=== PATIENT | female | born 2000 | race Caucasian/White ===

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

== ENCOUNTER 2019-02-03 22:42 | Emergency (ER) | payer BC, SELFPAY ==
[2019-02-03 22:42] VITALS: BP 147/94; PULSE 102; RESP 18; TEMP 37.3; O2SAT 98; BMI 36.6
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
[2019-02-03 23:09] LABS: Basophils % 0.5 % (0.1-2.0); Eosinophils # 0.1 K/mm3 (0.0-0.4); Eosinophils % 0.8 % (0.1-12.0); Hemoglobin 14.9 g/dL (12.2-16.2); Lymphocytes # 1.9 K/mm3 (0.7-4.5); Lymphocytes % 22.6 % (10-50); Mean Corpuscular HGB Conc 33.9 g/dL (31.8-35.4); Mean Corpuscular Hemoglobin 28.4 pg (27.0-31.2); Mean Corpuscular Volume 83.8 fl (81-99); Mean Platelet Volume 6.4 fl (7.4-10.4); Monocytes # 0.7 K/mm3 (0.1-1.0); Monocytes % 8.1 % (1.7-9.3); Neutrophils # 5.8 K/mm3 (1.8-7.8); Platelet Count 462 K/mm3 (142-424); Red Blood Count 5.25 M/mm3 (4.20-5.40); Red Cell Distribution Width 12.3 % (11.5-17.5); White Blood Count 8.5 K/mm3 (4.5-13.0)
[2019-02-03 23:21] LABS: Alanine Aminotransferase 46 U/L (12-78); Albumin Level 4.3 gm/dL (3.4-5.0); Albumin/Globulin Ratio 1.1 (1.1-1.8); Alkaline Phosphatase 121 U/L (46-116); Anion Gap 16.5 mEq/L (5-15); Aspartate Amino Transferase 23 U/L (15-37); Bilirubin,Total 0.7 mg/dL (0.2-1.0); Blood Urea Nitrogen 15 mg/dL (7-18); Calcium 9.2 mg/dL (8.5-10.1); Carbon Dioxide 24 mmol/L (21.0-32.0); Chloride 103 mmol/L (98-107); Creatinine Clearance Estimated 153 mL/min (50-200); Creatinine,Serum 0.93 mg/dL (0.55-1.02); Estimated Glomerular Filt Rate 78 ml/min (>60); GFR (African American) 94 ML/MIN (>60); Globulin 3.8 gm/dl (1.3-3.2); Glucose 94 mg/dL (74-106); Potassium 3.5 mmoL/L (3.5-5.1); Sodium 140 mmol/L (136-145); Total Protein,Serum 8.1 gm/dL (6.4-8.2); Troponin I < 0.02 ng/ml (0.00-0.06)
[2019-02-03 23:30] LABS: HCG Qualitative, Serum Negative (Negative)
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
[2019-02-04 01:28] VITALS: BP 118/78; PULSE 79; RESP 16; TEMP 36.7; O2SAT 100
== END 2019-02-04 01:32 | disposition home or self-care (01) ==
PROVIDERS: Emergency Provider Emergency Medicine; PCP Physician Assistant
DX: S00.93XA Contusion of unspecified part of head, initial encounter (principal); S16.1XXA Strain of muscle, fascia and tendon at neck level, initial encounter; S39.012A Strain of muscle, fascia and tendon of lower back, initial encounter; S80.01XA Contusion of right knee, initial encounter; V89.2XXA Person injured in unspecified motor-vehicle accident, traffic, initial encounter
CPT/HCPCS: 70450; 71045; 72125; 72131; 72170; 73562; 80053; 84484; 84703; 85025; 93005; 96365; 99283

== ENCOUNTER → 2019-02-26 15:46 | Outpatient (CLI) | payer BC, SELFPAY | PROVIDERS: Visit Provider Physician Assistant | DX: R10.9 Unspecified abdominal pain (principal) | CPT/HCPCS: 87210 ==

== ENCOUNTER → 2019-02-27 10:22 | Outpatient (CLI) | payer BC, SELFPAY ==
[2019-02-27 13:40] LABS: HCG,Quantitative 0 mIU/mL
== END ==
PROVIDERS: Obstetrics & Gynecology; Visit Provider Physician Assistant
DX: N39.0 Urinary tract infection, site not specified (principal); Z34.90 Encounter for supervision of normal pregnancy, unspecified, unspecified trimester
CPT/HCPCS: 84702; 87086

== ENCOUNTER → 2019-04-18 09:09 | Outpatient (CLI) | payer BC, SELFPAY ==
--- NOTE | 2019-04-18 09:11 | US_ITS ---
US transvaginal HISTORY: Amenorrhea ITS.REASON: US T/V- Irregular periods ORDERING PHYSICIAN: Ashleigh Martinez MD PATIENT AGE: 19 years Comparison: None FINDINGS: UTERUS: The uterus measures 6 x 3 x 5 cm. Combined endometrial thickness is 7 mm. There is a small nabothian cyst at 4 mm. No uterine mass. RIGHT OVARY: 3.6 x 1.9 cm with small follicles. Right ovarian volume is 9 mL LEFT OVARY: 2 cm, unremarkable CUL-DE-SAC FLUID: No cul-de-sac fluid apparent OTHER FINDINGS: There is bilateral brain blood flow IMPRESSION: Multiple small follicles involving the right ovary otherwise negative pelvic ultrasound
== END ==
PROVIDERS: PCP Physician Assistant; Visit Provider Obstetrics & Gynecology
DX: N92.6 Irregular menstruation, unspecified (principal)
CPT/HCPCS: 76830

== ENCOUNTER → 2019-06-04 18:22 | Outpatient (CLI) | payer BC, SELFPAY ==
[2019-06-04 19:40] LABS: Basophils # 0.1 K/mm3 (0-0.2); Basophils % 0.6 % (0.1-2.0); Eosinophils # 0.1 K/mm3 (0.0-0.4); Eosinophils % 1.6 % (0.1-12.0); Hematocrit 45.9 % (37.0-47.0); Hemoglobin 13.9 g/dL (12.2-16.2); Lymphocytes # 2.4 K/mm3 (0.7-4.5); Lymphocytes % 29.9 % (10-50); Mean Corpuscular HGB Conc 30.3 g/dL (31.8-35.4); Mean Corpuscular Hemoglobin 27.3 pg (27.0-31.2); Mean Platelet Volume 7.6 fl (7.4-10.4); Monocytes # 0.7 K/mm3 (0.1-1.0); Monocytes % 9.1 % (1.7-9.3); Neutrophils # 4.7 K/mm3 (1.8-7.8); Neutrophils % 58.8 % (37.0-80.0); Platelet Count 491 K/mm3 (142-424); Red Cell Distribution Width 13.4 % (11.5-17.5); White Blood Count 7.9 K/mm3 (4.5-13.0)
== END ==
PROVIDERS: Visit Provider Physician Assistant
DX: N93.9 Abnormal uterine and vaginal bleeding, unspecified (principal)
CPT/HCPCS: 85025

== ENCOUNTER → 2019-07-29 09:24 | Outpatient (CLI) | payer BC, SELFPAY ==
[2019-07-29 14:38] LABS: Basophils # 0.1 K/mm3 (0-0.2); Basophils % 0.5 % (0.1-2.0); Eosinophils # 0.2 K/mm3 (0.0-0.4); Eosinophils % 1.5 % (0.1-12.0); Hematocrit 45.7 % (37.0-47.0); Lymphocytes # 2.7 K/mm3 (0.7-4.5); Lymphocytes % 24.1 % (10-50); Mean Corpuscular HGB Conc 32.8 g/dL (31.8-35.4); Mean Corpuscular Hemoglobin 29.1 pg (27.0-31.2); Mean Corpuscular Volume 88.7 fl (81-99); Monocytes # 0.9 K/mm3 (0.1-1.0); Neutrophils # 7.3 K/mm3 (1.8-7.8); Neutrophils % 65.9 % (37.0-80.0); Platelet Count 458 K/mm3 (142-424); Red Blood Count 5.15 M/mm3 (4.20-5.40); Red Cell Distribution Width 12.8 % (11.5-17.5); White Blood Count 11.1 K/mm3 (4.5-13.0)
[2019-07-29 15:49] LABS: Alanine Aminotransferase 54 U/L (12-78); Albumin/Globulin Ratio 1.3 (1.1-1.8); Alkaline Phosphatase 120 U/L (46-116); Anion Gap 12.9 mEq/L (5-15); Aspartate Amino Transferase 28 U/L (15-37); Bilirubin,Total 0.3 mg/dL (0.2-1.0); Blood Urea Nitrogen 11 mg/dL (7-18); Calcium 9.3 mg/dL (8.5-10.1); Carbon Dioxide 26 mmol/L (21.0-32.0); Chloride 105 mmol/L (98-107); Cholesterol 174 mg/dL (140-200); Creatinine,Serum 0.81 mg/dL (0.55-1.02); Estimated Glomerular Filt Rate 90 ml/min (>60); GFR (African American) 109 ML/MIN (>60); Globulin 3.2 gm/dl (1.3-3.2); Glucose 80 mg/dL (74-106); HDL Cholesterol 35 mg/dL (29-89); LDL Cholesterol 92 mg/dL (0-130); Potassium 3.9 mmoL/L (3.5-5.1); Sodium 140 mmol/L (136-145); T4 (Thyroxine) 8.5 ug/dl (5.4-10.6); Thyroid Stimulating Hormone 2.91 uIU/ml (0.516-4.13); Total Protein,Serum 7.2 gm/dL (6.4-8.2); Triglycerides 234 mg/dL (30-200); VLDL Cholesterol 47 mg/dL (0-40)
[2019-07-31 11:22] LABS: Vitamin D 25 Hydroxy 12.6 ng/mL (30.0-100.0)
== END ==
PROVIDERS: PCP Physician Assistant; Visit Provider Physician Assistant
DX: I10 Essential (primary) hypertension (principal); R00.2 Palpitations; R55 Syncope and collapse
CPT/HCPCS: 80053; 80061; 82652; 84436; 84443; 85025; 93225; 93226

== ENCOUNTER → 2019-08-12 17:03 | Outpatient (CLI) | payer BC, SELFPAY | PROVIDERS: Visit Provider Physician Assistant | DX: N39.0 Urinary tract infection, site not specified (principal) | CPT/HCPCS: 87086; 87088; 87186 ==

== ENCOUNTER → 2019-08-20 07:49 | Outpatient (CLI) | payer BC, SELFPAY ==
--- NOTE | 2019-08-20 | CA_ITS ---
APPROVED REPORT Exam: Exercise Treadmill Technologist: Jasmina Herbert Ht: 5 ft 5 in Wt: 200 lbs BSA: 1.98 m2 HR: 93 bpm BP: 139/92 mmHg Indications: Syncope Medical History Medications: Lisinopril,,,,, Trazadone,,,,, control,,,,, Vitamin D,,,,, Hydroxyzine,,,,, DePression Medication,,,,, Stress Test Details Test: Steve HR Resting HR: 101 bpm Max Heart Rate (APMHR): 200 bpm Max HR Achieved: 169 bpm Target HR (85% APMHR): 170 bpm % of APMHR: 84 Recovery HR: 120 bpm BP Resting BP: 139/92 mmHg Max BP: 160/75 mmHg Recovery BP: 132.0/83.0 mmHg ECG Clinical Exercise duration: 07:14 min Highest Stage Achieved: Exercise capacity: 10.1 METs Stress ECG Conclusion Resting ECG: Normal sinus rhythm, early repolarization changes. Patient exercised 7:14 on Steve Protocol. Test stopped due to fatigue, shortness of air. Symptoms: No chest pain Arrhythmias/Ectopy: None ST-T Changes: Normal ST response to exercise. Conclusion: Normal GXT. Poor exercise tolerance for age. GXT only (no imaging). Test Summary RECOVERY 04:00 0.0 0.0 114 . 139/ 88 . . REST . . . . . . . Standing REST 22:13 0.0 0.0 101 . 139/ 92 . . Stage 1 01:00 10.0 1.7 122 . . . . Stage 1 02:00 10.0 1.7 136 . . . . Stage 1 03:00 10.0 1.7 136 . 150/ 70 . . Stage 2 01:00 12.0 2.5 149 . . . . Stage 2 02:00 12.0 2.5 150 . . . . Stage 2 03:00 12.0 2.5 157 . 160/ 75 . . Stage 3 01:00 14.0 3.4 168 . . . . Stage 3 01:14 14.0 3.4 169 . . . Stop exercise at 07:14 RECOVERY 01:00 0.0 0.0 154 . 154/ 80 . . RECOVERY 02:00 0.0 0.0 130 . 154/ 80 . . RECOVERY 03:00 0.0 0.0 115 . 139/ 88 . . RECOVERY 04:00 0.0 0.0 114 . 139/ 88 . . RECOVERY 05:00 0.0 0.0 115 . 132/ 83 . . RECOVERY 05:16 0.0 0.0 111 . 132/ 83 . . Electronically signed by : Brandon Casanova, 08/20/2019 12:04:46
--- NOTE | 2019-08-20 07:53 | CA_ITS ---
APPROVED REPORT EXAM: Comprehensive 2D, Doppler, and color-flow Echocardiogram Rubber Goods Inspector Tester: Birdie Mon RT(R) Ht: 5 ft 5 in Wt: 200lbs BSA: 1.98 BP: 128/80 mmHg Indications: CP, Palpitations, syncope, edema, HTN, SOB, LEE, obesity, family history of HD. 2D Dimensions Aortic Root 2.90 cm F: 2.7 - 3.3 Left Atrium 2.70 cm F: 2.7 - 3.8 LVOT 1.97 cm (M/F) 1.5-2.5 M-Mode Dimensions RVDd 2.56 cm (0.9-2.6) LVDd 4.64 cm (3.5-5.7) LVDs 3.46 cm (3.5-5.7) IVSd 0.64 cm (0.6-1.1) PWd 0.74 cm (0.6-1.1) EF (Teich) 50.20% FS 25.40% EDV (Teich) 99.30 mL ESV (Teich) 49.50 mL LV Diastology E/A Ratio 2.21 Mitral Valve MV A Velocity 36.00 (40-130 cm/s) Left Ventricle Left atrium is normal size, the ventricle is normal size, there is no concentric left ventricular hypertrophy, visually estimated ejection fraction 55% with no regional wall motion abnormality, diastolic parameters are within normal range. Right Ventricle Right atrium and right ventricular normal size and contractility. Aortic Valve Aortic valve is grossly normal, there is no aortic stenosis or aortic insufficiency. Mitral Valve Mitral valve is normal, there is no mitral stenosis, there is trace mitral regurgitation. Tricuspid Valve Tricuspid valve is grossly normal, there is trace tricuspid regurgitation. Tricuspid regurgitation jet versus inadequate for calculation of the right ventricular systolic pressure. Pulmonic Valve Pulmonic valve is poorly visualized. Great Vessels Aortic root is normal size. Pericardium No significant pericardial effusion noted. Conclusion 1. Normal left ventricular size, preserved left ventricular systolic function, visually estimated ejection fraction 55% with no regional wall motion abnormality, diastolic parameters are within normal range. 2. Trace mitral and tricuspid regurgitation. 3. No significant pericardial effusion noted. Electronically signed by : Néstor Gomez, 08/21/2019 10:37:43
== END ==
PROVIDERS: PCP Emergency Medicine; Visit Provider Physician Assistant
DX: R55 Syncope and collapse (principal); R00.2 Palpitations; I10 Essential (primary) hypertension
CPT/HCPCS: 93017; 93306

== ENCOUNTER → 2019-09-01 10:48 | Outpatient (CLI) | payer BC, SELFPAY | PROVIDERS: PCP Emergency Medicine; Visit Provider Physician Assistant | DX: R55 Syncope and collapse (principal) | CPT/HCPCS: 93225; 93226 ==

== ENCOUNTER → 2020-03-08 14:11 | Outpatient (CLI) | payer BC, SELFPAY ==
[2020-03-10 13:29] LABS: Covid-19 Nasal PCR Sendout Lex Not Detected
== END ==
PROVIDERS: PCP Physician Assistant; Visit Provider Physician Assistant
DX: Z03.818 Encounter for observation for suspected exposure to other biological agents ruled out (principal)
CPT/HCPCS: U0004

== ENCOUNTER → 2020-07-06 17:09 | Outpatient (CLI) | payer BC, SELFPAY ==
[2020-07-06 18:42] LABS: Basophils # 0.1 K/mm3 (0-0.2); Basophils % 0.6 % (0.1-2.0); Eosinophils # 0.2 K/mm3 (0.0-0.4); Eosinophils % 2.2 % (0.1-12.0); Hematocrit 46.6 % (37.0-47.0); Hemoglobin 15.6 g/dL (12.2-16.2); Lymphocytes # 2.6 K/mm3 (0.7-4.5); Lymphocytes % 30.8 % (10-50); Mean Corpuscular HGB Conc 33.4 g/dL (31.8-35.4); Mean Corpuscular Hemoglobin 28.7 pg (27.0-31.2); Mean Corpuscular Volume 85.9 fl (81-99); Mean Platelet Volume 8.1 fl (7.4-10.4); Monocytes # 0.6 K/mm3 (0.1-1.0); Monocytes % 6.7 % (1.7-9.3); Neutrophils % 59.8 % (37.0-80.0); Platelet Count 463 K/mm3 (142-424); Red Blood Count 5.43 M/mm3 (4.20-5.40); Red Cell Distribution Width 12.9 % (11.5-17.5); White Blood Count 8.4 K/mm3 (4.8-10.8)
[2020-07-06 19:12] LABS: Alanine Aminotransferase 62 U/L (12-78); Albumin Level 4.4 g/dl (3.5-5.0); Albumin/Globulin Ratio 1.5 (1.1-1.8); Alkaline Phosphatase 115 U/L (38-126); Anion Gap 15.6 mEq/L (5-15); Aspartate Amino Transferase 51 U/L (14-36); Bilirubin,Total 0.4 mg/dl (0.2-1.3); Blood Urea Nitrogen 9 mg/dl (7-17); Calcium 9.8 mg/dl (8.4-10.2); Carbon Dioxide 24 mmol/L (22.0-30.0); Chloride 105 mmol/L (98-107); Chol/HDL Ratio 5.3 (1-3.5); Cholesterol 197 mg/dl (140-200); Estimated Glomerular Filt Rate 126 ml/min (>60); GFR (African American) 153 ML/MIN (>60); Glucose 84 mg/dl (74-100); HDL Cholesterol 37 mg/dl (40-60); Potassium 4.6 mmoL/L (3.5-5.1); Sodium 140 mmol/L (136-145); Total Protein,Serum 7.4 g/dl (6.3-8.2); Triglycerides 222 mg/dl (30-150); VLDL Cholesterol 44 mg/dL (0-40)
[2020-07-06 19:28] LABS: Direct LDL Cholesterol 116.02 mg/dL (100-129)
[2020-07-06 19:50] LABS: 25-OH Vitamin D, Total 20.4 ng/mL (30-100)
[2020-07-06 20:04] LABS: Thyroid Stimulating Hormone 1.28 uIU/mL (0.465-4.68)
== END ==
PROVIDERS: Visit Provider Physician Assistant
DX: E16.2 Hypoglycemia, unspecified (principal); E55.9 Vitamin D deficiency, unspecified
CPT/HCPCS: 80053; 80061; 82306; 84443; 85025

== ENCOUNTER → 2020-08-09 10:01 | Outpatient (CLI) | payer BC, SELFPAY ==
[2020-08-10 14:52] LABS: Covid-19 Nasal PCR Sendout Lex Not Detected
== END ==
PROVIDERS: PCP Physician Assistant; Visit Provider Physician Assistant
DX: Z03.818 Encounter for observation for suspected exposure to other biological agents ruled out (principal)
CPT/HCPCS: U0004

== ENCOUNTER → 2020-08-11 13:39 | Outpatient (CLI) | payer BC, SELFPAY ==
[2020-08-13 13:35] LABS: Covid-19 Nasal PCR Sendout Lex NOT DETECTED
== END ==
PROVIDERS: PCP Physician Assistant; Visit Provider Physician Assistant
DX: Z03.818 Encounter for observation for suspected exposure to other biological agents ruled out (principal)
CPT/HCPCS: U0004

== ENCOUNTER 2020-08-11 19:15 | Emergency (ER) | payer BC, SELFPAY ==
[2020-08-11 19:16] VITALS: BP 143/89; RESP 21; TEMP 36.7; O2SAT 98; BMI 36.1
--- NOTE | 2020-08-11 19:43 | XR_ITS ---
PROCEDURE: XR CHEST PORTABLE CLINICAL HISTORY: soa Shortness of air COMPARISON: CR Chest from 02/04/2019 CR XR CHEST 2V from 07/06/2019 CR XR CHEST 2V from 12/15/2019 FINDINGS: The cardiomediastinal silhouette and pulmonary vascularity are within normal limits. The lungs are clear without infiltrates, suspicious nodules, or pleural effusions. No acute bony abnormalities. IMPRESSION: No acute findings. Dictated by: Calixto Keith MD 08/12/2020 05:27 Calixto Keith MD in [place] 08/12/2020 05:27
--- NOTE | 2020-08-11 19:44 | HMH.EDGENADL ---
ED Disposition Condition on Discharge: Good - Critical Care Critical Care Time: No <Lyndon Khalil - Last Filed: 08/11/20 19:59> <Zurdo Miller - Last Filed: 08/11/20 22:23> Clinical Impression: Flu-like symptoms, Bronchitis Disposition: Home, Self-Care Instructions: DI for Acute Bronchitis Additional Instructions: fluids and see pcp for follow up Referrals: Mónica Guzman PA [Primary Care Provider] - Attestation: On 08/11/20, the high probability of a clinically significant, sudden or life threatening deterioration of the following system(s) required my full and direct attention, intervention and personal management. The time I documented below is in addition to time spent performing reported procedures but includes the following listed in this critical care notation. Medical Decision Making - Medical Records Medical records reviewed: Yes: I reviewed the patient's medical records. - Fredy Inquiry Pt receiving controlled substance: No <Lydnon Khalil - Last Filed: 08/11/20 19:59> - Lab Data Lab results reviewed: Yes: I reviewed the patient's lab results. Result diagrams: 08/11/20 19:50 08/11/20 19:50 - Radiology Data #1 Image(s): Chest Image Reviewed: Yes I reviewed the patient's radiology image Preliminary Findings: Normal/NAD - CT Data CT Scan: Chest Time Received: 22:[address] Reviewed: Yes: I have viewed the radiologist's interpretation Preliminary Findings: Normal/NAD <Zurdo Miller - Last Filed: 08/11/20 22:23> Vital Signs: 08/11/20 19:16 08/11/20 20:03 08/11/20 20:30 Temperature 98.0 F Temperature Source Oral Pulse Rate [Left Radial] 108 H 106 H Respiratory Rate 21 20 Blood Pressure [Right Arm] 143/89 H 130/98 H 127/90 Blood Pressure Mean [Right Arm] 107 108 102 Blood Pressure Source [Right Arm] Automatic Cuff Automatic Cuff Automatic Cuff Blood Pressure Position [Right Arm] Sitting Sitting Supine 02 Sat by Pulse Oximetry 98 97 98 Oxygen Delivery Method Room Air Room Air Room Air 08/11/20 21:30 Temperature Temperature Source Pulse Rate [Left Radial] 95 H Respiratory Rate 16 Blood Pressure [Right Arm] 117/85 Blood Pressure Mean [Right Arm] 95 Blood Pressure Source [Right Arm] Automatic Cuff Blood Pressure Position [Right Arm] Supine 02 Sat by Pulse Oximetry 96 Oxygen Delivery Method Room Air - Lab Data Lab Results 08/11/20 19:33: Urine Color Yellow, Urine Appearance Clear, Urine pH 7.5, Ur Specific [employer] 1.020, Urine Protein Negative, Urine Glucose (UA) Negative, Urine Ketones Negative, Urine Blood Negative, Urine Nitrate Negative, Urine Bilirubin Negative, Urine Urobilinogen 0.2, Ur Leukocyte Esterase Negative, Urine RBC None, Urine WBC None, Ur Squamous Epith Cells 20-50, Amorphous Sediment 3+ 08/11/20 19:33: Urine HCG, Qual Negative 08/11/20 19:50: WBC 10.0, RBC 5.47 H, Hgb 15.8, Hct 47.5 H, MCV 86.9, MCH 28.9, MCHC 33.2, RDW 13.0, Plt Count 489 H, MPV 7.2 L, Neut % (Auto) 63.4, Lymph % (Auto) 26.9, [place] % (Auto) 7.3, Eos % (Auto) 1.9, Baso % (Auto) 0.5, Neut # (Auto) 6.4, Lymph # (Auto) 2.7, [place] # (Auto) 0.7, Eos # (Auto) 0.2, Baso # (Auto) 0.1 08/11/20 19:50: Sodium 140, Potassium 4.2, Chloride 106, Carbon Dioxide 25, Anion Gap 13.2, BUN 9, Creatinine 0.80, Estimated Creat Clear 173, Estimated GFR 91, Est GFR ( Amer) 110, Glucose 99, Calcium 9.7, Magnesium 2.2, Total Bilirubin 0.4, AST 54 H, ALT 78, Alkaline Phosphatase 95, Total Protein 7.9, Albumin 4.8, Globulin 3.1, Albumin/Globulin Ratio 1.5, Lipase 84 08/11/20 19:50: Serum HCG, Qual Negative 08/11/20 19:50: Group A Strep Rapid Negative Orders (Tests/Meds): ED MEDICATIONS Generic Name Dose Route Start Last Admin Trade Name Freq PRN Reason Stop Dose Admin Sodium Chloride 1,000 mls @ 999 mls/hr 08/11/20 19:45 08/11/20 19:47 Sod Chlor 0.9% 1000ml Bag IV 08/11/20 20:45 999 mls/hr .[id number] JENNIFER Administration Discontinued Medications Generic Name Dose Route
[2020-08-11 20:02] LABS: Microscopic, Urine URINE MICROSCOPIC (MICROSCOPIC)
[2020-08-11 20:03] VITALS: BP 130/98; PULSE 108; RESP 20; O2SAT 97
[2020-08-11 20:03] LABS: Appearance,Urine CLEAR (Clear); Bilirubin,Urine Negative (Negative); Blood, Urine Negative (Negative); Color,Urine YELLOW (Yellow); Glucose,Urine (UA) Negative (Negative); Ketones,Urine Negative (Negative); Leukocyte Esterase,Urine Negative (Negative); Nitrate,Urine Negative (Negative); PH,Urine 7.5 (5.0-8.5); Protein,Urine Negative (Negative); Urobilinogen,Urine 0.2 EU/dl (0.2)
[2020-08-11 20:04] LABS: Urine Pregnancy, HCG Qual. Negative (Negative)
[2020-08-11 20:10] LABS: Basophils # 0.1 K/mm3 (0-0.2); Basophils % 0.5 % (0.1-2.0); Eosinophils # 0.2 K/mm3 (0.0-0.4); Eosinophils % 1.9 % (0.1-12.0); Hematocrit 47.5 % (37.0-47.0); Hemoglobin 15.8 g/dL (12.2-16.2); Lymphocytes # 2.7 K/mm3 (0.7-4.5); Lymphocytes % 26.9 % (10-50); Mean Corpuscular HGB Conc 33.2 g/dL (31.8-35.4); Mean Corpuscular Hemoglobin 28.9 pg (27.0-31.2); Mean Corpuscular Volume 86.9 fl (81-99); Mean Platelet Volume 7.2 fl (7.4-10.4); Monocytes # 0.7 K/mm3 (0.1-1.0); Monocytes % 7.3 % (1.7-9.3); Neutrophils # 6.4 K/mm3 (1.8-7.8); Neutrophils % 63.4 % (37.0-80.0); Platelet Count 489 K/mm3 (142-424); Red Blood Count 5.47 M/mm3 (4.20-5.40)
[2020-08-11 20:15] LABS: Chloride 106 mmol/L (98-107); Potassium 4.2 mmoL/L (3.5-5.1); Sodium 140 mmol/L (136-145)
[2020-08-11 20:17] LABS: Alanine Aminotransferase 78 U/L (12-78); Alkaline Phosphatase 95 U/L (38-126); Anion Gap 13.2 mEq/L (5-15); Aspartate Amino Transferase 54 U/L (14-36); Bilirubin,Total 0.4 mg/dl (0.2-1.3); Blood Urea Nitrogen 9 mg/dl (7-17); Carbon Dioxide 25 mmol/L (22.0-30.0); Creatinine Clearance Estimated 173 mL/min (50-200); Estimated Glomerular Filt Rate 91 ml/min (>60); GFR (African American) 110 ML/MIN (>60); Lipase 84 U/L (23-300)
[2020-08-11 20:18] LABS: Albumin Level 4.8 g/dl (3.5-5.0); Albumin/Globulin Ratio 1.5 (1.1-1.8); Calcium 9.7 mg/dl (8.4-10.2); Globulin 3.1 g/dL (1.3-3.2); Glucose 99 mg/dl (74-100); Magnesium 2.2 mg/dl (1.6-2.3); Total Protein,Serum 7.9 g/dl (6.3-8.2)
[2020-08-11 20:19] LABS: Strep Scrn Group A (Rapid) Negative (Negative)
[2020-08-11 20:22] LABS: Amorphous Sediment,Urine 3+ /lpf; Squamous Epithelial Cell,Urine 20-50 #/hpf (0-5)
[2020-08-11 20:25] LABS: HCG Qualitative, Serum Negative (Negative)
--- NOTE | 2020-08-11 20:28 | CT_ITS ---
PROCEDURE: CT ANGIO CHEST CLINCIAL INDICATION: PE rule out Cough congestion and fever COMPARISON: No exams were available for comparison TECHNIQUE: IV Contrast: 70ML Isovue 370 Axial images obtained with sagittal and coronal reformats. All CT scans at the facility use one or more dose reduction, viz: automated exposure control, ma/kV adjustment per patient size (including targeted exams where dose is matched to indication, i.e. head), or iterative reconstruction technique. FINDINGS: HEART AND MEDIASTINAL STRUCTURES: No evidence of pulmonary embolus aortic aneurysm or dissection. No mediastinal or hilar mass. LUNGS AND PLEURAL SPACES: A small parenchymal opacity in the middle lobe medially and may be due to small area of atelectasis or fibrotic change. BONY STRUCTURES: No acute bony abnormalities apparent. UPPER ABDOMEN: Fatty liver ADDITIONAL FINDINGS: No other significant abnormalities. IMPRESSION: No acute finding Dictated by: Calixto Keith MD 08/12/2020 12:13 Calixto Keith MD in [place] 08/12/2020 12:13
[2020-08-11 20:30] VITALS: BP 127/90; PULSE 106; O2SAT 98
[2020-08-11 21:30] VITALS: BP 117/85; PULSE 95; RESP 16; O2SAT 96
[2020-08-11 22:30] VITALS: BP 112/74; PULSE 73; RESP 18; TEMP 36.7; O2SAT 98
== END 2020-08-11 22:32 | disposition home or self-care (01) ==
PROVIDERS: Emergency Provider Emergency Medicine; PCP Physician Assistant
DX: J20.9 Acute bronchitis, unspecified (principal); F41.8 Other specified anxiety disorders; E11.9 Type 2 diabetes mellitus without complications; I10 Essential (primary) hypertension; G43.709 Chronic migraine without aura, not intractable, without status migrainosus; Z79.899 Other long term (current) drug therapy
CPT/HCPCS: 71045; 71275; 80053; 81001; 81025; 83690; 83735; 84703; 85025; 87430; 96365; 96375; 99283; J2405; Q9967

== ENCOUNTER 2020-08-12 15:15 | Emergency (ER) | payer BC, SELFPAY ==
[2020-08-12 15:17] VITALS: BP 146/100; PULSE 92; RESP 16; TEMP 36.8; O2SAT 98; BMI 36.1
--- NOTE | 2020-08-12 16:40 | HMH.EDGENADL ---
ED Disposition Clinical Impression: Chest wall pain Upper respiratory infection Qualifiers: URI type: unspecified URI Qualified Code(s): J06.9 - Acute upper respiratory infection, unspecified Disposition: Home, Self-Care Condition on Discharge: Good Additional Instructions: Continue current medications. Use inhaler 2 puffs every 6 hours as needed. You may take Tylenol or ibuprofen for pain. Follow-up with primary care provider, call tomorrow. Return for worsening symptoms. Continue to quarantine until you know your COVID-19 test results. Call your primary care provider tomorrow to obtain results. Referrals: óMnica Guzman PA [Primary Care Provider] - - Critical Care Critical Care Time: No Attestation: On 08/12/20, the high probability of a clinically significant, sudden or life threatening deterioration of the following system(s) required my full and direct attention, intervention and personal management. The time I documented below is in addition to time spent performing reported procedures but includes the following listed in this critical care notation. Medical Decision Making - Medical Records Medical records reviewed: Yes: I reviewed the patient's medical records. MR Comment: Reviewed office visit and ER visit from yesterday. Cardiac work-up has not been performed, so I will proceed with that to complete her work-up. - Fredy Inquiry Pt receiving controlled substance: No Vital Signs: 08/12/20 15:17 08/12/20 17:06 Temperature 98.2 F Temperature Source Oral Pulse Rate [Left Radial] 92 H 92 H Respiratory Rate 16 Blood Pressure [Right Arm] 146/100 H 156/110 H Blood Pressure Mean [Right Arm] 115 125 Blood Pressure Source [Right Arm] Automatic Cuff Automatic Cuff Blood Pressure Position [Right Arm] Sitting Sitting 02 Sat by Pulse Oximetry 98 98 Oxygen Delivery Method Room Air Room Air - Lab Data Lab Results 08/12/20 17:00: Troponin I < 0.01 08/12/20 17:00: WBC 8.9, RBC 5.31, Hgb 15.3, Hct 46.2, MCV 87.1, MCH 28.8, MCHC 33.0, RDW 13.0, Plt Count 472 H, MPV 7.4, Neut % (Auto) 63.3, Lymph % (Auto) 26.7, [place] % (Auto) 6.8, Eos % (Auto) 2.6, Baso % (Auto) 0.7, Neut # (Auto) 5.7, Lymph # (Auto) 2.4, [place] # (Auto) 0.6, Eos # (Auto) 0.2, Baso # (Auto) 0.1 08/12/20 17:00: Sodium 138, Potassium 4.4, Chloride 103, Carbon Dioxide 28, Anion Gap 11.4, BUN 10, Creatinine 0.80, Estimated Creat Clear 173, Estimated GFR 91, Est GFR ( Amer) 110, Glucose 90, Calcium 9.9 Result diagrams: 08/12/20 17:00 08/12/20 17:00 Orders (Tests/Meds): ED MEDICATIONS Generic Name Dose Route Start Last Admin Trade Name Freq PRN Reason Stop Dose Admin Albuterol Sulfate 2 puffs 08/12/20 17:42 Albuterol-Hfa 90mcg/Puff Inhaler 8gm IH 09/11/20 17:41 Q6HP PRN Shortness Of Breath Discontinued Medications Generic Name Dose Route Start Last Admin Trade Name Freq PRN Reason Stop Dose Admin Miscellaneous 1 unit 08/12/20 17:42 Aerochamber/Optihaler MC 08/12/20 17:43 ONCE ONE - Radiology Data #1 Image(s): Chest Image Reviewed: Yes I have reviewed radiologist's interpretation PROCEDURE: XR CHEST 2V CLINICAL HISTORY: cp, soa Chest pain and shortness of breath COMPARISON: No exams were available for comparison FINDINGS: The cardiomediastinal silhouette and pulmonary vascularity are within normal limits. The lungs are clear without infiltrates, suspicious nodules, or pleural effusions. No acute bony abnormalities. IMPRESSION: No acute findings. Dictated by: Calixto Keith MD 08/12/2020 17:21 Calixto Keith MD in [place] 08/12/2020 17:21 - ECG Data Tracing #1 EKG interpreted by Grey Ledbetter MD: Rhythm: sinus Rate: 82 [place]: normal Ectopy: none Conduction: normal ST Segment Changes: none T Wave Changes: none Q Waves: none Poor R wave progression No evidence of acute ischemia or injury Medical Decision Narrative: CT ang
--- NOTE | 2020-08-12 16:50 | XR_ITS ---
PROCEDURE: XR CHEST 2V CLINICAL HISTORY: cp, soa Chest pain and shortness of breath COMPARISON: No exams were available for comparison FINDINGS: The cardiomediastinal silhouette and pulmonary vascularity are within normal limits. The lungs are clear without infiltrates, suspicious nodules, or pleural effusions. No acute bony abnormalities. IMPRESSION: No acute findings. Dictated by: Calixto Keith MD 08/12/2020 17:21 Calixto Keith MD in [place] 08/12/2020 17:21
[2020-08-12 17:06] VITALS: BP 156/110; PULSE 92; O2SAT 98
[2020-08-12 17:14] LABS: Basophils # 0.1 K/mm3 (0-0.2); Basophils % 0.7 % (0.1-2.0); Eosinophils # 0.2 K/mm3 (0.0-0.4); Eosinophils % 2.6 % (0.1-12.0); Hematocrit 46.2 % (37.0-47.0); Hemoglobin 15.3 g/dL (12.2-16.2); Lymphocytes # 2.4 K/mm3 (0.7-4.5); Lymphocytes % 26.7 % (10-50); Mean Corpuscular Hemoglobin 28.8 pg (27.0-31.2); Mean Corpuscular Volume 87.1 fl (81-99); Mean Platelet Volume 7.4 fl (7.4-10.4); Monocytes # 0.6 K/mm3 (0.1-1.0); Monocytes % 6.8 % (1.7-9.3); Neutrophils # 5.7 K/mm3 (1.8-7.8); Neutrophils % 63.3 % (37.0-80.0); Platelet Count 472 K/mm3 (142-424); Red Blood Count 5.31 M/mm3 (4.20-5.40); White Blood Count 8.9 K/mm3 (4.8-10.8)
[2020-08-12 17:16] LABS: Chloride 103 mmol/L (98-107)
[2020-08-12 17:17] LABS: Potassium 4.4 mmoL/L (3.5-5.1); Sodium 138 mmol/L (136-145)
[2020-08-12 17:19] LABS: Blood Urea Nitrogen 10 mg/dl (7-17); Creatinine Clearance Estimated 173 mL/min (50-200); Estimated Glomerular Filt Rate 91 ml/min (>60); GFR (African American) 110 ML/MIN (>60)
[2020-08-12 17:20] LABS: Anion Gap 11.4 mEq/L (5-15); Calcium 9.9 mg/dl (8.4-10.2); Carbon Dioxide 28 mmol/L (22.0-30.0); Glucose 90 mg/dl (74-100)
--- NOTE | 2020-08-12 17:30 | ECG_ITS ---
APPROVED REPORT Exam: Resting ECG HR:82 bpm ECG Measurements Heart Rate 82 AXES MN 130 P 40 QRSd 88 QRS 26 QT 382 T 26 QTc 446 Conclusion Normal sinus rhythm with sinus arrhythmia Left atrial abnormality Poor R wave progression, unchanged from prior Abnormal ECG Electronically signed by : Brandon Casanova, 08/13/2020 10:17:20
[2020-08-12 17:35] LABS: Troponin I < 0.01 ng/ml (0.00-0.034)
[2020-08-12 18:40] VITALS: BP 134/74; PULSE 87; RESP 16; TEMP 36.6; O2SAT 98
== END 2020-08-12 18:41 | disposition home or self-care (01) ==
PROVIDERS: Emergency Provider Emergency Medicine; PCP Physician Assistant
DX: J06.9 Acute upper respiratory infection, unspecified (principal); R07.89 Other chest pain; E11.9 Type 2 diabetes mellitus without complications; F41.8 Other specified anxiety disorders; I10 Essential (primary) hypertension; Z79.899 Other long term (current) drug therapy
CPT/HCPCS: 71046; 80048; 84484; 85025; 93005; 99283

== ENCOUNTER → 2020-10-04 13:37 | Outpatient (CLI) | payer BC, SELFPAY ==
[2020-10-04 15:11] LABS: Basophils % 0.6 % (0.1-2.0); Eosinophils # 0.1 K/mm3 (0.0-0.4); Eosinophils % 1.6 % (0.1-12.0); Hematocrit 45.2 % (37.0-47.0); Lymphocytes % 28.7 % (10-50); Mean Corpuscular HGB Conc 33.3 g/dL (31.8-35.4); Mean Corpuscular Hemoglobin 28.9 pg (27.0-31.2); Mean Platelet Volume 8.3 fl (7.4-10.4); Monocytes # 0.5 K/mm3 (0.1-1.0); Monocytes % 6.8 % (1.7-9.3); Neutrophils # 4.4 K/mm3 (1.8-7.8); Neutrophils % 62.3 % (37.0-80.0); Platelet Count 452 K/mm3 (142-424); White Blood Count 7.1 K/mm3 (4.8-10.8)
[2020-10-04 15:55] LABS: Alanine Aminotransferase 61 U/L (12-78); Albumin Level 4.7 g/dl (3.5-5.0); Albumin/Globulin Ratio 1.6 (1.1-1.8); Alkaline Phosphatase 103 U/L (38-126); Anion Gap 14.7 mEq/L (5-15); Aspartate Amino Transferase 47 U/L (14-36); Bilirubin,Total 0.6 mg/dl (0.2-1.3); Blood Urea Nitrogen 14 mg/dl (7-17); Calcium 9.9 mg/dl (8.4-10.2); Carbon Dioxide 26 mmol/L (22.0-30.0); Chloride 103 mmol/L (98-107); Cholesterol 212 mg/dl (140-200); Estimated Glomerular Filt Rate 106 ml/min (>60); GFR (African American) 128 ML/MIN (>60); Glucose 91 mg/dl (74-100); HDL Cholesterol 42 mg/dl (40-60); Potassium 4.7 mmoL/L (3.5-5.1); Sodium 139 mmol/L (136-145); Total Protein,Serum 7.7 g/dl (6.3-8.2); Triglycerides 235 mg/dl (30-150); VLDL Cholesterol 47 mg/dL (0-40)
[2020-10-04 16:07] LABS: C-Reactive Protein 5.6 mg/L (0-4); Direct LDL Cholesterol 122.34 mg/dL (100-129)
[2020-10-04 16:13] LABS: T4 (Thyroxine) 8.8 ug/dl (5.53-11.0)
[2020-10-04 16:14] LABS: 25-OH Vitamin D, Total < 12.8 ng/mL (30-100)
[2020-10-04 16:27] LABS: Thyroid Stimulating Hormone 1.46 uIU/mL (0.465-4.68)
[2020-10-04 16:30] LABS: Erythrocyte Sedimentation Rate 9 mm/hr (0-20)
[2020-10-04 16:45] LABS: Vitamin B12 330 pg/mL (239-931)
[2020-10-06 14:53] LABS: Anti-Centromere B Antibodies <0.2 AI (0.0-0.9); Anti-Jo-1 <0.2 AI (0.0-0.9); Anti-Smith Antibody <0.2 AI (0.0-0.9); Antichromatin Antibodies <0.2 AI (0.0-0.9); Antiscleroderma-70 Antibodies <0.2 AI (0.0-0.9); RNP Antibodies <0.2 AI (0.0-0.9); Sjogren's Anti-SS-A <0.2 AI (0.0-0.9); Sjogren's Anti-SS-B <0.2 AI (0.0-0.9)
[2020-10-06 15:42] LABS: Anti-DNA (DS) Ab Qn 1 IU/mL (0-9); RA Latex Turbid. <10.0 IU/mL (0.0-13.9)
[2020-10-07 08:48] LABS: Anti-Cyclic Citrullinated Pept 5 units (0-19)
== END ==
PROVIDERS: Visit Provider Physician Assistant
DX: R63.5 Abnormal weight gain (principal); E55.9 Vitamin D deficiency, unspecified; I10 Essential (primary) hypertension; E11.9 Type 2 diabetes mellitus without complications; R79.82 Elevated C-reactive protein (CRP); M79.605 Pain in left leg; M79.604 Pain in right leg
CPT/HCPCS: 80053; 80061; 82306; 82607; 84436; 84443; 85025; 85651; 86140; 86200; 86225; 86235; 86431

== ENCOUNTER → 2020-10-15 09:54 | Outpatient (CLI) | payer BC, SELFPAY | PROVIDERS: PCP Physician Assistant; Visit Provider Physician Assistant | DX: G47.30 Sleep apnea, unspecified (principal); G43.909 Migraine, unspecified, not intractable, without status migrainosus; R53.83 Other fatigue; G47.00 Insomnia, unspecified | CPT/HCPCS: G0399 ==

== ENCOUNTER → 2020-10-18 13:31 | Outpatient (CLI) | payer BC, SELFPAY ==
--- NOTE | 2020-10-18 13:34 | CA_ITS ---
APPROVED REPORT EXAM: Comprehensive 2D, Doppler, and color-flow Echocardiogram Battery Parts Assembler: Birdie Mon RT(R) Ht: 5 ft 5 in Wt: 220lbs BSA: 2.06 BP: 116/70 mmHg Indications: edema, HTN, DM 2D Dimensions LVOT 1.94 cm (M/F) 1.5-2.5 LVEF (Garcia's) 63.30 % F: 54 - 74 LV Volume 70.60 mL F: 46 - 106 LV Volume Index 34.27 mL/m2 F: 29 - 61 LA Volume 20.70 mL LA Volume Index 10.04 mL/m2 (M/F) 16-34 M-Mode Dimensions RVDd 2.22 cm (0.9-2.6) LA Diam 3.26 cm (1.9-4.0) LVDd 4.61 cm (3.5-5.7) Ao Diam 2.15 cm (2.0-3.7) LVDs 3.26 cm (3.5-5.7) IVSd 0.98 cm (0.6-1.1) PWd 0.91 cm (0.6-1.1) EF (Teich) 56.20% FS 29.30% EDV (Teich) 97.80 mL ESV (Teich) 42.80 mL LV Diastology E Decel Time 210.00 (160-240 msec) E/A Ratio 1.2 MED E' 9.50 (< 7 cm/sec) E'/MED E' Ratio 7.49 (>14) LAT E' 12.10 (<10 cm/sec) E/LAT E' Ratio 5.88 (>14) Mitral Valve MV E Max Robert. 71.00 (40-130 cm/s) MV A Velocity 61.00 (40-130 cm/s) E/A Ratio 1.16 MV Decel. Time 210.00 (160-240 ms) MV PHT 62.00 ms Left Ventricle Left atrium is normal size, left ventricle is normal size, there is no concentric left ventricular hypertrophy, visually estimated ejection fraction 55% with no regional wall motion abnormality, diastolic parameters are within normal range. Right Ventricle Right atrium and right ventricle are normal size and contractility. Aortic Valve Aortic valve is grossly normal, there is no aortic stenosis or aortic insufficiency. Mitral Valve Mitral valve is grossly normal, there is trace mitral regurgitation. Tricuspid Valve Tricuspid valve grossly normal, there is trace tricuspid regurgitation, tricuspid regurgitation jet velocity is inadequate for calculation of the right ventricular systolic pressure. Pulmonic Valve Pulmonic valve is poorly visualized. Great Vessels Aortic root is normal size. Pericardium No significant pericardial effusion noted. Conclusion 1. Normal left ventricular size, preserved left ventricular systolic function, visually estimated ejection fraction 55% with no regional wall motion abnormality, diastolic parameters are within normal range. 2. Trace mitral and tricuspid regurgitation. 3. No significant pericardial effusion noted. Electronically signed by : Néstor Gomez, 10/18/2020 20:39:11
--- NOTE | 2020-10-18 13:38 | US_ITS ---
APPROVED REPORT Exam Type: Ankle to Brachial Index Retail Support Specialist: Birdie Mon RT(R) Indications Claudication: Bilaterally Rest Pain: Bilaterally edema, patient stands on concrete for 8+ hours a day. Risk Factors Hypertension Pressures/Indices Right Indices Left Indices Brachial 127.00 mmHg Brachial 124.00 mmHg Low Thigh 136.00 mmHg 1.07 Low Thigh 125.00 mmHg 0.98 Calf 129.00 mmHg 1.02 Calf 133.00 mmHg 1.05 Ankle(PT) 156.00 mmHg 1.23 Ankle(PT) 147.00 mmHg 1.16 Ankle(DP) 139.00 mmHg 1.09 Ankle(DP) 147.00 mmHg 1.16 Digit 97.00 mmHg 0.76 Digit 123.00 mmHg 0.97 Findings RT SAHARA=1.23 LT SAHARA=1.16 RT TBI=0.76 LT TBI=0.97 Normal pulses Normal waveforms Conclusion RT SAHARA=1.23 LT SAHARA=1.16 RT TBI=0.76 LT TBI=0.97 Normal pulses Normal waveforms Normal appearing resting noninvasive lower extremity arterial study. Electronically signed by : Calixto Keith MD 10/18/2020 16:06:37
== END ==
PROVIDERS: PCP Physician Assistant; Visit Provider Physician Assistant
DX: R60.9 Edema, unspecified (principal); R06.02 Shortness of breath; M79.662 Pain in left lower leg
CPT/HCPCS: 93306; 93923

== ENCOUNTER → 2021-01-05 11:46 | Outpatient (CLI) | payer BC, SELFPAY ==
[2021-01-05 12:15] LABS: Basophils % 0.6 % (0.1-2.0); Eosinophils # 0.1 K/mm3 (0.0-0.4); Eosinophils % 1.3 % (0.1-12.0); Hematocrit 42.8 % (37.0-47.0); Hemoglobin 14.3 g/dL (12.2-16.2); Lymphocytes # 2.3 K/mm3 (0.7-4.5); Lymphocytes % 29.9 % (10-50); Mean Corpuscular HGB Conc 33.4 g/dL (31.8-35.4); Mean Corpuscular Hemoglobin 28.7 pg (27.0-31.2); Mean Corpuscular Volume 86.1 fl (81-99); Mean Platelet Volume 7.2 fl (7.4-10.4); Monocytes # 0.4 K/mm3 (0.1-1.0); Monocytes % 4.7 % (1.7-9.3); Neutrophils % 63.6 % (37.0-80.0); Platelet Count 438 K/mm3 (142-424); Red Blood Count 4.97 M/mm3 (4.20-5.40); Red Cell Distribution Width 12.9 % (11.5-17.5); White Blood Count 7.9 K/mm3 (4.8-10.8)
[2021-01-05 13:27] LABS: Alanine Aminotransferase 67 U/L (12-78); Albumin Level 4.6 g/dl (3.5-5.0); Albumin/Globulin Ratio 1.8 (1.1-1.8); Alkaline Phosphatase 91 U/L (38-126); Anion Gap 13.2 mEq/L (5-15); Aspartate Amino Transferase 45 U/L (14-36); Bilirubin,Total 0.5 mg/dl (0.2-1.3); Blood Urea Nitrogen 10 mg/dl (7-17); Calcium 9.7 mg/dl (8.4-10.2); Carbon Dioxide 23 mmol/L (22.0-30.0); Chloride 106 mmol/L (98-107); Estimated Glomerular Filt Rate 106 ml/min (>60); GFR (African American) 128 ML/MIN (>60); Globulin 2.5 g/dL (1.3-3.2); Glucose 100 mg/dl (74-100); Potassium 4.2 mmoL/L (3.5-5.1); Sodium 138 mmol/L (136-145); Total Protein,Serum 7.1 g/dl (6.3-8.2)
[2021-01-05 13:32] LABS: C-Reactive Protein 5.5 mg/L (0-4)
[2021-01-05 13:35] LABS: Erythrocyte Sedimentation Rate 17 mm/hr (0-20)
[2021-01-05 13:43] LABS: Procalcitonin 0.069 ng/mL (0.0-2.0)
[2021-01-05 13:57] LABS: Thyroid Stimulating Hormone 1.12 uIU/mL (0.465-4.68)
[2021-01-05 15:10] LABS: Hemoglobin A1C 5.6 % (4.0-6.0)
[2021-01-06 16:02] LABS: C-Peptide 12.1 ng/mL (1.1-4.4)
== END ==
PROVIDERS: Visit Provider Physician Assistant
DX: E16.2 Hypoglycemia, unspecified (principal); M25.50 Pain in unspecified joint
CPT/HCPCS: 36415; 80053; 82533; 83036; 83525; 84145; 84443; 84681; 85025; 85651; 86140

== ENCOUNTER 2021-01-31 14:30 | Emergency (ER) | payer BC, SELFPAY ==
[2021-01-31 14:58] VITALS: BP 129/82; PULSE 88; RESP 20; TEMP 36.4; O2SAT 97; BMI 40.2
--- NOTE | 2021-01-31 15:02 | HMH.EDUTC ---
[facility] [place] Clinical Impression: Vomiting and diarrhea Otitis media Qualifiers: Otitis media type: unspecified Laterality: left Qualified Code(s): H66.92 - Otitis media, unspecified, left ear Disposition: Home, Self-Care Condition on Discharge: Good Instructions: Middle Ear Infection, Nausea and Vomiting-Adult, Diarrhea Additional Instructions: Take medication as prescribed for ear infection *Monitor Temp, Over the counter Motrin or Tylenol as directed/as needed Tylenol every 4 hours and Motrin every 6 hours (as long as your family doctor has told you that you can take it) for fever or pain. and straight to ER if unable to lower temp less than 101.0 after medication given *Warm salt water gargles may help to soothe the throat *Throat Lozenges *Warm fluids like tea with honey may help to soothe the throat *Sleep elevated *Humidifier/Vaporizer Your throat swab was sent for culture. Those results are typically sent to your primary care. Be sure to follow up in 2-3 days with your family doctor/primary care physician if no improvement so they can review those result and treat if necessary. If you don?t have a primary care doctor, I recommend you get one but in the mean time, you will have to return to a walk in clinic Follow up IMMEDIATELY for new or worsening symptoms or no Noticeable improvement over the next 48-72 hours. 911 for difficulty breathing or swallowing You were tested for today for COVID19 your test result should be back in the next 24-48 hours, you may call to the [facility] to see if your test results are back in the next 48 hours [phone] [facility] hours are 9am-9pm You was given a handout with instructions for Self Quarantine and Self isolation for while you wait on test results and what to do if they are positive If you are positive the Health Dept will be contacting you also Drink extra fluids with and between meals. If you have difficulty drinking, try very small amounts of water or suck on ice chips. ? Avoid fruit juices, as these do not replace minerals and can actually increase diarrhea. ? Children and adults can use sports drinks to replenish electrolytes. Younger children and infants should use products formulated for children, like oral rehydration solutions. ? Eat food in small amounts and let your stomach recover. ? Get lots of rest. You may feel tired or weak. ? No greasy or fried foods for the next 24-48 hours BRAT diet Bananas Rice Apples and Annabella ? Make sure to drink plenty of liquids ? Return if needed ? Straight to ER if any life threatening symptoms ? Zofran as prescribed ? You was given an outpatient order for diarrhea panel, please collect specimen and bring back to outpatient lab then call back to the [facility] or follow up with family doctor for results ? Follow up with family doctor in the next 48-72 hours if no improvement or any worsening of symptoms Prescriptions: Ondansetron [Zofran 4mg ODT] 4 mg PO TIDP PRN #9 tab PRN Reason: Vomiting Transmission Status: Pending to [facility] [id number] [facility] Rx Referrals: Zurdo Miller MD [Primary Care Provider] - As needed Forms: Work/School Release Time of Disposition: 15:15 Medical Decision Making - Fredy Inquiry Pt receiving controlled substance: No Fredy was queried for this patient: No Vital Signs: 01/31/21 14:58 Temperature 97.5 F L Temperature Source Oral Pulse Rate [Right Brachial] 88 Respiratory Rate 20 Blood Pressure [Right Arm] 129/82 Blood Pressure Mean [Right Arm] 97 Blood Pressure Source [Right Arm] Automatic Cuff Blood Pressure Position [Right Arm] Sitting 02 Sat by Pulse Oximetry 97 Oxygen Delivery Method Room Air - Lab Data Lab results reviewed: Yes: I reviewed the patient's lab results. Medical Decision Narrative: Patient denies chance of states that she just got off her period also states that she has taken zofran in the past without complications and reactions [facility] [place] - General Stat
[2021-01-31 15:06] LABS: UTC Strep Screen (Rapid) Negative (Negative)
[2021-01-31 15:08] LABS: UTC Influenza A Antigen Negative (Negative); UTC Influenza B Antigen Negative (Negative)
[2021-01-31 15:18] VITALS: BP 129/82; PULSE 88; RESP 20; TEMP 36.4; O2SAT 97
== END 2021-01-31 15:20 | disposition home or self-care (01) ==
PROVIDERS: Emergency Provider Nurse Practitioner; PCP Emergency Medicine
DX: H66.92 Otitis media, unspecified, left ear (principal); R11.2 Nausea with vomiting, unspecified; Z20.822 Contact with and (suspected) exposure to COVID-19
CPT/HCPCS: 87804; 87880; 99202; G0463; U0003

== ENCOUNTER → 2021-02-08 14:18 | Outpatient (CLI) | payer BC, SELFPAY ==
--- NOTE | 2021-02-08 14:21 | CT_ITS ---
PROCEDURE: CT ABDOMEN WO CON CLINICAL HISTORY: ? insulinoma Abnormal labs R/o tumor lightheaded Unable to control insulin levels COMPARISON: No exams were available for comparison TECHNIQUE: Axial images obtained with sagittal and coronal reformats. All CT scans at the facility use one or more dose reduction, viz: automated exposure control, ma/kV adjustment per patient size (including targeted exams where dose is matched to indication, i.e. head), or iterative reconstruction technique. FINDINGS: The lung bases are clear. There is fatty infiltration of the liver. Has been a prior cholecystectomy. The spleen, adrenal glands, pancreas, and right kidney has an unremarkable appearance. Nonobstructing stone is present in the lower pole of the left kidney at 2 mm. No hydronephrosis or proximal ureteral calculi. The distal ureters are not included on the study. No evidence of appendicitis. There is a tiny umbilical hernia containing fat. No acute bony findings. Scattered small retroperitoneal and peritoneal nodes are present IMPRESSION: No acute finding. There is a nonobstructing 2 mm left renal calculus. No obvious pancreatic mass. 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 CT of the abdomen without and with contrast with pancreatic protocol or MRI of the pancreas without and with contrast may provide further evaluation if clinically warranted. Dictated by: Calixto Keith MD 02/09/2021 18:30 Calixto Keith MD in [place] 02/09/2021 18:30
== END ==
PROVIDERS: PCP Emergency Medicine; Visit Provider Physician Assistant
DX: R94.7 Abnormal results of other endocrine function studies (principal); E16.2 Hypoglycemia, unspecified
CPT/HCPCS: 74150

== ENCOUNTER → 2021-02-24 08:34 | Outpatient (CLI) | payer BC, SELFPAY ==
--- NOTE | 2021-02-24 08:34 | MR_ITS ---
PROCEDURE INFORMATION: Exam: MR Abdomen Without and With Contrast Exam date and time: 02/24/2021 8:34 AM Age: 21 years old Clinical indication: Abdominal pain; Prior surgery; Surgery date: 1-6 months; Additional info: Pancreas protocol. Insulinoma. Abdomen pain and passing out. 20ml prohance given. Lot: [id number] exp: Jun [address] 02-08-21 TECHNIQUE: Imaging protocol: MR of the abdomen without and with intravenous contrast. Contrast material: PROHANCE; Contrast volume: 20 ml; Contrast route: IV; COMPARISON: CT ABDOMEN WO CON 02/08/2021 2:25 PM FINDINGS: Liver: No mass. Hepatic steatosis. Gallbladder and bile ducts: Cholecystectomy. No biliary ductal dilatation or choledocholithiasis Pancreas: No mass. No ductal dilation. Spleen: Unremarkable. No splenomegaly. Adrenal glands: Unremarkable. No mass. Kidneys and ureters: Unremarkable. No solid mass. No hydronephrosis. Stomach and bowel: Visualized stomach and intestines are unremarkable. Intraperitoneal space: No free fluid. Arteries: No abdominal aortic aneurysm. Bones/joints: Unremarkable. Soft tissues: Unremarkable. IMPRESSION: No acute findings.
== END ==
PROVIDERS: PCP Physician Assistant; Visit Provider Physician Assistant
DX: R94.7 Abnormal results of other endocrine function studies (principal); E16.2 Hypoglycemia, unspecified
CPT/HCPCS: 74183; 76376; A9576

== ENCOUNTER 2021-02-27 16:23 | Emergency (ER) | payer BC, SELFPAY ==
[2021-02-27 16:24] VITALS: BP 137/89; PULSE 90; RESP 24; TEMP 36.6; O2SAT 98; BMI 38.9
[2021-02-27 16:30] VITALS: BP 127/92; PULSE 84; RESP 22; O2SAT 97
--- NOTE | 2021-02-27 16:43 | HMH.EDGENADL ---
ED Disposition Clinical Impression: Nausea, Generalized weakness Disposition: Home, Self-Care Condition on Discharge: Good Prescriptions: Ondansetron [Zofran 4mg ODT] 4 mg PO Q6HP PRN #30 tab.rapdis PRN Reason: Nausea Transmission Status: Pending to [facility] [id number] [facility] Rx Referrals: Mónica Guzman PA [Primary Care Provider] - - Critical Care Critical Care Time: No Attestation: On , the high probability of a clinically significant, sudden or life threatening deterioration of the following system(s) required my full and direct attention, intervention and personal management. The time I documented below is in addition to time spent performing reported procedures but includes the following listed in this critical care notation. Medical Decision Making - Medical Records Medical records reviewed: Yes: I reviewed the patient's medical records. - Fredy Inquiry Pt receiving controlled substance: No Vital Signs: 02/27/21 16:24 Temperature 98 F Temperature Source Oral Pulse Rate [Radial] 90 Respiratory Rate 24 Blood Pressure [Right Arm] 137/89 Blood Pressure Mean [Right Arm] 105 Blood Pressure Position [Right Arm] Sitting 02 Sat by Pulse Oximetry 98 Oxygen Delivery Method Room Air - Lab Data Lab results reviewed: Yes: I reviewed the patient's lab results. Lab Results 02/27/21 16:35: WBC 8.8, RBC 5.19, Hgb 15.0, Hct 43.2, MCV 83.3, MCH 28.8, MCHC 34.6, RDW 12.5, Plt Count 433 H, MPV 6.9 L, Neut % (Auto) 61.6, Lymph % (Auto) 28.4, Titus % (Auto) 6.9, Eos % (Auto) 2.3, Baso % (Auto) 0.8, Neut # (Auto) 5.4, Lymph # (Auto) 2.5, Titus # (Auto) 0.6, Eos # (Auto) 0.2, Baso # (Auto) 0.1 02/27/21 16:35: Sodium 139, Potassium 4.0, Chloride 104, Carbon Dioxide 25, Anion Gap 14.0, BUN 11, Creatinine 0.70, Estimated Creat Clear 199, Estimated GFR 105, Est GFR ( Amer) 127, Glucose 116 H, Calcium 9.3, Total Bilirubin 0.4, AST 64 H, ALT 87 H, Alkaline Phosphatase 95, Total Protein 8.0, Albumin 4.8, Globulin 3.2, Albumin/Globulin Ratio 1.5 02/27/21 16:35: Serum HCG, Qual Negative 02/27/21 16:35: Acetone Level None detected Result diagrams: 02/27/21 16:35 02/27/21 16:35 Orders (Tests/Meds): ED MEDICATIONS Generic Name Dose Route Start Last Admin Trade Name Freq PRN Reason Stop Dose Admin Sodium Chloride 1,000 mls @ 999 mls/hr 02/27/21 16:45 02/27/21 16:44 Sod Chlor 0.9% 1000ml Bag IV 02/27/21 17:45 999 mls/hr .Q1H1M JENNIFER Administration Sodium Chloride 10 ml 02/27/21 16:42 Sodium Chloride 0.9% 10ml Vial IV 03/29/21 16:41 NEEDED PRN dilute protonix Discontinued Medications Generic Name Dose Route Start Last Admin Trade Name Freq PRN Reason Stop Dose Admin Dicyclomine HCl 20 mg 02/27/21 16:42 02/27/21 16:49 Dicyclomine 20 Mg/2ml Vial IM 02/27/21 16:43 20 mg ONCE ONE Administration Ondansetron HCl 4 mg 02/27/21 16:41 02/27/21 16:44 Ondansetron 4mg/2ml Vial IV 02/27/21 16:42 4 mg ONCE ONE Administration Pantoprazole Sodium 40 mg 02/27/21 16:42 02/27/21 16:48 Pantoprazole 40mg Vial IV 02/27/21 16:43 40 mg ONCE ONE Administration ORDERS Category Date Time Status Urinalysis and Microscopic Stat Lab 02/27/21 16:37 Ordered VBG [Venous Blood Gas] Stat RT 02/27/21 16:39 Ordered Medical Decision Narrative: Laboratory evaluation unremarkable. Patient's MRI from 3 days ago was reviewed in the work-up of possible insulinoma that was seen on CT abdomen pelvis without contrast. This is reviewed and no acute findings were found on the MRI at that time. Patient will be discharged to follow-up with her PCP for further evaluation as Neurologic evalution as well as routine labwork are unremarkable. Patient was treated with IVFs as well as anti-emetics and dicyclomine. General Adult HPI - General Chief complaint: PAIN Stated complaint: dizzy, confused, headache Time Seen by Provider: 02/27/21 16:40 Mode of Arrival: W
[2021-02-27 16:48] LABS: Basophils # 0.1 K/mm3 (0-0.2); Basophils % 0.8 % (0.1-2.0); Eosinophils # 0.2 K/mm3 (0.0-0.4); Eosinophils % 2.3 % (0.1-12.0); Hematocrit 43.2 % (37.0-47.0); Lymphocytes # 2.5 K/mm3 (0.7-4.5); Lymphocytes % 28.4 % (10-50); Mean Corpuscular HGB Conc 34.6 g/dL (31.8-35.4); Mean Corpuscular Hemoglobin 28.8 pg (27.0-31.2); Mean Corpuscular Volume 83.3 fl (81-99); Mean Platelet Volume 6.9 fl (7.4-10.4); Monocytes # 0.6 K/mm3 (0.1-1.0); Monocytes % 6.9 % (1.7-9.3); Neutrophils # 5.4 K/mm3 (1.8-7.8); Neutrophils % 61.6 % (37.0-80.0); Platelet Count 433 K/mm3 (142-424); Red Blood Count 5.19 M/mm3 (4.20-5.40); Red Cell Distribution Width 12.5 % (11.5-17.5); White Blood Count 8.8 K/mm3 (4.8-10.8)
[2021-02-27 16:54] LABS: Chloride 104 mmol/L (98-107); Sodium 139 mmol/L (136-145)
[2021-02-27 16:56] LABS: Alanine Aminotransferase 87 U/L (12-78); Alkaline Phosphatase 95 U/L (38-126); Aspartate Amino Transferase 64 U/L (14-36); Bilirubin,Total 0.4 mg/dl (0.2-1.3); Blood Urea Nitrogen 11 mg/dl (7-17); Creatinine Clearance Estimated 199 mL/min (50-200); Estimated Glomerular Filt Rate 105 ml/min (>60); GFR (African American) 127 ML/MIN (>60)
[2021-02-27 16:57] LABS: Acetone, Serum (Rapid) None Detected (None Detect); Albumin Level 4.8 g/dl (3.5-5.0); Albumin/Globulin Ratio 1.5 (1.1-1.8); Calcium 9.3 mg/dl (8.4-10.2); Carbon Dioxide 25 mmol/L (22.0-30.0); Globulin 3.2 g/dL (1.3-3.2); Glucose 116 mg/dl (74-100); HCG Qualitative, Serum Negative (Negative)
[2021-02-27 17:01] VITALS: BP 109/65; PULSE 79; RESP 16; O2SAT 97
[2021-02-27 17:30] VITALS: BP 116/71; PULSE 81; RESP 18; O2SAT 97
[2021-02-27 18:16] VITALS: BP 120/73; PULSE 92; RESP 18; TEMP 36.8; O2SAT 98
== END 2021-02-27 18:18 | disposition home or self-care (01) ==
PROVIDERS: Emergency Provider Emergency Medicine; PCP Physician Assistant
DX: R11.0 Nausea (principal); R42 Dizziness and giddiness; F41.8 Other specified anxiety disorders; E11.9 Type 2 diabetes mellitus without complications
CPT/HCPCS: 80053; 82009; 84703; 85025; 96365; 96372; 96375; 99282; J2405

== ENCOUNTER 2021-03-08 16:49 | Emergency (ER) | payer BC, SELFPAY ==
[2021-03-08 16:50] VITALS: BP 155/104; PULSE 93; RESP 18; TEMP 37; O2SAT 98; BMI 40.7
--- NOTE | 2021-03-08 17:59 | HMH.EDUTC ---
[facility] [place] Disposition Clinical Impression: Burn from the sun Disposition: Home, Self-Care Condition on Discharge: Good Instructions: Sunburn, DI for Sunburn Additional Instructions: Apply the topical medication as directed. Don't apply it to your face. It could stain the skin of your face. Follow up with your primary care doctor. Take the ibuprofen as directed. GO TO THE ER FOR ANY WORSENING SYMPTOMS OR CONCERNS Prescriptions: Ibuprofen [Ibuprofen 800mg Tablet] 800 mg PO Q8HP PRN #30 tab PRN Reason: Moderate Pain Transmission Status: [id number] Silver Sulfadiazine [Silvadene Cream 400gm] 1 applicatio TP BIDP PRN #1 container PRN Reason: Moderate Pain Transmission Status: [id number] Referrals: Mónica Guzman PA [Primary Care Provider] - Forms: Work/School Release Time of Disposition: 18:04 Medical Decision Making - Medical Records Medical records reviewed: No: I reviewed the patient's medical records. - Fredy Inquiry Pt receiving controlled substance: No Vital Signs: 03/08/21 16:50 03/08/21 18:08 Temperature 98.6 F 98.6 F Temperature Source Oral Pulse Rate 93 H Pulse Rate [Right Brachial] 93 H Respiratory Rate 18 18 Blood Pressure 155/104 H Blood Pressure [Right Arm] 155/104 H Blood Pressure Mean [Right Arm] 121 Blood Pressure Source [Right Arm] Automatic Cuff Blood Pressure Position [Right Arm] Sitting 02 Sat by Pulse Oximetry 98 Oxygen Delivery Method Room Air [facility] [place] HPI - General Stated complaint: sun burn Time Seen by Provider: 03/08/21 17:59 Mode of Arrival: Ambulatory Source of Information: Patient Limitations: No Limitations Description of Symptoms (Recalled from Triage Doc. by RN): PATIENT SUNBURN WITH BLISTERS SINCE Sunday Symptoms (Recalled from RN notes): No Resp Symptoms (Recalled from RN notes): No Skin Symptoms (Recalled from RN notes): Yes MS Symptoms (Recalled from RN notes): No Functional Status (Recalled from RN notes): WNL - Related Data Home Medications Medication Instructions Recorded Confirmed Empagliflozin [Jardiance] 10 mg PO DAILY 01/31/21 03/02/21 hydrOXYzine pamoate [Vistaril] 25 mg PO TID PRN 01/31/21 03/02/21 Previous Rx's Medication Instructions Recorded Ondansetron [Zofran 4mg ODT] 4 mg PO TIDP PRN #9 tab 01/31/21 fluoxetine 20 mg capsule 20 mg PO DAILY #90 cap 02/01/21 glucagon 1 mg/mL solution for 1 mg SQ Q20M PRN #1 each 02/14/21 injection rimegepant 75 mg disintegrating See Rx Instructions .ROUTE 02/16/21 tablet .COMPLEX #10 tablet Ondansetron [Zofran 4mg ODT] 4 mg PO Q6HP PRN #30 tab.rapdis 02/27/21 meclizine 25 mg tablet 25 mg PO TID PRN #30 tab 03/02/21 Ibuprofen [Ibuprofen 800mg 800 mg PO Q8HP PRN #30 tab 03/08/21 Tablet] Silver Sulfadiazine [Silvadene 1 applicatio TP BIDP PRN #1 03/08/21 Cream 400gm] container Allergies Allergy/AdvReac Type Severity Reaction Status Date / Time No Known Allergies Allergy Verified 03/02/21 11:18 - Worker's Comp Is this a Worker's Comp case?: No [facility] History - Hepatitis A Screen Drug use history?: No High risk sexual behaviors?: No History of sexually transmitted infection?: No Currently employed?: No Childcare worker?: No Do you have indoor plumbing?: Yes Do you have electricity?: Yes Attestation statement:: This patient has been screened for Hepatitis A risk factors. I have reviewed the patient's past medical history: Yes Medical History: Reports:: Anxiety, Asthma, Depression, Diabetes Mellitus Type 2, Hypertension, Migraine Denies:: Cancer, Diabetes Mellitus Type 1, Internal Pacemaker, MRSA Comment: bipolar Laterality Cases: Bilateral: Tonsillectomy Other Surgeries: Yes: Cholecystectomy. No: Pacemaker Amputation: No Fractures: No - Social History Smoking Status: Never smoker Alcohol Intake: never Substance Use Type: denies use Occupational Status: other Housing: ot
[2021-03-08 18:08] VITALS: BP 155/104; PULSE 93; RESP 18; TEMP 37; O2SAT 98
== END 2021-03-08 18:10 | disposition home or self-care (01) ==
LOC: UTC 18:18
PROVIDERS: Emergency Provider Nurse Practitioner Family; PCP Physician Assistant
DX: L55.1 Sunburn of second degree (principal); F41.8 Other specified anxiety disorders; E11.9 Type 2 diabetes mellitus without complications; I10 Essential (primary) hypertension; J45.909 Unspecified asthma, uncomplicated; Z79.899 Other long term (current) drug therapy

== ENCOUNTER → 2021-03-15 10:10 | Day surgery (SDC) | payer BC, SELFPAY ==
[2021-03-15 10:33] VITALS: BMI 38.9
--- NOTE | 2021-03-15 12:27 | HMH.TILT ---
Findings:: PROCEDURE: Upright tilt table test REQUESTING PROVIDER: Mónica Guzman PA-C INDICATION: Prolonged history of dizziness and syncopal episodes BETA BLOCKERS: No PRE-TEST VITAL SIGNS: BP 119/74, HR 77 and sinus rhythm, O2 SATS 97% PROCEDURE SUMMARY: Patient was prepped per protocol, IV started, connected to ski production supervisor, safety strap applied. She was then tilted upright at 80 degrees for a total of 24 minutes. The test was terminated early per patient request, with complaints of severe dizziness, nausea and feet hurting. She was experiencing dizziness prior to the test and approximately 5 minutes after being tilted upright, she complained of being very dizzy . After about 10 minutes upright, she complained of nausea in addition to being very dizzy. Her nausea and dizziness continued for the remainder of the test. She had no syncope and denied ever feeling like she was going to pass out. Her heart rate and blood pressure remained stable during the test. Her HR increased to 89 bpm upon being placed in the upright position which was the lowest HR while upright. Her maximum HR was 101 bpm, occurring approximately 20 minutes after being in the upright position. Her HR dropped to 67 bpm immediately upon being returned to the supine position at test termination, but within a few minutes had risen to 84 bpm. Heart rhythm was sinus throughout and O2 sats stayed in the mid to upper 90s. COMPLICATIONS: None CONCLUSION: Unremarkable Upright Tilt Table Test
== END ==
PROVIDERS: PCP Physician Assistant; Visit Provider Physician Assistant
DX: R42 Dizziness and giddiness (principal)
CPT/HCPCS: 93660

== ENCOUNTER 2021-06-07 14:09 | Emergency (ER) | payer BC, SELFPAY ==
--- NOTE | 2021-06-07 14:13 | XR_ITS ---
PROCEDURE: XR WRIST RT MIN 3V CLINICAL INDICATION: FALL COMPARISON: No exams were available for comparison FINDINGS: No fracture or dislocation. No lytic or blastic change. There is normal mineralization. The joint spaces are well-preserved. No significant degenerative/arthritic changes. No erosive changes evident. Other findings:None. IMPRESSION: No acute findings. Dictated by: Calixto Keith MD 06/07/2021 15:04 Calixto Keith MD in [place] 06/07/2021 15:04
[2021-06-07 14:31] VITALS: BP 146/94; PULSE 119; RESP 18; TEMP 37; O2SAT 98; BMI 40.2
--- NOTE | 2021-06-07 15:00 | HMH.EDUTC ---
[facility] [place] Clinical Impression: Wrist sprain Qualifiers: Encounter type: initial encounter Laterality: right Qualified Code(s): S63.501A - Unspecified sprain of right wrist, initial encounter Disposition: Home, Self-Care Condition on Discharge: Good Instructions: Wrist Sprain, DI for Wrist Sprain, How To Perform RICE (Rest, Ice, Compress, Elevate) Additional Instructions: *RICE, Rest the extremity, Ice 15-20 minutes 3-4 times daily, Compress- wear the devan wrap as discussed as much as possible to help reduce swelling and pain, Elevate the extremity when at rest *Devan wrap is for support and help control swelling, use it except in the shower. Be sure that is not to tight but not to loose either *Elevate when resting *Ibuprofen as prescribed as needed for pain an inflammation. If need something more can take Tylenol in between doses of Ibuprofen to help Immediately follow up with your family doctor for new or worsening of symptoms, or no noticeable improvement over the next 3-5 days Referrals: Mónica Guzman PA [Primary Care Provider] - Time of Disposition: 16:16 Medical Decision Making - Fredy Inquiry Pt receiving controlled substance: No Fredy was queried for this patient: No Vital Signs: 06/07/21 14:31 06/07/21 15:55 Temperature 98.6 F 98.6 F Temperature Source Oral Pulse Rate 119 H Pulse Rate [Left] 119 H Respiratory Rate 18 18 Blood Pressure 146/94 H Blood Pressure [Right Arm] 146/94 H Blood Pressure Mean [Right Arm] 111 02 Sat by Pulse Oximetry 98 Orders (Tests/Meds): ED MEDICATIONS Discontinued Medications Generic Name Dose Route Start Last Admin Trade Name Roxanna PRN Reason Stop Dose Admin Ibuprofen 400 mg 06/07/21 16:05 06/07/21 16:05 Ibuprofen 400 Mg Tablet PO 06/07/21 16:06 400 mg ONCE ONE Administration - Radiology Data #1 Image(s): Wrist Image Reviewed: Yes I have reviewed radiologist's interpretation No acute finding #2 Image(s): Hand Image Reviewed: Yes I have reviewed radiologist's interpretation Old 5th metacarpal fracture otherwise negative Medical Decision Narrative: Patient states that she just got off period yesterday denies [facility] [place] - General Stated complaint: right wrist swelling and pain Time Seen by Provider: 06/07/21 15:00 Mode of Arrival: Ambulatory Source of Information: Patient Limitations: No Limitations Description of Symptoms (Recalled from Triage Doc. by RN): pt fell off [employer] injuring her R wrist. HEENT Symptoms (Recalled from RN notes): No Resp Symptoms (Recalled from RN notes): No Skin Symptoms (Recalled from RN notes): No MS Symptoms (Recalled from RN notes): Yes (R wrist pain) Functional Status (Recalled from RN notes): na - History of Present Illness Provider Complaint: Patient states that she was playing on the [employer] with her child when she fell off and landed on her right wrist and hand States that ever since she has been having pain in her wrist and hand and it started swelling so she came in to get it checked - Related Data Previous Rx's Medication Instructions Recorded triamcinolone acetonide 0.5 % 1 applic TOPICAL TID 7 Days #15 g 05/16/21 topical cream Allergies Allergy/AdvReac Type Severity Reaction Status Date / Time No Known Allergies Allergy Verified 05/16/21 12:11 - Worker's Comp Is this a Worker's Comp case?: No [facility] History - Hepatitis A Screen Drug use history?: No High risk sexual behaviors?: No History of sexually transmitted infection?: No Currently employed?: No Childcare worker?: No Do you have indoor plumbing?: Yes Do you have electricity?: Yes Attestation statement:: This patient has been screened for Hepatitis A risk factors. I have reviewed the patient's past medical history: Yes Medical History: Reports:: Anxiety, Asthma, Depression, Hypertension, Migraine Denies:: Cancer, Diabetes Mellitus Type 1, Diabetes Kirstie
--- NOTE | 2021-06-07 15:03 | XR_ITS ---
PROCEDURE: XR HAND RT MIN 3V CLINICAL INDICATION: FALL Posttraumatic pain COMPARISON: CR HANDR3 HAND-RT 3 VIEWS from 02/23/2013 FINDINGS: There is an old fracture of the 5th metacarpal with minimal radial and anterior angulation of the distal aspect of the 5th metacarpal. The joint spaces are well-preserved. No significant degenerative/arthritic changes. No erosive changes evident. Other findings:None. IMPRESSION: Old 5th metacarpal fracture otherwise negative Dictated by: Calixto Keith MD 06/07/2021 15:26 Calixto Keith MD in [place] 06/07/2021 15:26
[2021-06-07 15:55] VITALS: BP 146/94; PULSE 119; RESP 18; TEMP 37
== END 2021-06-07 16:06 | disposition home or self-care (01) ==
PROVIDERS: Emergency Provider Nurse Practitioner; PCP Physician Assistant
DX: S63.501A Unspecified sprain of right wrist, initial encounter (principal); W09.8XXA Fall on or from other playground equipment, initial encounter; Y92.89 Other specified places as the place of occurrence of the external cause; F41.8 Other specified anxiety disorders; J45.909 Unspecified asthma, uncomplicated
CPT/HCPCS: 29125; 73110; 73130; 99203; G0463

== ENCOUNTER → 2021-09-09 18:19 | Outpatient (CLI) | payer BC, SELFPAY | PROVIDERS: Visit Provider Nurse Practitioner Family | DX: U07.1 COVID-19 (principal) | CPT/HCPCS: C9803; U0003; U0005 ==

== ENCOUNTER 2021-09-12 07:07 | Emergency (ER) | payer BC, SELFPAY ==
[2021-09-12 07:42] VITALS: BP 132/92; PULSE 122; RESP 20; TEMP 37.4; O2SAT 98; BMI 38.9
[2021-09-12 08:00] VITALS: BP 155/114; PULSE 101; RESP 16; O2SAT 98
--- NOTE | 2021-09-12 08:05 | XR_ITS ---
FINAL REPORT CLINICAL HISTORY: dyspnea, pt states covid positive FINDINGS: A single view of the chest was obtained. The heart is normal in size. The mediastinum is unremarkable. The lungs are underinflated. There is mild basilar atelectasis. There is no pleural effusion. There is no pneumothorax. There is no acute osseous abnormality. IMPRESSION: There is mild basilar atelectasis. Reviewed, Interpreted and Dictated by Jeferson Betts MD Transcribed by Gisell Levi Authenticated by Jeferson Betts MD on 09/12/2021 10:05:[address] [facility]
--- NOTE | 2021-09-12 08:08 | HMH.EDGENADL ---
ED Disposition Clinical Impression: COVID-19 Disposition: Home, Self-Care Condition on Discharge: Good Additional Instructions: Your symptoms are consistent with COVID-19 infection. Please continue supportive care at home including Tylenol, ibuprofen and Zofran for nausea and vomiting. Please drink plenty of fluids. If your condition worsens or any other concerns arise, please return to the emergency department. Otherwise, follow-up with your primary care physician in 1 week. Prescriptions: Ondansetron [Zofran 4mg ODT] 4 mg PO TID PRN #12 tab PRN Reason: Nausea Transmission Status: Sent to [facility] Referrals: Mónica Guzman PA [Primary Care Provider] - - Critical Care Critical Care Time: No Attestation: On 09/12/21, the high probability of a clinically significant, sudden or life threatening deterioration of the following system(s) required my full and direct attention, intervention and personal management. The time I documented below is in addition to time spent performing reported procedures but includes the following listed in this critical care notation. Medical Decision Making - Medical Records Medical records reviewed: Yes: I reviewed the patient's medical records. - Fredy Inquiry Pt receiving controlled substance: No Vital Signs: 09/12/21 07:42 09/12/21 08:00 09/12/21 08:30 Temperature 99.3 F Temperature Source Oral Pulse Rate 101 H 105 H Pulse Rate [Radial] 122 H Respiratory Rate 20 16 17 Blood Pressure 155/114 H 102/61 L Blood Pressure [Right Arm] 132/92 H Blood Pressure Mean 127 74 Blood Pressure Mean [Right Arm] 105 Blood Pressure Position [Right Arm] Sitting 02 Sat by Pulse Oximetry 98 98 98 Oxygen Delivery Method Room Air 09/12/21 09:00 09/12/21 09:30 Temperature Temperature Source Pulse Rate 103 H 95 H Pulse Rate [Radial] Respiratory Rate 16 18 Blood Pressure 110/66 107/53 L Blood Pressure [Right Arm] Blood Pressure Mean 77 73 Blood Pressure Mean [Right Arm] Blood Pressure Position [Right Arm] 02 Sat by Pulse Oximetry 96 98 Oxygen Delivery Method - Lab Data Lab results reviewed: Yes: I reviewed the patient's lab results. Lab Results 09/12/21 08:30: WBC 5.6, RBC 5.16, Hgb 15.0, Hct 45.8, MCV 88.7, MCH 29.0, MCHC 32.7, RDW 13.0, Plt Count 379, MPV 7.4, Neut % (Auto) 58.8, Lymph % (Auto) 26.0, [place] % (Auto) 12.1 H, Eos % (Auto) 1.1, Baso % (Auto) 2.0, Neut # (Auto) 3.3, Lymph # (Auto) 1.5, [place] # (Auto) 0.7, Eos # (Auto) 0.1, Baso # (Auto) 0.1 09/12/21 08:30: D-Dimer 0.49 09/12/21 08:30: Sodium 137, Potassium 4.0, Chloride 102, Carbon Dioxide 26, Anion Gap 13.0, BUN 11, Creatinine 0.90, Estimated Creat Clear 154, Estimated GFR 78, Est GFR ( Amer) 95, Glucose 92, Calcium 9.2, Total Bilirubin 0.5, AST 70 H, ALT 78, Alkaline Phosphatase 87, Troponin I < 0.01, Total Protein 7.3, Albumin 4.4, Globulin 2.9, Albumin/Globulin Ratio 1.5 09/12/21 08:30: Serum HCG, Qual Negative Result diagrams: 09/12/21 08:30 09/12/21 08:30 Orders (Tests/Meds): ED MEDICATIONS Discontinued Medications Generic Name Dose Route Start Last Admin Trade Name Freq PRN Reason Stop Dose Admin Acetaminophen 1,000 mg 09/12/21 08:06 09/12/21 08:34 Acetaminophen 500mg Tab PO 09/12/21 08:07 Not Given ONCE ONE Lactated Ringer's 500 mls @ 999 mls/hr 09/12/21 08:15 09/12/21 08:33 Lactated Ringer's 1000 Ml Bag IV 09/12/21 08:45 999 mls/hr .Q31M JENNIFER Administration Ondansetron HCl 4 mg 09/12/21 08:07 09/12/21 08:33 Ondansetron 4mg/2ml Vial IV 09/12/21 08:08 4 mg ONCE ONE Administration ORDERS Category Date Time Status XR chest portable Stat Exams 09/12/21 08:05 Taken Troponin I Q3H Lab 09/12/21 11:15 Ordered Troponin I Q3H Lab 09/12/21 14:15 Ordered Urinalysis and Microscopic Stat Lab 09/12/21 08:06 Ordered EKG Request [ECG Request by /Tawnya] Stat Y 09/12/21 08:05 Ordered - Radiology Shahab
[2021-09-12 08:30] VITALS: BP 102/61; PULSE 105; RESP 17; O2SAT 98
[2021-09-12 08:40] LABS: Basophils # 0.1 K/mm3 (0-0.2); Eosinophils # 0.1 K/mm3 (0.0-0.4); Eosinophils % 1.1 % (0.1-12.0); Hematocrit 45.8 % (37.0-47.0); Lymphocytes # 1.5 K/mm3 (0.7-4.5); Mean Corpuscular HGB Conc 32.7 g/dL (31.8-35.4); Mean Corpuscular Volume 88.7 fl (81-99); Mean Platelet Volume 7.4 fl (7.4-10.4); Monocytes # 0.7 K/mm3 (0.1-1.0); Monocytes % 12.1 % (1.7-9.3); Neutrophils # 3.3 K/mm3 (1.8-7.8); Neutrophils % 58.8 % (37.0-80.0); Platelet Count 379 K/mm3 (142-424); Red Blood Count 5.16 M/mm3 (4.20-5.40); White Blood Count 5.6 K/mm3 (4.8-10.8)
[2021-09-12 08:50] LABS: Alanine Aminotransferase 78 U/L (12-78); Albumin Level 4.4 g/dl (3.5-5.0); Albumin/Globulin Ratio 1.5 (1.1-1.8); Alkaline Phosphatase 87 U/L (38-126); Aspartate Amino Transferase 70 U/L (14-36); Bilirubin,Total 0.5 mg/dl (0.2-1.3); Blood Urea Nitrogen 11 mg/dl (7-17); Calcium 9.2 mg/dl (8.4-10.2); Carbon Dioxide 26 mmol/L (22.0-30.0); Chloride 102 mmol/L (98-107); Creatinine Clearance Estimated 154 mL/min (50-200); Estimated Glomerular Filt Rate 78 ml/min (>60); GFR (African American) 95 ML/MIN (>60); Globulin 2.9 g/dL (1.3-3.2); Glucose 92 mg/dl (74-100); Sodium 137 mmol/L (136-145); Total Protein,Serum 7.3 g/dl (6.3-8.2)
[2021-09-12 09:00] VITALS: BP 110/66; PULSE 103; RESP 16; O2SAT 96
[2021-09-12 09:04] LABS: Troponin I < 0.01 ng/ml (0.00-0.034)
--- NOTE | 2021-09-12 09:08 | ECG_ITS ---
APPROVED REPORT Exam: Resting ECG HR:100 bpm ECG Measurements Heart Rate 100 AXES FL 122 P 45 QRSd 80 QRS 43 QT 356 T 28 QTc 459 Conclusion Normal sinus rhythm Normal ECG Electronically signed by : Brandon Casanova MD 09/12/2021 21:33:58
[2021-09-12 09:11] LABS: HCG Qualitative, Serum Negative (Negative)
[2021-09-12 09:30] VITALS: BP 107/53; PULSE 95; RESP 18; O2SAT 98
[2021-09-12 09:35] LABS: D-Dimer 0.49 ug/mL (0.0-0.5)
[2021-09-12 10:45] VITALS: BP 106/69; PULSE 98; RESP 16; TEMP 37.1; O2SAT 97
== END 2021-09-12 10:46 | disposition home or self-care (01) ==
PROVIDERS: Emergency Medicine; Emergency Provider Student in an Organized Health Care Education/Training Program; PCP Physician Assistant
DX: U07.1 COVID-19 (principal); J45.909 Unspecified asthma, uncomplicated; I10 Essential (primary) hypertension; F41.8 Other specified anxiety disorders
CPT/HCPCS: 71045; 80053; 84484; 84703; 85025; 85378; 93005; 96365; 96375; 99283; J2405

== ENCOUNTER → 2021-09-28 18:19 | Outpatient (CLI) | payer BC, SELFPAY | PROVIDERS: Visit Provider Physician Assistant | DX: N39.0 Urinary tract infection, site not specified (principal) | CPT/HCPCS: 87086 ==

== ENCOUNTER → 2021-11-18 10:30 | Outpatient (CLI) | payer BC, SELFPAY ==
[2021-11-18 11:23] LABS: Basophils # 0.1 K/mm3 (0-0.2); Basophils % 1.2 % (0.1-2.0); Eosinophils # 0.1 K/mm3 (0.0-0.4); Eosinophils % 1.5 % (0.1-12.0); Hemoglobin 15.1 g/dL (12.2-16.2); Lymphocytes # 2.5 K/mm3 (0.7-4.5); Mean Corpuscular Hemoglobin 28.9 pg (27.0-31.2); Mean Corpuscular Volume 90.1 fl (81-99); Mean Platelet Volume 7.4 fl (7.4-10.4); Monocytes # 0.5 K/mm3 (0.1-1.0); Monocytes % 6.1 % (1.7-9.3); Neutrophils # 4.8 K/mm3 (1.8-7.8); Neutrophils % 60.3 % (37.0-80.0); Platelet Count 499 K/mm3 (142-424); Red Blood Count 5.22 M/mm3 (4.20-5.40); Red Cell Distribution Width 13.2 % (11.5-17.5)
[2021-11-18 12:07] LABS: Hemoglobin A1C 5.2 % (4.0-6.0)
[2021-11-18 12:17] LABS: Alanine Aminotransferase 65 U/L (12-78); Albumin Level 4.6 g/dl (3.5-5.0); Albumin/Globulin Ratio 1.7 (1.1-1.8); Alkaline Phosphatase 84 U/L (38-126); Anion Gap 13.5 mEq/L (5-15); Aspartate Amino Transferase 46 U/L (14-36); Bilirubin,Total 0.5 mg/dl (0.2-1.3); Blood Urea Nitrogen 10 mg/dl (7-17); Calcium 9.4 mg/dl (8.4-10.2); Carbon Dioxide 21 mmol/L (22.0-30.0); Chloride 109 mmol/L (98-107); Chol/HDL Ratio 5.6 (1-3.5); Cholesterol 214 mg/dl (140-200); Estimated Glomerular Filt Rate 125 ml/min (>60); GFR (African American) 151 ML/MIN (>60); Globulin 2.7 g/dL (1.3-3.2); Glucose 93 mg/dl (74-100); HDL Cholesterol 38 mg/dl (40-60); Potassium 4.5 mmoL/L (3.5-5.1); Sodium 139 mmol/L (136-145); Total Protein,Serum 7.3 g/dl (6.3-8.2); Triglycerides 208 mg/dl (30-150); VLDL Cholesterol 42 mg/dL (0-40)
[2021-11-18 12:28] LABS: Direct LDL Cholesterol 120.56 mg/dL (100-129)
[2021-11-19 09:14] LABS: Cytomegalovirus (CMV) Ab, IgG <0.60 U/mL (0.00-0.59); Cytomegalovirus (CMV) Ab, IgM <30.0 AU/mL (0.0-29.9); HIV Screen 4th Generation wRfx Non Reactive (Non Reactive); Hepatitis B Surface Antigen Negative (Negative); Hepatitis C Antibody <0.1 s/co ratio (0.0-0.9); Rapid Plasma Reagin Ab Titer Non Reactive (NonRea<1:1); Rubella Antibodies, IgG 3.58 index (Immune >0.99)
[2021-11-19 15:14] LABS: Varicella Zoster IgG 483 index (Immune >165)
[2021-11-20 07:09] LABS: Neisseria gonorrhoeae, NAA Negative (Negative)
[2021-11-20 09:37] LABS: Prolactin 14.4 ng/mL (4.8-23.3)
[2021-11-25 20:09] LABS: Testosterone, Total, LC/MS 52.5 ng/dL (10.0-55.0)
[2021-12-14 21:34] LABS: Anti Mullerian Hormone (AMH) 5.74
== END ==
PROVIDERS: PCP Obstetrics & Gynecology Reproductive Endocrinology
DX: Z31.69 Encounter for other general counseling and advice on procreation (principal); Z11.9 Encounter for screening for infectious and parasitic diseases, unspecified; Z11.3 Encounter for screening for infections with a predominantly sexual mode of transmission; E28.2 Polycystic ovarian syndrome; E66.9 Obesity, unspecified; Z68.41 Body mass index [BMI] 40.0-44.9, adult; Z01.84 Encounter for antibody response examination; Z68.42 Body mass index [BMI] 45.0-49.9, adult
CPT/HCPCS: 36415; 80053; 80061; 82397; 82626; 83036; 83498; 84146; 84403; 84443; 85025; 86592; 86644; 86645; 86703; 86762; 86787; 86850; 86900; 86901; 87340; 87380; 87491; 87591; G0432

== ENCOUNTER 2022-05-07 21:34 | Emergency (ER) | payer BC, SELFPAY ==
--- NOTE | 2022-05-07 21:32 | ECG_ITS ---
APPROVED REPORT Exam: Resting ECG HR:93 bpm ECG Measurements Heart Rate 93 AXES ME 128 P 54 QRSd 88 QRS 62 QT 363 T 48 QTc 414 Conclusion SINUS RHYTHM NORMAL ECG UNCONFIRMED REPORT Electronically signed by : Brandon Casanova MD 05/08/2022 20:10:19
[2022-05-07 21:46] VITALS: BP 134/94; PULSE 97; RESP 16; TEMP 36.9; O2SAT 97; BMI 42.0
[2022-05-07 21:56] LABS: Basophils # 0.1 K/mm3 (0-0.2); Basophils % 1.2 % (0.1-2.0); Eosinophils # 0.2 K/mm3 (0.0-0.4); Eosinophils % 2.1 % (0.1-12.0); Hematocrit 47.2 % (37.0-47.0); Hemoglobin 15.3 g/dL (12.2-16.2); Lymphocytes # 2.9 K/mm3 (0.7-4.5); Lymphocytes % 29.4 % (10-50); Mean Corpuscular HGB Conc 32.4 g/dL (31.8-35.4); Mean Corpuscular Hemoglobin 28.7 pg (27.0-31.2); Mean Corpuscular Volume 88.3 fl (81-99); Mean Platelet Volume 7.8 fl (7.4-10.4); Monocytes # 0.7 K/mm3 (0.1-1.0); Monocytes % 7.4 % (1.7-9.3); Neutrophils # 5.9 K/mm3 (1.8-7.8); Neutrophils % 59.9 % (37.0-80.0); Platelet Count 486 K/mm3 (142-424); Red Blood Count 5.34 M/mm3 (4.20-5.40); Red Cell Distribution Width 13.1 % (11.5-17.5); White Blood Count 9.8 K/mm3 (4.8-10.8)
[2022-05-07 22:12] LABS: Microscopic, Urine URINE MICROSCOPIC (MICROSCOPIC)
[2022-05-07 22:14] LABS: Appearance,Urine CLEAR (Clear); Bilirubin,Urine Negative (Negative); Blood, Urine Negative (Negative); Color,Urine YELLOW (Yellow); Glucose,Urine (UA) Negative (Negative); Ketones,Urine Negative (Negative); Leukocyte Esterase,Urine Negative (Negative); Nitrate,Urine Negative (Negative); Protein,Urine Negative (Negative); Specific Gravity, Urine 1.025 (1.005-1.030); Urobilinogen,Urine 0.2 EU/dl (0.2)
[2022-05-07 22:17] LABS: Urine Pregnancy, HCG Qual. Negative (Negative)
[2022-05-07 22:21] LABS: Alanine Aminotransferase 94 U/L (12-78); Albumin Level 4.5 g/dl (3.5-5.0); Alkaline Phosphatase 109 U/L (38-126); Anion Gap 12.8 mEq/L (5-15); Aspartate Amino Transferase 63 U/L (14-36); Blood Urea Nitrogen 7 mg/dl (7-17); Calcium 9.6 mg/dl (8.4-10.2); Carbon Dioxide 26 mmol/L (22.0-30.0); Chloride 105 mmol/L (98-107); Creatinine Clearance Estimated 99 mL/min (50-200); Estimated Glomerular Filt Rate 104 ml/min (>60); GFR (African American) 125 ML/MIN (>60); Glucose 99 mg/dl (74-100); Potassium 3.8 mmoL/L (3.5-5.1); Sodium 140 mmol/L (136-145); Total Protein,Serum 7.5 g/dl (6.3-8.2)
[2022-05-07 22:23] LABS: Bacteria,Urine 2+ /lpf; RBC,Urine Occasional #/hpf (0-3)
[2022-05-07 22:31] VITALS: BP 95/53; PULSE 78; RESP 19; O2SAT 99
[2022-05-07 22:35] LABS: Bilirubin,Indirect 0.1 mg/dL (0.0-0.9); Bilirubin,Total < 0.1 mg/dl (0.2-1.3); Troponin I < 0.01 ng/ml (0.00-0.034)
--- NOTE | 2022-05-07 22:53 | HMH.EDCP ---
Discharge Plan Disposition Patient Disposition: Home, Self-Care Chief Complaint: Chest Pain Prescriptions Prescriptions: New azithromycin [azithromycin] 250 mg tablet 250 mg PO DIRECTED Qty: 6 0RF Rx Instructions: Take two (2) tablets on day #1, then one (1) tablet day #2 thru #5 prednisone [prednisone] 20 mg tablet 20 mg PO BID Qty: 10 0RF No Action medroxyprogesterone [Provera] 10 mg tablet 10 mg PO DAILY buspirone 5 mg tablet 5 mg PO TID metformin 500 mg tablet 500 mg PO TID Vraylar 1.5 mg capsule 1.5 mg PO DAILY Referrals Follow up/Referrals: Mónica Guzman PA [Primary Care Provider] - See instructions Clinical Impressions Clinical Impression: Atypical chest pain, Pleurisy without effusion Instructions Patient Instructions: DI for Chronic Pain -- Adult, DI for Pleurisy Discharge ED Provider: Zurdo Miller Chest Pain HPI General Chief Complaint: Chest Pain Stated Complaint: CHEST PAIN Time Seen by Provider: 05/07/22 22:53 Mode of Arrival: Ambulatory Source of Information: Patient, Significant Other and Medical Record Limitations: No Limitations Description of Symptoms (Recalled from ER Triage Doc. by RN): PT COMPLAIN OF SHARP CHEST PAIN 6/10- SHARP IN CHARACTER AND WORSE WITH DEEP BREATH History of Present Illness HPI narrative: achey and feels weak over the last 2 days with chest pain sharp and increased with insp - no known diabetes or ht dis and no rash or prod cough complaint: chest pain Onset (ago): day(s) Duration: intermittent Activity at onset: during rest Pain location: left chest Severity: moderate Quality: sharp Context: recent illness Risk Factors for CAD: Family Hx of CAD Treatments prior to or on arrival for Cardiac Chest Pain: none EDUARDA Score for Non-Stemi Age of Patient: <30 years old Heart Rate: 70-89 bpm Systolic Blood Pressure: 120-139 mmhg Serum Creatinine: 0.40-0.79 mg/dl CHF Kill[place] Class: I-No CHF Other Risk Factors: None Non-Stemi Risk Score: 47 Related Data On Oral Contraceptives: No Home Medications Medication Instructions Recorded Confirmed buspirone 5 mg tablet 5 mg PO TID Depression 05/07/22 05/07/22 cariprazine 1.5 mg capsule 1.5 mg PO DAILY PCOS 05/07/22 05/07/22 (Vraylar) medroxyprogesterone 10 mg tablet 10 mg PO DAILY PCOS 05/07/22 05/07/22 (Provera) metformin 500 mg tablet 500 mg PO TID Depression 05/07/22 05/07/22 Previous Rx's Medication Instructions Recorded azithromycin 250 mg tablet 250 mg PO DIRECTED #6 tabs 05/07/22 prednisone 20 mg tablet 20 mg PO BID #10 tabs 05/07/22 Allergies Allergy/AdvReac Type Severity Reaction Status Date / Time No Known Allergies Allergy Verified 11/04/21 14:47 [facility] Medical History (Updated 05/07/22 @ 23:56 by Zurdo Miller MD) Abnormal weight Amenorrhea, secondary Anxiety Back pain BMI 40.0-44.9, adult Breast pain, left Depression Insomnia Intertrigo Lipoma Migraine PCOS (polycystic ovarian syndrome) Rash Right lower quadrant abdominal pain Vitamin D deficiency Social History Smoking Status: Never smoker second hand exposure: No alcohol intake: never counseling provided: provider counseling substance use type: denies use current occupational status: unemployed household members: spouse housing: house number of children: 0 caffeine: Yes ROS Obtained: Yes All systems reviewed & no additional complaints except as documented Physical Exam General General appearance: alert and in no apparent distress Head Head exam: normocephalic Eye Eye exam: Present PERRL and EOMI; Absent scleral icterus ENT ENT exam: Present mucous membranes moist Neck Neck exam: Present full ROM and trachea midline Respiratory Respiratory exam: Present normal lung sounds bilaterally; Absent respiratory distress Cardiovascular Cardiovascular exam: Present regular rate; Absent systolic murmur, rubs or gallop
[2022-05-07 23:00] VITALS: BP 114/77; PULSE 85; RESP 17; O2SAT 97
[2022-05-07 23:02] LABS: Coronavirus 19, PCR Not Detected (NotDetected); Influenza A, PCR Not Detected (NotDetected); Influenza B, PCR Not Detected (NotDetected)
--- NOTE | 2022-05-07 23:03 | XR_ITS ---
PROCEDURE INFORMATION: Exam: XR Chest Exam date and time: 05/07/2022 11:01 PM Age: 22 years old Clinical indication: Sternal or substernal pain; Additional info: Chest pain TECHNIQUE: Imaging protocol: Radiologic exam of the chest. Views: 2 views. COMPARISON: CR XR CHEST PORTABLE 09/12/2021 8:38 AM FINDINGS: Lungs: Unremarkable. No consolidation. Pleural spaces: Unremarkable. No pleural effusion. No pneumothorax. Heart/Mediastinum: Unremarkable. No cardiomegaly. Bones/joints: Unremarkable. IMPRESSION: No acute findings.
[2022-05-07 23:05] VITALS: PULSE 83
[2022-05-08 00:21] VITALS: BP 124/81; PULSE 72; RESP 18; TEMP 36.8; O2SAT 98
== END 2022-05-08 00:22 | disposition home or self-care (01) ==
PROVIDERS: Emergency Provider Emergency Medicine; PCP Physician Assistant
DX: N64.4 Mastodynia (principal); R09.1 Pleurisy; R10.31 Right lower quadrant pain; M54.50 Low back pain, unspecified; Z20.822 Contact with and (suspected) exposure to COVID-19; R21 Rash and other nonspecific skin eruption; L30.4 Erythema intertrigo; E28.2 Polycystic ovarian syndrome; E55.9 Vitamin D deficiency, unspecified; D17.9 Benign lipomatous neoplasm, unspecified; G43.909 Migraine, unspecified, not intractable, without status migrainosus; G47.00 Insomnia, unspecified; F41.9 Anxiety disorder, unspecified; F32.A Depression, unspecified; Z79.51 Long term (current) use of inhaled steroids; Z79.52 Long term (current) use of systemic steroids; Z79.84 Long term (current) use of oral hypoglycemic drugs; Z79.899 Other long term (current) drug therapy; Z68.41 Body mass index [BMI] 40.0-44.9, adult; Z82.49 Family history of ischemic heart disease and other diseases of the circulatory system
CPT/HCPCS: 71046; 80048; 80076; 81001; 81025; 84484; 85025; 87086; 87088; 87186; 93005; 96374; 96375; 99285; C9803; U0003; U0005

== ENCOUNTER → 2022-10-16 12:11 | Outpatient (CLI) | payer BC, SELFPAY ==
[2022-10-16 13:53] LABS: 25-OH Vitamin D, Total 23.7 ng/mL (30-100)
[2022-10-17 11:02] LABS: Estradiol 34.6 pg/mL (.); FSH 3.8 mIU/mL (.); HIV Screen 4th Generation wRfx Non Reactive (Non Reactive); Prolactin 16.2 ng/mL (4.8-23.3)
[2022-10-17 13:43] LABS: Rapid Plasma Reagin Ab Titer Non Reactive (NonRea<1:1)
[2022-10-20 21:26] LABS: Hepatitis B Surface Antigen NEGATIVE; Hepatitis C Antibody <0.1
== END ==
PROVIDERS: PCP Physician Assistant; Visit Provider Obstetrics & Gynecology Reproductive Endocrinology
DX: N93.9 Abnormal uterine and vaginal bleeding, unspecified (principal); E55.9 Vitamin D deficiency, unspecified; Z11.9 Encounter for screening for infectious and parasitic diseases, unspecified; Z11.3 Encounter for screening for infections with a predominantly sexual mode of transmission; Z11.4 Encounter for screening for human immunodeficiency virus [HIV]
CPT/HCPCS: 36415; 82306; 82670; 83001; 84146; 86593; 86703; 87340; 87380; G0432

== ENCOUNTER → 2022-12-12 10:00 | Outpatient (CLI) | payer BC, SELFPAY ==
[2022-12-12 13:10] LABS: Adenovirus,PCR Not Detected (NotDetected); Bordetella Pertussis Not Detected (NotDetected); Chlamydophila Pneumoniae, PCR Not Detected (NotDetected); Coronavirus 19, PCR Not Detected (NotDetected); Coronavirus 229E Not Detected (NotDetected); Coronavirus NL63 Not Detected (NotDetected); Coronavirus OC43 Not Detected (NotDetected); Coronovirus HKU1,PCR Not Detected (NotDetected); Human Metapneumovirus Not Detected (NotDetected); Influenza A, PCR Not Detected (NotDetected); Influenza AH1, 2009 Not Detected (NotDetected); Influenza AH1, PCR Not Detected (NotDetected); Influenza AH3,PCR Not Detected (NotDetected); Influenza B, PCR Not Detected (NotDetected); Mycoplasma Pneumoniae, PCR Not Detected (NotDetected); Parainfluenza 1, PCR Not Detected (NotDetected); Parainfluenza 2, PCR Not Detected (NotDetected); Parainfluenza 3, PCR Not Detected (NotDetected); Parainfluenza 4, PCR Not Detected (NotDetected); Respiratory Syncytial Virus Not Detected (NotDetected); Rhinovirus/Enterovirus Not Detected (NotDetected)
== END ==
PROVIDERS: PCP Nurse Practitioner Family; Visit Provider Nurse Practitioner Family
DX: R06.02 Shortness of breath (principal); R07.89 Other chest pain; R53.83 Other fatigue; R05.9 Cough, unspecified; R19.7 Diarrhea, unspecified
CPT/HCPCS: 87581; 87632; 87798; C9803; U0003; U0005

== ENCOUNTER → 2023-01-10 18:25 | Outpatient (CLI) | payer BC, SELFPAY | PROVIDERS: PCP Nurse Practitioner Family; Visit Provider Nurse Practitioner Family | DX: N39.0 Urinary tract infection, site not specified (principal); B96.29 Other Escherichia coli [E. coli] as the cause of diseases classified elsewhere | CPT/HCPCS: 87086; 87088; 87186 ==

== ENCOUNTER 2023-01-24 16:58 | Emergency (ER) | payer BC, SELFPAY ==
[2023-01-24 17:15] VITALS: BP 138/80; PULSE 94; RESP 18; TEMP 36.7; O2SAT 97; BMI 42.5
[2023-01-24 17:17] LABS: Microscopic, Urine URINE MICROSCOPIC (MICROSCOPIC)
[2023-01-24 17:23] LABS: Urine Pregnancy, HCG Qual. Negative (Negative)
[2023-01-24 17:30] VITALS: BP 123/84; PULSE 89; O2SAT 98
[2023-01-24 17:35] LABS: Appearance,Urine CLOUDY (Clear); Bilirubin,Urine Negative (Negative); Blood, Urine TRACE-I (Negative); Color,Urine YELLOW (Yellow); Glucose,Urine (UA) Negative (Negative); Ketones,Urine Negative (Negative); Leukocyte Esterase,Urine 2+ (Negative); Nitrate,Urine Negative (Negative); PH,Urine 5.5 (5.0-8.5); Protein,Urine Negative (Negative); Specific Gravity, Urine >= 1.030 (1.005-1.030); Urobilinogen,Urine 0.2 EU/dl (0.2)
--- NOTE | 2023-01-24 17:38 | CT_ITS ---
PROCEDURE INFORMATION: Exam: CT Abdomen And Pelvis Without Contrast Exam date and time: 01/24/2023 5:45 PM Age: 22 years old Clinical indication: Abdominal pain; Flank; Upper; Additional info: R/O kidney stone. Pain bilateral back and wrapping around to front. TECHNIQUE: Imaging protocol: Computed tomography of the abdomen and pelvis without contrast. Radiation optimization: All CT scans at this facility use at least one of these dose optimization techniques: automated exposure control; mA and/or kV adjustment per patient size (includes targeted exams where dose is matched to clinical indication); or iterative reconstruction. REPORTING DATA: Count of CT and Cardiac NM exams in prior 12 months: This patient has received 0 known CTs and 0 known cardiac nuclear medicine studies in the 12 months prior to the current study. COMPARISON: MR ABDOMEN WO/W CON 24/02/2021 09:04 FINDINGS: Liver: Hepatic steatosis. Gallbladder and bile ducts: Normal. No calcified stones. No ductal dilation. Pancreas: Normal. No ductal dilation. Spleen: Normal. No splenomegaly. Adrenal glands: Normal. No mass. Kidneys and ureters: Normal. No hydronephrosis. Stomach and bowel: Unremarkable. No obstruction. No mucosal thickening. Appendix: Unremarkable appendix. Intraperitoneal space: Unremarkable. No free air. No significant fluid collection. Vasculature: Unremarkable. No abdominal aortic aneurysm. Lymph nodes: Unremarkable. No enlarged lymph nodes. Urinary bladder: Limited evaluation of the urinary bladder due to low urine volume. Reproductive: Unremarkable as visualized. Bones/joints: Unremarkable. No acute fracture. Soft tissues: Tiny fat containing umbilical hernia. IMPRESSION: 1. Limited evaluation of the urinary bladder due to low urine volume. Please exclude infection clinically. Otherwise, no acute findings. 2. Hepatic steatosis.
[2023-01-24 17:50] LABS: Bacteria,Urine 2+ /lpf; RBC,Urine Occasional #/hpf (0-3); WBC,Urine 20-50 #/hpf (0-3)
--- NOTE | 2023-01-24 17:53 | PC.NURSE ---
Obtained vitals,updated pt on wait time for a room, notified charge nurse 16:20
--- NOTE | 2023-01-24 17:54 | PC.NURSE ---
13:30 collected ua on pt, had pt set back in lobby until room opened up
--- NOTE | 2023-01-24 17:54 | PC.NURSE ---
16:45 updated pt let her no ua was sent to lab to get those test started, had discharges to start coming in so room would be available soon
--- NOTE | 2023-01-24 17:56 | PC.NURSE ---
17:09 pt was brought back to room 8
[2023-01-24 18:00] VITALS: BP 136/71; PULSE 86; O2SAT 98
[2023-01-24 18:05] LABS: Anion Gap 18.9 mEq/L (5-15); Blood Urea Nitrogen 13 mg/dl (7-17); Calcium 9.2 mg/dl (8.4-10.2); Carbon Dioxide 24 mmol/L (22.0-30.0); Chloride 100 mmol/L (98-107); Creatinine Clearance Estimated 103 mL/min (50-200); Estimated Glomerular Filt Rate 104 ml/min (>60); GFR (African American) 125 ML/MIN (>60); Glucose 79 mg/dl (74-100); Lipase 72 U/L (23-300); Potassium 3.9 mmoL/L (3.5-5.1); Sodium 139 mmol/L (136-145)
[2023-01-24 18:09] LABS: Basophils % 0.4 % (0.1-2.0); Eosinophils # 0.1 K/mm3 (0.0-0.4); Hematocrit 45.6 % (37.0-47.0); Hemoglobin 14.7 g/dL (12.2-16.2); Lymphocytes # 2.7 K/mm3 (0.7-4.5); Mean Corpuscular HGB Conc 32.2 g/dL (31.8-35.4); Mean Corpuscular Hemoglobin 27.9 pg (27.0-31.2); Mean Corpuscular Volume 86.5 fl (81-99); Mean Platelet Volume 7.2 fl (7.4-10.4); Monocytes # 0.6 K/mm3 (0.1-1.0); Neutrophils # 6.8 K/mm3 (1.8-7.8); Neutrophils % 66.5 % (37.0-80.0); Platelet Count 436 K/mm3 (142-424); Red Blood Count 5.27 M/mm3 (4.20-5.40); Red Cell Distribution Width 13.1 % (11.5-17.5); White Blood Count 10.2 K/mm3 (4.8-10.8)
--- NOTE | 2023-01-24 18:14 | [facility].EDGENADL ---
Discharge Plan Disposition Patient Disposition: Home, Self-Care Condition: Fair Prescriptions Prescriptions: New cefdinir 300 mg capsule 300 mg PO BID 10 Days Qty: 20 0RF Referrals Follow up/Referrals: Zurdo Miller MD [Primary Care Provider] - See instructions Clinical Impressions Clinical Impression: Cystitis Instructions Patient Instructions: Acute Cystitis Print Language Print Language: Yi Discharge ED Provider: Steve Cates General Adult HPI General Chief complaint: Back Pain/Injury Stated complaint: phys ref/ back and abd apin Time Seen by Provider: 01/24/23 18:25 Mode of Arrival: Ambulatory Source of Information: Patient Limitations: No Limitations Description of Symptoms (Recalled from ER Triage Doc. by RN): pt states she has had back pain that radiates to her abdomen for approximately 1.5 weeks, states she was diagnosed with a uti 2-2.5 weeks ago and just completed her antibiotics that were prescribed to her by pcp, went to see pcp today ryan quezada and they told her to come to the er to full out kidney stone, last period is unknown states she has pcos and it is very common for her to go awhile without one, denies any other symptoms History of Present Illness HPI narrative: Patient presents to the emergency department with dysuria and back pain. The patient was recently diagnosed with urinary tract infection, started on Bactrim and represented to her primary care physician today with worsening pain. The patient was given Toradol and Rocephin and sent to the emergency department for further evaluation and treatment. There was suspected stone causing her pain. The patient denies any fever or chills. Does describe significant pain in her pelvic region and back. Related Data Previous Rx's Medication Instructions Recorded cefdinir 300 mg capsule 300 mg PO BID 10 days #20 caps 01/24/23 Allergies Allergy/AdvReac Type Severity Reaction Status Date / Time No Known Allergies Allergy Verified 01/24/23 15:22 [facility] Disclaimer: The information contained in this section may have been updated after the patient was seen, as this information can be updated by other users. Medical History Abnormal weight Amenorrhea, secondary Anxiety Back pain BMI 40.0-44.9, adult Breast pain, left Depression Elevated liver enzymes H. pylori infection Insomnia Intertrigo Lipoma Migraine PCOS (polycystic ovarian syndrome) Rash Right lower quadrant abdominal pain Vitamin D deficiency Social History Smoking Status: Never smoker second hand exposure: No alcohol intake: never counseling provided: provider counseling substance use type: denies use current occupational status: unemployed Travel in the last 8 weeks: None household members: spouse housing: house number of children: 0 caffeine: Yes ROS Obtained: Yes All systems reviewed & no additional complaints except as documented Gastrointestinal Gastrointestingal: Reports abdominal pain Genitourinary Female Genitourinary: Reports dysuria Physical Exam General General appearance: alert, in no apparent distress and obese Head Head exam: atraumatic and normocephalic Eye Eye exam: Present normal appearance, PERRL and EOMI Respiratory Respiratory exam: Present normal lung sounds bilaterally Cardiovascular Cardiovascular exam: Present regular rate and normal rhythm Abdominal Exam Abdominal exam: Present soft, tenderness and normal bowel sounds Extremities Exam Extremities exam: Present normal inspection and full ROM Back Exam Back exam: Present other (Mildly reproducible bilateral CVA tenderness.) Neurological Exam Neurological exam: Present alert, oriented X3 and CN II-XII intact Psychiatric Psychiatric exam: Present normal affect and normal mood Skin Skin exam: Present warm and dry Medical Decision
--- NOTE | 2023-01-24 18:21 | PC.NURSE ---
rounded on pt no complaints at this time
[2023-01-24 18:45] VITALS: BP 115/80; PULSE 91; O2SAT 97
[2023-01-24 18:49] VITALS: BP 115/80; PULSE 91; RESP 18; TEMP 36.7; O2SAT 97
== END 2023-01-24 18:50 | disposition home or self-care (01) ==
PROVIDERS: Emergency Provider Emergency Medicine; PCP Emergency Medicine
DX: N30.00 Acute cystitis without hematuria (principal); R10.9 Unspecified abdominal pain; M54.9 Dorsalgia, unspecified
CPT/HCPCS: 74176; 80048; 81001; 81025; 83690; 85025; 87086; 87088; 87186; 96374; 99285

== ENCOUNTER → 2023-01-24 23:24 | Outpatient (CLI) | payer BC, SELFPAY | PROVIDERS: PCP Nurse Practitioner Family; Visit Provider Nurse Practitioner Family | DX: M54.50 Low back pain, unspecified (principal) ==

== ENCOUNTER → 2023-01-31 10:45 | Outpatient (CLI) | payer BC, SELFPAY | PROVIDERS: PCP Physician Assistant; Visit Provider Physician Assistant | DX: N30.90 Cystitis, unspecified without hematuria (principal) ==

== ENCOUNTER → 2023-01-31 13:18 | Outpatient (CLI) | payer BC, SELFPAY | PROVIDERS: PCP Physician Assistant; Visit Provider Physician Assistant | DX: N30.90 Cystitis, unspecified without hematuria (principal); R19.7 Diarrhea, unspecified | CPT/HCPCS: 87086 ==

== ENCOUNTER → 2023-03-07 10:09 | Outpatient (CLI) | payer BC, SELFPAY ==
[2023-03-07 11:11] LABS: Basophils % 0.6 % (0.1-2.0); Eosinophils # 0.1 K/mm3 (0.0-0.4); Hematocrit 46.9 % (37.0-47.0); Hemoglobin 15.1 g/dL (12.2-16.2); Lymphocytes # 2.2 K/mm3 (0.7-4.5); Lymphocytes % 30.3 % (10-50); Mean Corpuscular HGB Conc 32.1 g/dL (31.8-35.4); Mean Corpuscular Hemoglobin 27.5 pg (27.0-31.2); Mean Corpuscular Volume 85.6 fl (81-99); Mean Platelet Volume 7.4 fl (7.4-10.4); Monocytes # 0.5 K/mm3 (0.1-1.0); Monocytes % 6.7 % (1.7-9.3); Neutrophils # 4.4 K/mm3 (1.8-7.8); Neutrophils % 60.4 % (37.0-80.0); Platelet Count 426 K/mm3 (142-424); Red Blood Count 5.48 M/mm3 (4.20-5.40); White Blood Count 7.3 K/mm3 (4.8-10.8)
[2023-03-07 11:33] LABS: Alanine Aminotransferase 118 U/L (12-78); Albumin Level 4.5 g/dl (3.5-5.0); Albumin/Globulin Ratio 1.6 (1.1-1.8); Alkaline Phosphatase 90 U/L (38-126); Anion Gap 14.3 mEq/L (5-15); Aspartate Amino Transferase 89 U/L (14-36); Bilirubin,Total 0.6 mg/dl (0.2-1.3); Blood Urea Nitrogen 12 mg/dl (7-17); Calcium 9.2 mg/dl (8.4-10.2); Carbon Dioxide 26 mmol/L (22.0-30.0); Chloride 104 mmol/L (98-107); Estimated Glomerular Filt Rate 103 ml/min (>60); GFR (African American) 124 ML/MIN (>60); Globulin 2.8 g/dL (1.3-3.2); Glucose 85 mg/dl (74-100); Glucose,Fasting 85 mg/dl (74-100); Potassium 4.3 mmoL/L (3.5-5.1); Sodium 140 mmol/L (136-145); Total Protein,Serum 7.3 g/dl (6.3-8.2)
[2023-03-07 11:36] LABS: Hemoglobin A1C 5.5 % (4.0-6.0)
[2023-03-08 11:24] LABS: Insulin Level Total 36.7 uIU/mL (2.6-24.9)
[2023-03-17 02:23] LABS: Testosterone, Total, LC/MS 46 ng/dL (.)
== END ==
PROVIDERS: PCP Physician Assistant; Visit Provider Obstetrics & Gynecology
DX: E28.2 Polycystic ovarian syndrome (principal); R63.5 Abnormal weight gain
CPT/HCPCS: 36415; 80053; 82947; 83036; 83525; 84403; 85025

== ENCOUNTER 2023-06-02 09:01 | Emergency (ER) | payer BC, SELFPAY ==
[2023-06-02 09:10] VITALS: BP 125/79; PULSE 109; RESP 18; TEMP 36.6; O2SAT 98; BMI 42.5
[2023-06-02 09:21] LABS: UTC Strep Screen (Rapid) Negative (Negative)
--- NOTE | 2023-06-02 09:23 | EXP.UTC ---
Discharge Plan Disposition Patient Disposition: Home, Self-Care Condition: Good Prescriptions Prescriptions: New azithromycin [Zithromax] 250 mg tablet 250 mg PO UD DOSE PK Qty: 6 0RF Rx Instructions: Take two (2) tablets today, then one (1) tablet days #2 thru #5 benzonatate [benzonatate] 100 mg capsule 100 mg PO TIDP PRN (Reason: Cough) Qty: 30 0RF methylprednisolone 4 mg Tablets,Dose Pack 4 mg PO DIRECTED Qty: 21 0RF No Action Ubrelvy 100 mg tablet 100 mg PO ONCE PRN (Reason: migraine) Qty: 18 0RF Vraylar 1.5 mg capsule 1.5 mg PO DAILY Wegovy 0.25 mg/0.5 mL pen injector 0.25 mg SQ WEEKLY Rx Instructions: administer weeks 1 through 4 of therapy Referrals Follow up/Referrals: Mónica Guzman PA [Primary Care Provider] - See instructions Activity Restrictions/Add. Instructions Additional Instructions/Restrictions: Drink plenty of fluids. Take tylenol or ibuprofen for pain or fever. Take the medications as directed. Follow up with your regular doctor. GO TO THE ER FOR ANY WORSENING SYMPTOMS Clinical Impressions Clinical Impression: Sinusitis, Acute viral syndrome Stand Alone Forms Stand Alone Forms: Work/School Release Instructions Patient Instructions: DI for Sinusitis, Coronavirus Disease 2019, Preventing the Spread of Coronavirus Discharge Instructions Discharge ED Provider: Chandan Gant [facility] General Stated complaint: h/a, sore throat, body aches Mode of Arrival: Ambulatory Source of Information: Patient Limitations: No Limitations Time Seen by Provider: 06/02/23 09:22 Description of Symptoms (Recalled from Triage Doc. by RN): body aches, sore throat, and fever HEENT Symptoms (Recalled from RN notes): Yes Resp Symptoms (Recalled from RN notes): No Skin Symptoms (Recalled from RN notes): No MS Symptoms (Recalled from RN notes): No Functional Status (Recalled from RN notes): n/a History of Present Illness Provider Complaint: She states that for the past 3 days she has had fever, body aches, chills, and sinus congestion. Related Data Home Medications Medication Instructions Recorded Confirmed cariprazine 1.5 mg capsule 1.5 mg PO DAILY mood 09/23/23 09/23/23 (Vraylar) semaglutide (weight loss) 0.25 0.25 mg SQ WEEKLY weightloss 06/02/23 06/02/23 mg/0.5 mL subcutaneous pen injector (Wegovy) Previous Rx's Medication Instructions Recorded ubrogepant 100 mg tablet (Ubrelvy) 100 mg PO ONCE PRN migraine #18 04/30/23 tabs azithromycin 250 mg tablet 250 mg PO UD DOSE PK #6 tabs 06/02/23 (Zithromax) benzonatate 100 mg capsule 100 mg PO TIDP PRN Cough #30 caps 06/02/23 methylprednisolone 4 mg tablets in 4 mg PO DIRECTED #21 tabs 06/02/23 a dose pack Allergies Allergy/AdvReac Type Severity Reaction Status Date / Time No Known Allergies Allergy Verified 06/02/23 09:15 Worker's Comp Is this a Worker's Comp case?: No [facility] Disclaimer: The information contained in this section may have been updated after the patient was seen, as this information can be updated by other users. Medical History Abnormal weight Amenorrhea, secondary Anxiety Back pain BMI 40.0-44.9, adult Breast pain, left Depression Elevated liver enzymes H. pylori infection Insomnia Intertrigo Lipoma Migraine PCOS (polycystic ovarian syndrome) Rash Right lower quadrant abdominal pain Vitamin D deficiency Surgical History Hx of cholecystectomy Hx of tonsillectomy Family History Mother Heart disease Social History Smoking Status: Never smoker second hand exposure: No alcohol intake: never counseling provided: provider counseling substance use type: denies use current occupational status: unemployed Travel
[2023-06-02 10:11] VITALS: BP 125/79; PULSE 109; RESP 18; TEMP 36.6; O2SAT 98
== END 2023-06-02 10:11 | disposition home or self-care (01) ==
PROVIDERS: Emergency Provider Nurse Practitioner Family; PCP Physician Assistant
DX: J01.90 Acute sinusitis, unspecified (principal); B34.9 Viral infection, unspecified; E55.9 Vitamin D deficiency, unspecified; F41.9 Anxiety disorder, unspecified; F32.A Depression, unspecified; G47.00 Insomnia, unspecified; Z68.41 Body mass index [BMI] 40.0-44.9, adult
CPT/HCPCS: 87635; 87880; 99212; 99214; G0463

== ENCOUNTER → 2023-09-05 23:15 | Outpatient (CLI) | payer BC, SELFPAY ==
[2023-09-05 18:27] LABS: Adenovirus,PCR Not Detected (NotDetected); Coronavirus 19, PCR Not Detected (NotDetected); Coronavirus NL63 Not Detected (NotDetected); Coronavirus OC43 Not Detected (NotDetected); Coronovirus HKU1,PCR Not Detected (NotDetected); Human Metapneumovirus Not Detected (NotDetected); Influenza A, PCR Not Detected (NotDetected); Influenza AH1, 2009 Not Detected (NotDetected); Influenza AH1, PCR Not Detected (NotDetected); Influenza AH3,PCR Not Detected (NotDetected); Influenza B, PCR Not Detected (NotDetected); Parainfluenza 1, PCR Not Detected (NotDetected); Parainfluenza 2, PCR Not Detected (NotDetected); Parainfluenza 3, PCR Not Detected (NotDetected); Parainfluenza 4, PCR Not Detected (NotDetected); Respiratory Syncytial Virus Not Detected (NotDetected); Rhinovirus/Enterovirus Not Detected (NotDetected)
[2023-09-06 08:42] LABS: Coronavirus 229E Detected (NotDetected)
== END ==
LOC: LAB.DROPOF 23:15
PROVIDERS: PCP Physician Assistant; Visit Provider Physician Assistant
DX: R06.02 Shortness of breath (principal); B34.2 Coronavirus infection, unspecified
CPT/HCPCS: 87581; 87632; 87635; 87798

== ENCOUNTER 2023-10-11 22:10 | Outpatient (CLI) | payer BC, SELFPAY ==
[2023-10-11 18:42] LABS: Coronavirus 19, PCR Not Detected (NotDetected); Influenza A, PCR Not Detected (NotDetected); Influenza B, PCR Not Detected (NotDetected)
== END 2023-10-11 23:59 ==
LOC: LAB.DROPOF 22:11
PROVIDERS: PCP Family Medicine; Visit Provider Family Medicine
DX: J32.9 Chronic sinusitis, unspecified (principal)
CPT/HCPCS: 87636

== ENCOUNTER 2023-10-16 19:48 | Emergency (ER) | payer BC, SELFPAY ==
[2023-10-16 19:56] VITALS: BP 134/91; PULSE 97; RESP 17; TEMP 36.8; O2SAT 97; BMI 42.5
[2023-10-16 20:00] VITALS: BP 133/93; PULSE 99; O2SAT 96
--- NOTE | 2023-10-16 20:16 | PC.NURSE ---
Rounded on pt multiple times. Pt has no complaints. Family at bedside. Voices no needs
[2023-10-16 20:30] VITALS: BP 134/90; PULSE 103; O2SAT 97
[2023-10-16] MEDS: DEXAMETHASONE 4MG TABLET 10 MG PO (20:34)
[2023-10-16] MEDS: diphenhydrAMINE 25MG CAPSULE 50 MG PO (20:35)
[2023-10-16 21:00] VITALS: BP 129/94; PULSE 103; O2SAT 96
[2023-10-16 21:26] VITALS: BP 129/94; PULSE 103; RESP 16; TEMP 36.8; O2SAT 97
--- NOTE | 2023-10-16 22:25 | [facility].EDGENADL ---
Discharge Plan Disposition Patient Disposition: Home, Self-Care Condition: Good Prescriptions Prescriptions: New cetirizine [Zyrtec] 10 mg tablet 10 mg PO DAILY Qty: 30 0RF No Action cholecalciferol (vitamin D3) 1,250 mcg (50,000 unit) capsule 1,250 mcg PO WEEKLY WesTab Plus 27 mg iron- 1 mg tablet PO metformin 500 mg tablet extended release 24 hr PO Patient Comments: TAKE ONE TABLET BY MOUTH DAILY FOR 1 WEEK, THEN increase TO 2 tablets BY MOUTH DAILY FOR 1 WEEK, THEN increase TO 3 tabs BY MOUTH DAILY AND continue Wegovy 0.5 mg/0.5 mL pen injector 0.5 mg SQ WEEKLY Qty: 2 0RF Rx Instructions: administer weeks 5 through 8 of therapy albuterol sulfate [Proventil HFA] 90 mcg/actuation HFA aerosol inhaler 2 puff inhalation Q6H PRN (Reason: shortness of breath or wheezing) Qty: 8.5 0RF amoxicillin 500 mg tablet 500 mg PO BID 10 Days Qty: 20 0RF methylprednisolone [Medrol (Allan)] 4 mg tablets,dose pack See Rx Instructions PO PER PKG DIR Qty: 21 0RF Rx Instructions: PO PER PKG DIR Referrals Follow up/Referrals: Mónica Guzman PA [Primary Care Provider] - See instructions Activity Restrictions/Add. Instructions Additional Instructions/Restrictions: You were evaluated in the emergency department today. At this time, it is felt that your symptoms are related to an allergic reaction. Please pharmacy picking technician your prescription for Zyrtec and take daily. You were given a dose of steroids here in the emergency department. Please take Benadryl at home every 8 hours as needed for itching. Follow-up with your primary care provider for reassessment. Return to the emergency department for new or worsening symptoms. Clinical Impressions Clinical Impression: Urticaria, Allergic reaction Instructions Patient Instructions: DI for Hives Discharge ED Provider: Namita Callahan General Adult HPI General Chief complaint: Skin/Abscess/Foreign Body Stated complaint: allergic reaction, rash, burning Time Seen by Provider: 10/16/23 19:59 Mode of Arrival: Ambulatory Source of Information: Patient Limitations: No Limitations Description of Symptoms (Recalled from ER Triage Doc. by RN): Pt ambulatory to ED with C/O rash on chest and upper arms. Pt beleives she is having an allergic reaction. Pt reports NKA. No new foods or medications. Pt states her eyes were swollen earlier today. History of Present Illness HPI narrative: This patient is a 23-year-old female with history of PCOS and infertility presenting to the emergency department for evaluation with concern for a pruritic rash on her chest and upper arms. She also states that at work she had periorbital swelling and facial swelling. She was concerned that she was having allergic reaction. She took Benadryl with improvement, however then the rash started to come back. No history of allergic reactions. No new exposures that she can think of. No difficulty breathing or other concerns. Related Data Home Medications Medication Instructions Recorded Confirmed cholecalciferol (vitamin D3) 1,250 1,250 mcg PO WEEKLY 08/13/23 10/11/23 mcg (50,000 unit) capsule metformin 500 mg tablet,extended mg PO 08/13/23 10/11/23 release 24 hr vitamin with calcium tab PO 08/13/23 10/11/23 no.72-iron 27 mg-folic acid 1 mg tablet (WesTab Plus) Previous Rx's Medication Instructions Recorded semaglutide (weight loss) 0.5 0.5 mg (0.5 mL) SQ WEEKLY #2 mL 08/13/23 mg/0.5 mL subcutaneous pen injector (Wegovy) albuterol sulfate 90 mcg/actuation 2 puff inhalation Q6H PRN 09/05/23 aerosol inhaler (Proventil HFA) shortness of breath or wheezing #8.5 grams amoxicillin 500 mg tablet 500 mg PO BID 10 days #20 tabs 10/11/23 methylprednisolone 4 mg tablets in See Rx Instructions PO PER PKG DIR 10/11/23 a dose pack (Medrol (Allan)) #21 tabs cetirizine 10 mg tablet (Zyrtec) 10 mg PO DAILY #30 tabs 10/16/23 Allergies Allergy/AdvReac Type Severity Reaction Status Date / Time No Known Allergies Allergy Verified 10/11/23 13:12 [facility] Disclaimer: The information contained in this section may have been updated after the patient was seen, as this information can be updated by other users. Medical History Abnormal weight Amenorrhea, secondary Anxiety Back pain BMI 40.0-44.9, adult Breast pain, left Depression Elevated liver enzymes H. pylori infection Insomnia Intertrigo Lipoma Migraine PCOS (polycystic ovarian syndrome) Rash Right lower quadrant abdominal pain Vitamin D deficiency Surgical History Hx of cholecystectomy Hx of tonsillectomy Family History Mother Heart disease Social History Smoking Status: Unknown if ever smoked second hand exposure: No alcohol intake: never counseling provided: provider counseling substance use type: denies use current occupational status: unemployed Travel in the last 8 weeks: None household members: spouse housing: house number of children: 0 caffeine: Yes ROS Obtained: Yes All systems reviewed & no additional complaints except as documented Physical Exam General General appearance: alert and in no apparent distress Head Head exam: atraumatic and normocephalic Eye Eye exam: Present normal appearance, PERRL and EOMI ENT ENT exam: Present normal exam, normal oropharynx, mucous membranes moist and normal external ear exam Neck Neck exam: Present normal inspection, full ROM and trachea midline; Absent tenderness Chest Chest inspection: Present normal inspection and symmetric chest wall rise; Absent tenderness Respiratory Respiratory exam: Present normal lung sounds bilaterally; Absent respiratory distress, wheezes, stridor or accessory muscle use Cardiovascular Cardiovascular exam: Present regular rate and normal rhythm Abdominal Exam Abdominal exam: Present soft; Absent distention, tenderness or guarding Extremities Exam Extremities exam: Present normal inspection, full ROM and normal capillary refill; Absent tenderness or edema Back Exam Back exam: Present normal inspection and full ROM; Absent tenderness Neurological Exam Neurological exam: Present alert, oriented X3, CN II-XII intact and normal gait; Absent motor sensory deficit Psychiatric Psychiatric exam: Present normal affect and normal mood Skin Skin exam: Present warm, dry and rash (urticarial rash to chest and arms) Medical Decision Making Medical Records Medical records reviewed: Yes I reviewed the patient's medical records. Fredy Inquiry Pt receiving controlled substance: No Vital Signs: 10/16/23 19:56 10/16/23 20:00 10/16/23 20:30 Temperature 98.3 F Temperature Source Oral Pulse Rate 99 H 103 H Pulse Rate [Left Radial] 97 H Respiratory Rate 17 Blood Pressure 133/93 H 134/90 Blood Pressure [Right Arm] 134/91 H Blood Pressure Mean 105 113 Blood Pressure Mean [Right Arm] 105 Blood Pressure Source [Right Arm] Automatic Cuff Blood Pressure Position [Right Arm] Sitting 02 Sat by Pulse Oximetry 97 96 97 Oxygen Delivery Method Room Air 10/16/23 21:00 10/16/23 21:26 Temperature 98.3 F Temperature Source Oral Pulse Rate 103 H 103 H Pulse Rate [Left Radial] Respiratory Rate 16 Blood Pressure 129/94 H 129/94 H Blood Pressure [Right Arm] Blood Pressure Mean 106 Blood Pressure Mean [Right Arm] Blood Pressure Source [Right Arm] Blood Pressure Position [Right Arm] 02 Sat by Pulse Oximetry 96 Oxygen Delivery Method Lab Data Lab results reviewed: Yes I reviewed the patient's lab results. Orders (Tests/Meds): ED MEDICATIONS Discontinued Medications Generic Name Dose Route Start Last Admin Trade Name Roberthq PRN Reason Stop Dose Admin Dexamethasone 10 mg 10/16/23 20:24 10/16/23 20:34 Dexamethasone 4mg Tablet PO 10/16/23 20:25 10 mg ONCE ONE Administration Diphenhydramine HCl 50 mg 10/16/23 20:24 10/16/23 20:35 Diphenhydramine 25mg Capsule PO 10/16/23 20:25 50 mg ONCE ONE Administration Medical Decision Narrative: In summary, this patient is a 23-year-old female presenting to the Emergency Department for evaluation of rash. Differential diagnoses considered include but are not limited to urticaria, allergic reaction, anaphylaxis, viral exanthem. Ruling out the most morbid conditions drove assessment. On exam, the patient is well-appearing. She has mild urticarial rash to her chest and arms but no oropharyngeal swelling, wheezing, or other concerns. She did have swelling around her eyes but that improved after Benadryl. At this time, I do not feel the labs or imaging are indicated. Patient was given oral Benadryl and dexamethasone for symptomatic improvement. I counseled her on urticaria and monitoring for triggers. I advised that a lot of times we do not find out the cause, as it can be viral or related to any new exposures. She was given instructions for supportive management, strict return precautions, and she was discharged in stable condition after all questions were answered. Critical Care Critical Care Time Critical Care Time: No
== END 2023-10-16 21:28 | disposition home or self-care (01) ==
PROVIDERS: Emergency Provider Emergency Medicine; PCP Physician Assistant
DX: R22.0 Localized swelling, mass and lump, head (principal); L50.9 Urticaria, unspecified; R21 Rash and other nonspecific skin eruption; E28.2 Polycystic ovarian syndrome; T78.40XA Allergy, unspecified, initial encounter; X58.XXXA Exposure to other specified factors, initial encounter
CPT/HCPCS: 99283

== ENCOUNTER 2023-11-01 11:54 | Emergency (ER) | payer BC, SELFPAY ==
[2023-11-01 11:56] VITALS: BP 143/88; PULSE 95; RESP 18; TEMP 36.8; O2SAT 97; BMI 44.4
[2023-11-01 12:24] LABS: Basophils % 0.4 % (0.1-2.0); Eosinophils # 0.5 K/mm3 (0.0-0.4); Eosinophils % 4.6 % (0.1-12.0); Hematocrit 43.3 % (37.0-47.0); Hemoglobin 14.4 g/dL (12.2-16.2); Lymphocytes % 27.9 % (10-50); Mean Corpuscular HGB Conc 33.4 g/dL (31.8-35.4); Mean Corpuscular Hemoglobin 29.3 pg (27.0-31.2); Mean Corpuscular Volume 87.9 fl (81-99); Mean Platelet Volume 7.9 fl (7.4-10.4); Monocytes # 0.8 K/mm3 (0.1-1.0); Neutrophils # 6.4 K/mm3 (1.8-7.8); Neutrophils % 60.2 % (37.0-80.0); Platelet Count 465 K/mm3 (142-424); Red Blood Count 4.92 M/mm3 (4.20-5.40); Red Cell Distribution Width 13.3 % (11.5-17.5); White Blood Count 10.7 K/mm3 (4.8-10.8)
[2023-11-01 12:25] LABS: Chloride 108 mmol/L (98-107); Sodium 139 mmol/L (136-145)
[2023-11-01 12:28] LABS: Alanine Aminotransferase 169 U/L (12-78); Albumin Level 4.7 g/dl (3.5-5.0); Albumin/Globulin Ratio 1.6 (1.1-1.8); Alkaline Phosphatase 86 U/L (38-126); Aspartate Amino Transferase 91 U/L (14-36); Bilirubin,Total 0.5 mg/dl (0.2-1.3); Blood Urea Nitrogen 11 mg/dl (7-17); Carbon Dioxide 25 mmol/L (22.0-30.0); Creatinine Clearance Estimated 86 mL/min (50-200); Estimated Glomerular Filt Rate 88 ml/min (>60); GFR (African American) 107 ML/MIN (>60); Globulin 2.9 g/dL (1.3-3.2); Total Protein,Serum 7.6 g/dl (6.3-8.2)
[2023-11-01 12:29] LABS: Calcium 9.9 mg/dl (8.4-10.2); Glucose 95 mg/dl (74-100)
--- NOTE | 2023-11-01 12:30 | HMH.EDGENADL ---
Discharge Plan Disposition Patient Disposition: Home, Self-Care Condition: Good Prescriptions Prescriptions: No Action cholecalciferol (vitamin D3) 1,250 mcg (50,000 unit) capsule 1,250 mcg PO WEEKLY WesTab Plus 27 mg iron- 1 mg tablet PO metformin 500 mg tablet extended release 24 hr PO TID Patient Comments: TAKE ONE TABLET BY MOUTH DAILY FOR 1 WEEK, THEN increase TO 2 tablets BY MOUTH DAILY FOR 1 WEEK, THEN increase TO 3 tabs BY MOUTH DAILY AND continue albuterol sulfate [Proventil HFA] 90 mcg/actuation HFA aerosol inhaler 2 puff inhalation Q6H PRN (Reason: shortness of breath or wheezing) Qty: 8.5 0RF ketorolac 10 mg tablet 10 mg PO Q6H 5 Days Qty: 20 0RF Referrals Follow up/Referrals: Salinas Canales MD [Staff Physician] - See instructions Mónica Guzman PA [Primary Care Provider] - See instructions Activity Restrictions/Add. Instructions Additional Instructions/Restrictions: You were evaluated in the emergency department today. Please proceed directly to Dr. Canales's office for evaluation. He was see you at 1:30pm. Return for new or worsening symptoms. Clinical Impressions Clinical Impression: Abnormal vaginal bleeding, Vaginal pain Instructions Patient Instructions: DI for Vaginal Bleeding Discharge ED Provider: Namita Callahan General Adult HPI General Chief complaint: Vaginal Bleeding Stated complaint: loosing blood, passing out Time Seen by Provider: 11/01/23 12:07 Mode of Arrival: Ambulatory Source of Information: Patient Limitations: No Limitations Description of Symptoms (Recalled from ER Triage Doc. by RN): Patient states she was prescribed Provera 14 days ago and has been bleeding for one week states she was seen by OB in [facility] today and the performed a transvaginal US and since having that she has been bleeding a lot, soaking 4 pads in 1 hour and can feel it constantly. Patient reports she passed out when she was on the toilet just prior to coming to ER. History of Present Illness HPI narrative: This patient is a 23-year-old female with history of obesity, PCOS, infertility, and bipolar disorder presenting to the emergency department for evaluation with concern for vaginal bleeding and pain. Patient reports that she was prescribed Provera 14 days ago and had had some bleeding since then. She states that it initially was not that bad, but she went to her OB in [place] today where she had a speculum exam and transvaginal ultrasound. She states that she started bleeding very heavily when she got home. She notes that it was just pouring into the toilet, and she has soaked 4 pads in the last hour. She states that she can feel it pouring out constantly. She notes that she almost passed out prior to coming into the ED. No other concerns noted at this time. Related Data Home Medications Medication Instructions Recorded Confirmed cholecalciferol (vitamin D3) 1,250 1,250 mcg PO WEEKLY 08/13/23 11/01/23 mcg (50,000 unit) capsule vitamin with calcium tab PO 08/13/23 11/01/23 no.72-iron 27 mg-folic acid 1 mg tablet (WesTab Plus) metformin 500 mg tablet,extended mg PO TID 11/01/23 11/01/23 release 24 hr Previous Rx's Medication Instructions Recorded albuterol sulfate 90 mcg/actuation 2 puff inhalation Q6H PRN 09/05/23 aerosol inhaler (Proventil HFA) shortness of breath or wheezing #8.5 grams ketorolac 10 mg tablet 10 mg PO Q6H 5 days #20 tabs 11/01/23 Allergies Allergy/AdvReac Type Severity Reaction Status Date / Time No Known Allergies Allergy Verified 11/01/23 13:36 [facility] Disclaimer: The information contained in this section may have been updated after the patient was seen, as this information can be updated by other users. Medical History Abnormal weight Amenorrhea, secondary Anxiety Back pain BMI 40.0-44.9, adult Breast pain, left Depression Elevated liver enzymes H. pylori infection Insomnia Intertrigo Lipoma Migraine PCOS (polycystic ovarian syndrome) Rash Right lower quadrant abdominal pain Vitamin D deficiency Surgical History Hx of cholecystectomy Hx of tonsillectomy Family History Mother Heart disease Social History Smoking Status: Never smoker second hand exposure: No alcohol intake: never counseling provided: provider counseling substance use type: denies use current occupational status: unemployed Travel in the last 8 weeks: None household members: spouse housing: house number of children: 0 caffeine: Yes ROS Obtained: Yes All systems reviewed & no additional complaints except as documented Physical Exam General General appearance: alert and in no apparent distress Head Head exam: atraumatic and normocephalic Eye Eye exam: Present normal appearance, PERRL and EOMI ENT ENT exam: Present normal exam, normal oropharynx, mucous membranes moist and normal external ear exam Neck Neck exam: Present normal inspection, full ROM and trachea midline; Absent tenderness Chest Chest inspection: Present normal inspection and symmetric chest wall rise; Absent tenderness Respiratory Respiratory exam: Present normal lung sounds bilaterally; Absent respiratory distress, wheezes, stridor or accessory muscle use Cardiovascular Cardiovascular exam: Present regular rate and normal rhythm Abdominal Exam Abdominal exam: Present soft; Absent distention, tenderness or guarding Extremities Exam Extremities exam: Present normal inspection, full ROM and normal capillary refill; Absent tenderness or edema Back Exam Back exam: Present normal inspection and full ROM; Absent tenderness Neurological Exam Neurological exam: Present alert, oriented X3, CN II-XII intact and normal gait; Absent motor sensory deficit Psychiatric Psychiatric exam: Present normal affect and normal mood Skin Skin exam: Present warm and dry Medical Decision Making Medical Records Medical records reviewed: Yes I reviewed the patient's medical records. Fredy Inquiry Pt receiving controlled substance: No Vital Signs: 11/01/23 11:56 11/01/23 13:03 Temperature 98.2 F 98.2 F Temperature Source Oral Oral Pulse Rate 95 H Pulse Rate [Right] 95 H Respiratory Rate 18 18 Blood Pressure 144/77 H Blood Pressure [Right Arm] 143/88 H Blood Pressure Mean [Right Arm] 106 Blood Pressure Source [Right Arm] Automatic Cuff 02 Sat by Pulse Oximetry 97 Oxygen Delivery Method Room Air Room Air Lab Data Lab results reviewed: Yes I reviewed the patient's lab results. Lab Results 11/01/23 12:10: WBC 10.7, RBC 4.92, Hgb 14.4, Hct 43.3, MCV 87.9, MCH 29.3, MCHC 33.4, RDW 13.3, Plt Count 465 H, MPV 7.9, Neut % (Auto) 60.2, Lymph % (Auto) 27.9, [place] % (Auto) 7.0, Eos % (Auto) 4.6, Baso % (Auto) 0.4, Neut # (Auto) 6.4, Lymph # (Auto) 3.0, [place] # (Auto) 0.8, Eos # (Auto) 0.5 H, Baso # (Auto) 0.0, PT 10.2, INR 0.94, APTT 20.4 L, Sodium 139, Potassium 4.0, Chloride 108 H, Carbon Dioxide 25, Anion Gap 10.0, BUN 11, Creatinine 0.80, Estimated Creat Clear 86, Estimated GFR 88, Est GFR ( Amer) 107, Glucose 95, Calcium 9.9, Total Bilirubin 0.5, AST 91 H, ALT 169 H, Alkaline Phosphatase 86, Total Protein 7.6, Albumin 4.7, Globulin 2.9, Albumin/Globulin Ratio 1.6, Serum HCG, Qual Negative 11/01/23 12:10 11/01/23 12:10 Orders (Tests/Meds): ED MEDICATIONS Discontinued Medications Generic Name Dose Route Start Last Admin Trade Name Freq PRN Reason Stop Dose Admin Acetaminophen 1,000 mg 11/01/23 12:48 11/01/23 12:56 Acetaminophen 500mg Tab PO 11/01/23 12:49 1,000 mg ONCE ONE Administration Ketorolac Tromethamine 15 mg 11/01/23 12:46 11/01/23 12:56 Ketorolac 30mg/Ml Vial IV 11/01/23 12:47 15 mg ONCE ONE Administration ORDERS Category Date Time Status Activated Partial Thrombo Time Stat Lab 11/01/23 12:10 Completed Complete Blood Count Auto Diff Stat Lab 11/01/23 12:10 Completed Comprehensive Metabolic Panel Stat Lab 11/01/23 12:10 Completed HCG Qualitative, Serum Stat Lab 11/01/23 12:10 Completed Prothrombin Time INR Stat Lab 11/01/23 12:10 Completed Medical Decision Narrative: In summary, this patient is a 23-year-old female presenting to the Emergency Department for evaluation of vaginal bleeding after instrumentation today. Differential diagnoses considered include but are not limited to hemorrhage, vaginal laceration, cervical laceration, dysfunctional uterine bleeding, anemia. Ruling out the most morbid conditions drove assessment. It should be noted patient's history includes obesity and PCOS which are not at goal therapy. This complicates all aspects of care by increasing patient's risk for morbidity. On exam, the patient is uncomfortable appearing but is in no acute distress. She is hemodynamically stable with reassuring vital signs. Workup included CBC, CMP, PT, PTT, and test. Pelvic exam was performed that demonstrated small amount of vaginal pooling. Patient had significant pain with pelvic exam, but no obvious source of bleeding. I called and had an interactive discussion with Dr. Canales with [employer] who advised that the patient come to clinic today at 1:30 PM to be evaluated by them. Labs are reassuring and the patient is hemodynamically stable without active severe hemorrhaging, so I feel that this is appropriate. We help to get her over there and she was transported in stable condition. She was given strict return precautions Critical Care Critical Care Time Critical Care Time: No
[2023-11-01 12:35] LABS: HCG Qualitative, Serum Negative (Negative)
[2023-11-01 12:46] LABS: Activated Partial Thrombo Time 20.4 seconds (22.8-30.6); INR 0.94 (0.9-1.1); Prothrombin Time 10.2 seconds (10.1-12.5)
--- NOTE | 2023-11-01 12:47 | PC.NURSE ---
GEETHA DUARTE PER
[2023-11-01] MEDS: KETOROLAC 30MG/ML VIAL 15 MG IV (12:56)
[2023-11-01] MEDS: ACETAMINOPHEN 500MG TAB 1000 MG PO (12:56)
[2023-11-01 13:03] VITALS: BP 144/77; PULSE 95; RESP 18; TEMP 36.8; O2SAT 98
== END 2023-11-01 13:06 | disposition home or self-care (01) ==
PROVIDERS: Emergency Provider Emergency Medicine; PCP Physician Assistant
DX: N93.9 Abnormal uterine and vaginal bleeding, unspecified (principal); R10.2 Pelvic and perineal pain; E28.2 Polycystic ovarian syndrome
CPT/HCPCS: 80053; 84703; 85025; 85610; 85730; 96374; 99285

== ENCOUNTER 2024-02-14 10:28 | Emergency (ER) | payer BC, SELFPAY ==
[2024-02-14 10:30] VITALS: BP 124/86; PULSE 95; RESP 16; TEMP 36.6; O2SAT 99; BMI 42.0
--- NOTE | 2024-02-14 10:40 | PC.NURSE ---
DR HOBSON AT BEDSIDE
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
[2024-02-14] MEDS: ACETAMINOPHEN 500MG TAB 1000 MG PO (10:50)
[2024-02-14] MEDS: IBUPROFEN 600 MG TABLET PO (10:50)
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
--- NOTE | 2024-02-14 11:05 | PC.NURSE ---
UA SENT FOR URINE
[2024-02-14 11:17] LABS: Urine Pregnancy, HCG Qual. Negative (Negative)
[2024-02-14 13:23] VITALS: BP 128/81; PULSE 68; RESP 18; TEMP 36.7; O2SAT 99
== END 2024-02-14 13:23 | disposition home or self-care (01) ==
PROVIDERS: Emergency Provider Emergency Medicine; PCP Physician Assistant
DX: R51.9 Headache, unspecified (principal); Y04.2XXA Assault by strike against or bumped into by another person, initial encounter
CPT/HCPCS: 70486; 81025; 99284

== ENCOUNTER 2024-02-25 10:35 | Emergency (ER) | payer BC, SELFPAY ==
[2024-02-25] VITALS (14 sets, daily range): BP systolic 107–140; BP diastolic 65–89; PULSE 65–93; RESP 14–27; TEMP 36.7; O2SAT 95–100; BMI 45.3
--- NOTE | 2024-02-25 10:34 | ECG_ITS ---
APPROVED REPORT Exam: Resting ECG HR:60 bpm ECG Measurements Heart Rate 60 AXES WA 122 P 64 QRSd 89 QRS 78 QT 405 T 63 QTc 405 Conclusion SINUS RHYTHM WITH SINUS ARRHYTHMIA NORMAL ECG Electronically signed by : NASRA ULRICH, 02/25/2024 15:45:42
--- NOTE | 2024-02-25 10:39 | XR_ITS ---
FINAL REPORT CLINICAL HISTORY: cp FINDINGS: No acute pulmonary opacity is present. There is no evidence of effusion or pneumothorax. Mediastinum is unremarkable. Heart size is normal. IMPRESSION: No acute abnormality. Authenticated and [facility]
[2024-02-25 10:49] LABS: Basophils # 0.1 K/mm3 (0-0.2); Basophils % 1.4 % (0.1-2.0); Eosinophils # 0.2 K/mm3 (0.0-0.4); Eosinophils % 2.4 % (0.1-12.0); Hematocrit 42.8 % (37.0-47.0); Hemoglobin 14.5 g/dL (12.2-16.2); Lymphocytes # 3.4 K/mm3 (0.7-4.5); Lymphocytes % 42.6 % (10-50); Mean Corpuscular Hemoglobin 29.6 pg (27.0-31.2); Mean Corpuscular Volume 87.1 fl (81-99); Mean Platelet Volume 7.1 fl (7.4-10.4); Monocytes # 0.5 K/mm3 (0.1-1.0); Monocytes % 6.7 % (1.7-9.3); Neutrophils # 3.7 K/mm3 (1.8-7.8); Platelet Count 409 K/mm3 (142-424); Red Blood Count 4.91 M/mm3 (4.20-5.40); Red Cell Distribution Width 13.5 % (11.5-17.5); White Blood Count 7.9 K/mm3 (4.8-10.8)
[2024-02-25 10:51] LABS: Chloride 107 mmol/L (98-107); Potassium 3.9 mmoL/L (3.5-5.1); Sodium 140 mmol/L (136-145)
[2024-02-25 10:53] LABS: Blood Urea Nitrogen 12 mg/dl (7-17); Creatinine Clearance Estimated 93 mL/min (50-200); Estimated Glomerular Filt Rate 102 ml/min (>60); GFR (African American) 123 ML/MIN (>60)
[2024-02-25 10:54] LABS: Alanine Aminotransferase 112 U/L (12-78); Albumin Level 4.6 g/dl (3.5-5.0); Albumin/Globulin Ratio 1.5 (1.1-1.8); Alkaline Phosphatase 86 U/L (38-126); Anion Gap 15.9 mEq/L (5-15); Aspartate Amino Transferase 81 U/L (14-36); Bilirubin,Total 0.5 mg/dl (0.2-1.3); Calcium 10.1 mg/dl (8.4-10.2); Carbon Dioxide 21 mmol/L (22.0-30.0); Globulin 3.1 g/dL (1.3-3.2); Glucose 82 mg/dl (74-100); Magnesium 2.1 mg/dl (1.6-2.3); Total Protein,Serum 7.7 g/dl (6.3-8.2)
--- NOTE | 2024-02-25 11:01 | [facility]H.EDCP ---
Discharge Plan Disposition Patient Disposition: Home, Self-Care Prescriptions Prescriptions: No Action WesTab Plus 27 mg iron- 1 mg tablet PO metformin 500 mg tablet extended release 24 hr PO TID Patient Comments: TAKE ONE TABLET BY MOUTH DAILY FOR 1 WEEK, THEN increase TO 2 tablets BY MOUTH DAILY FOR 1 WEEK, THEN increase TO 3 tabs BY MOUTH DAILY AND continue Wegovy 1 mg/0.5 mL pen injector See Rx Instructions .ROUTE .COMPLEX Qty: 4 0RF Dose Instruction: INJECT 1 MG UNDER THE SKIN EVERY 7 DAYS Rx Instructions: INJECT 1 MG UNDER THE SKIN EVERY 7 DAYS Referrals Follow up/Referrals: Mónica Guzman PA [Primary Care Provider] - See instructions Activity Restrictions/Add. Instructions Additional Instructions/Restrictions: Follow-up with cardiology after Holter monitor period complete. Follow-up with your family doctor regarding this visit to the emergency department and referral to Dr. Estevez for potential neurogenic dizziness. If you have any worsening of your condition or any other concerning signs or symptoms, return to the emergency department or your primary care doctor for further evaluation. Take daily Zyrtec and Flonase nasal spray to see if this helps with pressure in ears and dizziness. Clinical Impressions Clinical Impression: Chest pain, Syncope and collapse Discharge ED Provider: Fredi Milian HPI <Fredi Milian MD - Last Filed: 02/25/24 14:52> General Chief Complaint: Chest Pain Stated Complaint: Chest Pain Time Seen by Provider: 02/25/24 10:36 Mode of Arrival: EMS Source of Information: Patient, EMS and Medical Record Limitations: No Limitations Description of Symptoms (Recalled from ER Triage Doc. by RN): Pt c/o midsternal chest pain that radiates to her back that began while she was at work. States she was cleaning some dishes when the pain began and she felt SOA and coming and going out of it . She was trying to come to the hospital but felt like she couldn't make it so she laid down outside of the home she was working at. Denies any n/v/d. Denies any cardiac hx but states her mother of heart faliure so they keep a close eye on my heart . Last Echo was several yrs ago. She reports she is experiencing tingling through her arms, face, and feet. History of Present Illness HPI narrative: Patient is a 24-year-old female with past medical history of fatty liver disease, PCOS, reported stroke without residual of unknown etiology who presents emergency department for evaluation of multiple complaints. 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 Client called EMS, she has since returned to her baseline. She has a history of anxiety for which she feels chest pain and tightness however the symptoms are different, she does have the chest pain however she has diffuse tingling. She is concerned because her mother of heart failure and states that she follows with her PCP for this and does not have a diagnosis of heart failure. No other acute complaints at this time. Related Data Home Medications Medication Instructions Recorded Confirmed vitamin with calcium tab PO 08/13/23 01/02/24 no.72-iron 27 mg-folic acid 1 mg tablet (WesTab Plus) metformin 500 mg tablet,extended mg PO TID 11/01/23 01/02/24 release 24 hr Previous Rx's Medication Instructions Recorded semaglutide (weight loss) 1 mg/0.5 See Rx Instructions .Route 01/29/24 mL subcutaneous pen injector .COMPLEX #4 mL (Wegovy) Allergies Allergy/AdvReac Type Severity Reaction Status Date / Time No Known Allergies Allergy Verified 01/02/24 15:07 [facility] <Fredi Milian MD - Last Filed: 02/25/24 14:52> [facility] Disclaimer: The information contained in this section may have been updated after the patient was seen, as this information can be updated by other users. Medical History H. pylori infection Elevated liver enzymes Anxiety BMI 40.0-44.9, adult PCOS (polycystic ovarian syndrome) Migraine Abnormal weight Lipoma Intertrigo Back pain Breast pain, left Rash Right lower quadrant abdominal pain Vitamin D deficiency Amenorrhea, secondary Insomnia Depression Surgical History Hx of tonsillectomy Hx of cholecystectomy Family History Mother Heart disease Social History Smoking Status: Never smoker second hand exposure: No alcohol intake: never counseling provided: provider counseling substance use type: denies use current occupational status: unemployed Travel in the last 8 weeks: None household members: spouse housing: house number of children: 0 caffeine: Yes <Fredi Milian MD - Last Filed: 02/25/24 14:52> ROS Obtained: Yes Systems reviewed as appropriate & no additional complaints except as documented Physical Exam <Fredi Milian MD - Last Filed: 02/25/24 14:52> General General appearance: alert and in no apparent distress Head Head exam: atraumatic and normocephalic Eye Eye exam: Present PERRL ENT ENT exam: Present mucous membranes moist Neck Neck exam: Present normal inspection Chest Chest inspection: Present normal inspection and symmetric chest wall rise Respiratory Respiratory exam: Present normal lung sounds bilaterally; Absent respiratory distress Cardiovascular Cardiovascular exam: Present regular rate and normal rhythm Abdominal Exam Abdominal exam: Present soft; Absent tenderness Extremities Exam Extremities exam: Present normal inspection Neurological Exam Neurological exam: Present alert, oriented X3 and CN II-XII intact; Absent motor sensory deficit Psychiatric Psychiatric exam: Present normal affect Skin Skin exam: Present warm and dry HEART Score <Fredi Milian MD - Last Filed: 02/25/24 14:52> HEART Score HEART Score assessment performed?: Yes History (anamnesis): Moderately suspicious ECG: Normal Age: <45 years Risk factors: No known risk factors Troponin: </= normal limit HEART Score: 1 <Rinku Mckeon MD - Last Filed: 02/25/24 16:05> HEART Score HEART Score: 1 Procedures <Rinku Mckeon MD - Last Filed: 02/25/24 16:05> Limited Ultrasound Indication:: Limited cardiac ultrasound Indication: Chest pain, syncope Identified cardiac views: -Cardiac parasternal long axis -Cardiac parasternal short axis Findings: -Cardiac activity present -Gross wall motion normal, EPSS less than 5 mm -Pericardial effusion absent -Right heart strain absent -No evidence of significant valvular stenosis or retrograde flow Impression: -Normal cardiac ultrasound Images were saved to permanent archive The study was technically adequate CPT: 25727 This study was performed by me, and I personally interpreted all images/videos. Based on my clinical judgement, these images were adequate and did not necessitate further imaging. Critical Care <Fredi Milian MD - Last Filed: 02/25/24 14:52> Critical Care Time Critical Care Time: No Medical Decision Making <Fredi Milian MD - Last Filed: 02/25/24 14:52> Fredy Inquiry Pt receiving controlled substance: No Vital Signs Vital Signs: 02/25/24 10:35 02/25/24 10:53 02/25/24 11:00 Temperature 98.0 F Temperature Source Oral Pulse Rate 68 65 Pulse Rate [Orthostatic Lying] Pulse Rate [Orthostatic Sitting] Pulse Rate [Orthostatic Standing] Pulse Rate [Right] 67 Respiratory Rate 27 H 14 Blood Pressure 136/83 Blood Pressure [Orthostatic Lying] Blood Pressure [Orthostatic Sitting] Blood Pressure [Orthostatic Standing] Blood Pressure [Right Arm] 115/67 Blood Pressure Mean 89 Blood Pressure Mean [Right Arm] 83 Blood Pressure Source [Right Arm] Automatic Cuff 02 Sat by Pulse Oximetry 98 95 Oxygen Delivery Method Room Air 02/25/24 11:34 02/25/24 12:01 02/25/24 12:30 Temperature Temperature Source Pulse Rate 93 H 73 Pulse Rate [Orthostatic Lying] Pulse Rate [Orthostatic Sitting] Pulse Rate [Orthostatic Standing] Pulse Rate [Right] Respiratory Rate 19 15 14 Blood Pressure 131/76 113/69 124/79 Blood Pressure [Orthostatic Lying] Blood Pressure [Orthostatic Sitting] Blood Pressure [Orthostatic Standing] Blood Pressure [Right Arm] Blood Pressure Mean 79 86 94 Blood Pressure Mean [Right Arm] Blood Pressure Source [Right Arm] 02 Sat by Pulse Oximetry 98 97 98 Oxygen Delivery Method 02/25/24 13:01 02/25/24 13:13 02/25/24 13:15 Temperature Temperature Source Pulse Rate Pulse Rate [Orthostatic Lying] 77 Pulse Rate [Orthostatic Sitting] 70 Pulse Rate [Orthostatic Standing] 76 Pulse Rate [Right] Respiratory Rate 17 17 Blood Pressure 140/89 119/71 Blood Pressure [Orthostatic Lying] 117/75 Blood Pressure [Orthostatic Sitting] 119/71 Blood Pressure [Orthostatic Standing] 134/89 Blood Pressure [Right Arm] Blood Pressure Mean 100 87 Blood Pressure Mean [Right Arm] Blood Pressure Source [Right Arm] 02 Sat by Pulse Oximetry 100 98 Oxygen Delivery Method 02/25/24 13:17 02/25/24 13:30 02/25/24 14:00 Temperature Temperature Source Pulse Rate 84 82 82 Pulse Rate [Orthostatic Lying] Pulse Rate [Orthostatic Sitting] Pulse Rate [Orthostatic Standing] Pulse Rate [Right] Respiratory Rate 19 23 Blood Pressure 134/89 113/77 107/78 L Blood Pressure [Orthostatic Lying] Blood Pressure [Orthostatic Sitting] Blood Pressure [Orthostatic Standing] Blood Pressure [Right Arm] Blood Pressure Mean 100 89 Blood Pressure Mean [Right Arm] Blood Pressure Source [Right Arm] 02 Sat by Pulse Oximetry 97 96 97 Oxygen Delivery Method Room Air 02/25/24 14:31 Temperature Temperature Source Pulse Rate 71 Pulse Rate [Orthostatic Lying] Pulse Rate [Orthostatic Sitting] Pulse Rate [Orthostatic Standing] Pulse Rate [Right] Respiratory Rate Blood Pressure 122/87 Blood Pressure [Orthostatic Lying] Blood Pressure [Orthostatic Sitting] Blood Pressure [Orthostatic Standing] Blood Pressure [Right Arm] Blood Pressure Mean 98 Blood Pressure Mean [Right Arm] Blood Pressure Source [Right Arm] 02 Sat by Pulse Oximetry 95 Oxygen Delivery Method Lab Data Labs: Lab Results 02/25/24 10:30: WBC 7.9, RBC 4.91, Hgb 14.5, Hct 42.8, MCV 87.1, MCH 29.6, MCHC 34.0, RDW 13.5, Plt Count 409, MPV 7.1 L, Neut % (Auto) 47.0, Lymph % (Auto) 42.6, [place] % (Auto) 6.7, Eos % (Auto) 2.4, Baso % (Auto) 1.4, Neut # (Auto) 3.7, Lymph # (Auto) 3.4, [place] # (Auto) 0.5, Eos # (Auto) 0.2, Baso # (Auto) 0.1, D-Dimer 0.30, Sodium 140, Potassium 3.9, Chloride 107, Carbon Dioxide 21 L, Anion Gap 15.9 H, BUN 12, Creatinine 0.70, Estimated Creat Clear 93, Estimated GFR 102, Est GFR ( Amer) 123, Glucose 82, Calcium 10.1, Magnesium 2.1, Total Bilirubin 0.5, AST 81 H, ALT 112 H, Alkaline Phosphatase 86, Troponin I < 0.01, Total Protein 7.7, Albumin 4.6, Globulin 3.1, Albumin/Globulin Ratio 1.5, Serum HCG, Qual Negative 02/25/24 13:34: Troponin I < 0.01 02/25/24 10:30 02/25/24 10:30 Response Orders (Tests/Meds): ED MEDICATIONS Generic Name Dose Route Start Last Admin Trade Name Roxanna PRN Reason Stop Dose Admin Sodium Chloride 10 ml 02/25/24 12:57 Sodium Chloride 0.9% 10ml Vial IV 03/26/24 12:56 NEEDED PRN to Dilute Lorazepam inj Discontinued Medications Generic Name Dose Route Start Last Admin Trade Name Roxanna PRN Reason Stop Dose Admin Acetaminophen 1,000 mg 02/25/24 11:19 02/25/24 11:27 Acetaminophen 1,000mg/100ml Vial IV 02/25/24 11:20 1,000 mg ONCE ONE Administration Aspirin 324 mg 02/25/24 10:39 02/25/24 11:03 Aspirin 81mg Chewable Tablet PO 02/25/24 10:40 324 mg ONCE ONE Administration Lactated Ringer's 1,000 mls @ 999 mls/hr 02/25/24 11:19 02/25/24 11:27 Lactated Ringer's 1000 Ml Bag IV 02/25/24 12:19 999 mls/hr .Q1H1M ONE Administration Ketorolac Tromethamine 30 mg 02/25/24 12:55 02/25/24 13:20 Ketorolac 30mg/Ml Vial IV 02/25/24 12:56 30 mg ONCE ONE Administration Lorazepam 1 mg 02/25/24 12:57 02/25/24 13:19 Lorazepam 2mg/Ml Vial IV 02/25/24 12:58 1 mg ONCE ONE Administration Ondansetron HCl 4 mg 02/25/24 13:32 02/25/24 13:50 Ondansetron 4mg/2ml Vial IV 02/25/24 13:33 4 mg ONCE ONE Administration ORDERS Category Date Time Status Cardiology Consult [Consult to Cardiology] [CONS] Cons 02/25/24 14:36 Active Routine CXR --portable [XR chest portable] Stat Exams 02/25/24 10:39 Completed POCUS Point of Care (ER Only) Stat Exams 02/25/24 15:04 Ordered CBC w/Auto Diff [Complete Blood Count Auto Diff] Stat Lab 02/25/24 10:30 Completed CMP [Comprehensive Metabolic Panel] Stat Lab 02/25/24 10:30 Completed D-Dimer Stat Lab 02/25/24 10:30 Completed HCG Qualitative, Serum Stat Lab 02/25/24 10:30 Completed MG [Magnesium] Stat Lab 02/25/24 10:30 Completed Trop I [Troponin I] Stat Lab 02/25/24 10:30 Completed Troponin I Q3H Lab 02/25/24 13:34 Completed Troponin I Q3H Lab 02/25/24 18:00 Ordered ECG Data Tracing #1: ECG Narrative: Independently interpreted by me, rate is 60, rhythm is regular, axis is normal, no ST elevation in anatomical contiguous leads, QTc 405. No delta wave, no long QT, no dagger Q waves in the lateral leads. MDM Narrative Medical Decision Narrative: In summary patient is a 24-year-old female past medical history described above who presents emergency department for chest pain, episode of passing out, tingling. Patient is hemodynamically stable nontoxic-appearing upon arrival, tachypneic. With respect to her passing out standing at the sink history is consistent with vasovagal syncope. Tingling is likely secondary to calcium shift from hyperventilation. Chest pain differential includes ACS, pulmonary embolism, noncardiac chest pain, among others. Overall workup will be conducted with hematologic labs, hCG, chest x-ray, troponins, D-dimer. Initial inventions include aspirin, IV Tylenol, GI cocktail. Initial workup reviewed by me, hematologic labs are nonactionable, D-dimer excludes pulmonary embolism and low risk aortic dissection, no JACOB or critical electrolyte abnormality, serial troponins are undetectably low, transaminases are stable. hCG negative. Chest x-ray informally interpreted by me, no acute lobar opacities or large pneumothorax. Formal x-ray shows no acute pathology. Orthostatic vital signs are unremarkable. Prolonged discussion was had at bedside as patient is frustrated that there has been no pathology elucidated today. Case was discussed with cardiology and their formal recommendations were pending at time of transition of care to the oncoming physician, Dr. Mckeon. <Rinku Mckeon MD - Last Filed: 02/25/24 16:05> Vital Signs Vital Signs: 02/25/24 10:35 02/25/24 10:53 02/25/24 11:00 Temperature 98.0 F Temperature Source Oral Pulse Rate 68 65 Pulse Rate [Orthostatic Lying] Pulse Rate [Orthostatic Sitting] Pulse Rate [Orthostatic Standing] Pulse Rate [Right] 67 Respiratory Rate 27 H 14 Blood Pressure 136/83 Blood Pressure [Orthostatic Lying] Blood Pressure [Orthostatic Sitting] Blood Pressure [Orthostatic Standing] Blood Pressure [Right Arm] 115/67 Blood Pressure Mean 89 Blood Pressure Mean [Right Arm] 83 Blood Pressure Source [Right Arm] Automatic Cuff 02 Sat by Pulse Oximetry 98 95 Oxygen Delivery Method Room Air 02/25/24 11:34 02/25/24 12:01 02/25/24 12:30 Temperature Temperature Source Pulse Rate 93 H 73 Pulse Rate [Orthostatic Lying] Pulse Rate [Orthostatic Sitting] Pulse Rate [Orthostatic Standing] Pulse Rate [Right] Respiratory Rate 19 15 14 Blood Pressure 131/76 113/69 124/79 Blood Pressure [Orthostatic Lying] Blood Pressure [Orthostatic Sitting] Blood Pressure [Orthostatic Standing] Blood Pressure [Right Arm] Blood Pressure Mean 79 86 94 Blood Pressure Mean [Right Arm] Blood Pressure Source [Right Arm] 02 Sat by Pulse Oximetry 98 97 98 Oxygen Delivery Method 02/25/24 13:01 02/25/24 13:13 02/25/24 13:15 Temperature Temperature Source Pulse Rate Pulse Rate [Orthostatic Lying] 77 Pulse Rate [Orthostatic Sitting] 70 Pulse Rate [Orthostatic Standing] 76 Pulse Rate [Right] Respiratory Rate 17 17 Blood Pressure 140/89 119/71 Blood Pressure [Orthostatic Lying] 117/75 Blood Pressure [Orthostatic Sitting] 119/71 Blood Pressure [Orthostatic Standing] 134/89 Blood Pressure [Right Arm] Blood Pressure Mean 100 87 Blood Pressure Mean [Right Arm] Blood Pressure Source [Right Arm] 02 Sat by Pulse Oximetry 100 98 Oxygen Delivery Method 02/25/24 13:17 02/25/24 13:30 02/25/24 14:00 Temperature Temperature Source Pulse Rate 84 82 82 Pulse Rate [Orthostatic Lying] Pulse Rate [Orthostatic Sitting] Pulse Rate [Orthostatic Standing] Pulse Rate [Right] Respiratory Rate 19 23 Blood Pressure 134/89 113/77 107/78 L Blood Pressure [Orthostatic Lying] Blood Pressure [Orthostatic Sitting] Blood Pressure [Orthostatic Standing] Blood Pressure [Right Arm] Blood Pressure Mean 100 89 Blood Pressure Mean [Right Arm] Blood Pressure Source [Right Arm] 02 Sat by Pulse Oximetry 97 96 97 Oxygen Delivery Method Room Air 02/25/24 14:31 Temperature Temperature Source Pulse Rate 71 Pulse Rate [Orthostatic Lying] Pulse Rate [Orthostatic Sitting] Pulse Rate [Orthostatic Standing] Pulse Rate [Right] Respiratory Rate Blood Pressure 122/87 Blood Pressure [Orthostatic Lying] Blood Pressure [Orthostatic Sitting] Blood Pressure [Orthostatic Standing] Blood Pressure [Right Arm] Blood Pressure Mean 98 Blood Pressure Mean [Right Arm] Blood Pressure Source [Right Arm] 02 Sat by Pulse Oximetry 95 Oxygen Delivery Method Lab Data Labs: Lab Results 02/25/24 10:30: WBC 7.9, RBC 4.91, Hgb 14.5, Hct 42.8, MCV 87.1, MCH 29.6, MCHC 34.0, RDW 13.5, Plt Count 409, MPV 7.1 L, Neut % (Auto) 47.0, Lymph % (Auto) 42.6, [place] % (Auto) 6.7, Eos % (Auto) 2.4, Baso % (Auto) 1.4, Neut # (Auto) 3.7, Lymph # (Auto) 3.4, [place] # (Auto) 0.5, Eos # (Auto) 0.2, Baso # (Auto) 0.1, D-Dimer 0.30, Sodium 140, Potassium 3.9, Chloride 107, Carbon Dioxide 21 L, Anion Gap 15.9 H, BUN 12, Creatinine 0.70, Estimated Creat Clear 93, Estimated GFR 102, Est GFR ( Amer) 123, Glucose 82, Calcium 10.1, Magnesium 2.1, Total Bilirubin 0.5, AST 81 H, ALT 112 H, Alkaline Phosphatase 86, Troponin I < 0.01, Total Protein 7.7, Albumin 4.6, Globulin 3.1, Albumin/Globulin Ratio 1.5, Serum HCG, Qual Negative 02/25/24 13:34: Troponin I < 0.01 Response Orders (Tests/Meds): ED MEDICATIONS Generic Name Dose Route Start Last Admin Trade Name Freq PRN Reason Stop Dose Admin Sodium Chloride 10 ml 02/25/24 12:57 Sodium Chloride 0.9% 10ml Vial IV 03/26/24 12:56 NEEDED PRN to Dilute Lorazepam inj Discontinued Medications Generic Name Dose Route Start Last Admin Trade Name Freq PRN Reason Stop Dose Admin Acetaminophen 1,000 mg 02/25/24 11:19 02/25/24 11:27 Acetaminophen 1,000mg/100ml Vial IV 02/25/24 11:20 1,000 mg ONCE ONE Administration Aspirin 324 mg 02/25/24 10:39 02/25/24 11:03 Aspirin 81mg Chewable Tablet PO 02/25/24 10:40 324 mg ONCE ONE Administration Lactated Ringer's 1,000 mls @ 999 mls/hr 02/25/24 11:19 02/25/24 11:27 Lactated Ringer's 1000 Ml Bag IV 02/25/24 12:19 999 mls/hr .Q1H1M ONE Administration Ketorolac Tromethamine 30 mg 02/25/24 12:55 02/25/24 13:20 Ketorolac 30mg/Ml Vial IV 02/25/24 12:56 30 mg ONCE ONE Administration Lorazepam 1 mg 02/25/24 12:57 02/25/24 13:19 Lorazepam 2mg/Ml Vial IV 02/25/24 12:58 1 mg ONCE ONE Administration Ondansetron HCl 4 mg 02/25/24 13:32 02/25/24 13:50 Ondansetron 4mg/2ml Vial IV 02/25/24 13:33 4 mg ONCE ONE Administration ORDERS Category Date Time Status Cardiology Consult [Consult to Cardiology] [CONS] Cons 02/25/24 14:36 Active Routine CXR --portable [XR chest portable] Stat Exams 02/25/24 10:39 Completed POCUS Point of Care (ER Only) Stat Exams 02/25/24 15:04 Ordered CBC w/Auto Diff [Complete Blood Count Auto Diff] Stat Lab 02/25/24 10:30 Completed CMP [Comprehensive Metabolic Panel] Stat Lab 02/25/24 10:30 Completed D-Dimer Stat Lab 02/25/24 10:30 Completed HCG Qualitative, Serum Stat Lab 02/25/24 10:30 Completed MG [Magnesium] Stat Lab 02/25/24 10:30 Completed Trop I [Troponin I] Stat Lab 02/25/24 10:30 Completed Troponin I Q3H Lab 02/25/24 13:34 Completed Troponin I Q3H Lab 02/25/24 18:00 Ordered MDM Narrative Medical Decision Narrative: In summary patient is a 24-year-old female past medical history described above who presents emergency department for chest pain, episode of passing out, tingling. Patient is hemodynamically stable nontoxic-appearing upon arrival, tachypneic. With respect to her passing out standing at the sink history is consistent with vasovagal syncope. Tingling is likely secondary to calcium shift from hyperventilation. Chest pain differential includes ACS, pulmonary embolism, noncardiac chest pain, among others. Overall workup will be conducted with hematologic labs, hCG, chest x-ray, troponins, D-dimer. Initial inventions include aspirin, IV Tylenol, GI cocktail. Initial workup reviewed by me, hematologic labs are nonactionable, D-dimer excludes pulmonary embolism and low risk aortic dissection, no JACOB or critical electrolyte abnormality, serial troponins are undetectably low, transaminases are stable. hCG negative. Chest x-ray informally interpreted by me, no acute lobar opacities or large pneumothorax. Formal x-ray shows no acute pathology. Orthostatic vital signs are unremarkable. Prolonged discussion was had at bedside as patient is frustrated that there has been no pathology elucidated today. Case was discussed with cardiology and their formal recommendations were pending at time of transition of care to the oncoming physician, Dr. Mckeon. Mike: I assumed primary responsibility for this patient after signout from previous physician. I independently interviewed and examined patient. Patient placed on shelter monitor and continuous pulse oximetry with initial blood pressure 129/91, 82 bpm, 96% on room air. Patient tachycardic with minimal positional changes in bed. At rest, around 70, adjusting in bed and sitting up straight, will 105 to 110 bpm. Lungs are clear. Bilateral TMs within normal limits. Neurologically intact. Pulses equal and symmetric. Independent interpretation of workup demonstrates nonactionable CBC or chemistry, negative D-dimer, stably elevated aminotransferases likely from NAFLD, negative delta troponins, hCG negative. Chest x-ray independently interpreted and without acute cardiopulmonary or airspace disease, normal exam. See radiology read for further interpretation. But report of care ultrasound was obtained out of abundance of caution. Normal echo with normal cardiac function, no effusion, etc. No evidence of retrograde flow. Cardiology was consulted and case was discussed at length with patient in room. 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 Because workup today unremarkable, patient deemed appropriate for discharge and outpatient management from emergency standpoint. Cardiology recommended 48-hour Holter monitor, respiratory was contacted and this was placed in the emergency department. Because patient at baseline without signs or symptoms of clinical decompensation, deemed appropriate for discharge. Results were relayed to patient who voiced understanding and were agreeable to outpatient management and follow up. I discussed my clinical impression with patient and answered all questions. At this time, the evidence for any other entities in the differential is insufficient to warrant any further testing or ED observation. This was explained as well. Advisory was given that persistent or worsening symptoms require further evaluation. I confirmed the understanding of this discussion.
[2024-02-25] MEDS: ASPIRIN 81MG CHEWABLE TABLET 324 MG PO (11:03)
[2024-02-25 11:17] LABS: HCG Qualitative, Serum Negative (Negative)
[2024-02-25] MEDS: LACTATED RINGERS 1000ML 1,000 ML 999 ML IV (11:27)
[2024-02-25] MEDS: ACETAMINOPHEN 1,000MG/100ML VIAL 1000 MG IV (11:27)
[2024-02-25 12:37] LABS: Troponin I < 0.01 ng/ml (0.00-0.034)
--- NOTE | 2024-02-25 12:49 | PC.NURSE ---
Rounded on pt, states she still feel like shit . Reports the chest pain is Still killing me . She also reports that she feels tingly all over . Dr. Milian notified of this, new orders for toradol & ativan IV
--- NOTE | 2024-02-25 13:00 | PC.NURSE ---
Pt requesting to talk to Dr. Milian; Dr. Milian in pts room at this time
--- NOTE | 2024-02-25 13:04 | PC.NURSE ---
DR ULRICH AT BEDSIDE
[2024-02-25] MEDS: LORazepam 2MG/ML VIAL 1 MG IV (13:19)
[2024-02-25] MEDS: KETOROLAC 30MG/ML VIAL 30 MG IV (13:20)
[2024-02-25] MEDS: ONDANSETRON 4MG/2ML VIAL 4 MG IV (13:50)
[2024-02-25 14:25] LABS: Troponin I < 0.01 ng/ml (0.00-0.034)
--- NOTE | 2024-02-25 14:26 | PC.NURSE ---
Called lab to check status on 2nd troponin, I was placed on hold, and then [facility] stated it's released now .
--- NOTE | 2024-02-25 14:26 | PC.NURSE ---
CARDIOLOGY NOTIFIED OF CONSULT
--- NOTE | 2024-02-25 14:30 | PC.NURSE ---
Rounded on pt, updated her on 2nd troponin and cardiology consult. Pt states she feels sadi and her chest pain is 7/10 on [employer]. No other changes to her pain. MD notified. Pt was able to tolerate a sandwich.Call light is within reach. bedrails x2 are up. She is resting on her R side, warm blanket provided.
--- NOTE | 2024-02-25 15:25 | PC.NURSE ---
CARDIOLOGY AT BEDSIDE
--- NOTE | 2024-02-25 16:07 | EXP.CARD.CON ---
History of Present Illness History of Present Illness Consult date: 02/25/24 Requesting physician: Fredi Milian Consult reason: chest pain Chief complaint: chest pain, syncope Additional Medical History:: 1. Recurrent orthostatic dizziness with history of unremarkable tilt table test 2. Polycystic ovary syndrome 3. Borderline diabetic 4. Obesity 5. History of bipolar disorder per chart 6. Fatty liver disease with chronic mildly elevated LFTs 7. Obstructive sleep apnea, untreated 8. Questionable history of POTS History of present illness: 24-year-old female presented to the emergency department for chest pain with an episode of passing out and tingling in her arms and legs. Patient states she was washing dishes when symptoms occurred. She still complains of dizziness even lying in bed at about a 45 degree angle. Workup in the ER has been unremarkable including chest x-ray showing no evidence of CHF or cardiomegaly, troponins normal x 2 and EKG with no acute ST segment changes. Patient relates recurrent episodes of chest pain over the years without diagnosis. Patient is concerned that she may have congestive heart failure of which her mother . Bedside echo today shows normal ejection fraction with no evidence of pericardial effusion or significant valve disease. During the active washing dishes patient states she feels like her heart is going to beat out of her chest and then the chest pain starts. She has had Holter monitors in the past but have not been able to catch any arrhythmias. She is even had a tilt table test for possible POTS but this was unremarkable. Patient does have obstructive sleep apnea but has not been treated. She does complain of dizziness but also relates that she has recurrent issues with ear infections and her partner states that she uses antibiotics frequently. [facility] Disclaimer: The information contained in this section may have been updated after the patient was seen, as this information can be updated by other users. Medical History H. pylori infection Elevated liver enzymes Anxiety BMI 40.0-44.9, adult PCOS (polycystic ovarian syndrome) Migraine Abnormal weight Lipoma Intertrigo Back pain Breast pain, left Rash Right lower quadrant abdominal pain Vitamin D deficiency Amenorrhea, secondary Insomnia Depression Surgical History Hx of tonsillectomy Hx of cholecystectomy Family History Mother Heart disease Social History Smoking Status: Never smoker second hand exposure: No alcohol intake: never counseling provided: provider counseling substance use type: denies use current occupational status: unemployed Travel in the last 8 weeks: None household members: spouse housing: house number of children: 0 caffeine: Yes Review of Systems Review of Systems Review of systems:: pertinent systems reviewed and negative unless documented below ENT Ears, Nose, Mouth, and Throat: Reports vertigo *Cardiovascular Cardiovascular: Reports chest pain, Denies dyspnea and Reports palpitations *Respiratory Respiratory: Denies cough and Denies dyspnea *Gastrointestinal Gastrointestinal: Reports vomiting *Neurologic Neurologic: Reports vertigo Endocrine Endocrine: Reports palpitations Exam Data for Last 24 hours Vital signs and Labs for Last 24 Hours: Temp Pulse Resp BP Pulse Ox O2 Del Method 98.0 F 71 23 122/87 95 Room Air 02/25/24 10:35 02/25/24 14:31 02/25/24 13:30 02/25/24 14:31 02/25/24 14:31 02/25/24 14:00 Laboratory Results - last 24 hr 02/25/24 10:30: WBC 7.9, RBC 4.91, Hgb 14.5, Hct 42.8, MCV 87.1, MCH 29.6, MCHC 34.0, RDW 13.5, Plt Count 409, MPV 7.1 L, Neut % (Auto) 47.0, Lymph % (Auto) 42.6, [place] % (Auto) 6.7, Eos % (Auto) 2.4, Baso % (Auto) 1.4, Neut # (Auto) 3.7, Lymph # (Auto) 3.4, [place] # (Auto) 0.5, Eos # (Auto) 0.2, Baso # (Auto) 0.1, D-Dimer 0.30, Sodium 140, Potassium 3.9, Chloride 107, Carbon Dioxide 21 L, Anion Gap 15.9 H, BUN 12, Creatinine 0.70, Estimated Creat Clear 93, Estimated GFR 102, Est GFR ( Amer) 123, Glucose 82, Calcium 10.1, Magnesium 2.1, Total Bilirubin 0.5, AST 81 H, ALT 112 H, Alkaline Phosphatase 86, Troponin I < 0.01, Total Protein 7.7, Albumin 4.6, Globulin 3.1, Albumin/Globulin Ratio 1.5, Serum HCG, Qual Negative 02/25/24 13:34: Troponin I < 0.01 I & O for Last 24 hours: Intake & Output 02/23/24 02/24/24 02/25/24 02/26/24 11:59 11:59 11:59 11:59 Weight 240 lb Constitutional Constitutional: no acute distress *Routine Respiratory Exam Respiratory: Present CTA bilaterally; Absent rales, rhonchi or wheezes *Routine Cardiovascular Exam Cardiovascular: Present RRR; Absent murmur, gallop or rubs *Routine Extremities Exam Extremities: Absent cyanosis, clubbing or calf tenderness *Routine Neurological Exam Neurological: Present alert, oriented X3 and CN II-XII intact Meds Home Medications and Allergies Home Medications Medication Instructions Recorded Confirmed Type vitamin with calcium tab PO 08/13/23 01/02/24 History no.72-iron 27 mg-folic acid 1 mg tablet (WesTab Plus) metformin 500 mg tablet,extended mg PO TID 11/01/23 01/02/24 History release 24 hr semaglutide (weight loss) 1 mg/0.5 See Rx Instructions .Route 01/29/24 Rx mL subcutaneous pen injector .COMPLEX #4 mL (Katelynn) New Prescriptions to Start Prescriptions: Allergies Allergy/AdvReac Type Severity Reaction Status Date / Time No Known Allergies Allergy Verified 01/02/24 15:07 Assessment and Plan *Assessment and plan (1) Chest pain: Status: Acute Qualifiers: Chest pain type: intercostal pain Qualified Code(s): R07.82 - Intercostal pain Category: Medical Code(s): R07.9 - Chest pain, unspecified (2) Syncope and collapse: Status: Acute Category: Medical Code(s): R55 - Syncope and collapse (3) Bipolar disorder: Status: Chronic Qualifiers: Active/Remission status: remission status unspecified Qualified Code(s): F31.9 - Bipolar disorder, unspecified Category: Medical Code(s): F31.9 - Bipolar disorder, unspecified (4) Fatty liver: Status: Chronic Category: Medical Code(s): K76.0 - Fatty (change of) liver, not elsewhere classified (5) PCOS (polycystic ovarian syndrome): Status: Chronic Category: Medical Code(s): E28.2 - Polycystic ovarian syndrome Plan 1. Chest pain, reproducible with chest palpation -Troponins normal, chest x-ray unremarkable and EKG within normal limits -Bedside echocardiogram shows normal ejection fraction with no significant valve disease or evidence of pericardial effusion 2. History of palpitations -Recommend 24-48 hour Holter monitor upon discharge 3. Dizziness -Recommend Neurology evaluation as an outpatient 4. Untreated MESSI -Follow-up with sleep management 5. Concern for POTS -Recommended increasing salt intake, elevating the head of the bed at night and using support stockings first with consideration of medical therapy thereafter if needed. Stable from a cardiac standpoint for discharge home. 24-48-hour Holter monitor upon discharge. Follow-up in our office in 1 week. Neurology evaluation for dizziness Sleep medicine follow-up for MESSI treatment
--- NOTE | 2024-02-25 16:20 | PC.NURSE ---
Respiratory at bedside placing holter
== END 2024-02-25 16:51 | disposition home or self-care (01) ==
PROVIDERS: Emergency Provider Emergency Medicine; PCP Physician Assistant
DX: R07.82 Intercostal pain (principal); R55 Syncope and collapse; K76.0 Fatty (change of) liver, not elsewhere classified; E28.2 Polycystic ovarian syndrome; R20.2 Paresthesia of skin
CPT/HCPCS: 71045; 80053; 83735; 84484; 84703; 85025; 85378; 93005; 93225; 93227; 96361; 96374; 96375; 99285; J0131; J1885; J2060; J2405; J7120

== ENCOUNTER 2024-03-10 15:20 | Outpatient (CLI) | payer BC, SELFPAY ==
--- NOTE | 2024-03-10 15:20 | CA_ITS ---
APPROVED REPORT EXAM: Comprehensive 2D, Doppler, and color-flow Echocardiogram Supervisor Painting: Joya Blas RDCS Ht: 5 ft 2 in Wt: 240lbs BSA: 2.07 BP: 122/87 mmHg Indications: HTN,SYNCOPE,PALPS M-Mode Dimensions RVDd 1.65 cm (0.9-2.6) LA Diam 3.03 cm (1.9-4.0) LVDd 4.91 cm (3.5-5.7) LVDs 3.50 cm (3.5-5.7) IVSd 0.74 cm (0.6-1.1) PWd 0.77 cm (0.6-1.1) EF (Teich) 55.10% FS 28.70% EDV (Teich) 113.40 mL ESV (Teich) 50.90 mL LV Diastology E Decel Time 150 (160-240 msec) E/A Ratio 1.2 Mitral Valve MV E Max Robert. 63.0 (40-130 cm/s) MV A Velocity 51.0 (40-130 cm/s) E/A Ratio 1.22 MV PHT 44.0 ms Left Ventricle The left ventricle is normal size. The left ventricular systolic function is normal. The left ventricular ejection fraction is within the normal range. There is normal left ventricular wall thickness. There is normal LV segmental wall motion. The left ventricular diastolic function is normal. LVEF is 55%. Right Ventricle The right ventricle is normal size. The right ventricular systolic function is normal. Atria The left atrium size is normal. The right atrium size is normal. There is no Doppler evidence of interatrial shunt. Aortic Valve The aortic valve opens well. There is no aortic valvular stenosis. No aortic regurgitation is present. Mitral Valve The mitral valve is normal in structure. No evidence of mitral valve stenosis. There is no mitral valve regurgitation noted. Tricuspid Valve The tricuspid valve leaflets are thin and pliable. Trace tricuspid regurgitation. There is insufficient TR jet to estimate RVSP. Pulmonic Valve The pulmonary valve is normal in structure. Trace pulmonic regurgitation. Great Vessels The aortic root is normal in size. The ascending aorta is not well visualized. IVC is normal in size and collapses >50% with inspiration. Pericardium There is no pericardial effusion. Other Information Study Quality: Adequate Conclusion Normal biventricular systolic function. No significant valvular stenosis or regurgitation. Electronically signed by : Sallie Mcbride MD 03/14/2024 15:29:44
== END 2024-03-10 23:59 | disposition home or self-care (01) ==
LOC: RT 15:20
PROVIDERS: PCP Physician Assistant; Visit Provider Physician Assistant
DX: R55 Syncope and collapse (principal); R03.0 Elevated blood-pressure reading, without diagnosis of hypertension; G90.A Postural orthostatic tachycardia syndrome [POTS]
CPT/HCPCS: 93306

== ENCOUNTER 2024-04-14 11:32 | Emergency (ER) | payer BC, SELFPAY ==
[2024-04-14] VITALS (13 sets, daily range): BP systolic 104–146; BP diastolic 57–84; PULSE 58–90; RESP 18–20; TEMP 36.6–36.9; O2SAT 94–100; BMI 43.4
--- NOTE | 2024-04-14 11:55 | CT_ITS ---
FINAL REPORT TECHNIQUE: After the administration of intravenous contrast, axial images were obtained through the abdomen and pelvis by computed tomography. This study was performed with technique to keep radiation doses as low as reasonably achievable, (ALARA). Individualized dose reduction techniques using automated exposure control or adjustment of the MA and/or KV according to the patient's size were employed. CLINICAL HISTORY: severe R sided abd pain/n/v FINDINGS: Abdomen: The lung bases demonstrate mild atelectasis. Patient is status postcholecystectomy. There is mild extrahepatic biliary ductal dilatation likely related to postcholecystectomy change. However, common bile duct stone cannot be excluded. Findings are best seen on image 41. Recommend MRCP. The liver is normal in size and attenuation. The spleen is unremarkable. The adrenals are normal. The pancreas is unremarkable. The kidneys enhance appropriately. There is a 2 mm right UVJ stone. No hydronephrosis identified. The aorta is normal in caliber. There is no free fluid or adenopathy. Pelvis: The appendix is normal. The urinary bladder is unremarkable. There is no free fluid or adenopathy. IMPRESSION: Mild extrahepatic biliary ductal dilatation which is likely related to cholecystectomy. However, common bile duct stone not excluded. Recommend MRCP. 2 mm right UVJ stone without hydronephrosis. Reviewed, Interpreted and Dictated by Kevin Hooks III, MD Transcribed by Kathy Valle Authenticated and [facility]
[2024-04-14] MEDS: LACTATED RINGERS 1000ML 1,000 ML 999 ML IV ×2 (12:00→15:30)
[2024-04-14] MEDS: ACETAMINOPHEN 1,000MG/100ML VIAL 1000 MG IV (12:00)
[2024-04-14] MEDS: ONDANSETRON 4MG/2ML VIAL 4 MG IV (12:00)
[2024-04-14] MEDS: MORPHINE 4MG/ML SYRINGE 4 MG IV (12:00)
[2024-04-14 12:01] LABS: Microscopic, Urine URINE MICROSCOPIC (MICROSCOPIC)
[2024-04-14 12:04] LABS: Albumin Level 4.9 g/dl (3.5-5.0); Chloride 109 mmol/L (98-107); Potassium 3.8 mmoL/L (3.5-5.1); Sodium 141 mmol/L (136-145)
[2024-04-14 12:05] LABS: Basophils # 0.1 K/mm3 (0-0.2); Basophils % 1.4 % (0.1-2.0); Eosinophils # 0.2 K/mm3 (0.0-0.4); Hematocrit 45.9 % (37.0-47.0); Hemoglobin 15.3 g/dL (12.2-16.2); Lymphocytes # 3.2 K/mm3 (0.7-4.5); Lymphocytes % 36.2 % (10-50); Mean Corpuscular HGB Conc 33.3 g/dL (31.8-35.4); Mean Corpuscular Hemoglobin 29.3 pg (27.0-31.2); Mean Corpuscular Volume 87.9 fl (81-99); Mean Platelet Volume 7.5 fl (7.4-10.4); Monocytes # 0.6 K/mm3 (0.1-1.0); Neutrophils # 4.8 K/mm3 (1.8-7.8); Neutrophils % 53.5 % (37.0-80.0); Platelet Count 430 K/mm3 (142-424); Red Blood Count 5.22 M/mm3 (4.20-5.40); Red Cell Distribution Width 13.2 % (11.5-17.5); White Blood Count 8.9 K/mm3 (4.8-10.8)
[2024-04-14 12:05] LABS: Appearance,Urine CLEAR (Clear); Bilirubin,Urine Negative (Negative); Blood, Urine 2+ (Negative); Color,Urine YELLOW (Yellow); Glucose,Urine (UA) Negative (Negative); Ketones,Urine Negative (Negative); Leukocyte Esterase,Urine Negative (Negative); Nitrate,Urine Negative (Negative); Protein,Urine Negative (Negative); Specific Gravity, Urine >= 1.030 (1.005-1.030); Urobilinogen,Urine 0.2 EU/dl (0.2)
[2024-04-14 12:07] LABS: Alanine Aminotransferase 83 U/L (12-78); Albumin/Globulin Ratio 1.6 (1.1-1.8); Alkaline Phosphatase 86 U/L (38-126); Anion Gap 15.8 mEq/L (5-15); Aspartate Amino Transferase 55 U/L (14-36); Bilirubin,Total 0.8 mg/dl (0.2-1.3); Blood Urea Nitrogen 12 mg/dl (7-17); Carbon Dioxide 20 mmol/L (22.0-30.0); Creatinine Clearance Estimated 72 mL/min (50-200); Estimated Glomerular Filt Rate 76 ml/min (>60); GFR (African American) 92 ML/MIN (>60); Globulin 3.1 g/dL (1.3-3.2); Lipase 144 U/L (23-300)
[2024-04-14 12:08] LABS: Calcium 9.6 mg/dl (8.4-10.2); Glucose 93 mg/dl (74-100); HCG Qualitative, Serum Negative (Negative)
[2024-04-14] MEDS: IOPAMIDOL-370 (76%);100ML BOTTLE 75 ML IV (12:18)
[2024-04-14] MEDS: SODIUM CHLORIDE 0.9% 10ML SYR (RAD ONLY) 10 ML IV (12:18)
--- NOTE | 2024-04-14 12:36 | ED_ITS ---
Discharge Plan Disposition Patient Disposition: Home, Self-Care Condition: Good Prescriptions Prescriptions: New oxycodone 5 mg tablet 5 mg PO Q8H PRN (Reason: pain) Qty: 12 0RF ondansetron 4 mg tablet,disintegrating 4 mg PO Q8H PRN (Reason: nausea and vomiting) 4 Days Qty: 12 0RF tamsulosin [Flomax] 0.4 mg capsule 0.4 mg PO DAILY Qty: 14 0RF ketorolac 10 mg tablet 10 mg PO Q8H PRN (Reason: pain) Qty: 14 0RF Rx Instructions: maximum total duration of 5 days from all oral, intranasal, or parenteral formulations No Action WesTab Plus 27 mg iron- 1 mg tablet 1 tab PO DAILY metformin 500 mg tablet extended release 24 hr 500 mg PO TID Patient Comments: TAKE ONE TABLET BY MOUTH DAILY FOR 1 WEEK, THEN increase TO 2 tablets BY MOUTH DAILY FOR 1 WEEK, THEN increase TO 3 tabs BY MOUTH DAILY AND continue meclizine 25 mg tablet 25 mg PO TID PRN (Reason: dizziness) Qty: 30 0RF letrozole 2.5 mg tablet 7.5 mg PO DAILY 5 Days Qty: 15 2RF Rx Instructions: begin between days 2 and 5 of mentrual cycle medroxyprogesterone [Provera] 10 mg tablet 10 mg PO DAILY 10 Days Qty: 10 3RF Referrals Follow up/Referrals: Mónica Guzman PA [Primary Care Provider] - See instructions Activity Restrictions/Add. Instructions Additional Instructions/Restrictions: You were evaluated in the emergency department today. You were diagnosed with a kidney stone. It is 2 mm. 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 You may also take Tylenol every 4-6 hours as needed for pain. Make sure to drink plenty of fluids. Follow-up closely with a urologist as an outpatient. We do not have a urologist who performs procedures here, but we often refer people to Dr. Jonathon Ro. [phone] Return to the emergency department for new or worsening symptoms, such as fever greater than 100.4 ?F, intractable nausea vomiting, or significant worsening of pain. You also have an incidental finding of some mild dilation of your bile ducts, which can be normal after gallbladder surgery. I recommend close outpatient follow-up for this. Clinical Impressions Clinical Impression: Dilated bile duct, Right ureteral stone Stand Alone Forms Stand Alone Forms: Work/School Release Instructions Patient Instructions: DI for Kidney Stones, DI for Acute Abdominal Pain Print Language Print Language: Danish Discharge ED Provider: Namita Callahan General Adult HPI General Chief complaint: Abdominal Pain Stated complaint: right side pain Time Seen by Provider: 04/14/24 11:40 Mode of Arrival: Wheelchair Source of Information: Patient Limitations: No Limitations Description of Symptoms (Recalled from ER Triage Doc. by RN): Pt. states she started having right sided abdominal pain around 3 am this morning. She states she has had nausea, vomiting, and diarrhea. She did notice some dark colored emesis. She rates her pain 10/10. History of Present Illness HPI narrative: This patient is a 24-year-old female with a history of PCOS and POTS presenting to the emergency department for evaluation with concern for severe right flank pain radiating into her umbilicus. She states that it started around 3:00 this morning. She also had nausea, vomiting, and diarrhea. She notes some dark- colored emesis. Pain is 10 out of 10, severe, and constant. Nothing seems make it better or worse. No fevers noted. Related Data Home Medications ?Medication ?Instructions ?Recorded ?Confirmed vitamin with calcium 1 tab PO DAILY 08/13/23 04/14/24 no.72-iron 27 mg-folic acid 1 mg tablet (WesTab Plus) metformin 500 mg tablet,extended 500 mg PO TID 03/18/24 04/14/24 release 24 hr Previous Rx's ?Medication ?Instructions ?Recorded meclizine 25 mg tablet 25 mg PO TID PRN dizziness #30 tabs 02/28/24 letrozole 2.5 mg tablet 7.5 mg (3 x 2.5 mg) PO DAILY 5 04/11/24 days #15 tabs medroxyprogesterone 10 mg tablet 10 mg PO DAILY 10 days #10 tabs 04/11/24 (Provera) ketorolac 10 mg tablet 10 mg PO Q8H PRN pain #14 tabs 04/14/24 ondansetron 4 mg disintegrating 4 mg PO Q8H PRN nausea and 04/14/24 tablet vomiting 4 days #12 tabs oxycodone 5 mg tablet 5 mg PO Q8H PRN pain #12 tabs 04/14/24 tamsulosin 0.4 mg capsule (Flomax) 0.4 mg PO DAILY #14 caps 04/14/24 Allergies Allergy/AdvReac Type Severity Reaction Status Date / Time No Known Allergies Allergy Verified 04/14/24 11:50 [facility] Disclaimer: The information contained in this section may have been updated after the patient was seen, as this information can be updated by other users. Medical History Headache H. pylori infection Elevated liver enzymes Anxiety BMI 40.0-44.9, adult PCOS (polycystic ovarian syndrome) Migraine Abnormal weight Lipoma Intertrigo Back pain Breast pain, left Rash Right lower quadrant abdominal pain Vitamin D deficiency Amenorrhea, secondary Insomnia Depression Surgical History Hx of tonsillectomy Hx of cholecystectomy Family History Mother Heart disease Social History Smoking Status: Never smoker second hand exposure: No alcohol intake: never counseling provided: provider counseling substance use type: denies use current occupational status: unemployed Travel in the last 8 weeks: None household members: spouse housing: house number of children: 0 caffeine: Yes ROS Obtained: Yes All systems reviewed & no additional complaints except as documented Physical Exam General General appearance: alert Comment: Very uncomfortable appearing Head Head exam: atraumatic and normocephalic Eye Eye exam: Present normal appearance, PERRL and EOMI ENT ENT exam: Present normal exam, normal oropharynx, mucous membranes moist and normal external ear exam Neck Neck exam: Present normal inspection, full ROM and trachea midline; Absent tenderness Chest Chest inspection: Present normal inspection and symmetric chest wall rise; Absent tenderness Respiratory Respiratory exam: Present normal lung sounds bilaterally; Absent respiratory distress, wheezes, stridor or accessory muscle use Cardiovascular Cardiovascular exam: Present regular rate and normal rhythm Abdominal Exam Abdominal exam: Present soft and tenderness (Right side); Absent distention, guarding, rebound or rigidity Extremities Exam Extremities exam: Present normal inspection, full ROM and normal capillary refill; Absent tenderness or edema Back Exam Back exam: Present full ROM and CVA tenderness (R) Neurological Exam Neurological exam: Present alert, oriented X3, CN II-XII intact and normal gait; Absent motor sensory deficit Psychiatric Psychiatric exam: Present anxious Skin Skin exam: Present warm and dry Medical Decision Making Medical Records Medical records reviewed: Yes I reviewed the patient's medical records. Fredy Inquiry Pt receiving controlled substance: Yes Fredy was queried for this patient: Yes Risks and benefits of using a controlled substance: were discussed with pt by me Vital Signs: 04/14/24 11:41 04/14/24 12:01 04/14/24 12:31 Temperature 97.9 F Temperature Source Oral Pulse Rate 80 58 L Pulse Rate [Right Brachial] 90 Respiratory Rate 20 Blood Pressure 131/79 117/69 Blood Pressure [Right Arm] 146/84 H Blood Pressure Mean 96 85 Blood Pressure Mean [Right Arm] 104 Blood Pressure Source [Right Arm] Automatic Cuff Blood Pressure Position [Right Arm] Right Lateral 02 Sat by Pulse Oximetry 100 98 94 L Oxygen Delivery Method Room Air 04/14/24 13:00 04/14/24 13:31 04/14/24 13:54 Temperature Temperature Source Pulse Rate 65 66 61 Pulse Rate [Right Brachial] Respiratory Rate 18 Blood Pressure 114/57 L 106/62 L 106/71 L Blood Pressure [Right Arm] Blood Pressure Mean 72 79 Blood Pressure Mean [Right Arm] Blood Pressure Source [Right Arm] Blood Pressure Position [Right Arm] 02 Sat by Pulse Oximetry 95 96 100 Oxygen Delivery Method Room Air Room Air Room Air 04/14/24 14:00 04/14/24 14:30 04/14/24 15:00 Temperature Temperature Source Pulse Rate 62 69 74 Pulse Rate [Right Brachial] Respiratory Rate 18 Blood Pressure 104/63 L 115/70 113/69 Blood Pressure [Right Arm] Blood Pressure Mean 71 80 Blood Pressure Mean [Right Arm] Blood Pressure Source [Right Arm] Blood Pressure Position [Right Arm] 02 Sat by Pulse Oximetry 97 98 98 Oxygen Delivery Method Room Air Room Air Room Air 04/14/24 15:30 04/14/24 15:31 04/14/24 16:00 Temperature Temperature Source Pulse Rate 74 63 70 Pulse Rate [Right Brachial] Respiratory Rate Blood Pressure 106/61 L 112/62 Blood Pressure [Right Arm] Blood Pressure Mean 71 78 Blood Pressure Mean [Right Arm] Blood Pressure Source [Right Arm] Blood Pressure Position [Right Arm] 02 Sat by Pulse Oximetry 96 98 99 Oxygen Delivery Method Room Air Room Air Room Air Lab Data Lab results reviewed: Yes I reviewed the patient's lab results. Lab Results 04/14/24 11:32: Urine Color Yellow, Urine Appearance Clear, Urine pH 6.0, Ur Specific [place] >= 1.030, Urine Protein Negative, Urine Glucose (UA) Negative, Urine Ketones Negative, Urine Blood 2+, Urine Nitrate Negative, Urine Bilirubin Negative, Urine Urobilinogen 0.2, Ur Leukocyte Esterase Negative, Urine RBC 5- 10, Urine WBC Occasional, Ur Squamous Epith Cells 3-5, Urine Bacteria Trace 04/14/24 11:44: WBC 8.9, RBC 5.22, Hgb 15.3, Hct 45.9, MCV 87.9, MCH 29.3, MCHC 33.3, RDW 13.2, Plt Count 430 H, MPV 7.5, Neut % (Auto) 53.5, Lymph % (Auto) 36.2, [place] % (Auto) 7.0, Eos % (Auto) 2.0, Baso % (Auto) 1.4, Neut # (Auto) 4.8, Lymph # (Auto) 3.2, [place] # (Auto) 0.6, Eos # (Auto) 0.2, Baso # (Auto) 0.1, Sodium 141, Potassium 3.8, Chloride 109 H, Carbon Dioxide 20 L, Anion Gap 15.8 H , BUN 12, Creatinine 0.90, Estimated Creat Clear 72, Estimated GFR 76, Est GFR ( Amer) 92, Glucose 93, Calcium 9.6, Total Bilirubin 0.8, AST 55 H, ALT 83 H, Alkaline Phosphatase 86, Total Protein 8.0, Albumin 4.9, Globulin 3.1, Albumin/Globulin Ratio 1.6, Lipase 144, Serum HCG, Qual Negative 04/14/24 11:44 04/14/24 11:44 Orders (Tests/Meds): ED MEDICATIONS Discontinued Medications Generic Name Dose Route Start Last Admin Trade Name Freq PRN Reason Stop Dose Admin Acetaminophen 1,000 mg 04/14/24 11:56 04/14/24 12:00 Acetaminophen 1,000mg/100ml Vial IV 04/14/24 11:57 1,000 mg ONCE ONE Administration Hydromorphone HCl 1 mg 04/14/24 16:02 04/14/24 16:29 Hydromorphone 2mg/Ml Syringe IV 04/14/24 16:03 1 mg ONCE ONE Administration Lactated Ringer's 1,000 mls @ 999 mls/hr 04/14/24 11:55 04/14/24 12:00 Lactated Ringer's 1000 Ml Bag IV 04/14/24 12:55 999 mls/hr .Q1H1M ONE Administration Lactated Ringer's 1,000 mls @ 999 mls/hr 04/14/24 14:32 04/14/24 15:30 Lactated Ringer's 1000 Ml Bag IV 04/14/24 15:32 999 mls/hr .Q1H1M ONE Administration Iopamidol 75 ml 04/14/24 12:17 04/14/24 12:18 Iopamidol-370 (76%);100ml Bottle IV 04/14/24 12:18 75 ml ONCE ONE Administration Ketorolac Tromethamine 15 mg 04/14/24 12:36 04/14/24 13:05 Ketorolac 30mg/Ml Vial IV 04/14/24 12:37 15 mg ONCE ONE Administration Ketorolac Tromethamine 15 mg 04/14/24 16:03 04/14/24 16:28 Ketorolac 30mg/Ml Vial IV 04/14/24 16:04 15 mg ONCE ONE Administration Morphine Sulfate 4 mg 04/14/24 11:55 04/14/24 12:00 Morphine 4mg/Ml Syringe IV 04/14/24 11:56 4 mg ONCE ONE Administration Ondansetron HCl 4 mg 04/14/24 11:55 04/14/24 12:00 Ondansetron 4mg/2ml Vial IV 04/14/24 11:56 4 mg ONCE ONE Administration Ondansetron HCl 4 mg 04/14/24 14:32 04/14/24 15:30 Ondansetron 4mg Odt SL 04/14/24 14:33 4 mg ONCE ONE Administration Oxycodone HCl 5 mg 04/14/24 14:32 04/14/24 15:30 Oxycodone 5mg Immediate Release Tablet PO 04/14/24 14:33 5 mg ONCE ONE Administration Sodium Chloride 10 ml 04/14/24 12:17 04/14/24 12:18 Sodium Chloride 0.9% 10ml Syr (Rad Only) IV 04/14/24 12:18 10 ml ONCE ONE Administration Tamsulosin HCl 0.4 mg 04/14/24 14:32 04/14/24 15:29 Tamsulosin 0.4mg Capsule PO 04/14/24 14:33 0.4 mg ONCE ONE Administration ORDERS Category Date Time Status CT abdomen pelvis w con Stat Cat Scan 04/14/24 11:55 Completed CBC w/Auto Diff [Complete Blood Count Auto Diff] Stat Lab 04/14/24 11:44 Completed CMP [Comprehensive Metabolic Panel] Stat Lab 04/14/24 11:44 Completed Lipase Stat Lab 04/14/24 11:44 Completed Serum [HCG Qualitative, Serum] Stat Lab 04/14/24 11:44 Completed UA [Urinalysis and Microscopic] Stat Lab 04/14/24 11:32 Completed Medical Decision Narrative: In summary, this patient is a 24-year-old female presenting to the Emergency Department for evaluation of right flank pain radiating to her right bellybutton. She has had a history of prior cholecystectomy. Differential diagnoses considered include but are not limited to appendicitis, hepatitis, ureterolithiasis, ovarian cyst, ectopic , colitis, gastroenteritis. Ruling out the most morbid conditions drove assessment. It should be noted patient's history includes PCOS which may or may not be at goal therapy. This complicates all aspects of care by increasing patient's risk for morbidity. On exam, the patient is very uncomfortable appearing, writhing around trying to find a position of comfort. She has right CVA tenderness and right-sided abdominal tenderness. She has no rebound or guarding. Workup included CBC, CMP, lipase, test, urinalysis, and CT abdomen pelvis with IV contrast. She is given a bolus of IV fluids as well as IV morphine, acetaminophen, and Zofran for symptomatic improvement. Once test came out negative, she was given IV Toradol. I independently interpreted CT scan prior to the radiologist read and noted right ureteral stone. Please see their read for final interpretation. They noted the patient has biliary dilatation, which I feel is likely secondary to her cholecystectomy. She has a stable transaminitis in the setting of fatty liver disease with no new hyperbilirubinemia or other concerns. She does have blood in her urine without evidence of infection. White blood cell count is normal. Kidney function is normal. On subsequent reassessment, patient states her pain is starting to come back. Advise that with a 2 mm kidney stone, she is likely to pass it on her own and I recommended trial of passage at home. She states that she is too uncomfortable at this time, so she is given oral oxycodone as well as Flomax. This did not help her symptoms and she states she is feeling very bad, so she was given IV Dilaudid. She states she does not feel comfortable going home because she is never felt pain like this before. I called to consult [facility]rology at [facility] for further recommendations. Dr. Ro advise that the patient can follow-up outpatient given the stone is very small, not causing infection or significant hydronephrosis, kidney function is normal. He advised that she can call clinic tomorrow to help schedule an appointment. I gave patient instructions for this. She did get pain improvement after Dilaudid, so I feel she is appropriate for discharge home. I gave her prescriptions for oxycodone, Flomax, Toradol, and Zofran as well as instructions for supportive management and strict return precautions. She was discharged after all questions were answered with plan for close outpatient follow-up. Critical Care Critical Care Time Critical Care Time: No
[2024-04-14 12:48] LABS: Bacteria,Urine Trace /lpf; WBC,Urine Occasional #/hpf (0-3)
[2024-04-14] MEDS: KETOROLAC 30MG/ML VIAL 15 MG IV ×2 (13:05→16:28)
--- NOTE | 2024-04-14 13:40 | PC.NURSE ---
pt taken blankets and tucked in. no new complaints voiced. call harper in reach. pt denies needing anything at this time.
[2024-04-14] MEDS: TAMSULOSIN 0.4MG CAPSULE 0.4 MG PO (15:29)
[2024-04-14] MEDS: OXYCODONE 5MG IMMEDIATE RELEASE TABLET 5 MG PO (15:30)
[2024-04-14] MEDS: ONDANSETRON 4MG ODT 4 MG SL (15:30)
--- NOTE | 2024-04-14 16:04 | PC.NURSE ---
Scot, EMT calling [facility] for possible transfer
--- NOTE | 2024-04-14 16:06 | PC.NURSE ---
Called Shanique per Dr Callahan to see about speaking with someone at [facility] about this pt. Shanique was going to make contact with [place] and then call us back
[2024-04-14] MEDS: HYDROMORPHONE 2MG/ML SYRINGE 1 MG IV (16:29)
--- NOTE | 2024-04-14 16:34 | PC.NURSE ---
pt to restroom without complications
--- NOTE | 2024-04-14 16:41 | PC.NURSE ---
Called [facility] back to see about an update and [facility] advised that Dr Ro spoke to Dr Callahan just a few minutes ago and the call had been closed.
== END 2024-04-14 17:11 | disposition home or self-care (01) ==
PROVIDERS: Emergency Provider Emergency Medicine; PCP Physician Assistant
DX: R10.0 Acute abdomen; K83.8 Other specified diseases of biliary tract; N20.1 Calculus of ureter; M54.59 Other low back pain; R11.2 Nausea with vomiting, unspecified
CPT/HCPCS: 74177; 80053; 81001; 83690; 84703; 85025; 96361; 96374; 96375; 96376; 99285; J0131; J1170; J1885; J2270; J2405; J7120; Q0162; Q9967

== ENCOUNTER 2024-04-16 14:21 | Outpatient (CLI) | payer BC, SELFPAY ==
--- NOTE | 2024-04-16 14:22 | US_ITS ---
PROCEDURE: US TRANSVAGINAL CLINICAL INDICATION: amenorrhea COMPARISON: CT CT ABDOMEN PELVIS W CON from 04/14/2024 FINDINGS: Transvaginal sonographic images of the pelvis were obtained. UTERUS: 6.7 cm x 4.6 cmx 3.3cm anteverted with a combined endometrial thickness of 8.4mm. The endometrium is trilaminar. There are several small nabothian cysts in the cervix. LEFT OVARY: 4.8 cmx2.4 cmx2.0cm with a volume of 12ml. There are multiple small follicles consistent with polycystic ovary. RIGHT OVARY: 4.4 Cx 3.2 cmx1.8 cm with a volume of 13.8ml. There are multiple small follicles consistent with polycystic ovary. Both ovaries are seen and appear normal. Doppler flow to both ovaries are seen. There is no fluid in the cul-de-sac. IMPRESSION: 1. Anteverted uterus normal in shape and size. The endometrium is normal and appears trilaminar. 2. Both ovaries are seen and appear polycystic. 3. No fluid in the cul-de-sac. Dictated by: Salinas Canales MD 04/16/2024 17:50 Salinas Canales MD in [place] 04/16/2024 17:50
== END 2024-04-16 23:59 | disposition home or self-care (01) ==
LOC: RAD 14:22
PROVIDERS: PCP Physician Assistant; Visit Provider Obstetrics & Gynecology
DX: N91.2 Amenorrhea, unspecified (principal)
CPT/HCPCS: 76830

== ENCOUNTER 2024-05-01 13:33 | Outpatient (CLI) | payer BC, SELFPAY ==
[2024-05-03 10:11] LABS: FSH 5.4 mIU/mL (.); LH 9.8 mIU/mL (.); Progesterone 0.2 ng/mL (.)
== END 2024-05-01 23:59 | disposition home or self-care (01) ==
LOC: LAB 13:34
PROVIDERS: PCP Physician Assistant; Visit Provider Obstetrics & Gynecology
DX: N91.1 Secondary amenorrhea (principal)
CPT/HCPCS: 36415; 83001; 83002; 84144

== ENCOUNTER 2024-05-09 10:18 | Outpatient (CLI) | payer BC, SELFPAY ==
--- NOTE | 2024-05-09 10:18 | US_ITS ---
PROCEDURE: US TRANSVAGINAL CLINICAL INDICATION: Follicle Scan COMPARISON: US TRANSVAGINAL from 04/16/2024 FINDINGS: Transvaginal sonographic images of the pelvis were obtained. UTERUS: 7.1cm x 5.0cmx 3.8 cm anteverted with a combined endometrial thickness of 8.6mm. Endometrium appears homogeneous. There is a small nabothian cyst in the cervix. LEFT OVARY: 2num6pun4.3cm with a volume of 14.8ml. Has multiple small peripheral follicles and appears polycystic. Follicle 1. 0.72 cm Follicle 2. 0.82 cm Follicle 3. 0.77 cm Follicle 4. 0.79 cm Follicle 5. 0.57 cm Follicle 6. 0.83 cm Follicle 7. 0.49 cm Follicle 8. 0.69 cm Follicle 9. 0.59 cm RIGHT OVARY: 3cmx [id number] with a volume of 6.7ml. More difficult to visualize due to position. Follicle 1. 0.65 cm Follicle 2. 0.69 cm Follicle 3. 0.71 cm Both ovaries are seen and appear polycystic. Doppler flow to both ovaries are seen. There is no fluid in the cul-de-sac. IMPRESSION: 1. Anteverted uterus normal in shape and size. The endometrium measures 8.6 mm and appears homogeneous. 2. Both ovaries are seen and appear polycystic. There are 9 small follicles on the left ovary and 3 small follicles on the right ovary. The right ovary is more difficult to see due to position. 3. No fluid in the cul-de-sac. Dictated by: Salinas Canales MD 05/09/2024 17:05 Salinas Canales MD in [facility] 05/09/2024 17:05
== END 2024-05-09 23:59 | disposition home or self-care (01) ==
LOC: RAD 10:18
PROVIDERS: PCP Physician Assistant; Visit Provider Obstetrics & Gynecology
DX: E28.2 Polycystic ovarian syndrome (principal); Z31.9 Encounter for procreative management, unspecified
CPT/HCPCS: 76830

== ENCOUNTER 2024-05-13 13:46 | Outpatient (CLI) | payer BC, SELFPAY ==
--- NOTE | 2024-05-13 13:47 | US_ITS ---
PROCEDURE: US TRANSVAGINAL CLINICAL INDICATION: folicle scan COMPARISON: US US TRANSVAGINAL from 04/16/2024 US US TRANSVAGINAL from 05/09/2024 FINDINGS: Transvaginal sonographic images of the pelvis were obtained. UTERUS: 7.7 cm x 5cmx 3.9 cm anteverted with a combined endometrial thickness of 9.9mm. The endometrium appears heterogenous. There is a small cyst nabothian cyst in the cervix. LEFT OVARY: 3.5cmx3.1cmx5.0cm with a volume of 27.9ml. There are multiple small peripheral follicles. Follicle 1. 1.73 cm x 2.04 cm Follicle 2. 1.90 cm x 1.50 cm RIGHT OVARY: 4.6 cmx 2.8 cmx2.6 cm with a volume of 18ml. There are multiple small peripheral follicles. Follicle 1. 1.24 cm x 1.27 cm Follicle 2. 1.90 cm x 1.54 cm Both ovaries are seen and appear normal. Doppler flow to both ovaries are seen. There is no fluid in the cul-de-sac. IMPRESSION: 1. Anteverted uterus normal in shape and size. The endometrium appears heterogenous. 2. Both ovaries are seen and appear polycystic. The right ovary has 2 follicles, the left ovary has 2 follicles. 3. No fluid in the cul-de-sac Dictated by: Salinas Canales MD 05/13/2024 16:17 Salinas Canales MD in [place] 05/13/2024 16:17
== END 2024-05-13 23:59 | disposition home or self-care (01) ==
LOC: RAD 13:47
PROVIDERS: PCP Physician Assistant; Visit Provider Obstetrics & Gynecology
DX: E28.2 Polycystic ovarian syndrome (principal); Z31.9 Encounter for procreative management, unspecified
CPT/HCPCS: 76830

== ENCOUNTER 2024-05-19 12:38 | Outpatient (CLI) | payer BC, SELFPAY ==
[2024-05-20 11:13] LABS: Progesterone 7.5 ng/mL (.)
== END 2024-05-19 23:59 | disposition home or self-care (01) ==
LOC: LAB 12:39
PROVIDERS: PCP Physician Assistant; Visit Provider Obstetrics & Gynecology
DX: N91.1 Secondary amenorrhea (principal)
CPT/HCPCS: 36415; 84144

== ENCOUNTER 2024-05-19 20:00 | Emergency (ER) | payer BC, SELFPAY ==
[2024-05-19 20:03] VITALS: BP 147/92; PULSE 104; RESP 18; TEMP 36.9; O2SAT 99; BMI 42.5
[2024-05-19 20:30] VITALS: BP 121/81; PULSE 97; O2SAT 98
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
[2024-05-19 21:00] VITALS: PULSE 90; O2SAT 97
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
--- NOTE | 2024-05-19 21:00 | PC.NURSE ---
Patient placed in gown, placed in c-collar at this time.
[2024-05-19] MEDS: MORPHINE 4MG/ML SYRINGE 4 MG IV (21:13)
[2024-05-19] MEDS: LACTATED RINGERS 1000ML 1,000 ML 999 ML IV (21:13)
[2024-05-19 21:20] LABS: Basophils # 0.1 K/mm3 (0-0.2); Basophils % 0.7 % (0.1-2.0); Eosinophils # 0.3 K/mm3 (0.0-0.4); Eosinophils % 2.4 % (0.1-12.0); Hematocrit 46.4 % (37.0-47.0); Hemoglobin 14.7 g/dL (12.2-16.2); Lymphocytes # 2.7 K/mm3 (0.7-4.5); Lymphocytes % 26.4 % (10-50); Mean Corpuscular HGB Conc 31.8 g/dL (31.8-35.4); Mean Corpuscular Hemoglobin 28.6 pg (27.0-31.2); Mean Corpuscular Volume 89.9 fl (81-99); Mean Platelet Volume 7.5 fl (7.4-10.4); Monocytes # 0.6 K/mm3 (0.1-1.0); Monocytes % 5.8 % (1.7-9.3); Neutrophils # 6.7 K/mm3 (1.8-7.8); Neutrophils % 64.6 % (37.0-80.0); Platelet Count 435 K/mm3 (142-424); Red Blood Count 5.16 M/mm3 (4.20-5.40); Red Cell Distribution Width 13.7 % (11.5-17.5); White Blood Count 10.4 K/mm3 (4.8-10.8)
[2024-05-19 21:28] LABS: Albumin Level 4.6 g/dl (3.5-5.0); Chloride 108 mmol/L (98-107); Sodium 138 mmol/L (136-145)
[2024-05-19 21:31] LABS: Alanine Aminotransferase 74 U/L (12-78); Albumin/Globulin Ratio 1.4 (1.1-1.8); Alkaline Phosphatase 71 U/L (38-126); Aspartate Amino Transferase 54 U/L (14-36); Bilirubin,Total 0.7 mg/dl (0.2-1.3); Blood Urea Nitrogen 9 mg/dl (7-17); Carbon Dioxide 23 mmol/L (22.0-30.0); Creatinine Clearance Estimated 108 mL/min (50-200); Estimated Glomerular Filt Rate 122 ml/min (>60); GFR (African American) 147 ML/MIN (>60); Globulin 3.2 g/dL (1.3-3.2); Total Protein,Serum 7.8 g/dl (6.3-8.2)
[2024-05-19 21:32] LABS: Calcium 9.3 mg/dl (8.4-10.2); Glucose 89 mg/dl (74-100)
[2024-05-19 21:36] LABS: Ethyl Alcohol < 10 mg/dl (0-10)
[2024-05-19] MEDS: ONDANSETRON 4MG/2ML VIAL 4 MG IV (21:42)
[2024-05-19 21:53] LABS: HCG Qualitative, Serum Negative (Negative)
[2024-05-19] MEDS: 0.9 % SODIUM CHLORIDE 50 ML VIAL IV (22:06)
[2024-05-19] MEDS: SODIUM CHLORIDE 0.9% 10ML SYR (RAD ONLY) 10 ML IV (22:06)
[2024-05-19] MEDS: IOPAMIDOL-370 (76%);100ML BOTTLE 80 ML IV (22:06)
[2024-05-19] MEDS: diphenhydrAMINE 50MG/ML VIAL 25 MG IV (23:01)
[2024-05-19] MEDS: PROCHLORPERAZINE 10MG/2ML VIAL 5 MG IV (23:01)
[2024-05-19 23:31] VITALS: BP 126/78; PULSE 77; RESP 16; TEMP 36.7; O2SAT 98
== END 2024-05-19 23:33 | disposition home or self-care (01) ==
PROVIDERS: Emergency Provider Emergency Medicine; PCP Physician Assistant
DX: M54.2 Cervicalgia (principal); R51.9 Headache, unspecified; M25.512 Pain in left shoulder; V49.40XA Driver injured in collision with unspecified motor vehicles in traffic accident, initial encounter
CPT/HCPCS: 70450; 71045; 71275; 72125; 73000; 74174; 80053; 80320; 84703; 85025; 96361; 96374; 96375; 99285; G0480; J0780; J1200; J2270; J2405; J7120; Q9967

== ENCOUNTER 2024-05-26 08:48 | Outpatient (CLI) | payer BC, SELFPAY ==
[2024-05-26 09:44] LABS: HCG,Quantitative 25 mIU/ml (0-5.42)
[2024-05-27 08:35] LABS: Progesterone 19.3 ng/mL (.)
== END 2024-05-26 23:59 | disposition home or self-care (01) ==
LOC: LAB 08:49
PROVIDERS: PCP Physician Assistant; Visit Provider Obstetrics & Gynecology
DX: N92.6 Irregular menstruation, unspecified (principal)
CPT/HCPCS: 36415; 84144; 84702

== ENCOUNTER 2024-05-28 07:22 | Outpatient (CLI) | payer BC, SELFPAY ==
[2024-05-28 09:23] LABS: HCG,Quantitative 53 mIU/ml (0-5.42)
== END 2024-05-28 23:59 | disposition home or self-care (01) ==
LOC: LAB 07:23
PROVIDERS: PCP Physician Assistant; Visit Provider Obstetrics & Gynecology
DX: O36.80X0 Pregnancy with inconclusive fetal viability, not applicable or unspecified (principal)
CPT/HCPCS: 36415; 84702

== ENCOUNTER 2024-05-29 22:41 | Emergency (ER) | payer BC, SELFPAY ==
[2024-05-29 22:42] VITALS: BP 139/82; PULSE 102; RESP 18; TEMP 36.9; O2SAT 98; BMI 42.5
[2024-05-29 23:18] LABS: Microscopic, Urine URINE MICROSCOPIC (MICROSCOPIC)
[2024-05-29 23:27] LABS: Basophils # 0.1 K/mm3 (0-0.2); Basophils % 0.6 % (0.1-2.0); Eosinophils # 0.3 K/mm3 (0.0-0.4); Eosinophils % 2.1 % (0.1-12.0); Hemoglobin 14.2 g/dL (12.2-16.2); Lymphocytes # 2.9 K/mm3 (0.7-4.5); Lymphocytes % 22.9 % (10-50); Mean Corpuscular HGB Conc 32.4 g/dL (31.8-35.4); Mean Corpuscular Volume 89.6 fl (81-99); Mean Platelet Volume 6.4 fl (7.4-10.4); Monocytes # 0.7 K/mm3 (0.1-1.0); Monocytes % 5.9 % (1.7-9.3); Neutrophils # 8.6 K/mm3 (1.8-7.8); Neutrophils % 68.5 % (37.0-80.0); Platelet Count 455 K/mm3 (142-424); Red Blood Count 4.91 M/mm3 (4.20-5.40); Red Cell Distribution Width 13.5 % (11.5-17.5); White Blood Count 12.5 K/mm3 (4.8-10.8)
[2024-05-29 23:27] LABS: Appearance,Urine CLEAR (Clear); Bilirubin,Urine Negative (Negative); Blood, Urine Negative (Negative); Color,Urine YELLOW (Yellow); Glucose,Urine (UA) Negative (Negative); Ketones,Urine Negative (Negative); Leukocyte Esterase,Urine 1+ (Negative); Nitrate,Urine Negative (Negative); Protein,Urine Negative (Negative); Urobilinogen,Urine 0.2 EU/dl (0.2)
--- NOTE | 2024-05-29 23:30 | PC.NURSE ---
wet prep obtained by Dr Dooley and sent to lab at this time.
[2024-05-29 23:37] LABS: Albumin Level 4.6 g/dl (3.5-5.0); Chloride 108 mmol/L (98-107); Sodium 137 mmol/L (136-145)
[2024-05-29 23:39] LABS: Blood Urea Nitrogen 11 mg/dl (7-17); Creatinine Clearance Estimated 93 mL/min (50-200); Estimated Glomerular Filt Rate 102 ml/min (>60); GFR (African American) 123 ML/MIN (>60)
[2024-05-29 23:40] LABS: Alanine Aminotransferase 57 U/L (12-78); Albumin/Globulin Ratio 1.6 (1.1-1.8); Alkaline Phosphatase 83 U/L (38-126); Aspartate Amino Transferase 39 U/L (14-36); Bilirubin,Total 0.5 mg/dl (0.2-1.3); Calcium 9.8 mg/dl (8.4-10.2); Carbon Dioxide 23 mmol/L (22.0-30.0); Globulin 2.8 g/dL (1.3-3.2); Glucose 113 mg/dl (74-100); Total Protein,Serum 7.4 g/dl (6.3-8.2)
[2024-05-29 23:44] LABS: Bacteria,Urine 3+ /lpf; RBC,Urine Occasional #/hpf (0-3); Squamous Epithelial Cell,Urine 20-50 #/hpf (0-5)
[2024-05-29 23:45] LABS: Amorphous Sediment,Urine 4+ /lpf
[2024-05-29 23:57] LABS: HCG,Quantitative 102 mIU/ml (0-5.42)
[2024-05-30] MEDS: ACETAMINOPHEN 500MG TAB 1000 MG PO (00:34)
--- NOTE | 2024-05-30 00:36 | ED_ITS ---
Discharge Plan Disposition Patient Disposition: Home, Self-Care Prescriptions Prescriptions: New amoxicillin-pot clavulanate 875-125 mg tablet 1 tab PO BID 5 Days Qty: 10 0RF No Action WesTab Plus 27 mg iron- 1 mg tablet 1 tab PO DAILY metformin 500 mg tablet extended release 24 hr 500 mg PO TID Patient Comments: TAKE ONE TABLET BY MOUTH DAILY FOR 1 WEEK, THEN increase TO 2 tablets BY MOUTH DAILY FOR 1 WEEK, THEN increase TO 3 tabs BY MOUTH DAILY AND continue meclizine 25 mg tablet 25 mg PO TID PRN (Reason: dizziness) Qty: 30 0RF letrozole 2.5 mg tablet 7.5 mg PO DAILY 5 Days Qty: 15 2RF Rx Instructions: begin between days 2 and 5 of mentrual cycle medroxyprogesterone [Provera] 10 mg tablet 10 mg PO DAILY 10 Days Qty: 10 3RF letrozole 2.5 mg tablet 7.5 mg PO DAILY 5 Days Qty: 15 0RF Rx Instructions: begin between days 3 and 7 of menstrual cycle progesterone micronized [Prometrium] 100 mg capsule 100 mg vaginal DAILY 30 Days Qty: 30 2RF Rx Instructions: Please place one tablet vaginally each night until 12 weeks gestation oxycodone 5 mg tablet 5 mg PO Q8H PRN (Reason: pain) Qty: 12 0RF ondansetron 4 mg tablet,disintegrating 4 mg PO Q8H PRN (Reason: nausea and vomiting) 4 Days Qty: 12 0RF tamsulosin [Flomax] 0.4 mg capsule 0.4 mg PO DAILY Qty: 14 0RF ketorolac 10 mg tablet 10 mg PO Q8H PRN (Reason: pain) Qty: 14 0RF Rx Instructions: maximum total duration of 5 days from all oral, intranasal, or parenteral formulations methocarbamol 500 mg tablet 1,000 mg PO Q8H PRN (Reason: muscle spasm) Qty: 30 0RF Referrals Follow up/Referrals: Mónica Guzman PA [Primary Care Provider] - See instructions Activity Restrictions/Add. Instructions Additional Instructions/Restrictions: Please take Augmentin as prescribed for treatment of asymptomatic bacteriuria. Please follow-up with your [employer] Consider discontinuing the vaginal progesterone to see if this changes her symptoms. Clinical Impressions Clinical Impression: Vaginal pain, First trimester Print Language Print Language: Welsh Discharge ED Provider: Jameson Dooley General Adult HPI General Chief complaint: PAIN Stated complaint: 4 weeks with severe vagina pain Time Seen by Provider: 05/29/24 22:54 Mode of Arrival: Ambulatory Source of Information: Patient Limitations: No Limitations Description of Symptoms (Recalled from ER Triage Doc. by RN): Pt to ED with c/o vaginal pain X3 days, worsening. denies vaginal bleeding or discharge. reports she is about 4 weeks . 1st . History of Present Illness HPI narrative: 24-year-old male, apparently approximately 4 weeks with her first presents for vaginal pain. She reports is been going on for the last few nights. The pain starts about an hour or so after she inserts vaginal progesterone that was prescribed by her [employer] She reports a history of PCOS and infertility. She reports that she was constipated but had a large bowel movement this morning. She reports the pain only happens at night and seems to only happen after using this medication. She denies any vaginal discharge, foul odor, vaginal bleeding, abdominal pain etc. Related Data Home Medications ?Medication ?Instructions ?Recorded ?Confirmed vitamin with calcium 1 tab PO DAILY 08/13/23 04/14/24 no.72-iron 27 mg-folic acid 1 mg tablet (WesTab Plus) metformin 500 mg tablet,extended 500 mg PO TID 03/18/24 04/14/24 release 24 hr Previous Rx's ?Medication ?Instructions ?Recorded meclizine 25 mg tablet 25 mg PO TID PRN dizziness #30 tabs 02/28/24 letrozole 2.5 mg tablet 7.5 mg (3 x 2.5 mg) PO DAILY 5 04/11/24 days #15 tabs medroxyprogesterone 10 mg tablet 10 mg PO DAILY 10 days #10 tabs 04/11/24 (Provera) ketorolac 10 mg tablet 10 mg PO Q8H PRN pain #14 tabs 04/14/24 ondansetron 4 mg disintegrating 4 mg PO Q8H PRN nausea and 04/14/24 tablet vomiting 4 days #12 tabs oxycodone 5 mg tablet 5 mg PO Q8H PRN pain #12 tabs 04/14/24 tamsulosin 0.4 mg capsule (Flomax) 0.4 mg PO DAILY #14 caps 04/14/24 letrozole 2.5 mg tablet 7.5 mg (3 x 2.5 mg) PO DAILY 5 05/01/24 days #15 tabs methocarbamol 500 mg tablet 1,000 mg (2 x 500 mg) PO Q8H PRN 05/19/24 muscle spasm #30 tabs progesterone micronized 100 mg 100 mg vaginal DAILY 30 days #30 05/27/24 capsule (Prometrium) caps amoxicillin 875 mg-potassium 1 tab PO BID 5 days #10 tabs 05/30/24 clavulanate 125 mg tablet Allergies Allergy/AdvReac Type Severity Reaction Status Date / Time No Known Allergies Allergy Verified 04/14/24 11:50 [facility] Disclaimer: The information contained in this section may have been updated after the patient was seen, as this information can be updated by other users. Medical History Headache H. pylori infection Elevated liver enzymes Anxiety BMI 40.0-44.9, adult PCOS (polycystic ovarian syndrome) Migraine Abnormal weight Lipoma Intertrigo Back pain Breast pain, left Rash Right lower quadrant abdominal pain Vitamin D deficiency Amenorrhea, secondary Insomnia Depression Surgical History Hx of tonsillectomy Hx of cholecystectomy Family History Mother Heart disease Social History Smoking Status: Never smoker second hand exposure: No alcohol intake: never counseling provided: provider counseling substance use type: denies use current occupational status: unemployed Travel in the last 8 weeks: None household members: spouse housing: house number of children: 0 caffeine: Yes ROS Obtained: Yes All systems reviewed & no additional complaints except as documented Physical Exam General General appearance: alert and in no apparent distress Head Head exam: atraumatic and normocephalic Eye Eye exam: Present normal appearance, PERRL and EOMI ENT ENT exam: Present normal oropharynx and normal external ear exam Neck Neck exam: Present normal inspection and full ROM Chest Chest inspection: Present normal inspection and symmetric chest wall rise; Absent tenderness Respiratory Respiratory exam: Present normal lung sounds bilaterally; Absent respiratory distress Cardiovascular Cardiovascular exam: Present regular rate and normal rhythm Abdominal Exam Abdominal exam: Present soft; Absent distention, tenderness or guarding External exam: Present normal external exam; Absent erythema or swelling Speculum exam: Present normal speculum exam; Absent erythema, cervical discharge, vaginal bleeding, foreign body or laceration Extremities Exam Extremities exam: Present normal inspection; Absent edema or joint swelling Back Exam Back exam: Present normal inspection; Absent tenderness Neurological Exam Neurological exam: Present alert and oriented X3; Absent motor sensory deficit Psychiatric Psychiatric exam: Present normal affect and normal mood Skin Skin exam: Present warm, dry and normal color Lymphatic Lymphatic Findings: no adenopathy Medical Decision Making Medical Records Medical records reviewed: Yes I reviewed the patient's medical records. Screening: Per USPSTF and CDC recommendations, given the prevalence of disease in our region, it is our hospital?s policy to screen for HIV and viral Hepatitis for all patients aged 18 and over and those with ongoing risk factors. Fredy Inquiry Pt receiving controlled substance: No Fredy was queried for this patient: No Vital Signs: 05/29/24 22:42 05/30/24 00:42 Temperature 98.4 F 98.4 F Temperature Source Oral Oral Pulse Rate 94 H Pulse Rate [Left Radial] 102 H Respiratory Rate 18 16 Blood Pressure 113/74 Blood Pressure [Right Arm] 139/82 Blood Pressure Mean [Right Arm] 101 Blood Pressure Source Automatic Cuff Blood Pressure Source [Right Arm] Automatic Cuff Blood Pressure Position Sitting Blood Pressure Position [Right Arm] Sitting 02 Sat by Pulse Oximetry 98 Oxygen Delivery Method Room Air Room Air Lab Data Lab results reviewed: Yes I reviewed the patient's lab results. Lab Results 05/29/24 22:50: Urine Color Yellow, Urine Appearance Clear, Urine pH 7.0, Ur Specific [place] 1.020, Urine Protein Negative, Urine Glucose (UA) Negative, Urine Ketones Negative, Urine Blood Negative, Urine Nitrate Negative, Urine Bilirubin Negative, Urine Urobilinogen 0.2, Ur Leukocyte Esterase 1+ A, Urine RBC Occasional, Urine WBC 3-5, Ur Squamous Epith Cells 20-50, Amorphous Sediment 4+, Urine Bacteria 3+ 05/29/24 23:18: WBC 12.5 H, RBC 4.91, Hgb 14.2, Hct 44.0, MCV 89.6, MCH 29.0, MCHC 32.4, RDW 13.5, Plt Count 455 H, MPV 6.4 L, Neut % (Auto) 68.5, Lymph % (Auto) 22.9, [place] % (Auto) 5.9, Eos % (Auto) 2.1, Baso % (Auto) 0.6, Neut # (Auto) 8.6 H, Lymph # (Auto) 2.9, [place] # (Auto) 0.7, Eos # (Auto) 0.3, Baso # (Auto) 0.1, Sodium 137, Potassium 4.0, Chloride 108 H, Carbon Dioxide 23, Anion Gap 10.0, BUN 11, Creatinine 0.70, Estimated Creat Clear 93, Estimated GFR 102, Est GFR ( Amer) 123, Glucose 113 H, Calcium 9.8, Total Bilirubin 0.5, AST 39 H, ALT 57, Alkaline Phosphatase 83, Total Protein 7.4, Albumin 4.6, Globulin 2.8, Albumin/Globulin Ratio 1.6, HCG, Quant 102 H 05/29/24 23:18 05/29/24 23:18 Orders (Tests/Meds): ED MEDICATIONS Discontinued Medications Generic Name Dose Route Start Last Admin Trade Name Roxanna PRN Reason Stop Dose Admin Acetaminophen 1,000 mg 05/29/24 23:39 05/30/24 00:34 Acetaminophen 500mg Tab PO 05/29/24 23:40 1,000 mg ONCE ONE Administration Amoxicillin/Clavulanate Potassium 1 each 05/30/24 00:35 05/30/24 00:41 Amoxicillin/Clavulanate Potassium 875/125mg Tablet PO 05/30/24 00:36 1 each ONCE ONE Administration ORDERS Category Date Time Status Beta HCG, Quant [HCG,Quantitative] Stat Lab 05/29/24 23:18 Completed Complete Blood Count Auto Diff Stat Lab 05/29/24 23:18 Completed Comprehensive Metabolic Panel Stat Lab 05/29/24 23:18 Completed UA [Urinalysis and Microscopic] Stat Lab 05/29/24 22:50 Completed Urine Culture Stat Micro 05/29/24 22:50 Received Medical Decision Narrative: 24-year-old female, history of obesity PCOS, currently 4 weeks presents for nightly vaginal pain that happens after insertion of recently prescribed progesterone. History was obtained via interactive discussion with the patient. On arrival, patient is [afebrile, hemodynamically stable, satting appropriately, alert, oriented x4, GCS 15], moving all extremities spontaneously. Full physical exam performed and significant for no abdominal tenderness, normal external and speculum vaginal exam. No erythema, abnormal discharge, bleeding etc. Differential includes but is not limited to medication reaction, yeast infection, UTI, vaginal foreign body, constipation. Patient was given Tylenol for symptomatic management and correction of underlying abnormalities. Workup initiated including CBC CMP quantitative hCG, UA. On re-evaluation, patient [remains afebrile, HD stable.] Laboratory workup independently interpreted by me and significant for asymptomatic bacteriuria, appropriately rising beta hCG, otherwise unremarkable labs.. Given patient history, exam and workup, patient's presentation most likely represents local reaction to the new medication. Recommended that she discontinue to see if it helps and to call and talk with her [employer] She reports agreement with plan and was discharged in stable condition. Procedures Risk/Benefits of Procedure(s) Were Explained: Yes Critical Care Critical Care Time Critical Care Time: No
[2024-05-30] MEDS: AMOXICILLIN/CLAVULANATE POTASSIUM 875/125MG TABLET 1 EACH PO (00:41)
[2024-05-30 00:42] VITALS: BP 113/74; PULSE 94; RESP 16; TEMP 36.9; O2SAT 99
[2024-06-03 03:37] LABS: Neisseria gonorrhoeae, NAA Negative (Negative)
== END 2024-05-30 00:51 | disposition home or self-care (01) ==
PROVIDERS: Emergency Medicine; Emergency Provider Emergency Medicine; PCP Physician Assistant
DX: O26.891 Other specified pregnancy related conditions, first trimester (principal); O99.281 Endocrine, nutritional and metabolic diseases complicating pregnancy, first trimester; R10.2 Pelvic and perineal pain; E28.2 Polycystic ovarian syndrome; Z3A.01 Less than 8 weeks gestation of pregnancy
CPT/HCPCS: 80053; 81001; 84702; 85025; 87086; 87210; 87491; 87591; 99285

== ENCOUNTER 2024-06-03 07:04 | Outpatient (CLI) | payer BC, SELFPAY ==
[2024-06-03 08:52] LABS: HCG,Quantitative 587 mIU/ml (0-5.42)
== END 2024-06-03 23:59 | disposition home or self-care (01) ==
LOC: LAB 07:04
PROVIDERS: PCP Physician Assistant; Visit Provider Obstetrics & Gynecology
DX: O36.80X0 Pregnancy with inconclusive fetal viability, not applicable or unspecified (principal)
CPT/HCPCS: 36415; 84702

== ENCOUNTER 2024-06-11 08:03 | Emergency (ER) | payer BC, SELFPAY ==
[2024-06-11] VITALS (8 sets, daily range): BP systolic 104–137; BP diastolic 59–83; PULSE 76–96; RESP 18–19; TEMP 36.7; O2SAT 97–99; BMI 41.5
--- NOTE | 2024-06-11 08:22 | ECG_ITS ---
APPROVED REPORT Exam: Resting ECG HR:94 bpm ECG Measurements Heart Rate 94 AXES [place] 130 P 34 QRSd 85 QRS 24 QT 357 T 5 QTc 409 Conclusion SINUS RHYTHM NORMAL ECG Electronically signed by : NASRA ULRICH, 06/11/2024 14:35:21
[2024-06-11 08:23] LABS: Basophils # 0.1 K/mm3 (0-0.2); Basophils % 0.6 % (0.1-2.0); Eosinophils # 0.2 K/mm3 (0.0-0.4); Hemoglobin 14.1 g/dL (12.2-16.2); Lymphocytes # 2.1 K/mm3 (0.7-4.5); Lymphocytes % 18.2 % (10-50); Mean Corpuscular HGB Conc 32.9 g/dL (31.8-35.4); Mean Corpuscular Hemoglobin 29.7 pg (27.0-31.2); Mean Corpuscular Volume 90.2 fl (81-99); Mean Platelet Volume 7.7 fl (7.4-10.4); Monocytes # 0.7 K/mm3 (0.1-1.0); Monocytes % 5.6 % (1.7-9.3); Neutrophils # 8.6 K/mm3 (1.8-7.8); Neutrophils % 73.7 % (37.0-80.0); Platelet Count 421 K/mm3 (142-424); Red Blood Count 4.76 M/mm3 (4.20-5.40); White Blood Count 11.7 K/mm3 (4.8-10.8)
[2024-06-11] MEDS: ONDANSETRON 4MG/2ML VIAL 4 MG IV (08:23)
[2024-06-11] MEDS: LACTATED RINGERS 1000ML 1,000 ML 999 ML IV (08:23)
[2024-06-11 08:35] LABS: Albumin Level 4.4 g/dl (3.5-5.0); Chloride 104 mmol/L (98-107); Potassium 3.9 mmoL/L (3.5-5.1); Sodium 135 mmol/L (136-145)
[2024-06-11 08:38] LABS: Alanine Aminotransferase 46 U/L (12-78); Albumin/Globulin Ratio 1.5 (1.1-1.8); Alkaline Phosphatase 78 U/L (38-126); Anion Gap 13.9 mEq/L (5-15); Aspartate Amino Transferase 37 U/L (14-36); Bilirubin,Total 0.7 mg/dl (0.2-1.3); Blood Urea Nitrogen 10 mg/dl (7-17); Carbon Dioxide 21 mmol/L (22.0-30.0); Creatinine Clearance Estimated 93 mL/min (50-200); Estimated Glomerular Filt Rate 102 ml/min (>60); GFR (African American) 123 ML/MIN (>60); Globulin 2.9 g/dL (1.3-3.2); Lipase 73 U/L (23-300); Total Protein,Serum 7.3 g/dl (6.3-8.2)
[2024-06-11 08:39] LABS: Calcium 9.5 mg/dl (8.4-10.2); Glucose 93 mg/dl (74-100)
--- NOTE | 2024-06-11 08:50 | PC.NURSE ---
CALLED ULTRASOUND TO LET THEM KNOW ER ORDERED AN ULTRASOUND
--- NOTE | 2024-06-11 08:52 | PC.NURSE ---
ER AT BEDSIDE
--- NOTE | 2024-06-11 08:55 | US_ITS ---
PROCEDURE: US OB TRANSVAGINAL CLINICAL INDICATION: LLQ pain 6 week preg COMPARISON: US US TRANSVAGINAL from 05/09/2024 US US TRANSVAGINAL from 05/13/2024 FINDINGS: Transvaginal sonographic images of the pelvis were obtained. From her last menstrual period she is 6weeks 2days. An intrauterine gestational sac is present with a pole with a crown-rump length of 0.24cm This correlates to a gestational age of 5weeks 6days. NISHANT 02/05/2025. heart tones are present but the rate is not documented. Yolk sac is noted. The yolk sac measures 4.0mm. The uterus is anteverted. Is a small sac in the lower cervix measuring 5.6 mm. This may have been present on her previous examinations. The right ovary is seen and appears normal. There is a 1.6 cm corpus luteum on the right ovary. The left ovary is seen and appears normal. There is no fluid in the cul-de-sac. IMPRESSION: 1. Viable fetus within the uterine cavity. There is a flicker of heart rate activity. 2. Fetus measures 5 weeks 6 days. NISHANT 02/05/2025. 3. Within the cervix there is a small sac that measures 5.6 mm. There is no fetus or heart rate activity within the sac. This appears to have been present on previous ultrasounds and could represent a nabothian cyst. 4. Both ovaries are seen and appear normal. 5. No fluid in the cul-de-sac. 6. Suggest repeat ultrasound in 1 week. 7. Discussed this with Dr. Milian. Dictated by: Salinas Canales MD 06/11/2024 12:23 Salinas Canales MD in OV 06/11/2024 12:23
[2024-06-11] MEDS: ACETAMINOPHEN 1,000MG/100ML VIAL 1000 MG IV (08:59)
[2024-06-11 09:07] LABS: HCG,Quantitative 13963 mIU/ml (0-5.42)
--- NOTE | 2024-06-11 09:07 | ED_ITS ---
Discharge Plan Disposition Chief Complaint: Nausea/Vomiting/Diarrhea Prescriptions Prescriptions: No Action WesTab Plus 27 mg iron- 1 mg tablet 1 tab PO DAILY metformin 500 mg tablet extended release 24 hr 500 mg PO TID Patient Comments: TAKE ONE TABLET BY MOUTH DAILY FOR 1 WEEK, THEN increase TO 2 tablets BY MOUTH DAILY FOR 1 WEEK, THEN increase TO 3 tabs BY MOUTH DAILY AND continue meclizine 25 mg tablet 25 mg PO TID PRN (Reason: dizziness) Qty: 30 0RF letrozole 2.5 mg tablet 7.5 mg PO DAILY 5 Days Qty: 15 2RF Rx Instructions: begin between days 2 and 5 of mentrual cycle medroxyprogesterone [Provera] 10 mg tablet 10 mg PO DAILY 10 Days Qty: 10 3RF letrozole 2.5 mg tablet 7.5 mg PO DAILY 5 Days Qty: 15 0RF Rx Instructions: begin between days 3 and 7 of menstrual cycle progesterone micronized [Prometrium] 100 mg capsule 100 mg vaginal DAILY 30 Days Qty: 30 2RF Rx Instructions: Please place one tablet vaginally each night until 12 weeks gestation oxycodone 5 mg tablet 5 mg PO Q8H PRN (Reason: pain) Qty: 12 0RF ondansetron 4 mg tablet,disintegrating 4 mg PO Q8H PRN (Reason: nausea and vomiting) 4 Days Qty: 12 0RF tamsulosin [Flomax] 0.4 mg capsule 0.4 mg PO DAILY Qty: 14 0RF ketorolac 10 mg tablet 10 mg PO Q8H PRN (Reason: pain) Qty: 14 0RF Rx Instructions: maximum total duration of 5 days from all oral, intranasal, or parenteral formulations methocarbamol 500 mg tablet 1,000 mg PO Q8H PRN (Reason: muscle spasm) Qty: 30 0RF amoxicillin-pot clavulanate 875-125 mg tablet 1 tab PO BID 5 Days Qty: 10 0RF Print Language Print Language: [place] Citizen Discharge ED Provider: Fredi Milian General Adult HPI General Chief complaint: Nausea/Vomiting/Diarrhea Stated complaint: 6.5 weeks shoulder pain, cramping Time Seen by Provider: 06/11/24 08:30 Mode of Arrival: Ambulatory Source of Information: Patient Limitations: No Limitations Description of Symptoms (Recalled from ER Triage Doc. by RN): PT C/O NAUSEA, DIZZINESS, LEFT SHOULDER PAIN AND LLQ PAIN THAT STARTED LAST NIGHT. PT REPORTS CONSTIPATION AND IS 6 WEEKS . History of Present Illness HPI narrative: Patient is a 24-year-old female currently 6 weeks who presents emergency department for evaluation of left lower quadrant and left-sided pain. Onset was acute, over the last 24 hours. Patient has had constipation however does have some bowel movements and is still passing flatus. She has had moderate to severe left lower quadrant pain that radiates up into her shoulder and is described as pinching . No vomiting, no vaginal bleeding or discharge. No other acute complaints at this time. Related Data Home Medications ?Medication ?Instructions ?Recorded ?Confirmed vitamin with calcium 1 tab PO DAILY 08/13/23 04/14/24 no.72-iron 27 mg-folic acid 1 mg tablet (WesTab Plus) metformin 500 mg tablet,extended 500 mg PO TID 03/18/24 04/14/24 release 24 hr Previous Rx's ?Medication ?Instructions ?Recorded meclizine 25 mg tablet 25 mg PO TID PRN dizziness #30 tabs 02/28/24 letrozole 2.5 mg tablet 7.5 mg (3 x 2.5 mg) PO DAILY 5 04/11/24 days #15 tabs medroxyprogesterone 10 mg tablet 10 mg PO DAILY 10 days #10 tabs 04/11/24 (Provera) ketorolac 10 mg tablet 10 mg PO Q8H PRN pain #14 tabs 04/14/24 ondansetron 4 mg disintegrating 4 mg PO Q8H PRN nausea and 04/14/24 tablet vomiting 4 days #12 tabs oxycodone 5 mg tablet 5 mg PO Q8H PRN pain #12 tabs 04/14/24 tamsulosin 0.4 mg capsule (Flomax) 0.4 mg PO DAILY #14 caps 04/14/24 letrozole 2.5 mg tablet 7.5 mg (3 x 2.5 mg) PO DAILY 5 05/01/24 days #15 tabs methocarbamol 500 mg tablet 1,000 mg (2 x 500 mg) PO Q8H PRN 05/19/24 muscle spasm #30 tabs progesterone micronized 100 mg 100 mg vaginal DAILY 30 days #30 05/27/24 capsule (Prometrium) caps amoxicillin 875 mg-potassium 1 tab PO BID 5 days #10 tabs 05/30/24 clavulanate 125 mg tablet Allergies Allergy/AdvReac Type Severity Reaction Status Date / Time No Known Allergies Allergy Verified 06/05/24 15:03 [facility] Disclaimer: The information contained in this section may have been updated after the patient was seen, as this information can be updated by other users. Medical History Headache H. pylori infection Elevated liver enzymes Anxiety BMI 40.0-44.9, adult PCOS (polycystic ovarian syndrome) Migraine Abnormal weight Lipoma Intertrigo Back pain Breast pain, left Rash Right lower quadrant abdominal pain Vitamin D deficiency Amenorrhea, secondary Insomnia Depression Surgical History Hx of tonsillectomy Hx of cholecystectomy Family History Mother Heart disease Social History Smoking Status: Never smoker second hand exposure: No alcohol intake: never counseling provided: provider counseling substance use type: denies use current occupational status: unemployed Travel in the last 8 weeks: None household members: spouse housing: house number of children: 0 caffeine: Yes Other Medical History Have you received the Flu Vaccine for this season: No Have you received the Pneumonia Vaccine: No ROS Obtained: Yes Systems reviewed as appropriate & no additional complaints except as documented Physical Exam General General appearance: alert and in no apparent distress Head Head exam: atraumatic and normocephalic Eye Eye exam: Present PERRL and EOMI ENT ENT exam: Present mucous membranes moist Neck Neck exam: Present normal inspection Chest Chest inspection: Present normal inspection and symmetric chest wall rise Respiratory Respiratory exam: Present normal lung sounds bilaterally; Absent respiratory distress Cardiovascular Cardiovascular exam: Present regular rate and normal rhythm Abdominal Exam Abdominal exam: Present soft; Absent tenderness, guarding or rebound Extremities Exam Extremities exam: Present normal inspection and other (Palpable left radial pulse, sensation intact light touch distally, full range of motion at the shoulder does not modify the pain. No rashes.) Neurological Exam Neurological exam: Present alert and CN II-XII intact Psychiatric Psychiatric exam: Present normal affect Skin Skin exam: Present warm and dry Medical Decision Making Medical Records Screening: Per USPSTF and CDC recommendations, given the prevalence of disease in our region, it is our hospital?s policy to screen for HIV and viral Hepatitis for all patients aged 18 and over and those with ongoing risk factors. Fredy Inquiry Pt receiving controlled substance: No Vital Signs: 06/11/24 08:05 06/11/24 08:48 06/11/24 09:29 Temperature 98.0 F Temperature Source Oral Pulse Rate 78 76 Pulse Rate [Radial] 96 H Respiratory Rate 18 18 Blood Pressure 110/59 L Blood Pressure [Left Arm] 137/83 Blood Pressure Mean 76 Blood Pressure Mean [Left Arm] 101 Blood Pressure Source [Left Arm] Automatic Cuff Blood Pressure Position [Left Arm] Sitting 02 Sat by Pulse Oximetry 98 98 97 Oxygen Delivery Method Room Air 06/11/24 11:29 06/11/24 11:30 Temperature Temperature Source Pulse Rate 77 90 Pulse Rate [Radial] Respiratory Rate 19 18 Blood Pressure 109/67 L 104/60 L Blood Pressure [Left Arm] Blood Pressure Mean 72 76 Blood Pressure Mean [Left Arm] Blood Pressure Source [Left Arm] Blood Pressure Position [Left Arm] 02 Sat by Pulse Oximetry 99 97 Oxygen Delivery Method Lab Data Lab Results 06/11/24 08:10: WBC 11.7 H, RBC 4.76, Hgb 14.1, Hct 43.0, MCV 90.2, MCH 29.7, MCHC 32.9, RDW 14.0, Plt Count 421, MPV 7.7, Neut % (Auto) 73.7, Lymph % (Auto) 18.2, [place] % (Auto) 5.6, Eos % (Auto) 2.0, Baso % (Auto) 0.6, Neut # (Auto) 8.6 H, Lymph # (Auto) 2.1, [place] # (Auto) 0.7, Eos # (Auto) 0.2, Baso # (Auto) 0.1, S odium 135 L, Potassium 3.9, Chloride 104, Carbon Dioxide 21 L, Anion Gap 13.9, BUN 10, Creatinine 0.70, Estimated Creat Clear 93, Estimated GFR 102, Est GFR ( Amer) 123, Glucose 93, Calcium 9.5, Total Bilirubin 0.7, AST 37 H, ALT 46, Alkaline Phosphatase 78, Troponin I < 0.01, Total Protein 7.3, Albumin 4.4, Globulin 2.9, Albumin/Globulin Ratio 1.5, Lipase 73, HCG, Quant 56575 H, HIV 1&2 Antibody Rapid Nonreactive 06/11/24 09:30: Urine Color Yellow, Urine Appearance Clear, Urine pH 6.0, Ur Specific [place] 1.025, Urine Protein Negative, Urine Glucose (UA) Negative, Urine Ketones Negative, Urine Blood Negative, Urine Nitrate Negative, Urine Bilirubin Negative, Urine Urobilinogen 0.2, Ur Leukocyte Esterase Negative, Urine RBC None, Urine WBC Occasional, Ur Squamous Epith Cells 3-5, Urine Bacteria Trace 06/11/24 08:10 06/11/24 08:10 Orders (Tests/Meds): ED MEDICATIONS Generic Name Dose Route Start Last Admin Trade Name Freq PRN Reason Stop Dose Admin Sodium Chloride 10 ml 06/11/24 08:17 Sodium Chloride 0.9% 10ml Flush Syringe IV 07/11/24 08:16 NEEDED PRN Maintain IV Site Discontinued Medications Generic Name Dose Route Start Last Admin Trade Name Freq PRN Reason Stop Dose Admin Acetaminophen 1,000 mg 06/11/24 08:55 06/11/24 08:59 Acetaminophen 1,000mg/100ml Vial IV 06/11/24 08:56 1,000 mg ONCE ONE Administration Lactated Ringer's 1,000 mls @ 999 mls/hr 06/11/24 08:17 06/11/24 08:23 Lactated Ringer's 1000 Ml Bag IV 06/11/24 09:17 999 mls/hr .Q1H1M ONE Administration Ondansetron HCl 4 mg 06/11/24 08:17 06/11/24 08:23 Ondansetron 4mg/2ml Vial IV 06/11/24 08:18 4 mg ONCE ONE Administration ORDERS Category Date Time Status Complete Blood Count Auto Diff Stat Lab 06/11/24 08:10 Completed Comprehensive Metabolic Panel Stat Lab 06/11/24 08:10 Completed HCG,Quantitative Stat Lab 06/11/24 08:10 Completed HIV (1&2) Antibody Rapid Stat Lab 06/11/24 08:10 Completed Hep C Ab with Reflex to RNA Stat Lab 06/11/24 08:10 Completed Lipase Stat Lab 06/11/24 08:10 Completed Trop I [Troponin I] Stat Lab 06/11/24 08:10 Completed Troponin I Q3H Lab 06/11/24 12:15 Ordered Troponin I Q3H Lab 06/11/24 15:15 Ordered UA [Urinalysis and Microscopic] Stat Lab 06/11/24 09:30 Completed US OB transvaginal Stat Ultrasound 06/11/24 08:55 Taken Medical Decision Narrative: In summary patient is a 24-year-old female past medical history described above who presents emergency department for evaluation of abdominal pain and shoulder pain in the setting of . Patient is hemodynamically stable nontoxic- appearing upon arrival, afebrile. Differential diagnosis includes urinary tract infection, ureterolithiasis, atypical ACS, ectopic , among others. Broad workup be conducted with hematologic labs, urinalysis, EKG, troponin. Initial inventions include IV Tylenol, Zofran. Transvaginal ultrasound will be obtained to establish location. With the respect to the shoulder pain she has no overlying skin changes, no trauma, distally neurovascular intact I do not think x-ray is warranted at this time and will be deferred. Initial workup reviewed by me, hematologic labs are largely nonactionable white count 11.7, no JACOB or critical electrolyte abnormality, initial troponin undetectably low, lipase normal, hCG elevated at almost 14,000, urinalysis interpreted by me and not consistent with infection, no hematuria. The case was discussed with Dr. Canales with respect to transvaginal ultrasound patient has a single viable intrauterine , both ovaries appear normal without evidence of torsion or other abnormality. Upon repeat evaluation patient had near total resolution of pain and was happy to hear about her transvaginal ultrasound results. Discussion of whether or not this is a kidney stone given that it is still a possibility was had. Even the patient has no blood in her urine is still certainly possible that she has small ureterolithiasis. She has a history of ureterolithiasis. Given this expectant management will be performed and she will follow-up in 1 week with her PCP for possible kidney function recheck and monitoring of symptoms and she was given multiple extensive return precautions verbalized understanding. Critical Care Critical Care Time Critical Care Time: No
--- NOTE | 2024-06-11 09:25 | PC.NURSE ---
ASSISTED PT TO THE RESTROOM TO COLLECT UA. PROVIDED PT WITH SUPPLIES. PT TOLERATED WELL. STEADY GAIT NOTED.
[2024-06-11 09:32] LABS: Microscopic, Urine URINE MICROSCOPIC (MICROSCOPIC)
[2024-06-11 09:37] LABS: Appearance,Urine CLEAR (Clear); Bilirubin,Urine Negative (Negative); Blood, Urine Negative (Negative); Color,Urine YELLOW (Yellow); Glucose,Urine (UA) Negative (Negative); Ketones,Urine Negative (Negative); Leukocyte Esterase,Urine Negative (Negative); Nitrate,Urine Negative (Negative); Protein,Urine Negative (Negative); Specific Gravity, Urine 1.025 (1.005-1.030); Urobilinogen,Urine 0.2 EU/dl (0.2)
[2024-06-11 09:38] LABS: Troponin I < 0.01 ng/ml (0.00-0.034)
--- NOTE | 2024-06-11 09:41 | PC.NURSE ---
PT TRANSPORTED TO ULTRASOUND VIA WHEELCHAIR.
[2024-06-11 09:54] LABS: Bacteria,Urine Trace /lpf; WBC,Urine Occasional #/hpf (0-3)
--- NOTE | 2024-06-11 10:14 | PC.NURSE ---
PT RETURNED FROM ULTRASOUND
[2024-06-11 11:13] LABS: HIV (1&2) Antibody Rapid NONREACTIVE (NONREACTIVE)
[2024-06-12 05:22] LABS: HCV Ab Non Reactive (Non Reactive)
== END 2024-06-11 12:44 | disposition home or self-care (01) ==
PROVIDERS: Emergency Provider Emergency Medicine; PCP Physician Assistant
DX: O26.899 Other specified pregnancy related conditions, unspecified trimester (principal); M25.512 Pain in left shoulder; R10.32 Left lower quadrant pain; K59.00 Constipation, unspecified; R11.0 Nausea; R42 Dizziness and giddiness; Z3A.01 Less than 8 weeks gestation of pregnancy
CPT/HCPCS: 76817; 80053; 81001; 83690; 84484; 84702; 85025; 86803; 87389; 93005; 99284; J0131; J2405; J7120

== ENCOUNTER 2024-06-17 14:37 | Outpatient (CLI) | payer BC, SELFPAY ==
--- NOTE | 2024-06-17 14:40 | US_ITS ---
PROCEDURE: US OB <= 14 WEEKS FETUS CLINICAL INDICATION: followup US for Dates and viability COMPARISON: US US OB TRANSVAGINAL from 06/11/2024 FINDINGS: Transvaginal sonographic images of the pelvis were obtained. From her last menstrual period she is 7weeks 1day. An intrauterine gestational sac is present with a pole with a crown-rump length of 0.8cm The sac appears to be low lying within the uterine cavity. This correlates to a gestational age of 6weeks 6days. NISHANT 02/04/2025 heart tones are present with an FHR of 123bpm. Yolk sac is noted. The yolk sac measures 6.1mm. There are at least 2 small cervical nabothian cyst measuring 4 mm and 5.6 mm The right ovary is seen and appears normal. There are multiple small peripheral follicles consistent with a polycystic ovary. The left ovary is seen and appears normal. There are multiple small peripheral follicles consistent with a polycystic ovary. There is no fluid in the cul-de-sac. IMPRESSION: 1. Viable fetus within the uterine cavity. heart rate activity is seen. 2. The sac appears to be low lying within the uterine cavity. 3. Fetus measures 6 weeks 6 days. NISHANT will remain 02/04/2025. 4. Both ovaries are seen and appear polycystic. 5. No fluid in the cul-de-sac. Dictated by: Salinas Canales MD 06/17/2024 15:36 Salinas Canales MD in [facility] 06/17/2024 15:36
== END 2024-06-17 23:59 | disposition home or self-care (01) ==
LOC: RAD 14:37
PROVIDERS: PCP Physician Assistant; Visit Provider Nurse Practitioner Obstetrics & Gynecology
DX: O36.80X0 Pregnancy with inconclusive fetal viability, not applicable or unspecified (principal); Z3A.01 Less than 8 weeks gestation of pregnancy
CPT/HCPCS: 76801

== ENCOUNTER 2024-06-25 11:15 | Outpatient (CLI) | payer BC, SELFPAY ==
[2024-06-28 23:12] LABS: Neisseria gonorrhoeae, NAA Negative (Negative)
== END 2024-06-25 23:59 | disposition home or self-care (01) ==
LOC: LAB.DROPOF 06-26 10:08
PROVIDERS: PCP Obstetrics & Gynecology; Visit Provider Obstetrics & Gynecology
DX: Z34.90 Encounter for supervision of normal pregnancy, unspecified, unspecified trimester (principal)
CPT/HCPCS: 87086; 87491; 87591

== ENCOUNTER 2024-07-02 10:50 | Outpatient (CLI) | payer BC, SELFPAY ==
--- NOTE | 2024-07-02 10:53 | US_ITS ---
PROCEDURE: US OB <= 14 WEEKS FETUS CLINICAL INDICATION: Bleeding in early COMPARISON: US US OB TRANSVAGINAL from 06/11/2024 FINDINGS: Transvaginal sonographic images of the pelvis were obtained. From her last menstrual period she is 9weeks 2days. An intrauterine gestational sac is present with a pole with a crown-rump length of 2.19cm This correlates to a gestational age of 8weeks 6days. heart tones are present with an FHR of 176bpm. Yolk sac is noted. The yolk sac measures 6.5mm. There is a 3 mm nabothian cyst in the cervix. There is a small amount of fluid within the cervical canal. The gestational sac is still seen in the lower uterine segment. There is no fluid in the cul-de-sac. IMPRESSION: 1. Viable fetus within the uterine cavity. The fetus measures 8 weeks and 6 days. NISHANT will remain February 02, 2025. 2. There is no evidence of abruption or subchorionic hemorrhage. 3. The gestational sac still remains in the lower uterine segment. 4. There is a trace of fluid within the cervix. Dictated by: Salinas Canales MD 07/02/2024 17:06 Salinas Canales MD in [facility] 07/02/2024 17:06
== END 2024-07-02 23:59 | disposition home or self-care (01) ==
LOC: RAD 10:50
PROVIDERS: PCP Physician Assistant; Visit Provider Obstetrics & Gynecology
DX: O20.9 Hemorrhage in early pregnancy, unspecified (principal); Z3A.09 9 weeks gestation of pregnancy
CPT/HCPCS: 76801

== ENCOUNTER 2024-07-10 11:29 | Outpatient (CLI) | payer BC, SELFPAY ==
[2024-07-10 11:34] LABS: Coronavirus 19, PCR Not Detected (NotDetected); Influenza A, PCR Not Detected (NotDetected); Influenza B, PCR Not Detected (NotDetected)
[2024-07-10 12:01] LABS: Basophils # 0.1 K/mm3 (0-0.2); Basophils % 0.4 % (0.1-2.0); Eosinophils # 0.1 K/mm3 (0.0-0.4); Hematocrit 39.6 % (37.0-47.0); Hemoglobin 13.5 g/dL (12.2-16.2); Lymphocytes # 2.4 K/mm3 (0.7-4.5); Lymphocytes % 20.4 % (10-50); Mean Corpuscular HGB Conc 34.2 g/dL (31.8-35.4); Mean Corpuscular Hemoglobin 28.9 pg (27.0-31.2); Mean Corpuscular Volume 84.5 fl (81-99); Mean Platelet Volume 6.8 fl (7.4-10.4); Monocytes # 0.8 K/mm3 (0.1-1.0); Monocytes % 6.5 % (1.7-9.3); Neutrophils # 8.3 K/mm3 (1.8-7.8); Neutrophils % 71.7 % (37.0-80.0); Platelet Count 408 K/mm3 (142-424); Red Blood Count 4.68 M/mm3 (4.20-5.40); Red Cell Distribution Width 13.8 % (11.5-17.5); White Blood Count 11.6 K/mm3 (4.8-10.8)
[2024-07-10 12:34] LABS: Total Volume,Urine 1300 mL (600-1600)
[2024-07-10 12:40] LABS: Alanine Aminotransferase 25 U/L (12-78); Albumin/Globulin Ratio 1.7 (1.1-1.8); Alkaline Phosphatase 66 U/L (38-126); Anion Gap 15.3 mEq/L (5-15); Aspartate Amino Transferase 27 U/L (14-36); Bilirubin,Total 0.5 mg/dl (0.2-1.3); Blood Urea Nitrogen 7 mg/dl (7-17); Calcium 9.6 mg/dl (8.4-10.2); Carbon Dioxide 18 mmol/L (22.0-30.0); Chloride 107 mmol/L (98-107); Estimated Glomerular Filt Rate 150 ml/min (>60); GFR (African American) 182 ML/MIN (>60); Globulin 2.3 g/dL (1.3-3.2); Glucose 71 mg/dl (74-100); Potassium 4.3 mmoL/L (3.5-5.1); Sodium 136 mmol/L (136-145); Total Protein,Serum 6.3 g/dl (6.3-8.2)
[2024-07-10 12:46] LABS: Total Protein 24 Hour,Urine 65 mg/24 hr (40-90); Total Protein,Urine Random < 5.0 mg/dL (0.0-12.0)
[2024-07-10 12:46] LABS: Hemoglobin A1C 5.1 % (4.0-6.0)
[2024-07-10 19:42] LABS: HIV (1&2) Antibody Rapid NONREACTIVE (NONREACTIVE)
[2024-07-11 08:21] LABS: HCV Ab Non Reactive (Non Reactive); Hepatitis B Surface Antigen Negative (Negative); Rubella Antibodies, IgG 2.95 index (Immune >0.99)
[2024-07-11 12:18] LABS: Rapid Plasma Reagin Ab Titer Non Reactive titer (NonRea<1:1)
== END 2024-07-10 23:59 | disposition home or self-care (01) ==
LOC: LAB 11:30
PROVIDERS: PCP Physician Assistant; Visit Provider Obstetrics & Gynecology
DX: R68.89 Other general symptoms and signs (principal); O10.919 Unspecified pre-existing hypertension complicating pregnancy, unspecified trimester
CPT/HCPCS: 80053; 83036; 84155; 85025; 86593; 86762; 86803; 86850; 87340; 87389; 87636

== ENCOUNTER 2024-07-16 10:38 | Outpatient (CLI) | payer BC, SELFPAY ==
--- NOTE | 2024-07-16 10:44 | US_ITS ---
PROCEDURE: US OB <= 14 WEEKS FETUS CLINICAL INDICATION: Viability /confirm COMPARISON: US US OB TRANSVAGINAL from 06/11/2024 US US OB <= 14 WEEKS FETUS from 06/17/2024 US US OB <= 14 WEEKS FETUS from 07/02/2024 FINDINGS: Transvaginal sonographic images of the pelvis were obtained. From her last menstrual period she is 11weeks 2days. An intrauterine gestational sac is present with a pole with a crown-rump length of 4.19cm This correlates to a gestational age of 11weeks 1day. NISHANT 02/02/2025 heart tones are present with an FHR of 161bpm. Yolk sac is not seen today. Placenta appears to be forming anteriorly. The ovaries were not seen on today's examination. There is no fluid in the cul-de-sac. IMPRESSION: 1. Viable fetus within the uterine cavity. heart rate activity is seen. 2. There has been good interval growth and the fetus measures 11 weeks and 1 day. NISHANT will remain 02/02/2025. 3. Ovaries were not seen today. 4. No fluid in the cul-de-sac. Dictated by: Salinas Canales MD 07/16/2024 11:44 Salinas Canales MD in [facility] 07/16/2024 11:44
== END 2024-07-16 23:59 | disposition home or self-care (01) ==
LOC: RAD 10:40
PROVIDERS: PCP Physician Assistant; Visit Provider Obstetrics & Gynecology
DX: O36.80X0 Pregnancy with inconclusive fetal viability, not applicable or unspecified (principal); Z3A.11 11 weeks gestation of pregnancy; F41.9 Anxiety disorder, unspecified
CPT/HCPCS: 76801

== ENCOUNTER 2024-08-12 07:49 | Emergency (ER) | payer BC, SELFPAY ==
[2024-08-12 07:56] VITALS: BP 134/97; PULSE 104; O2SAT 99
[2024-08-12 07:57] VITALS: BP 137/78; PULSE 101; RESP 15; TEMP 36.6; O2SAT 98; BMI 43.9
[2024-08-12 08:00] VITALS: BP 137/78; PULSE 86; O2SAT 98
[2024-08-12 08:01] LABS: Microscopic, Urine URINE MICROSCOPIC (MICROSCOPIC)
[2024-08-12 08:03] LABS: Appearance,Urine CLEAR (Clear); Bilirubin,Urine Negative (Negative); Blood, Urine Negative (Negative); Color,Urine YELLOW (Yellow); Glucose,Urine (UA) Negative (Negative); Ketones,Urine Negative (Negative); Leukocyte Esterase,Urine Negative (Negative); Nitrate,Urine Negative (Negative); Protein,Urine Negative (Negative); Specific Gravity, Urine >= 1.030 (1.005-1.030); Urobilinogen,Urine 0.2 EU/dl (0.2)
--- NOTE | 2024-08-12 08:13 | HMH.EDGENADL ---
Discharge Plan Disposition Patient Disposition: Home, Self-Care Chief Complaint: Abdominal Pain Prescriptions Prescriptions: No Action labetalol 200 mg tablet 200 mg PO BID Qty: 60 2RF Classic 28 mg iron- 800 mcg tablet 1 tab PO .Chapman Qty: 30 11RF ondansetron 4 mg tablet,disintegrating 4 mg PO Q8H PRN (Reason: nausea and vomiting) Qty: 30 2RF Referrals Follow up/Referrals: Mónica Guzman PA [Primary Care Provider] - See instructions Activity Restrictions/Add. Instructions Additional Instructions/Restrictions: Follow-up with [employer] regarding this visit to the emergency department. Call your family doctor to establish care for this visit to the emergency department and schedule follow-up within 48 hours to ensure improvement. If you have any worsening of your condition or any other concerning signs or symptoms, return to the emergency department or your primary care doctor for further evaluation. Tylenol for pain, 1000 mg every 6 hours as needed Clinical Impressions Clinical Impression: Flank pain Instructions Patient Instructions: DI for Acute Abdominal Pain Print Language Print Language: Micronesian Discharge ED Provider: Rinku Mckeon General Adult HPI General Chief complaint: Abdominal Pain Stated complaint: 16 weeks possible kidney stone Time Seen by Provider: 08/12/24 07:51 Mode of Arrival: Ambulatory Source of Information: Patient Limitations: No Limitations Description of Symptoms (Recalled from ER Triage Doc. by RN): pt presents to ED with c/o right sided lower back pain. pt reports symptoms began yesterday around noon. pt is 16 weeks , ob is dr miller at [facility]. pt reports history of kidney stone approx 6 months ago. History of Present Illness HPI narrative: Please note that above description of symptoms, in this electronic medical record under categorization of recalled from ER triage doctor by RN are reflective of an initial nursing assessment, however, is not reflective of my full history and physical exam that was personally taken and clarified. Consequentially, this preceding description of symptoms, which may include the patient's categorized chief complaint in the EMR, do not reflect my personal clinical impression, and the ultimate description of history of present illness and patient stated complaints should be deferred to this section of the note. Unless stated otherwise or congruent with this section of the note, additional signs, symptoms, or incongruence should be interpreted as inaccurate with my clinical impression. Related Data Previous Rx's ?Medication ?Instructions ?Recorded vits no.126-ferrous fum 1 tab PO .Chapman #30 tabs 06/27/24 28 mg iron-folic acid 800 mcg tablet (Classic ) labetalol 200 mg tablet 200 mg PO BID #60 tabs 07/08/24 ondansetron 4 mg disintegrating 4 mg PO Q8H PRN nausea and 07/30/24 tablet vomiting #30 tabs Allergies Allergy/AdvReac Type Severity Reaction Status Date / Time No Known Allergies Allergy Verified 07/16/24 09:47 [facility] Disclaimer: The information contained in this section may have been updated after the patient was seen, as this information can be updated by other users. Medical History Headache H. pylori infection Elevated liver enzymes Anxiety BMI 40.0-44.9, adult PCOS (polycystic ovarian syndrome) Migraine Abnormal weight Lipoma Intertrigo Back pain Breast pain, left Rash Right lower quadrant abdominal pain Vitamin D deficiency Amenorrhea, secondary Insomnia Depression Surgical History Hx of tonsillectomy Hx of cholecystectomy Family History Mother Heart disease Social History Smoking Status: Never smoker second hand exposure: No alcohol intake: never counseling provided: provider counseling substance use type: denies use current occupational status: unemployed Travel in the last 8 weeks: None household members: spouse housing: house number of children: 0 caffeine: Yes Other Medical History Have you received the Flu Vaccine for this season: No Have you received the Pneumonia Vaccine: No ROS Obtained: Yes All systems reviewed & no additional complaints except as documented Physical Exam General General appearance: alert Head Head exam: atraumatic and normocephalic Eye Eye exam: Present normal appearance, PERRL and EOMI Neck Neck exam: Present normal inspection, full ROM and trachea midline Respiratory Respiratory exam: Absent respiratory distress, wheezes, stridor, accessory muscle use or prolonged expiratory phase Cardiovascular Cardiovascular exam: Present other (Pulses equal symmetric in upper and lower extremities) Abdominal Exam Abdominal exam: Present soft; Absent distention, tenderness or pulsatile mass Extremities Exam Extremities exam: Absent edema Neurological Exam Neurological exam: Present alert, oriented X3 and CN II-XII intact; Absent motor sensory deficit Skin Skin exam: Present warm and dry; Absent diaphoresis or erythema Medical Decision Making Medical Records Medical records reviewed: Yes I reviewed the patient's medical records. Screening: Per USPSTF and CDC recommendations, given the prevalence of disease in our region, it is our hospital?s policy to screen for HIV and viral Hepatitis for all patients aged 18 and over and those with ongoing risk factors. Fredy Inquiry Pt receiving controlled substance: No Fredy was queried for this patient: No Vital Signs: 08/12/24 07:56 08/12/24 07:57 08/12/24 08:00 Temperature 97.8 F Temperature Source Oral Pulse Rate 104 H 86 Pulse Rate [Left Radial] 101 H Respiratory Rate 15 Blood Pressure 134/97 H 137/78 Blood Pressure [Right Arm] 137/78 Blood Pressure Mean [Right Arm] 97 02 Sat by Pulse Oximetry 99 98 98 Oxygen Delivery Method Room Air Room Air Room Air 08/12/24 08:30 08/12/24 09:00 Temperature Temperature Source Pulse Rate 79 86 Pulse Rate [Left Radial] Respiratory Rate Blood Pressure 107/63 L 106/67 L Blood Pressure [Right Arm] Blood Pressure Mean [Right Arm] 02 Sat by Pulse Oximetry 97 97 Oxygen Delivery Method Lab Data Lab Results 08/12/24 07:53: Urine Color Yellow, Urine Appearance Clear, Urine pH 6.0, Ur Specific Almond >= 1.030, Urine Protein Negative, Urine Glucose (UA) Negative, Urine Ketones Negative, Urine Blood Negative, Urine Nitrate Negative, Urine Bilirubin Negative, Urine Urobilinogen 0.2, Ur Leukocyte Esterase Negative, Urine RBC None, Urine WBC None, Ur Squamous Epith Cells Occasional, Urine Bacteria Trace 08/12/24 08:28: WBC 10.3, RBC 4.67, Hgb 13.3, Hct 39.2, MCV 84.1, MCH 28.4, MCHC 33.8, RDW 13.7, Plt Count 389, MPV 6.9 L, Neut % (Auto) 75.2, Lymph % (Auto) 17.4, Bulloch % (Auto) 5.0, Eos % (Auto) 1.7, Baso % (Auto) 0.7, Neut # (Auto) 7.8, Lymph # (Auto) 1.8, Bulloch # (Auto) 0.5, Eos # (Auto) 0.2, Baso # (Auto) 0.1, Sodium 136, Potassium 3.9, Chloride 109 H, Carbon Dioxide 19 L, Anion Gap 11.9, BUN 5 L, Creatinine 0.50 L, Estimated Creat Clear 136, Estimated GFR 150, Est GFR ( Amer) 182, Glucose 85, Calcium 9.5, Magnesium 1.9, Total Bilirubin 0.3, AST 36, ALT 25, Alkaline Phosphatase 73, Total Protein 6.5, Albumin 3.9, Globulin 2.6, Albumin/Globulin Ratio 1.5, Lipase 48 08/12/24 08:28 08/12/24 08:28 Orders (Tests/Meds): ED MEDICATIONS Discontinued Medications Generic Name Dose Route Start Last Admin Trade Name Freq PRN Reason Stop Dose Admin Acetaminophen 1,000 mg 08/12/24 08:16 08/12/24 08:33 Acetaminophen 500mg Tab PO 08/12/24 08:17 1,000 mg ONCE ONE Administration ORDERS Category Date Time Status POCUS Point of Care (ER Only) Stat Exams 08/12/24 07:51 Ordered CBC w/Auto Diff [Complete Blood Count Auto Diff] Stat Lab 08/12/24 08:28 Completed CMP [Comprehensive Metabolic Panel] Stat Lab 08/12/24 08:28 Completed Lipase Stat Lab 08/12/24 08:28 Completed MAG [Magnesium] Stat Lab 08/12/24 08:28 Completed UA [Urinalysis and Microscopic] Stat Lab 08/12/24 07:53 Completed Medical Decision Narrative: 24-year-old female history of cholecystectomy, nephrolithiasis 16 weeks by LMP presenting with right flank pain. Patient states that she started having back pain about 3 days prior to this. Since that time, she started developing dysuria and pain when urinating that so severe that she doubles over, but has seen no blood. No fevers or chills, vomiting, diarrhea, constipation, gushes of fluid, blood, or any other symptoms. Has not taken anything for the pain. She is currently taking a . States that she was having difficulty getting , so was using suppository progestin supplements at the beginning of this and since that time, she has had difficulty and pain intermittently with urinating. History obtained with patient. On arrival, well-appearing. Mildly tachycardic, but likely secondary to physiologic changes of . Lungs are clear, cardiac exam otherwise normal. Abdomen soft, nontender, nondistended. Flank tenderness is not exacerbated with application of pressure or percussion. Differential includes nephrolithiasis, UTI, round ligament pain, less likely to be ovarian pathology, abruption, among others. Patient was given 1 g Tylenol. Bedside [id number] ultrasound was performed and unremarkable [id number]-[id number] ultrasound as well as [id number] renal ultrasound. Urinalysis negative for any acute abnormalities on independent interpretation. Labs were drawn given this. Nonactionable hematologic workup. Normal kidney function. Lipase negative. Urinalysis unconcerning. Given patient's pain, intermittent, slow in onset, and history consistent with ovarian pathology, torsion deemed less likely and ultrasound not deemed necessary at this time. Because patient at baseline without signs or symptoms of clinical decompensation, deemed appropriate for discharge. Results were relayed to patient who voiced understanding and were agreeable to outpatient management and follow up. I discussed my clinical impression with patient and answered all questions. At this time, the evidence for any other entities in the differential is insufficient to warrant any further testing or ED observation. This was explained as well. Advisory was given that persistent or worsening symptoms require further evaluation. I confirmed the understanding of this discussion. Project Superintendent disclaimer Much of this encounter note is an electronic records custodian spoken language to printed text. Electronic records custodian of the spoken language may permit errors. Although I have reviewed the note, some errors may still exist. Procedures Limited Ultrasound Indication:: Limited OB ultrasound Indication: Positive test, flank pain Identified structures: -Uterus -Left adnexa -Right adnexa -Pouch of Teddy Findings: Uterus: Definitive IUP with FHR 150 Right adnexa: -Normal Left adnexa: -Normal [place] de sac: -free fluid absent Impression: -IUP: Present with fhr 150 -Ectopic : Absent -Free fluid: Absent Images were saved to permanent archive The study was technically adequate CPT Transabdominal: 47086-25 This study was performed by me, and I personally interpreted all images/videos. Based on my clinical judgement, these images were adequate and did not necessitate further imaging Views:: Limited renal ultrasound Indication: A focused ultrasound of the kidneys was performed to evaluate for hydronephrosis and nephrolithiasis. The ultrasound was performed with the following indications, as noted in the H&P: Flank pain, dysuria Identified structures: Right kidney, bladder Findings: Normal right kidney without evidence of hydronephrosis or nephrolithiasis Impression: -Normal limited renal ultrasound, no evidence of hydronephrosis or calculi Images were saved to permanent archive The study was technically adequate CPT: 12553-10 This study was performed by me, and I personally interpreted all images/videos. Based on my clinical judgement, these images were adequate and did not necessitate further imaging. Critical Care Critical Care Time Critical Care Time: No
[2024-08-12 08:30] VITALS: BP 107/63; PULSE 79; O2SAT 97
[2024-08-12] MEDS: ACETAMINOPHEN 500MG TAB 1000 MG PO (08:33)
[2024-08-12 08:37] LABS: Basophils # 0.1 K/mm3 (0-0.2); Basophils % 0.7 % (0.1-2.0); Eosinophils # 0.2 K/mm3 (0.0-0.4); Eosinophils % 1.7 % (0.1-12.0); Hematocrit 39.2 % (37.0-47.0); Hemoglobin 13.3 g/dL (12.2-16.2); Lymphocytes # 1.8 K/mm3 (0.7-4.5); Lymphocytes % 17.4 % (10-50); Mean Corpuscular HGB Conc 33.8 g/dL (31.8-35.4); Mean Corpuscular Hemoglobin 28.4 pg (27.0-31.2); Mean Corpuscular Volume 84.1 fl (81-99); Mean Platelet Volume 6.9 fl (7.4-10.4); Monocytes # 0.5 K/mm3 (0.1-1.0); Neutrophils # 7.8 K/mm3 (1.8-7.8); Neutrophils % 75.2 % (37.0-80.0); Platelet Count 389 K/mm3 (142-424); Red Blood Count 4.67 M/mm3 (4.20-5.40); Red Cell Distribution Width 13.7 % (11.5-17.5); White Blood Count 10.3 K/mm3 (4.8-10.8)
[2024-08-12 08:42] LABS: Albumin Level 3.9 g/dl (3.5-5.0); Chloride 109 mmol/L (98-107); Sodium 136 mmol/L (136-145)
[2024-08-12 08:43] LABS: Potassium 3.9 mmoL/L (3.5-5.1)
[2024-08-12 08:45] LABS: Alanine Aminotransferase 25 U/L (12-78); Albumin/Globulin Ratio 1.5 (1.1-1.8); Alkaline Phosphatase 73 U/L (38-126); Anion Gap 11.9 mEq/L (5-15); Aspartate Amino Transferase 36 U/L (14-36); Bilirubin,Total 0.3 mg/dl (0.2-1.3); Blood Urea Nitrogen 5 mg/dl (7-17); Calcium 9.5 mg/dl (8.4-10.2); Carbon Dioxide 19 mmol/L (22.0-30.0); Creatinine Clearance Estimated 136 mL/min (50-200); Estimated Glomerular Filt Rate 150 ml/min (>60); GFR (African American) 182 ML/MIN (>60); Globulin 2.6 g/dL (1.3-3.2); Glucose 85 mg/dl (74-100); Lipase 48 U/L (23-300); Total Protein,Serum 6.5 g/dl (6.3-8.2)
[2024-08-12 08:46] LABS: Magnesium 1.9 mg/dl (1.6-2.3)
[2024-08-12 08:51] LABS: Bacteria,Urine Trace /lpf; Squamous Epithelial Cell,Urine Occasional #/hpf (0-5)
[2024-08-12 09:00] VITALS: BP 106/67; PULSE 86; O2SAT 97
[2024-08-12 09:35] VITALS: BP 107/69; PULSE 81; RESP 18; TEMP 36.7; O2SAT 99
== END 2024-08-12 09:39 | disposition home or self-care (01) ==
PROVIDERS: Emergency Provider Emergency Medicine; PCP Physician Assistant
DX: R10.9 Unspecified abdominal pain (principal); M54.50 Low back pain, unspecified
CPT/HCPCS: 80053; 81001; 83690; 83735; 85025; 99283

== ENCOUNTER 2024-08-19 14:55 | Outpatient (CLI) | payer BC, SELFPAY ==
[2024-08-19 16:27] LABS: Glucose 1 Hour 77 mg/dL (74-100); Glucose,Fasting 77 mg/dl (74-100)
== END 2024-08-19 23:59 | disposition home or self-care (01) ==
LOC: LAB 14:56
PROVIDERS: PCP Physician Assistant; Visit Provider Obstetrics & Gynecology
DX: O09.299 Supervision of pregnancy with other poor reproductive or obstetric history, unspecified trimester (principal); Z86.32 Personal history of gestational diabetes
CPT/HCPCS: 36415; 82951

== ENCOUNTER 2024-08-25 11:42 | Emergency (ER) | payer BC, SELFPAY ==
[2024-08-25 11:50] VITALS: BP 115/73; PULSE 101; RESP 20; TEMP 37.1; O2SAT 98; BMI 44.8
[2024-08-25 12:04] LABS: Coronavirus 19, PCR Not Detected (NotDetected); Influenza A, PCR Not Detected (NotDetected); Influenza B, PCR Not Detected (NotDetected)
--- NOTE | 2024-08-25 12:06 | ED_ITS ---
Discharge Plan Disposition Patient Disposition: Home, Self-Care Condition: Good Prescriptions Prescriptions: New ondansetron 4 mg tablet,disintegrating 4 mg PO QID PRN (Reason: nausea and vomiting) Qty: 10 0RF amoxicillin-pot clavulanate 875-125 mg tablet 1 tab PO BID Qty: 20 0RF azithromycin 250 mg tablet 250 mg PO DAILY 6 Days Qty: 6 0RF Rx Instructions: start on day 2 of therapy No Action labetalol 200 mg tablet 200 mg PO BID Qty: 60 2RF Classic 28 mg iron- 800 mcg tablet 1 tab PO .Chapman Qty: 30 11RF ondansetron 4 mg tablet,disintegrating 4 mg PO Q8H PRN (Reason: nausea and vomiting) Qty: 30 2RF Referrals Follow up/Referrals: Mónica Guzman PA [Primary Care Provider] - See instructions Activity Restrictions/Add. Instructions Additional Instructions/Restrictions: You are being discharged from the ER. Please go to [facility] from here. I have spoken to Dr. Golden. I have sent the remainder of your antibiotic prescriptions to your pharmacy. Follow-up with your PCP and/or [facility] [facility] [employer] [facility] for no change or worsening in your signs or symptoms or return to the ER as needed. Clinical Impressions Clinical Impression: Abdominal cramping, Hyponatremia Right lower lobe pneumonia Qualifiers: Pneumonia type: due to unspecified organism Qualified Code(s): J18.9 - Pneumonia, unspecified organism Print Language Print Language: Ghanaian Discharge ED Provider: Rinku Mckeon General Adult HPI <GERMANIA Thomas - Last Filed: 08/25/24 21:15> General Chief complaint: Upper Respiratory Infection Stated complaint: body aches, vomiting, fever Time Seen by Provider: 08/25/24 11:46 Mode of Arrival: Ambulatory Source of Information: Patient Limitations: No Limitations Description of Symptoms (Recalled from ER Triage Doc. by RN): pt states she has been sick x2d. pt c/o a productive cough with green sputum, myalgia, chills, N/V/D. pt is 18 wks , this is her 1st . pts OB is Dr. Rogers. pt denies any vaginal bleeding/discharge, abd pain, or urinary symptoms. History of Present Illness HPI narrative: Patient presents for 2 days of upper respiratory symptoms. Patient gives a history of being 18 weeks . For the last 2 days she has been having a productive cough with green sputum myalgias chills nausea vomiting. She states that she has had subjective fevers but has not checked it at home. She denies any vaginal bleeding discharge nausea vomiting diarrhea however. Related Data Previous Rx's ?Medication ?Instructions ?Recorded vits no.126-ferrous fum 1 tab PO .Chapman #30 tabs 06/27/24 28 mg iron-folic acid 800 mcg tablet (Classic ) labetalol 200 mg tablet 200 mg PO BID #60 tabs 07/08/24 ondansetron 4 mg disintegrating 4 mg PO Q8H PRN nausea and 07/30/24 tablet vomiting #30 tabs amoxicillin 875 mg-potassium 1 tab PO BID #20 tabs 08/25/24 clavulanate 125 mg tablet azithromycin 250 mg tablet 250 mg PO DAILY 6 days #6 tabs 08/25/24 ondansetron 4 mg disintegrating 4 mg PO QID PRN nausea and 08/25/24 tablet vomiting #10 tabs Allergies Allergy/AdvReac Type Severity Reaction Status Date / Time No Known Allergies Allergy Verified 08/25/24 11:56 [facility] <GERMANIA Thomas - Last Filed: 08/25/24 21:15> [facility] Disclaimer: The information contained in this section may have been updated after the patient was seen, as this information can be updated by other users. Medical History Headache H. pylori infection Elevated liver enzymes Anxiety BMI 40.0-44.9, adult PCOS (polycystic ovarian syndrome) Migraine Abnormal weight Lipoma Intertrigo Back pain Breast pain, left Rash Right lower quadrant abdominal pain Vitamin D deficiency Amenorrhea, secondary Insomnia Depression Surgical History Hx of tonsillectomy Hx of cholecystectomy Family History Mother Heart disease Social History Smoking Status: Never smoker second hand exposure: No alcohol intake: never counseling provided: provider counseling substance use type: denies use current occupational status: employed Travel in the last 8 weeks: None household members: spouse housing: house number of children: 0 caffeine: Yes Other Medical History Have you received the Flu Vaccine for this season: No Have you received the Pneumonia Vaccine: No <GERMANIA Thomas - Last Filed: 08/25/24 21:15> ROS Obtained: Yes Systems reviewed as appropriate & no additional complaints except as documented Physical Exam <GERMANIA Thomas - Last Filed: 08/25/24 21:15> General General appearance: alert and in no apparent distress Respiratory Respiratory exam: Present normal lung sounds bilaterally Cardiovascular Cardiovascular exam: Present tachycardia Neurological Exam Neurological exam: Present alert and oriented X3 Medical Decision Making <GERMANIA Thomas - Last Filed: 08/25/24 21:15> Medical Records Medical records reviewed: Yes I reviewed the patient's medical records. Screening: Per USPSTF and CDC recommendations, given the prevalence of disease in our region, it is our hospital?s policy to screen for HIV and viral Hepatitis for all patients aged 18 and over and those with ongoing risk factors. Fredy Inquiry Pt receiving controlled substance: No Vital Signs: 08/25/24 11:50 08/25/24 14:50 Temperature 98.7 F 98.0 F Temperature Source Oral Oral Pulse Rate 68 Pulse Rate [Left] 101 H Respiratory Rate 20 20 Blood Pressure 120/85 Blood Pressure [Right Arm] 115/73 Blood Pressure Mean [Right Arm] 87 Blood Pressure Source Automatic Cuff Blood Pressure Source [Right Arm] Automatic Cuff Blood Pressure Position [Right Arm] Sitting 02 Sat by Pulse Oximetry 98 Oxygen Delivery Method Room Air Room Air Lab Data Lab results reviewed: Yes I reviewed the patient's lab results. Lab Results 08/25/24 11:57: Urine Color Yellow, Urine Appearance Clear, Urine pH 6.5, Ur Specific [place] 1.020, Urine Protein Negative, Urine Glucose (UA) Negative, Urine Ketones Negative, Urine Blood Negative, Urine Nitrate Negative, Urine Bilirubin Negative, Urine Urobilinogen 0.2, Ur Leukocyte Esterase Negative, Urine RBC None, Urine WBC Occasional, Ur Squamous Epith Cells 3-5, Urine Bacteria None 08/25/24 11:58: WBC 10.6, RBC 4.61, Hgb 13.5, Hct 38.0, MCV 82.4, MCH 29.4, MCHC 35.6 H, RDW 13.7, Plt Count 386, MPV 6.9 L, Neut % (Auto) 72.6, Lymph % (Auto) 19.8, [facility] % (Auto) 6.1, Eos % (Auto) 1.2, Baso % (Auto) 0.3, Neut # (Auto) 7.7, Lymph # (Auto) 2.1, [facility] # (Auto) 0.7, Eos # (Auto) 0.1, Baso # (Auto) 0.0, S odium 129 L, Potassium 3.9, Chloride 108 H, Carbon Dioxide 18 L, Anion Gap 6.9, BUN 5 L, Creatinine 0.40 L, Estimated Creat Clear 170, Estimated GFR 194, Est GFR ( Amer) 235, Glucose 76, Calcium 9.3, Procalcitonin 0.109 08/25/24 12:01: SARS-CoV-2 (PCR) Not detected, Influenza A Untype (PCR) Not detected, Influenza Type B (PCR) Not detected 08/25/24 11:58 08/25/24 11:58 Orders (Tests/Meds): ED MEDICATIONS Discontinued Medications Generic Name Dose Route Start Last Admin Trade Name Roberthq PRN Reason Stop Dose Admin Acetaminophen 1,000 mg 08/25/24 12:12 08/25/24 12:23 Acetaminophen 500mg Tab PO 08/25/24 12:13 1,000 mg ONCE ONE Administration Amoxicillin/Clavulanate Potassium 1 each 08/25/24 13:48 08/25/24 13:53 Amoxicillin/Clavulanate Potassium 875/125mg Tablet PO 08/25/24 13:49 1 each ONCE ONE Administration Azithromycin 500 mg 08/25/24 14:21 08/25/24 14:42 Azithromycin 250mg Tablet PO 08/25/24 14:22 500 mg ONCE ONE Administration Ondansetron HCl 4 mg 08/25/24 12:12 08/25/24 12:23 Ondansetron 4mg Odt SL 08/25/24 12:13 4 mg ONCE ONE Administration ORDERS Category Date Time Status Chest XR 2 view (NOT portable) [XR chest 2V] Stat Exams 08/25/24 12:46 Completed BMP [Basic Metabolic Panel] Stat Lab 08/25/24 11:58 Completed CBC w/Auto Diff [Complete Blood Count Auto Diff] Stat Lab 08/25/24 11:58 Completed Procalcitonin Stat Lab 08/25/24 11:58 Completed Rapid PCR Covid and Flu A/B Stat Lab 08/25/24 12:01 Completed UA [Urinalysis and Microscopic] Stat Lab 08/25/24 11:57 Completed Medical Decision Narrative: In summary patient is a 24-year-old female who presents to the emergency department for evaluation of upper respiratory tract infection symptoms.. Patient is normotensive on arrival at 115/73 tachycardic however 101 breathing 20 times a minute satting at 98% on room air upon arrival, afebrile at 98.7. Physical exam is remarkable for clear breath sounds sinus tachycardia on the bedside monitor no abdominal tenderness normal bowel sounds.. Differential diagnosis includes viral versus bacterial upper respiratory tract infection. Initial workup will be conducted with hematologic labs full respiratory swab urinalysis plain film chest x-ray. Initial interventions include delayed bolus Zofran Tylenol. Initial workup reviewed by me shows her white count is normal with no neutrophilic shift, CMP significant for a sodium of 129 potassium 3.9 chloride 108 CO2 of 18 gap of 6.9 BUN of 5 creatinine 0.4 with a procalcitonin of 0.109 urinalysis that is bland and COVID and flu are negative full respiratory panel was not resulted prior to discharge. Upon repeat evaluation patient reports that she has been having right lower quadrant abdominal cramping since arrival but again no vaginal bleeding or discharge.. Given this had interactive discussion with Dr. Golden of [employer] [employer] [facility] and she will be evaluated in the labor camacho upon discharge from the ER. Given this patient is appropriate for discharge to be evaluated by [facility] [employer] [facility] in labor camacho immediately. <Rinku Mckeon MD - Last Filed: 08/26/24 15:07> Vital Signs: 08/25/24 11:50 08/25/24 14:50 Temperature 98.7 F 98.0 F Temperature Source Oral Oral Pulse Rate 68 Pulse Rate [Left] 101 H Respiratory Rate 20 20 Blood Pressure 120/85 Blood Pressure [Right Arm] 115/73 Blood Pressure Mean [Right Arm] 87 Blood Pressure Source Automatic Cuff Blood Pressure Source [Right Arm] Automatic Cuff Blood Pressure Position [Right Arm] Sitting 02 Sat by Pulse Oximetry 98 Oxygen Delivery Method Room Air Room Air Lab Data Lab Results 08/25/24 11:57: Urine Color Yellow, Urine Appearance Clear, Urine pH 6.5, Ur Specific [place] 1.020, Urine Protein Negative, Urine Glucose (UA) Negative, Urine Ketones Negative, Urine Blood Negative, Urine Nitrate Negative, Urine Bilirubin Negative, Urine Urobilinogen 0.2, Ur Leukocyte Esterase Negative, Urine RBC None, Urine WBC Occasional, Ur Squamous Epith Cells 3-5, Urine Bacteria None 08/25/24 11:58: WBC 10.6, RBC 4.61, Hgb 13.5, Hct 38.0, MCV 82.4, MCH 29.4, MCHC 35.6 H, RDW 13.7, Plt Count 386, MPV 6.9 L, Neut % (Auto) 72.6, Lymph % (Auto) 19.8, [facility] % (Auto) 6.1, Eos % (Auto) 1.2, Baso % (Auto) 0.3, Neut # (Auto) 7.7, Lymph # (Auto) 2.1, [facility] # (Auto) 0.7, Eos # (Auto) 0.1, Baso # (Auto) 0.0, S odium 129 L, Potassium 3.9, Chloride 108 H, Carbon Dioxide 18 L, Anion Gap 6.9, BUN 5 L, Creatinine 0.40 L, Estimated Creat Clear 170, Estimated GFR 194, Est GFR ( Amer) 235, Glucose 76, Calcium 9.3, Procalcitonin 0.109 08/25/24 12:01: SARS-CoV-2 (PCR) Not detected, Influenza A Untype (PCR) Not detected, Influenza Type B (PCR) Not detected Orders (Tests/Meds): ED MEDICATIONS Discontinued Medications Generic Name Dose Route Start Last Admin Trade Name Roxanna PRN Reason Stop Dose Admin Acetaminophen 1,000 mg 08/25/24 12:12 08/25/24 12:23 Acetaminophen 500mg Tab PO 08/25/24 12:13 1,000 mg ONCE ONE Administration Amoxicillin/Clavulanate Potassium 1 each 08/25/24 13:48 08/25/24 13:53 Amoxicillin/Clavulanate Potassium 875/125mg Tablet PO 08/25/24 13:49 1 each ONCE ONE Administration Azithromycin 500 mg 08/25/24 14:21 08/25/24 14:42 Azithromycin 250mg Tablet PO 08/25/24 14:22 500 mg ONCE ONE Administration Ondansetron HCl 4 mg 08/25/24 12:12 08/25/24 12:23 Ondansetron 4mg Odt SL 08/25/24 12:13 4 mg ONCE ONE Administration ORDERS Category Date Time Status Chest XR 2 view (NOT portable) [XR chest 2V] Stat Exams 08/25/24 12:46 Completed BMP [Basic Metabolic Panel] Stat Lab 08/25/24 11:58 Completed CBC w/Auto Diff [Complete Blood Count Auto Diff] Stat Lab 08/25/24 11:58 Completed Procalcitonin Stat Lab 08/25/24 11:58 Completed Rapid PCR Covid and Flu A/B Stat Lab 08/25/24 12:01 Completed UA [Urinalysis and Microscopic] Stat Lab 08/25/24 11:57 Completed Medical Decision Narrative: In summary patient is a 24-year-old female who presents to the emergency department for evaluation of upper respiratory tract infection symptoms.. Patient is normotensive on arrival at 115/73 tachycardic however 101 breathing 20 times a minute satting at 98% on room air upon arrival, afebrile at 98.7. Physical exam is remarkable for clear breath sounds sinus tachycardia on the bedside monitor no abdominal tenderness normal bowel sounds.. Differential diagnosis includes viral versus bacterial upper respiratory tract infection. Initial workup will be conducted with hematologic labs full respiratory swab urinalysis plain film chest x-ray. Initial interventions include delayed bolus Zofran Tylenol. Initial workup reviewed by me shows her white count is normal with no neutrophilic shift, CMP significant for a sodium of 129 potassium 3.9 chloride 108 CO2 of 18 gap of 6.9 BUN of 5 creatinine 0.4 with a procalcitonin of 0.109 urinalysis that is bland and COVID and flu are negative full respiratory panel was not resulted prior to discharge. Upon repeat evaluation patient reports that she has been having right lower quadrant abdominal cramping since arrival but again no vaginal bleeding or discharge.. Given this had interactive discussion with Dr. Golden of [employer] [facility] and she will be evaluated in the labor camacho upon discharge from the ER. Given this patient is appropriate for discharge to be evaluated by [employer] [facility] in labor camacho immediately. I was consulted by the ABHAY, and we discussed the complexity of the problems being addressed. I approved the treatment and management plan for this patient's care in the Emergency Department, thus performing a substantive portion of the medical decision making. Rinku Mckeon MD Critical Care <GERMANIA Thomas - Last Filed: 08/25/24 21:15> Critical Care Time Critical Care Time: No
[2024-08-25 12:22] LABS: Chloride 108 mmol/L (98-107); Sodium 129 mmol/L (136-145)
[2024-08-25 12:23] LABS: Potassium 3.9 mmoL/L (3.5-5.1)
[2024-08-25] MEDS: ACETAMINOPHEN 500MG TAB 1000 MG PO (12:23)
[2024-08-25] MEDS: ONDANSETRON 4MG ODT 4 MG SL (12:23)
[2024-08-25 12:24] LABS: Microscopic, Urine URINE MICROSCOPIC (MICROSCOPIC)
[2024-08-25 12:25] LABS: Blood Urea Nitrogen 5 mg/dl (7-17); Creatinine Clearance Estimated 170 mL/min (50-200); Estimated Glomerular Filt Rate 194 ml/min (>60); GFR (African American) 235 ML/MIN (>60)
[2024-08-25 12:26] LABS: Anion Gap 6.9 mEq/L (5-15); Calcium 9.3 mg/dl (8.4-10.2); Carbon Dioxide 18 mmol/L (22.0-30.0); Glucose 76 mg/dl (74-100)
[2024-08-25 12:28] LABS: Basophils % 0.3 % (0.1-2.0); Eosinophils # 0.1 K/mm3 (0.0-0.4); Eosinophils % 1.2 % (0.1-12.0); Hemoglobin 13.5 g/dL (12.2-16.2); Lymphocytes # 2.1 K/mm3 (0.7-4.5); Lymphocytes % 19.8 % (10-50); Mean Corpuscular HGB Conc 35.6 g/dL (31.8-35.4); Mean Corpuscular Hemoglobin 29.4 pg (27.0-31.2); Mean Corpuscular Volume 82.4 fl (81-99); Mean Platelet Volume 6.9 fl (7.4-10.4); Monocytes # 0.7 K/mm3 (0.1-1.0); Monocytes % 6.1 % (1.7-9.3); Neutrophils # 7.7 K/mm3 (1.8-7.8); Neutrophils % 72.6 % (37.0-80.0); Platelet Count 386 K/mm3 (142-424); Red Blood Count 4.61 M/mm3 (4.20-5.40); Red Cell Distribution Width 13.7 % (11.5-17.5); White Blood Count 10.6 K/mm3 (4.8-10.8)
[2024-08-25 12:31] LABS: Appearance,Urine CLEAR (Clear); Bilirubin,Urine Negative (Negative); Blood, Urine Negative (Negative); Color,Urine YELLOW (Yellow); Glucose,Urine (UA) Negative (Negative); Ketones,Urine Negative (Negative); Leukocyte Esterase,Urine Negative (Negative); Nitrate,Urine Negative (Negative); PH,Urine 6.5 (5.0-8.5); Protein,Urine Negative (Negative); Urobilinogen,Urine 0.2 EU/dl (0.2)
--- NOTE | 2024-08-25 12:46 | XR_ITS ---
FINAL REPORT CLINICAL HISTORY: 18 weeks , myalgia vomiting COMPARISON: None FINDINGS: No acute pulmonary density is evident. There is no evidence of effusion or other pleural disease. The mediastinum has a normal appearance. The cardiac silhouette is unremarkable. IMPRESSION: Unremarkable chest exam. Reviewed, Interpreted and Dictated by Tanya Sullivan MD Transcribed by Melany Titus Authenticated and . [facility]
[2024-08-25 12:56] LABS: WBC,Urine Occasional #/hpf (0-3)
[2024-08-25] MEDS: AMOXICILLIN/CLAVULANATE POTASSIUM 875/125MG TABLET 1 EACH PO (13:53)
--- NOTE | 2024-08-25 13:55 | PC.NURSE ---
I rounded on pt. She is crying and states she is in a lot of pain. She reports R sided abd cramps that are severe. The pain startes then stops for a few minutes and repeats. I notified Lucrecia SOLO.no new orders received.
[2024-08-25] MEDS: AZITHROMYCIN 250MG TABLET 500 MG PO (14:42)
[2024-08-25 14:50] VITALS: BP 120/85; PULSE 68; RESP 20; TEMP 36.7; O2SAT 98
[2024-08-25 14:50] LABS: Procalcitonin 0.109 ng/mL (0.0-2.0)
[2024-08-27 15:20] LABS: Legionella pneumophila Urinary Negative (Negative)
== END 2024-08-25 14:59 | disposition home or self-care (01) ==
PROVIDERS: Physician Assistant; Emergency Provider Emergency Medicine; PCP Physician Assistant
DX: E87.1 Hypo-osmolality and hyponatremia (principal); E10.9 Type 1 diabetes mellitus without complications; J18.9 Pneumonia, unspecified organism; R05.9 Cough, unspecified; M79.10 Myalgia, unspecified site; R11.2 Nausea with vomiting, unspecified; R19.7 Diarrhea, unspecified; R50.9 Fever, unspecified
CPT/HCPCS: 71046; 80048; 81001; 84145; 85025; 87636; 99283; Q0162

== ENCOUNTER 2024-08-25 14:52 | Outpatient (CLI) | payer BC, SELFPAY ==
[2024-08-25] MEDS: 0.9 % SODIUM CHLORIDE 1000ML 1,000 ML 999 ML IV (15:42)
[2024-08-25 15:58] VITALS: BP 121/72; PULSE 98; RESP 18; TEMP 36.7; O2SAT 98; BMI 45.7
== END 2024-08-25 16:51 | disposition home or self-care (01) ==
LOC: OBOUT 14:53 → OB 14:54
PROVIDERS: PCP Physician Assistant; Visit Provider Nurse Practitioner Obstetrics & Gynecology
DX: O13.1 Gestational [pregnancy-induced] hypertension without significant proteinuria, first trimester (principal); Z3A.18 18 weeks gestation of pregnancy
CPT/HCPCS: G0463; J7030

== ENCOUNTER 2024-08-31 22:09 | Emergency (ER) | payer BC, SELFPAY ==
[2024-08-31 22:10] VITALS: BP 133/85; PULSE 115; RESP 20; TEMP 37.2; O2SAT 100; BMI 42.0
[2024-08-31 22:35] VITALS: BP 112/76; PULSE 117; RESP 20; O2SAT 99
[2024-08-31 22:45] LABS: Hematocrit 36.2 % (37.0-47.0); Hemoglobin 12.4 g/dL (12.2-16.2); Lymphocytes % 12.7 % (10-50); Mean Corpuscular HGB Conc 34.3 g/dL (31.8-35.4); Mean Corpuscular Hemoglobin 28.4 pg (27.0-31.2); Mean Platelet Volume 8.8 fl (7.4-10.4); Neutrophils % 67.5 % (37.0-80.0); Platelet Count 340 K/mm3 (142-424); Red Blood Count 4.36 M/mm3 (4.20-5.40); Red Cell Distribution Width 12.7 % (11.5-17.5); White Blood Count 7.4 K/mm3 (4.8-10.8)
[2024-08-31 22:46] LABS: Basophils % 0.4 % (0.1-2.0); Eosinophils # 0.1 K/mm3 (0.0-0.4); Eosinophils % 0.8 % (0.1-12.0); Lymphocytes # 0.9 K/mm3 (0.7-4.5); Monocytes # 1.3 K/mm3 (0.1-1.0); Monocytes % 17.9 % (1.7-9.3)
[2024-08-31] MEDS: ONDANSETRON 4MG/2ML VIAL 4 MG IV (22:55)
[2024-08-31 22:57] LABS: Albumin Level 3.9 g/dl (3.5-5.0); Chloride 108 mmol/L (98-107); Potassium 3.8 mmoL/L (3.5-5.1); Sodium 131 mmol/L (136-145)
[2024-08-31 23:00] VITALS: BP 127/82; PULSE 118; RESP 20; O2SAT 98
[2024-08-31 23:00] LABS: Alanine Aminotransferase 32 U/L (12-78); Albumin/Globulin Ratio 1.4 (1.1-1.8); Alkaline Phosphatase 71 U/L (38-126); Anion Gap 5.8 mEq/L (5-15); Aspartate Amino Transferase 40 U/L (14-36); Bilirubin,Total 0.3 mg/dl (0.2-1.3); Blood Urea Nitrogen 6 mg/dl (7-17); Calcium 9.7 mg/dl (8.4-10.2); Carbon Dioxide 21 mmol/L (22.0-30.0); Creatinine Clearance Estimated 136 mL/min (50-200); Estimated Glomerular Filt Rate 150 ml/min (>60); GFR (African American) 182 ML/MIN (>60); Globulin 2.8 g/dL (1.3-3.2); Glucose 79 mg/dl (74-100); Total Protein,Serum 6.7 g/dl (6.3-8.2)
[2024-08-31 23:01] LABS: Microscopic, Urine URINE MICROSCOPIC (MICROSCOPIC)
[2024-08-31 23:02] LABS: Lipase 82 U/L (23-300)
[2024-08-31 23:03] LABS: Appearance,Urine CLEAR (Clear); Bilirubin,Urine Negative (Negative); Blood, Urine Negative (Negative); Color,Urine YELLOW (Yellow); Glucose,Urine (UA) Negative (Negative); Ketones,Urine Negative (Negative); Leukocyte Esterase,Urine Negative (Negative); Nitrate,Urine Negative (Negative); Protein,Urine Negative (Negative); Specific Gravity, Urine 1.025 (1.005-1.030); Urobilinogen,Urine 0.2 EU/dl (0.2)
--- NOTE | 2024-08-31 23:04 | HMH.EDGENADL ---
Discharge Plan Disposition Patient Disposition: Home, Self-Care Prescriptions Prescriptions: No Action albuterol sulfate 90 mcg/actuation HFA aerosol inhaler 1 inh inhalation QID Qty: 6.7 2RF Classic 28 mg iron- 800 mcg tablet 1 tab PO .Chapman Qty: 30 11RF ondansetron 4 mg tablet,disintegrating 4 mg PO QID PRN (Reason: nausea and vomiting) Qty: 10 0RF amoxicillin-pot clavulanate 875-125 mg tablet 1 tab PO BID Qty: 20 0RF azithromycin 250 mg tablet 250 mg PO DAILY 6 Days Qty: 6 0RF Rx Instructions: start on day 2 of therapy Referrals Follow up/Referrals: Mónica Guzman PA [Primary Care Provider] - See instructions Activity Restrictions/Add. Instructions Additional Instructions/Restrictions: Call your family doctor to establish care for this visit to the emergency department and schedule follow-up within 48 hours to ensure improvement. If you have any worsening of your condition or any other concerning signs or symptoms, return to the emergency department or your primary care doctor for further evaluation. Clinical Impressions Clinical Impression: Encounter for medical assessment, Hypertension Instructions Patient Instructions: DI for Diarrhea and Traveler's Diarrhea -- Adult, DI for Diarrhea and Traveler's Diarrhea -- Child, DI for Nausea -- Adult, DI for Nausea -- Child Print Language Print Language: Trinidadian Discharge ED Provider: Rinku Mckeon General Adult HPI General Chief complaint: Nausea/Vomiting/Diarrhea Stated complaint: 19 weeks preg, high bp Time Seen by Provider: 08/31/24 22:17 Mode of Arrival: Ambulatory Source of Information: Patient Limitations: No Limitations Description of Symptoms (Recalled from ER Triage Doc. by RN): Patient presents to ED with increased weakness, N/V/D, cough, congestion, patient was dx with PNA on Sunday and was started on Amoxicillin. Patient is 19 weeks , and spoke with her OB tonight that told her to come to the ED. Patient also reports high B/P an heart rate at home, vitals here are 133/85, heart rate 115. History of Present Illness HPI narrative: Please note that above description of symptoms, in this electronic medical record under categorization of recalled from ER triage doctor by RN are reflective of an initial nursing assessment, however, is not reflective of my full history and physical exam that was personally taken and clarified. Consequentially, this preceding description of symptoms, which may include the patient's categorized chief complaint in the EMR, do not reflect my personal clinical impression, and the ultimate description of history of present illness and patient stated complaints should be deferred to this section of the note. Unless stated otherwise or congruent with this section of the note, additional signs, symptoms, or incongruence should be interpreted as inaccurate with my clinical impression. Related Data Previous Rx's ?Medication ?Instructions ?Recorded vits no.126-ferrous fum 1 tab PO .Chapman #30 tabs 06/27/24 28 mg iron-folic acid 800 mcg tablet (Classic ) amoxicillin 875 mg-potassium 1 tab PO BID #20 tabs 08/25/24 clavulanate 125 mg tablet azithromycin 250 mg tablet 250 mg PO DAILY 6 days #6 tabs 08/25/24 ondansetron 4 mg disintegrating 4 mg PO QID PRN nausea and 08/25/24 tablet vomiting #10 tabs albuterol sulfate 90 mcg/actuation 1 inh inhalation QID #6.7 grams 08/27/24 aerosol inhaler Allergies Allergy/AdvReac Type Severity Reaction Status Date / Time No Known Allergies Allergy Verified 08/27/24 09:33 [facility] Disclaimer: The information contained in this section may have been updated after the patient was seen, as this information can be updated by other users. Medical History Headache H. pylori infection Elevated liver enzymes Anxiety BMI 40.0-44.9, adult PCOS (polycystic ovarian syndrome) Migraine Abnormal weight Lipoma Intertrigo Back pain Breast pain, left Rash Right lower quadrant abdominal pain Vitamin D deficiency Amenorrhea, secondary Insomnia Depression Surgical History Hx of tonsillectomy Hx of cholecystectomy Family History Mother Heart disease Social History Smoking Status: Never smoker second hand exposure: No alcohol intake: never counseling provided: provider counseling substance use type: denies use current occupational status: employed Travel in the last 8 weeks: None household members: spouse housing: house number of children: 0 caffeine: Yes Have you lived/traveled outside [place] in past 30 days?: No Contact w/someone who lives/traveled outside [place] past 30 days?: No Exposure to someone with infectious disease in past 14 days?: No Do you have a fever (greater than 100.4 F or 38 C)?: No Have you tested positive for COVID-19: No Exposed to someone with COVID-19 in past 14 days?: No Do you have a sore throat?: No Do you have a cough?: No Do you have any weakness?: No Do you have any diarrhea?: No Are you experiencing any unusual bleeding?: No Do you have any muscle aches/pain?: No Do you have any abdominal pain?: No Are you experiencing loss of taste or smell?: No Other Medical History Have you received the Flu Vaccine for this season: No Have you received the Pneumonia Vaccine: No ROS Obtained: Yes All systems reviewed & no additional complaints except as documented Physical Exam General General appearance: alert and anxious Head Head exam: atraumatic and normocephalic Eye Eye exam: Present normal appearance, PERRL and EOMI Neck Neck exam: Present normal inspection, full ROM and trachea midline Respiratory Respiratory exam: Present normal lung sounds bilaterally; Absent respiratory distress, wheezes, stridor, accessory muscle use or prolonged expiratory phase Cardiovascular Cardiovascular exam: Present normal rhythm, tachycardia and other (Pulses equal symmetric in upper and lower extremities) Abdominal Exam Abdominal exam: Present soft; Absent distention, tenderness, guarding, rebound, rigidity or pulsatile mass Extremities Exam Extremities exam: Absent edema Neurological Exam Neurological exam: Present alert, oriented X3 and CN II-XII intact; Absent motor sensory deficit Skin Skin exam: Present warm and dry; Absent diaphoresis or erythema Medical Decision Making Medical Records Medical records reviewed: Yes I reviewed the patient's medical records. Screening: Per USPSTF and CDC recommendations, given the prevalence of disease in our region, it is our hospital?s policy to screen for HIV and viral Hepatitis for all patients aged 18 and over and those with ongoing risk factors. Fredy Inquiry Pt receiving controlled substance: No Fredy was queried for this patient: No Vital Signs: 08/31/24 22:10 08/31/24 22:35 08/31/24 23:00 Temperature 98.9 F Temperature Source Oral Pulse Rate 117 H 118 H Pulse Rate [Right Brachial] 115 H Respiratory Rate 20 20 20 Blood Pressure 112/76 127/82 Blood Pressure [Right Arm] 133/85 Blood Pressure Mean [Right Arm] 101 Blood Pressure Source [Right Arm] Automatic Cuff Blood Pressure Position [Right Arm] Supine 02 Sat by Pulse Oximetry 100 99 98 Oxygen Delivery Method Room Air Lab Data Lab Results 08/31/24 22:36: WBC 7.4, RBC 4.36, Hgb 12.4, Hct 36.2 L, MCV 83.0, MCH 28.4, MCHC 34.3, RDW 12.7, Plt Count 340, MPV 8.8, Neut % (Auto) 67.5, Lymph % (Auto) 12.7, [place] % (Auto) 17.9 H, Eos % (Auto) 0.8, Baso % (Auto) 0.4, Neut # (Auto) 5.0, Lymph # (Auto) 0.9, [place] # (Auto) 1.3 H, Eos # (Auto) 0.1, Baso # (Auto) 0.0, Sodium 131 L, Potassium 3.8, Chloride 108 H, Carbon Dioxide 21 L, Anion Gap 5.8, BUN 6 L, Creatinine 0.50 L, Estimated Creat Clear 136, Estimated GFR 150, Est GFR ( Amer) 182, Glucose 79, Calcium 9.7, Total Bilirubin 0.3, AST 40 H, ALT 32, Alkaline Phosphatase 71, Total Protein 6.7, Albumin 3.9, Globulin 2.8, Albumin/Globulin Ratio 1.4, Lipase 82 08/31/24 22:53: Urine Color Yellow, Urine Appearance Clear, Urine pH 6.0, Ur Specific [place] 1.025, Urine Protein Negative, Urine Glucose (UA) Negative, Urine Ketones Negative, Urine Blood Negative, Urine Nitrate Negative, Urine Bilirubin Negative, Urine Urobilinogen 0.2, Ur Leukocyte Esterase Negative, Urine RBC None, Urine WBC Occasional, Ur Squamous Epith Cells 5-10, Urine Bacteria Trace 08/31/24 22:36 08/31/24 22:36 Orders (Tests/Meds): ED MEDICATIONS Discontinued Medications Generic Name Dose Route Start Last Admin Trade Name Freq PRN Reason Stop Dose Admin Ondansetron HCl 4 mg 08/31/24 22:45 08/31/24 22:55 Ondansetron 4mg/2ml Vial IV 08/31/24 22:46 4 mg ONCE ONE Administration ORDERS Category Date Time Status POCUS Point of Care (ER Only) Stat Exams 08/31/24 22:45 Ordered CBC w/Auto Diff [Complete Blood Count Auto Diff] Stat Lab 08/31/24 22:36 Completed CMP [Comprehensive Metabolic Panel] Stat Lab 08/31/24 22:36 Results HCG,Quantitative Stat Lab 08/31/24 22:36 Results Lipase Stat Lab 08/31/24 22:36 Completed UA [Urinalysis and Microscopic] Stat Lab 08/31/24 22:53 Completed Medical Decision Narrative: Is a 24-year-old female 19 weeks presenting with concern for hypertension. Patient is very anxious. She states that she took her blood pressure prior to arrival because she was not feeling well. She has a multitude of symptoms including cough, nausea, vomiting, intermittent abdominal pains, diaphoresis, fevers and chills (no objective fevers measured), hands and feet numbness/tingling, lower extremity swelling, among others. States that she took her blood pressure and it was 200 systolic. Called the OB on-call who recommended she come to the emergency department for further evaluation. On arrival, patient does appear anxious. Blood pressure 133/85, pulse rate 115, hemodynamically stable and speaking in full sentences. Lungs are clear bilaterally. Cardiac exam without murmurs gallops or rubs. Abdomen is soft, nontender, nondistended. Patient does not have any lower extremity edema that is notable on exam. History obtained the patient. Differential includes illness anxiety disorder, preeclampsia, help syndrome, gestational hypertension, blood pressure cuff malfunction, among others. Abundance of reassurance was offered. Labs were ordered. On independent interpretation, patient has nonactionable CBC. Chemistry with normal kidney function. Total protein and albumin normal. Lipase negative, urinalysis without proteinuria or hematuria. Bedside [id number] ultrasound was performed and reviewed during, normal overall. I feel like this is collections representative of illness anxiety disorder, anxiety, second trimester changes, and likely blood pressure cuff malfunction. Because patient at baseline without signs or symptoms of clinical decompensation, deemed appropriate for discharge. Results were relayed to patient who voiced understanding and were agreeable to outpatient management and follow up. I discussed my clinical impression with patient and answered all questions. At this time, the evidence for any other entities in the differential is insufficient to warrant any further testing or ED observation. This was explained as well. Advisory was given that persistent or worsening symptoms require further evaluation. I confirmed the understanding of this discussion. Car Cleaning Supervisor disclaimer Much of this encounter note is an electronic diving supervisor spoken language to printed text. Electronic diving supervisor of the spoken language may permit errors. Although I have reviewed the note, some errors may still exist. Procedures Limited Ultrasound Indication:: Limited OB ultrasound Indication: , vomiting, multiple complaints Identified structures: -Uterus -Left adnexa -Right adnexa -Pouch of Teddy Findings: Uterus: Definitive IUP with FHR 150-160 Right adnexa: -Normal Left adnexa: -Normal [place]: -free fluid absent Impression: -IUP: Present with fhr 1 50-1 60, good flexion and extension movements -Ectopic : Absent -Free fluid: Absent Images were saved to permanent archive The study was technically adequate CPT Transabdominal: 65359-93 This study was performed by me, and I personally interpreted all images/videos. Based on my clinical judgement, these images were adequate and did not necessitate further imaging Critical Care Critical Care Time Critical Care Time: No
[2024-08-31 23:15] LABS: Bacteria,Urine Trace /lpf; WBC,Urine Occasional #/hpf (0-3)
--- NOTE | 2024-08-31 23:30 | PC.NURSE ---
at bedside with US
[2024-08-31 23:36] VITALS: BP 108/68; PULSE 110; RESP 14; TEMP 36.6; O2SAT 98
[2024-08-31 23:43] LABS: HCG,Quantitative 78547 mIU/ml (0-5.42)
== END 2024-08-31 23:45 | disposition home or self-care (01) ==
PROVIDERS: Emergency Provider Emergency Medicine; PCP Physician Assistant
DX: Z00.8 Encounter for other general examination (principal); I10 Essential (primary) hypertension; R11.2 Nausea with vomiting, unspecified; R53.1 Weakness; R19.7 Diarrhea, unspecified; R05.9 Cough, unspecified; R09.81 Nasal congestion
CPT/HCPCS: 80053; 81001; 83690; 84702; 85025; 96374; 99283; J2405

== ENCOUNTER 2024-09-11 07:58 | Emergency (ER) | payer BC, SELFPAY ==
[2024-09-11 08:00] VITALS: BP 124/84; PULSE 94; RESP 20; TEMP 36.9; O2SAT 99; BMI 45.1
--- NOTE | 2024-09-11 08:05 | PC.NURSE ---
audible fht's per doppler 140's
--- NOTE | 2024-09-11 08:17 | ECG_ITS ---
APPROVED REPORT Exam: Resting ECG HR:102 bpm ECG Measurements Heart Rate 102 AXES IA 127 P 28 QRSd 84 QRS 15 QT 344 T -8 QTc 403 Conclusion SINUS TACHYCARDIA ABNORMAL RHYTHM ECG UNCONFIRMED REPORT Electronically signed by : Chandan Martinez, 09/11/2024 15:35:05
--- NOTE | 2024-09-11 08:20 | PC.NURSE ---
DR SHARMA AT BEDSIDE
[2024-09-11 08:26] VITALS: BP 126/77; PULSE 102; O2SAT 100
[2024-09-11 08:30] VITALS: BP 117/62; PULSE 91; O2SAT 98
--- NOTE | 2024-09-11 08:42 | ED_ITS ---
Discharge Plan Disposition Patient Disposition: Home, Self-Care Prescriptions Prescriptions: No Action albuterol sulfate 90 mcg/actuation HFA aerosol inhaler 1 inh inhalation QID Qty: 6.7 2RF Classic 28 mg iron- 800 mcg tablet 1 tab PO .Chapman Qty: 30 11RF ondansetron 4 mg tablet,disintegrating 4 mg PO QID PRN (Reason: nausea and vomiting) Qty: 10 0RF amoxicillin-pot clavulanate 875-125 mg tablet 1 tab PO BID Qty: 20 0RF azithromycin 250 mg tablet 250 mg PO DAILY 6 Days Qty: 6 0RF Rx Instructions: start on day 2 of therapy Referrals Follow up/Referrals: Mónica Guzman PA [Primary Care Provider] - See instructions Clinical Impressions Clinical Impression: Syncope, vasovagal, Abdominal cramping, Nausea & vomiting, Second trimester Instructions Patient Instructions: DI for Syncope in Adults (Fainting), DI for Syncope in Children (Fainting) Print Language Print Language: Occitan Discharge ED Provider: Vashti Martinez General Adult HPI General Chief complaint: Syncope Stated complaint: AO-0700, 20 weeks preg, fall, head/vision Time Seen by Provider: 09/11/24 08:21 Mode of Arrival: Wheelchair Source of Information: Patient and Spouse Limitations: No Limitations Description of Symptoms (Recalled from ER Triage Doc. by RN): pt is [address] miller. pt has been sick off and on for 3 weeks and had a syncopal episode today while getting out of shower and passed out and hit head on bath tub edge, pt is alox4 upon triage and complains of right side pain and a headache, pt states her hands are swelling History of Present Illness HPI narrative: Patient is a 24-year-old female presenting today with a head injury and a syncopal episode. She states she woke up this morning had numerous vomiting episodes that were preceded by some abdominal pain in the right lower quadrant and at this time she began to be very lightheaded after a severe vomiting episode and felt as if she was in a pass out and woke up on the floor. She believes she hit her head on the way down that she has a headache in the posterior aspect of her head. She denied any headache that preceded this denied any pain that preceded the nausea and vomiting. Has not had any contractions or loss of fluid or bleeding or vaginal discharge. She is 20 weeks this is her first . Denies any urinary symptoms burning frequency urgency hematuria etc. No flank pain. She does have a history of kidney stones but states symptoms are similar. Currently has very mild abdominal discomfort and mild headache but no other symptoms. Related Data Previous Rx's ?Medication ?Instructions ?Recorded vits no.126-ferrous fum 1 tab PO .Chapman #30 tabs 06/27/24 28 mg iron-folic acid 800 mcg tablet (Classic ) amoxicillin 875 mg-potassium 1 tab PO BID #20 tabs 08/25/24 clavulanate 125 mg tablet azithromycin 250 mg tablet 250 mg PO DAILY 6 days #6 tabs 08/25/24 ondansetron 4 mg disintegrating 4 mg PO QID PRN nausea and 08/25/24 tablet vomiting #10 tabs albuterol sulfate 90 mcg/actuation 1 inh inhalation QID #6.7 grams 08/27/24 aerosol inhaler Allergies Allergy/AdvReac Type Severity Reaction Status Date / Time No Known Allergies Allergy Verified 08/27/24 09:33 [facility] Disclaimer: The information contained in this section may have been updated after the patient was seen, as this information can be updated by other users. Medical History Headache H. pylori infection Elevated liver enzymes Anxiety BMI 40.0-44.9, adult PCOS (polycystic ovarian syndrome) Migraine Abnormal weight Lipoma Intertrigo Back pain Breast pain, left Rash Right lower quadrant abdominal pain Vitamin D deficiency Amenorrhea, secondary Insomnia Depression Surgical History Hx of tonsillectomy Hx of cholecystectomy Family History Mother Heart disease Social History Smoking Status: Never smoker second hand exposure: No alcohol intake: never counseling provided: provider counseling substance use type: denies use current occupational status: employed Travel in the last 8 weeks: None household members: spouse housing: house number of children: 0 caffeine: Yes Have you lived/traveled outside US in past 30 days?: No Contact w/someone who lives/traveled outside US past 30 days?: No Exposure to someone with infectious disease in past 14 days?: No Do you have a fever (greater than 100.4 F or 38 C)?: No Have you tested positive for COVID-19: No Exposed to someone with COVID-19 in past 14 days?: No Do you have a sore throat?: No Do you have a cough?: No Do you have any weakness?: No Do you have any diarrhea?: No Are you experiencing any unusual bleeding?: No Do you have any muscle aches/pain?: No Do you have any abdominal pain?: No Are you experiencing loss of taste or smell?: No Other Medical History Have you received the Flu Vaccine for this season: No Have you received the Pneumonia Vaccine: No ROS Obtained: Yes All systems reviewed & no additional complaints except as documented Physical Exam General General appearance: alert Head Head exam: atraumatic, normocephalic and other (No evidence of depressed skull fracture Montes sign raccoon eyes) Neck Neck exam: Absent tenderness or meningismus Respiratory Respiratory exam: Present normal lung sounds bilaterally Cardiovascular Cardiovascular exam: Present regular rate and normal rhythm Abdominal Exam Abdominal exam: Present soft; Absent distention or tenderness Neurological Exam Neurological exam: Present alert, oriented X3, CN II-XII intact, normal gait and other (Nonfocal); Absent motor sensory deficit Medical Decision Making Medical Records Screening: Per USPSTF and CDC recommendations, given the prevalence of disease in our region, it is our hospital?s policy to screen for HIV and viral Hepatitis for all patients aged 18 and over and those with ongoing risk factors. Fredy Inquiry Pt receiving controlled substance: No Vital Signs: 09/11/24 08:00 09/11/24 08:26 09/11/24 08:30 Temperature 98.4 F Temperature Source Oral Pulse Rate 102 H 91 H Pulse Rate [Right Radial] 94 H Respiratory Rate 20 Blood Pressure 126/77 117/62 Blood Pressure [Right Arm] 124/84 Blood Pressure Mean [Right Arm] 97 02 Sat by Pulse Oximetry 99 100 98 Oxygen Delivery Method Room Air 09/11/24 09:30 Temperature Temperature Source Pulse Rate 85 Pulse Rate [Right Radial] Respiratory Rate Blood Pressure 108/58 L Blood Pressure [Right Arm] Blood Pressure Mean [Right Arm] 02 Sat by Pulse Oximetry 99 Oxygen Delivery Method Lab Data Lab results reviewed: Yes I reviewed the patient's lab results. Lab Results 09/11/24 08:25: WBC 9.6, RBC 4.52, Hgb 12.5, Hct 37.3, MCV 82.5, MCH 27.7, MCHC 33.5, RDW 12.9, Plt Count 365, MPV 8.9, Neut % (Auto) 72.6, Lymph % (Auto) 18.0, [place] % (Auto) 6.9, Eos % (Auto) 1.1, Baso % (Auto) 0.3, Neut # (Auto) 7.0, Lymph # (Auto) 1.7, [place] # (Auto) 0.7, Eos # (Auto) 0.1, Baso # (Auto) 0.0, Sodium 136, Potassium 3.9, Chloride 106, Carbon Dioxide 21 L, Anion Gap 12.9, BUN 7, C reatinine 0.50 L, Estimated Creat Clear 136, Estimated GFR 150, Est GFR ( Amer) 182, Glucose 91, Calcium 9.7, Total Bilirubin 0.4, AST 31, ALT 23, Alkaline Phosphatase 79, Total Protein 6.4, Albumin 3.8, Globulin 2.6, Albumin/Globulin Ratio 1.5 09/11/24 08:49: Urine Color Yellow, Urine Appearance Clear, Urine pH 6.0, Ur Specific [place] >= 1.030, Urine Protein Negative, Urine Glucose (UA) Negative, Urine Ketones Negative, Urine Blood Negative, Urine Nitrate Negative, Urine Bilirubin Negative, Urine Urobilinogen 0.2, Ur Leukocyte Esterase Negative, Urine RBC None, Urine WBC Occasional, Ur Squamous Epith Cells 5-10, Urine Bacteria 1+ 09/11/24 08:25 09/11/24 08:25 Orders (Tests/Meds): ED MEDICATIONS Generic Name Dose Route Start Last Admin Trade Name Freq PRN Reason Stop Dose Admin Diphenhydramine HCl 12.5 mg 09/11/24 10:06 Diphenhydramine 50mg/Ml Vial IV 09/11/24 10:07 ONCE ONE Prochlorperazine Edisylate 10 mg 09/11/24 10:06 Prochlorperazine 10mg/2ml Vial IV 09/11/24 10:07 ONCE ONE Discontinued Medications Generic Name Dose Route Start Last Admin Trade Name Freq PRN Reason Stop Dose Admin Acetaminophen 1,000 mg 09/11/24 08:36 09/11/24 08:46 Acetaminophen 1,000mg/100ml Vial IV 09/11/24 08:37 1,000 mg ONCE ONE Administration Lactated Ringer's 1,000 mls @ 999 mls/hr 09/11/24 08:45 09/11/24 08:47 Lactated Ringer's 1000 Ml Bag IV 09/11/24 09:45 999 mls/hr .Q1H1M JENNIFER Administration Ondansetron HCl 4 mg 09/11/24 08:36 09/11/24 08:46 Ondansetron 4mg/2ml Vial IV 09/11/24 08:37 4 mg ONCE ONE Administration ORDERS Category Date Time Status POCUS Point of Care (ER Only) Stat Exams 09/11/24 08:21 Completed CBC w/Auto Diff [Complete Blood Count Auto Diff] Stat Lab 09/11/24 08:25 Completed CMP [Comprehensive Metabolic Panel] Stat Lab 09/11/24 08:25 Completed UA [Urinalysis and Microscopic] Stat Lab 09/11/24 08:49 Completed ECG Data Tracing #1: I reviewed this ECG and interpreted as documented below: Ventricular rate 102 sinus tachycardia normal axis no conduction abnormalities or ischemia. Medical Decision Narrative: 24-year-old with above history and physical benign abdominal exam and benign neurologic exam at this point. From a head injury standpoint she is [place] CT head negative she is also Nexus negative is incredibly unlikely that we would find any clinically significant injury that would require neurosurgical intervention therefore radiation exposure outweighs any benefit in this particular situation and we will avoid that. From an abdominal pain perspective she has a benign abdominal exam at this point is unlikely she has surgical pathology that led to today's illness. I suspect most likely she has a viral illness that caused nausea and vomiting and a vasovagal syncopal episode as she got lightheaded after a severe vomiting episode. Cannot rule out definitive intra-abdominal pathology but will not get a CAT scan at the moment given her status and low pretest probability. Bedside ultrasounds were unremarkable no evidence of hydronephrosis or free fluid in the abdomen. Single living IUP noted consistent with dates. I will give IV fluids Zofran Tylenol check basic blood work and reassess. EKG also unremarkable from a syncopal standpoint. After this I believe it would benefit the patient to have several hours of toco monitoring for ongoing evaluation and monitoring of her . I do not suspect abdominal trauma or related complications at this point but given her abdominal pain cannot be definitively certain. Serial assessments from a neurologic and abdominal standpoint are unremarkable. Labs unremarkable as well. Patient still has a significant headache which she describes as a migraine at this point. She has been given IV Tylenol without improvement we will therefore give prochlorperazine and Benadryl to treat her migraine which are acceptable in with no definitive harm noted. Again I will have the patient monitored for several hours with OB now that she is cleared from my standpoint and will discuss the case with OB for transfer. Procedures Miscellaneous Procedure Procedure Performed: Limited OB ultrasound Indication: Abdominal pain Identified structures: [-Uterus -Left adnexa -Right adnexa -Pouch of Teddy] Findings: Uterus: Definitive IUP FHR: 143 Right adnexa: No free fluid Left adnexa: No free fluid [place] de sac: Free fluid absent Impression: Single living IUP consistent with dates with no evidence of free fluid Images were saved to permanent archive The study was technically adequate CPT Transabdominal: 71711-65 This study was performed by dc, and I personally interpreted all images/videos. Based on my clinical judgement, these images were at and did not necessitate further imaging. Limited renal ultrasound Indication: A focused ultrasound of the kidneys was performed to evaluate for hydronephrosis and nephrolithiasis. The ultrasound was performed with the following indications, as noted in the H&P: Flank pain Identified structures: [-R kidney - L kidney - Both kidneys] [-Bladder] Findings: No evidence of hydronephrosis or free fluid in the abdomen Impression: Normal limited ultrasound of the kidneys and bladder Images were saved to permanent archive The study was technically adequate CPT: 33347-74 This study was performed by dc, and I personally interpreted all images/videos. Based on my clinical judgement, these images were adequate and did not necessitate further imaging. Critical Care Critical Care Time Critical Care Time: No
[2024-09-11] MEDS: ONDANSETRON 4MG/2ML VIAL 4 MG IV (08:46)
[2024-09-11] MEDS: ACETAMINOPHEN 1,000MG/100ML VIAL 1000 MG IV (08:46)
[2024-09-11] MEDS: LACTATED RINGERS 1000ML 1,000 ML 999 ML IV (08:47)
[2024-09-11 08:48] LABS: Alanine Aminotransferase 23 U/L (12-78); Albumin Level 3.8 g/dl (3.5-5.0); Albumin/Globulin Ratio 1.5 (1.1-1.8); Alkaline Phosphatase 79 U/L (38-126); Anion Gap 12.9 mEq/L (5-15); Aspartate Amino Transferase 31 U/L (14-36); Bilirubin,Total 0.4 mg/dl (0.2-1.3); Blood Urea Nitrogen 7 mg/dl (7-17); Calcium 9.7 mg/dl (8.4-10.2); Carbon Dioxide 21 mmol/L (22.0-30.0); Chloride 106 mmol/L (98-107); Creatinine Clearance Estimated 136 mL/min (50-200); Estimated Glomerular Filt Rate 150 ml/min (>60); GFR (African American) 182 ML/MIN (>60); Globulin 2.6 g/dL (1.3-3.2); Glucose 91 mg/dl (74-100); Potassium 3.9 mmoL/L (3.5-5.1); Sodium 136 mmol/L (136-145); Total Protein,Serum 6.4 g/dl (6.3-8.2)
[2024-09-11 08:52] LABS: Basophils % 0.3 % (0.1-2.0); Eosinophils # 0.1 K/mm3 (0.0-0.4); Eosinophils % 1.1 % (0.1-12.0); Hematocrit 37.3 % (37.0-47.0); Hemoglobin 12.5 g/dL (12.2-16.2); Lymphocytes # 1.7 K/mm3 (0.7-4.5); Mean Corpuscular HGB Conc 33.5 g/dL (31.8-35.4); Mean Corpuscular Hemoglobin 27.7 pg (27.0-31.2); Mean Corpuscular Volume 82.5 fl (81-99); Mean Platelet Volume 8.9 fl (7.4-10.4); Monocytes # 0.7 K/mm3 (0.1-1.0); Monocytes % 6.9 % (1.7-9.3); Neutrophils % 72.6 % (37.0-80.0); Platelet Count 365 K/mm3 (142-424); Red Blood Count 4.52 M/mm3 (4.20-5.40); Red Cell Distribution Width 12.9 % (11.5-17.5); White Blood Count 9.6 K/mm3 (4.8-10.8)
[2024-09-11 08:52] LABS: Microscopic, Urine URINE MICROSCOPIC (MICROSCOPIC)
[2024-09-11 08:57] LABS: Appearance,Urine CLEAR (Clear); Bilirubin,Urine Negative (Negative); Blood, Urine Negative (Negative); Color,Urine YELLOW (Yellow); Glucose,Urine (UA) Negative (Negative); Ketones,Urine Negative (Negative); Leukocyte Esterase,Urine Negative (Negative); Nitrate,Urine Negative (Negative); Protein,Urine Negative (Negative); Specific Gravity, Urine >= 1.030 (1.005-1.030); Urobilinogen,Urine 0.2 EU/dl (0.2)
[2024-09-11 09:29] LABS: Bacteria,Urine 1+ /lpf; WBC,Urine Occasional #/hpf (0-3)
[2024-09-11 09:30] VITALS: BP 108/58; PULSE 85; O2SAT 99
[2024-09-11 10:00] VITALS: BP 90/52; PULSE 80; O2SAT 100
--- NOTE | 2024-09-11 10:28 | ED_ITS ---
Discharge Plan Disposition Patient Disposition: Home, Self-Care Prescriptions Prescriptions: No Action albuterol sulfate 90 mcg/actuation HFA aerosol inhaler 1 inh inhalation QID Qty: 6.7 2RF Classic 28 mg iron- 800 mcg tablet 1 tab PO .Chapman Qty: 30 11RF ondansetron 4 mg tablet,disintegrating 4 mg PO QID PRN (Reason: nausea and vomiting) Qty: 10 0RF amoxicillin-pot clavulanate 875-125 mg tablet 1 tab PO BID Qty: 20 0RF azithromycin 250 mg tablet 250 mg PO DAILY 6 Days Qty: 6 0RF Rx Instructions: start on day 2 of therapy Referrals Follow up/Referrals: Mónica Guzman PA [Primary Care Provider] - See instructions Clinical Impressions Clinical Impression: Syncope, vasovagal, Abdominal cramping, Nausea & vomiting, Second trimester Instructions Patient Instructions: DI for Syncope in Adults (Fainting), DI for Syncope in Children (Fainting) Print Language Print Language: Thai Discharge ED Provider: Vashti Martinez General Adult HPI General Chief complaint: Syncope Stated complaint: AO-0700, 20 weeks preg, fall, head/vision Time Seen by Provider: 09/11/24 08:21 Mode of Arrival: Wheelchair Source of Information: Patient and Spouse Limitations: No Limitations Description of Symptoms (Recalled from ER Triage Doc. by RN): pt is [address] miller. pt has been sick off and on for 3 weeks and had a syncopal episode today while getting out of shower and passed out and hit head on bath tub edge, pt is alox4 upon triage and complains of right side pain and a headache, pt states her hands are swelling Related Data Previous Rx's ?Medication ?Instructions ?Recorded vits no.126-ferrous fum 1 tab PO .Ari #30 tabs 06/27/24 28 mg iron-folic acid 800 mcg tablet (Classic ) amoxicillin 875 mg-potassium 1 tab PO BID #20 tabs 08/25/24 clavulanate 125 mg tablet azithromycin 250 mg tablet 250 mg PO DAILY 6 days #6 tabs 08/25/24 ondansetron 4 mg disintegrating 4 mg PO QID PRN nausea and 08/25/24 tablet vomiting #10 tabs albuterol sulfate 90 mcg/actuation 1 inh inhalation QID #6.7 grams 08/27/24 aerosol inhaler Allergies Allergy/AdvReac Type Severity Reaction Status Date / Time No Known Allergies Allergy Verified 08/27/24 09:33 [facility] Disclaimer: The information contained in this section may have been updated after the patient was seen, as this information can be updated by other users. Medical History Headache H. pylori infection Elevated liver enzymes Anxiety BMI 40.0-44.9, adult PCOS (polycystic ovarian syndrome) Migraine Abnormal weight Lipoma Intertrigo Back pain Breast pain, left Rash Right lower quadrant abdominal pain Vitamin D deficiency Amenorrhea, secondary Insomnia Depression Surgical History Hx of tonsillectomy Hx of cholecystectomy Family History Mother Heart disease Social History Smoking Status: Never smoker second hand exposure: No alcohol intake: never counseling provided: provider counseling substance use type: denies use current occupational status: employed Travel in the last 8 weeks: None household members: spouse housing: house number of children: 0 caffeine: Yes Have you lived/traveled outside US in past 30 days?: No Contact w/someone who lives/traveled outside US past 30 days?: No Exposure to someone with infectious disease in past 14 days?: No Do you have a fever (greater than 100.4 F or 38 C)?: No Have you tested positive for COVID-19: No Exposed to someone with COVID-19 in past 14 days?: No Do you have a sore throat?: No Do you have a cough?: No Do you have any weakness?: No Do you have any diarrhea?: No Are you experiencing any unusual bleeding?: No Do you have any muscle aches/pain?: No Do you have any abdominal pain?: No Are you experiencing loss of taste or smell?: No Other Medical History Have you received the Flu Vaccine for this season: No Have you received the Pneumonia Vaccine: No Physical Exam General General appearance: alert Medical Decision Making Medical Records Screening: Per USPSTF and CDC recommendations, given the prevalence of disease in our region, it is our hospital?s policy to screen for HIV and viral Hepatitis for all patients aged 18 and over and those with ongoing risk factors. Vital Signs: 09/11/24 08:00 09/11/24 08:26 09/11/24 08:30 Temperature 98.4 F Temperature Source Oral Pulse Rate 102 H 91 H Pulse Rate [Right Radial] 94 H Respiratory Rate 20 Blood Pressure 126/77 117/62 Blood Pressure [Right Arm] 124/84 Blood Pressure Mean [Right Arm] 97 02 Sat by Pulse Oximetry 99 100 98 Oxygen Delivery Method Room Air 09/11/24 09:30 09/11/24 10:00 Temperature Temperature Source Pulse Rate 85 80 Pulse Rate [Right Radial] Respiratory Rate Blood Pressure 108/58 L 90/52 L Blood Pressure [Right Arm] Blood Pressure Mean [Right Arm] 02 Sat by Pulse Oximetry 99 100 Oxygen Delivery Method Lab Data Lab results reviewed: Yes I reviewed the patient's lab results. Lab Results 09/11/24 08:25: WBC 9.6, RBC 4.52, Hgb 12.5, Hct 37.3, MCV 82.5, MCH 27.7, MCHC 33.5, RDW 12.9, Plt Count 365, MPV 8.9, Neut % (Auto) 72.6, Lymph % (Auto) 18.0, [place] % (Auto) 6.9, Eos % (Auto) 1.1, Baso % (Auto) 0.3, Neut # (Auto) 7.0, Lymph # (Auto) 1.7, [place] # (Auto) 0.7, Eos # (Auto) 0.1, Baso # (Auto) 0.0, Sodium 136, Potassium 3.9, Chloride 106, Carbon Dioxide 21 L, Anion Gap 12.9, BUN 7, C reatinine 0.50 L, Estimated Creat Clear 136, Estimated GFR 150, Est GFR ( Amer) 182, Glucose 91, Calcium 9.7, Total Bilirubin 0.4, AST 31, ALT 23, Alkaline Phosphatase 79, Total Protein 6.4, Albumin 3.8, Globulin 2.6, Albumin/Globulin Ratio 1.5 09/11/24 08:49: Urine Color Yellow, Urine Appearance Clear, Urine pH 6.0, Ur Specific [place] >= 1.030, Urine Protein Negative, Urine Glucose (UA) Negative, Urine Ketones Negative, Urine Blood Negative, Urine Nitrate Negative, Urine Bilirubin Negative, Urine Urobilinogen 0.2, Ur Leukocyte Esterase Negative, Urine RBC None, Urine WBC Occasional, Ur Squamous Epith Cells 5-10, Urine Bacteria 1+ 09/11/24 08:25 09/11/24 08:25 Orders (Tests/Meds): ED MEDICATIONS Discontinued Medications Generic Name Dose Route Start Last Admin Trade Name Roxanna PRN Reason Stop Dose Admin Acetaminophen 1,000 mg 09/11/24 08:36 09/11/24 08:46 Acetaminophen 1,000mg/100ml Vial IV 09/11/24 08:37 1,000 mg ONCE ONE Administration Diphenhydramine HCl 12.5 mg 09/11/24 10:06 Diphenhydramine 50mg/Ml Vial IV 09/11/24 10:07 ONCE ONE Lactated Ringer's 1,000 mls @ 999 mls/hr 09/11/24 08:45 09/11/24 08:47 Lactated Ringer's 1000 Ml Bag IV 09/11/24 09:45 999 mls/hr .Q1H1M JENNIFER Administration Ondansetron HCl 4 mg 09/11/24 08:36 09/11/24 08:46 Ondansetron 4mg/2ml Vial IV 09/11/24 08:37 4 mg ONCE ONE Administration Prochlorperazine Edisylate 10 mg 09/11/24 10:06 Prochlorperazine 10mg/2ml Vial IV 09/11/24 10:07 ONCE ONE ORDERS Category Date Time Status POCUS Point of Care (ER Only) Stat Exams 09/11/24 08:21 Completed CBC w/Auto Diff [Complete Blood Count Auto Diff] Stat Lab 09/11/24 08:25 Completed CMP [Comprehensive Metabolic Panel] Stat Lab 09/11/24 08:25 Completed Rapid PCR Covid and Flu A/B Stat Lab 09/11/24 10:28 Ordered UA [Urinalysis and Microscopic] Stat Lab 09/11/24 08:49 Completed
[2024-09-11 10:33] LABS: Coronavirus 19, PCR Not Detected (NotDetected); Influenza A, PCR Not Detected (NotDetected); Influenza B, PCR Not Detected (NotDetected)
[2024-09-11] MEDS: diphenhydrAMINE 50MG/ML VIAL 12.5 MG IV (10:33)
[2024-09-11] MEDS: PROCHLORPERAZINE 10MG/2ML VIAL 10 MG IV (10:33)
--- NOTE | 2024-09-11 11:07 | PC.NURSE ---
REPORT GIVEN TO LADONNA BARTLETT
[2024-09-11 11:11] VITALS: BP 119/66; PULSE 100; RESP 20; TEMP 36.8; O2SAT 100
== END 2024-09-11 11:15 | disposition home or self-care (01) ==
PROVIDERS: Emergency Provider Student in an Organized Health Care Education/Training Program; PCP Physician Assistant
DX: R55 Syncope and collapse (principal); R11.2 Nausea with vomiting, unspecified; R10.31 Right lower quadrant pain; R51.9 Headache, unspecified; R42 Dizziness and giddiness; W19.XXXA Unspecified fall, initial encounter; Y93.E1 Activity, personal bathing and showering; Y92.002 Bathroom of unspecified non-institutional (private) residence as the place of occurrence of the external cause
CPT/HCPCS: 80053; 81001; 85025; 87636; 93005; 96361; 96374; 96375; 99283; J0131; J0780; J1200; J2405; J7120

== ENCOUNTER 2024-09-11 11:16 | Outpatient (CLI) | payer BC, SELFPAY ==
[2024-09-11 11:38] VITALS: BMI 45.1
[2024-09-11 12:05] VITALS: BP 127/66; PULSE 96; RESP 18; TEMP 36.7; O2SAT 100; BMI 45.1
[2024-09-11 12:54] LABS: Barbiturates Screen,Urine Negative ng/ml (<200); Benzodiazepines Screen,Urine Negative ng/ml (<200)
[2024-09-11 12:55] LABS: Amphetamine/Metha Screen,Urine Negative ng/ml (<1000)
[2024-09-11 12:56] LABS: Cannabinoid Screen,Urine Negative ng/ml (<50); Cocaine Screen,Urine Negative ng/ml (<300)
[2024-09-11 12:57] LABS: Methadone Screen,Urine Negative ng/ml (<300)
[2024-09-11 12:58] LABS: Opiate Screen,Urine Negative ng/ml (<300); Phencyclidine Screen,Urine Negative ng/ml (<25)
== END 2024-09-11 13:03 | disposition home or self-care (01) ==
LOC: OBOUT 11:18 → OB 11:19
PROVIDERS: PCP Physician Assistant; Visit Provider Obstetrics & Gynecology
DX: O26.893 Other specified pregnancy related conditions, third trimester (principal); R55 Syncope and collapse; Z3A.19 19 weeks gestation of pregnancy; E55.9 Vitamin D deficiency, unspecified
CPT/HCPCS: 80307; G0463

== ENCOUNTER 2024-09-16 12:46 | Outpatient (CLI) | payer BC, SELFPAY ==
--- NOTE | 2024-09-16 12:47 | US_ITS ---
PROCEDURE: US OB /MATERNAL DETAIL CLINICAL INDICATION: 20 wk+ Anatomy Scan-OB Complete COMPARISON: US US OB TRANSVAGINAL from 06/11/2024 US US OB <= 14 WEEKS FETUS from 06/17/2024 US US OB <= 14 WEEKS FETUS from 07/02/2024 US US OB <= 14 WEEKS FETUS from 07/16/2024 FINDINGS: Transabdominal sonographic images of the pelvis were obtained. From her established due date she is 20 weeks 1 day. Single viable intrauterine gestation. Cephalic position. Placenta: Anteriorplacenta grade 1. A placental Justice is seen. There is an average amount of fluid. The cervix appears satisfactory. Closed and measuring 4.01 cm in length. Complete survey performed and was unremarkable on the submitted images as in PACS. No discrete anomalies identified on survey imaging by technologist. Active fetus. Three-vessel cord with satisfactory umbilical cord insertion. 4- chamber heart noted. [place], aortic arch, LVOT, RVOT, three-vessel view appear normal. Survey of brain & ventricles Unremarkable. Cerebellum, thalamus, choroid plexus, cisterna magna appear normal. Face and neck survey unremarkable. Profile, nasion, lips and nose appeared normal. Diaphragm and chest views unremarkable. Abdomen: Both kidneys noted and unremarkable. Stomach and bladder noted and satisfactory. Spine: Survey of the spine satisfactory with no anomalies identified nor imaged. Cervical, thoracic, lower spine appear normal. Both arms and legs noted. Amniotic Fluid: Adequate. MVP 6.4 cm. Measurements: Average ultrasound age 19weeks 6days. Estimated due date by ultrasound age 0502/04/2025. Estimated weight 328g BPD = 19weeks 3days HC = 19weeks 3days AC = 20weeks 5days FL = 19weeks 5days Growth Percentile= 39 Heart Rate = 142bpm Cerebellum = 19weeks 6days Humerus = 20weeks 1day HC/AC is 1.08 FL/BPD is 0.7 FL/AC is 0.2 IMPRESSION: 1. Viable fetus in the cephalic presentation with an anterior placenta grade 1. 2. The fluid is within normal limits with an MVP 6.4 cm. 3. Anatomical scan appears normal. 4. biometry is consistent with the dates. Dictated by: Salinas Canales MD 09/16/2024 13:54 Salinas Canales MD in [place] 09/16/2024 13:54
== END 2024-09-16 23:59 | disposition home or self-care (01) ==
PROVIDERS: PCP Physician Assistant; Visit Provider Obstetrics & Gynecology
DX: Z36.3 Encounter for antenatal screening for malformations (principal); Z3A.20 20 weeks gestation of pregnancy; O16.2 Unspecified maternal hypertension, second trimester; G90.A Postural orthostatic tachycardia syndrome [POTS]; R03.0 Elevated blood-pressure reading, without diagnosis of hypertension
CPT/HCPCS: 76811

== ENCOUNTER 2024-09-21 20:27 | Outpatient (CLI) | payer BC, SELFPAY ==
[2024-09-21 20:30] VITALS: BMI 45.1
[2024-09-21 21:07] LABS: Appearance,Urine SL CLOUDY (Clear); Bilirubin,Urine Negative (Negative); Blood, Urine Negative (Negative); Color,Urine YELLOW (Yellow); Glucose,Urine (UA) Negative (Negative); Ketones,Urine Negative (Negative); Leukocyte Esterase,Urine Negative (Negative); Nitrate,Urine Negative (Negative); Protein,Urine Negative (Negative); Specific Gravity, Urine >= 1.030 (1.005-1.030); Urobilinogen,Urine 0.2 EU/dl (0.2)
[2024-09-21 21:18] LABS: Fetal Membrane Rupture (Rapid) Negative (Negative)
[2024-09-21 21:19] VITALS: BP 107/64; PULSE 100; RESP 18; TEMP 36.7; O2SAT 99; BMI 45.1
[2024-09-23 05:49] LABS: Squamous Epithelial Cell,Urine Occasional #/hpf (0-5)
[2024-09-23 05:50] LABS: Amorphous Sediment,Urine 1+ /lpf; Bacteria,Urine Trace /lpf; Calcium Oxalate Crystals,Urine Trace /lpf
[2024-09-23 05:51] LABS: Microscopic, Urine URINE MICROSCOPIC (MICROSCOPIC)
== END 2024-09-21 22:20 | disposition home or self-care (01) ==
LOC: OBOUT 20:29 → OB 20:29
PROVIDERS: PCP Physician Assistant; Visit Provider Obstetrics & Gynecology
DX: O42.912 Preterm premature rupture of membranes, unspecified as to length of time between rupture and onset of labor, second trimester (principal); Z3A.20 20 weeks gestation of pregnancy
CPT/HCPCS: 81001; 84112; 87801; G0463

== ENCOUNTER 2024-09-30 11:21 | Outpatient (CLI) | payer SELFPAY ==
[2024-09-30 11:36] VITALS: BMI 45.1
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
[2024-09-30 12:17] VITALS: BP 134/83; PULSE 114; RESP 20; TEMP 36.9; O2SAT 98; BMI 45.1
[2024-09-30 14:24] LABS: Activated Partial Thrombo Time 24.1 seconds (22.5-28.5); Fibrinogen 486 mg/dL (208.1-352.0); INR 0.86 (0.9-1.1); Prothrombin Time 9.6 seconds (9.2-12.1)
== END 2024-09-30 13:08 | disposition home or self-care (01) ==
LOC: OBOUT 11:22 → OB 11:23
PROVIDERS: PCP Physician Assistant; Visit Provider Obstetrics & Gynecology
DX: Z04.1 Encounter for examination and observation following transport accident (principal); O26.892 Other specified pregnancy related conditions, second trimester; Z3A.22 22 weeks gestation of pregnancy
CPT/HCPCS: 76816; 85384; 85610; 85730

== ENCOUNTER 2024-09-30 13:10 | Emergency (ER) | payer BC, SELFPAY ==
[2024-09-30] VITALS (10 sets, daily range): BP systolic 110–140; BP diastolic 49–90; PULSE 97–118; RESP 16–18; TEMP 36.6–36.9; O2SAT 96–100; BMI 45.3
--- NOTE | 2024-09-30 | ECG_ITS ---
APPROVED REPORT Exam: Resting ECG HR:109 bpm ECG Measurements Heart Rate 109 AXES OR 108 P 20 QRSd 85 QRS 20 QT 363 T -9 QTc 427 Conclusion SINUS TACHYCARDIA WITH SHORT OR INTERVAL Electronically signed by : BRIE ORNELAS, 09/30/2024 15:58:30
--- NOTE | 2024-09-30 13:38 | XR_ITS ---
PROCEDURE INFORMATION: Exam: XR Left Hand Exam date and time: 09/30/2024 1:43 PM Age: 24 years old Clinical indication: Pain; Hand; Left TECHNIQUE: Imaging protocol: Radiologic exam of the left hand. Views: 3 or more views. COMPARISON: No relevant prior studies available. FINDINGS: Bones/joints: Normal. No fracture or destructive bone lesion. Soft tissues: Normal. No radiopaque foreign body or gas in the soft tissues. IMPRESSION: No acute findings.
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
[2024-09-30] MEDS: LACTATED RINGERS 1000ML 1,000 ML 999 ML IV (13:52)
[2024-09-30] MEDS: ACETAMINOPHEN 500MG TAB 1000 MG PO (13:52)
[2024-09-30 14:06] LABS: Basophils % 0.3 % (0.1-2.0); Eosinophils # 0.1 K/mm3 (0.0-0.4); Eosinophils % 0.6 % (0.1-12.0); Hematocrit 35.4 % (37.0-47.0); Hemoglobin 11.7 g/dL (12.2-16.2); Lymphocytes # 1.7 K/mm3 (0.7-4.5); Lymphocytes % 14.2 % (10-50); Mean Corpuscular HGB Conc 33.1 g/dL (31.8-35.4); Mean Corpuscular Hemoglobin 27.5 pg (27.0-31.2); Mean Corpuscular Volume 83.3 fl (81-99); Monocytes # 0.8 K/mm3 (0.1-1.0); Monocytes % 6.5 % (1.7-9.3); Neutrophils # 9.3 K/mm3 (1.8-7.8); Neutrophils % 77.9 % (37.0-80.0); Platelet Count 359 K/mm3 (142-424); Red Blood Count 4.25 M/mm3 (4.20-5.40); Red Cell Distribution Width 13.3 % (11.5-17.5); White Blood Count 11.9 K/mm3 (4.8-10.8)
[2024-09-30 14:18] LABS: Albumin Level 3.7 g/dl (3.5-5.0); Chloride 107 mmol/L (98-107); Potassium 3.7 mmoL/L (3.5-5.1); Sodium 131 mmol/L (136-145)
[2024-09-30 14:21] LABS: Alanine Aminotransferase 26 U/L (12-78); Albumin/Globulin Ratio 1.4 (1.1-1.8); Alkaline Phosphatase 87 U/L (38-126); Anion Gap 9.7 mEq/L (5-15); Aspartate Amino Transferase 38 U/L (14-36); Bilirubin,Total 0.3 mg/dl (0.2-1.3); Blood Urea Nitrogen 7 mg/dl (7-17); Calcium 9.7 mg/dl (8.4-10.2); Carbon Dioxide 18 mmol/L (22.0-30.0); Creatinine Clearance Estimated 162 mL/min (50-200); Estimated Glomerular Filt Rate 194 ml/min (>60); GFR (African American) 235 ML/MIN (>60); Globulin 2.7 g/dL (1.3-3.2); Glucose 84 mg/dl (74-100); Lipase 76 U/L (23-300); Total Protein,Serum 6.4 g/dl (6.3-8.2)
[2024-09-30 14:36] LABS: Troponin I 0.01 ng/ml (0.00-0.034)
[2024-09-30 14:52] LABS: Microscopic, Urine URINE MICROSCOPIC (MICROSCOPIC)
[2024-09-30 14:54] LABS: Appearance,Urine CLEAR (Clear); Bilirubin,Urine Negative (Negative); Blood, Urine TRACE-I (Negative); Color,Urine YELLOW (Yellow); Glucose,Urine (UA) Negative (Negative); Ketones,Urine Negative (Negative); Leukocyte Esterase,Urine Negative (Negative); Nitrate,Urine Negative (Negative); PH,Urine 6.5 (5.0-8.5); Protein,Urine Negative (Negative); Specific Gravity, Urine 1.025 (1.005-1.030); Urobilinogen,Urine 0.2 EU/dl (0.2)
[2024-09-30 15:02] LABS: HIV Combo NEGATIVE (Negative)
[2024-09-30 15:09] LABS: Hepatitis C Ab Qual. W/ RFX NEGATIVE (Negative)
[2024-09-30 15:22] LABS: Bacteria,Urine 2+ /lpf; Mucus,Urine 3+ /lpf
[2024-09-30 15:48] LABS: Hematocrit 35.3 % (37.0-47.0); Hemoglobin 12.1 g/dL (12.2-16.2)
[2024-09-30 16:23] LABS: Troponin I < 0.01 ng/ml (0.00-0.034)
== END 2024-09-30 17:20 | disposition home or self-care (01) ==
PROVIDERS: Emergency Medicine; Emergency Provider Emergency Medicine; PCP Physician Assistant
DX: R07.81 Pleurodynia (principal); R10.9 Unspecified abdominal pain; M79.642 Pain in left hand; R07.82 Intercostal pain; M25.512 Pain in left shoulder; V89.2XXA Person injured in unspecified motor-vehicle accident, traffic, initial encounter
CPT/HCPCS: 73130; 80053; 81001; 83690; 84484; 85014; 85018; 85025; 86803; 87086; 87389; 93005; 96360; 99284; J7120

== ENCOUNTER 2024-09-30 17:24 | Outpatient (CLI) | payer SELFPAY ==
[2024-09-30 17:35] VITALS: BMI 45.4
[2024-09-30 17:58] VITALS: BP 128/73; PULSE 103; RESP 16; TEMP 36.9; O2SAT 99; BMI 45.4
== END 2024-09-30 19:55 | disposition home or self-care (01) ==
LOC: OBOUT 17:27 → OB 17:27
PROVIDERS: PCP Physician Assistant; Visit Provider Obstetrics & Gynecology
DX: Z04.1 Encounter for examination and observation following transport accident (principal); O26.892 Other specified pregnancy related conditions, second trimester; Z3A.22 22 weeks gestation of pregnancy
CPT/HCPCS: G0463

== ENCOUNTER 2024-10-06 14:18 | Outpatient (CLI) | payer SELFPAY ==
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
== END 2024-10-06 23:59 | disposition home or self-care (01) ==
LOC: RAD 14:20
PROVIDERS: PCP Physician Assistant; Visit Provider Obstetrics & Gynecology
DX: O26.892 Other specified pregnancy related conditions, second trimester (principal); Z3A.23 23 weeks gestation of pregnancy; R10.9 Unspecified abdominal pain
CPT/HCPCS: 76816

== ENCOUNTER 2024-10-17 09:53 | Outpatient (CLI) | payer BC, SELFPAY ==
[2024-10-17 11:19] LABS: Basophils % 0.2 % (0.1-2.0); Eosinophils # 0.1 K/mm3 (0.0-0.4); Eosinophils % 0.7 % (0.1-12.0); Hemoglobin 11.5 g/dL (12.2-16.2); Lymphocytes # 1.5 K/mm3 (0.7-4.5); Lymphocytes % 16.6 % (10-50); Mean Corpuscular HGB Conc 33.8 g/dL (31.8-35.4); Mean Corpuscular Volume 82.9 fl (81-99); Mean Platelet Volume 8.8 fl (7.4-10.4); Monocytes # 0.7 K/mm3 (0.1-1.0); Monocytes % 7.2 % (1.7-9.3); Neutrophils # 6.8 K/mm3 (1.8-7.8); Neutrophils % 74.6 % (37.0-80.0); Platelet Count 323 K/mm3 (142-424); Red Cell Distribution Width 13.2 % (11.5-17.5); White Blood Count 9.1 K/mm3 (4.8-10.8)
[2024-10-17 11:44] LABS: Glucose 1 Hour 176 mg/dL (74-100)
[2024-10-18 06:51] LABS: RPR W/RFX Titers Nonreactive (Nonreactive)
== END 2024-10-17 23:59 | disposition home or self-care (01) ==
PROVIDERS: PCP Physician Assistant; Visit Provider Obstetrics & Gynecology
DX: Z34.02 Encounter for supervision of normal first pregnancy, second trimester (principal); Z3A.24 24 weeks gestation of pregnancy
CPT/HCPCS: 82947; 85025; 86592

== ENCOUNTER 2024-10-20 06:36 | Outpatient (CLI) | payer BC, SELFPAY ==
[2024-10-20 06:42] VITALS: BMI 46.6
[2024-10-20 06:58] VITALS: BP 129/75; PULSE 100; RESP 18; TEMP 37; O2SAT 98; BMI 46.6
[2024-10-20 06:58] LABS: Microscopic, Urine URINE MICROSCOPIC (MICROSCOPIC)
[2024-10-20 07:00] LABS: Appearance,Urine SL CLOUDY (Clear); Bilirubin,Urine Negative (Negative); Blood, Urine Negative (Negative); Color,Urine YELLOW (Yellow); Glucose,Urine (UA) Negative (Negative); Ketones,Urine Negative (Negative); Leukocyte Esterase,Urine Negative (Negative); Nitrate,Urine Negative (Negative); PH,Urine 6.5 (5.0-8.5); Protein,Urine Negative (Negative); Urobilinogen,Urine 0.2 EU/dl (0.2)
[2024-10-20 07:11] LABS: Barbiturates Screen,Urine Negative ng/ml (<200)
[2024-10-20 07:12] LABS: Benzodiazepines Screen,Urine Negative ng/ml (<200)
[2024-10-20 07:13] LABS: Amphetamine/Metha Screen,Urine Negative ng/ml (<1000); Methadone Screen,Urine Negative ng/ml (<300)
[2024-10-20 07:14] LABS: Bacteria,Urine 1+ /lpf; Cannabinoid Screen,Urine Negative ng/ml (<50); RBC,Urine Occasional #/hpf (0-3); Squamous Epithelial Cell,Urine 20-50 #/hpf (0-5); WBC,Urine Occasional #/hpf (0-3)
[2024-10-20 07:15] LABS: Cocaine Screen,Urine Negative ng/ml (<300); Opiate Screen,Urine Negative ng/ml (<300)
[2024-10-20 07:16] LABS: Phencyclidine Screen,Urine Negative ng/ml (<25)
[2024-10-20] MEDS: BUTALB/ACETAMINOPHEN/CAFFEINE 50MG/325MG/40MG TAB 1 EACH PO (07:30)
== END 2024-10-20 08:35 | disposition home or self-care (01) ==
LOC: OBOUT 06:38 → OB 06:39
PROVIDERS: PCP Physician Assistant; Visit Provider Obstetrics & Gynecology
DX: O12.02 Gestational edema, second trimester (principal); Z3A.25 25 weeks gestation of pregnancy; R51.9 Headache, unspecified; R03.0 Elevated blood-pressure reading, without diagnosis of hypertension
CPT/HCPCS: 80307; 81001; G0463

== ENCOUNTER 2024-10-24 08:10 | Outpatient (CLI) | payer BC, SELFPAY ==
[2024-10-24 08:49] LABS: Glucose,Fasting 94 mg/dl (74-100)
[2024-10-24 11:40] LABS: Glucose 1 Hour 167 mg/dL (74-100)
[2024-10-24 12:38] LABS: Glucose 2 Hour 143 mg/dL (74-100)
[2024-10-24 13:16] LABS: Glucose 3 Hour 114 mg/dL (74-100)
== END 2024-10-24 23:59 | disposition home or self-care (01) ==
LOC: LAB 08:11
PROVIDERS: PCP Physician Assistant; Visit Provider Obstetrics & Gynecology
DX: E74.39 Other disorders of intestinal carbohydrate absorption (principal)
CPT/HCPCS: 36415; 82951

== ENCOUNTER 2024-11-03 09:20 | Outpatient (CLI) | payer BC, SELFPAY ==
--- NOTE | 2024-11-03 | US_ITS ---
PROCEDURE: US TRANSVAGINAL CLINICAL INDICATION: COMPARISON: US US OB /MATERNAL DETAIL from 09/16/2024 US US OB FOLLOW UP from 09/30/2024 US US OB FOLLOW UP from 10/06/2024 FINDINGS: Transvaginal sonographic images of the cervix were obtained. Fetus in the cephalic presentation The cervix measures 1.97 cm-2.07 cm Within the cervix there is a nabothian cyst that measures 1.4 cm x 0.5 cm. There is mild funneling of the cervix at the internal ox measuring 0.5 cm. IMPRESSION: 1. Transvaginal images of the cervix were obtained and the fetus is in the cephalic presentation. 2. The cervix appears shortened measuring 1.97 cm-2.07 cm. Previous examination at 20 weeks showed the cervix to be 4.01 cm. 3. There is mild funneling of the internal os measuring 0.5 cm. 4. Within the cervix there is a 1.4 x 0.5 cm nabothian cyst. Dictated by: Salinas Canales MD 11/03/2024 11:28 Salinas Canales MD in [place] 11/03/2024 11:28
[2024-11-03 09:28] VITALS: BMI 46.6
[2024-11-03 09:50] VITALS: BP 137/83; PULSE 111; RESP 20; TEMP 37; BMI 46.6
--- NOTE | 2024-11-03 10:07 | US_ITS ---
PROCEDURE: US OB FOLLOW UP CLINICAL INDICATION: vaginal bleeding COMPARISON: US US OB /MATERNAL DETAIL from 09/16/2024 US US OB FOLLOW UP from 09/30/2024 US US OB FOLLOW UP from 10/06/2024 US US TRANSVAGINAL from 11/03/2024 FINDINGS: Transabdominal sonographic images of the pelvis were obtained. The following parameters are obtained: From her established due date she is 27weeks Viable fetus in the cephalic presentation with an anterior placenta grade 1. The cervix measures heart rate: 142bpm bpm. BPD: 26weeks 0 days, 12 percentile HC: 26weeks 4days, 10 percentile AC: 27weeks 1day, 42 percentile FL: 27weeks 0 days, 31 percentile HC/AC: 1.08 FL/BPD: 0.78 FL/AC: 0.22 Growth percentile: 31 Amniotic fluid: MVP 3.80 cm No obvious anomalies evident. profile seen, stomach, bladder, kidneys, three-vessel cord, four chamber heart appear normal. IMPRESSION: 1. Viable fetus in the cephalic presentation with anterior placenta grade 1. 2. The fluid is within normal limits with an MVP 3.80 cm. 3. breathing movement was seen. 4. There has been good interval growth with the fetus currently 31st percentile. 5. biometry is consistent with the dates. 6. There is no evidence of placental abruption. Dictated by: Salinas Canales MD 11/03/2024 11:37 Salinas Canales MD in [place] 11/03/2024 11:37
[2024-11-03 10:10] LABS: Microscopic, Urine URINE MICROSCOPIC (MICROSCOPIC)
[2024-11-03 10:12] LABS: Appearance,Urine CLEAR (Clear); Bilirubin,Urine Negative (Negative); Blood, Urine Negative (Negative); Color,Urine YELLOW (Yellow); Glucose,Urine (UA) Negative (Negative); Ketones,Urine Negative (Negative); Leukocyte Esterase,Urine 1+ (Negative); Nitrate,Urine Negative (Negative); Protein,Urine Negative (Negative); Specific Gravity, Urine >= 1.030 (1.005-1.030); Urobilinogen,Urine 0.2 EU/dl (0.2)
[2024-11-03] MEDS: ONDANSETRON 4MG ODT 4 MG SL (10:20)
[2024-11-03 11:49] LABS: Bacteria,Urine Trace /lpf
--- NOTE | 2024-11-03 13:33 | P.PN_ITS ---
Subjective *Date: 11/03/24 *Time: 13:33 Interval history: Swati is a 24 yo at 27w0d who presented to [facility] L&D with complaint of low back pain, cramping and vaginal bleeding. She states she hasn't been feeling well this . On Sunday she had severe cramping/abdominal pain and vaginal bleeding. Bleeding and pain decreased but was still present early this morning so she came to L&D. She had no bleeding while on L&D. She was still having back pain and cramping. NST was reassuring for gestational age and no contractions noted on toco. Pelvic ultrasound was ordered and demonstrated fetus in the cephalic presentation. The cervix appears shortened measuring 1.97 cm- 2.07 cm. Previous examination at 20 weeks showed the cervix to be 4.01 cm. 3. There is mild funneling of the internal os measuring 0.5 cm. 4. Within the cervix there is a 1.4 x 0.5 cm nabothian cyst. She is very worried about ultrasound findings and her symptoms. She admits it took her 4 years to conceive. She conceived with IUD and Femara at . She is in a same sex relationship. Medical Exam Vital signs and Labs for Last 24 Hours: Vital Signs Temp Pulse Resp BP 11/03/24 09:50 98.6 F 111 H 20 137/83 Intake and Output 11/02/24 11/03/24 11/03/24 23:59 07:59 15:59 Other: Weight 255 lb Patient Weight 11/03/24 23:59 Weight 255 lb Laboratory Results - last 24 hr 11/03/24 09:26: Urine Color Yellow, Urine Appearance Clear, Urine pH 6.0, Ur Specific [place] >= 1.030, Urine Protein Negative, Urine Glucose (UA) Negative, Urine Ketones Negative, Urine Blood Negative, Urine Nitrate Negative, Urine Bilirubin Negative, Urine Urobilinogen 0.2, Ur Leukocyte Esterase 1+ A, Urine RBC None, Urine WBC 3-5, Ur Squamous Epith Cells 3-5, Urine Bacteria Trace I & O for Labs for Last 24 Hours: Intake & Output 10/31/24 11/01/24 11/02/24 11/03/24 23:59 23:59 23:59 23:59 Weight 255 lb Head: Present atraumatic and normocephalic ENT: Present mucous membranes moist Neck: Present full ROM Respiratory: Present CTA bilaterally and normal respiratory effort Cardiac: Present Reg Rate and Rhythm GI: Present soft (Gravid) Rectal (female): Present deferred (female): Present deferred Extremities: Present full ROM; Absent edema Neuro: Present alert, awake and moves all extremities Assessment and Plan *Assessment and plan (1) Short cervical length during in second trimester: Status: Acute Category: Medical Code(s): O26.872 - Cervical shortening, second trimester (2) Abdominal cramping: Status: Acute Category: Medical Code(s): R10.9 - Unspecified abdominal pain (3) Vaginal bleeding in : Status: Acute Category: Medical Code(s): O46.90 - Antepartum hemorrhage, unspecified, unspecified trimester (4) Maternal obesity affecting , antepartum: Status: Acute Qualifiers: Obesity type affecting : other obesity Qualified Code(s): O99.210 - Obesity complicating , unspecified trimester; E66.89 - Other obesity not elsewhere classified Category: Medical Code(s): O99.210 - Obesity complicating , unspecified trimester (5) Abnormal transvaginal ultrasound: Status: Acute Category: Medical Code(s): R93.89 - Abnormal findings on diagnostic imaging of other specified body structures (6) Elevated blood pressure affecting in first trimester, antepartum: Status: Acute Category: Medical Code(s): O16.1 - Unspecified maternal hypertension, first trimester (7) POTS (postural orthostatic tachycardia syndrome): Status: Acute Category: Medical Code(s): G90.A - Postural orthostatic tachycardia syndrome [POTS] (8) Bipolar disorder: Status: Chronic Qualifiers: Active/Remission status: remission status unspecified Qualified Code(s): F31.9 - Bipolar disorder, unspecified Category: Medical Code(s): F31.9 - Bipolar disorder, unspecified Plan Discussed ultrasound findings with Swati and her partner. Discussed case with Dr. Spangler at [facility]. Plan for patient to go by private vehicle to [facility] for further evaluation. I discussed with Swati that I could admit her and send her by ambulance but she voiced she would prefer to go by private vehicle. Her significant other will take her directly there. She is still having cramping and low back pain. No vaginal bleeding since early this morning. Baby is active NST reassuring for gestational age.
== END 2024-11-03 13:30 | disposition home or self-care (01) ==
LOC: OBOUT 09:22 → OB 09:22
PROVIDERS: PCP Physician Assistant; Visit Provider Obstetrics & Gynecology
DX: O26.872 Cervical shortening, second trimester (principal); O46.90 Antepartum hemorrhage, unspecified, unspecified trimester; O16.2 Unspecified maternal hypertension, second trimester; G90.A Postural orthostatic tachycardia syndrome [POTS]; F31.9 Bipolar disorder, unspecified; O36.8120 Decreased fetal movements, second trimester, not applicable or unspecified; Z3A.27 27 weeks gestation of pregnancy
CPT/HCPCS: 76816; 76830; 81001; 87086; G0463; Q0162

== ENCOUNTER 2024-11-19 15:20 | Outpatient (CLI) | payer BC, SELFPAY ==
[2024-11-19 15:42] LABS: Basophils % 0.3 % (0.1-2.0); Eosinophils # 0.1 K/mm3 (0.0-0.4); Eosinophils % 0.8 % (0.1-12.0); Hematocrit 36.5 % (37.0-47.0); Hemoglobin 12.1 g/dL (12.2-16.2); Lymphocytes # 1.7 K/mm3 (0.7-4.5); Lymphocytes % 17.7 % (10-50); Mean Corpuscular HGB Conc 33.2 g/dL (31.8-35.4); Mean Corpuscular Hemoglobin 27.8 pg (27.0-31.2); Mean Corpuscular Volume 83.9 fl (81-99); Mean Platelet Volume 9.3 fl (7.4-10.4); Monocytes # 0.8 K/mm3 (0.1-1.0); Monocytes % 8.6 % (1.7-9.3); Neutrophils # 7.1 K/mm3 (1.8-7.8); Neutrophils % 71.9 % (37.0-80.0); Platelet Count 332 K/mm3 (142-424); Red Blood Count 4.35 M/mm3 (4.20-5.40); Red Cell Distribution Width 13.2 % (11.5-17.5); White Blood Count 9.8 K/mm3 (4.8-10.8)
[2024-11-19 15:57] LABS: Creatinine,Urine Random 145 mg/dL (Not Estab.)
[2024-11-19 15:58] LABS: Activated Partial Thrombo Time 26.2 seconds (22.8-30.6); Fibrinogen 533 mg/dL (229.9-363.5); INR 0.84 (0.9-1.1); Prothrombin Time 9.6 seconds (10.1-12.5)
[2024-11-19 16:07] LABS: Chloride 109 mmol/L (98-107)
[2024-11-19 16:08] LABS: Albumin Level 3.2 g/dl (3.5-5.0); Potassium 4.4 mmoL/L (3.5-5.1); Sodium 132 mmol/L (136-145)
[2024-11-19 16:10] LABS: Blood Urea Nitrogen 9 mg/dl (7-17); Estimated Glomerular Filt Rate 122 ml/min (>60); GFR (African American) 147 ML/MIN (>60)
[2024-11-19 16:11] LABS: Alanine Aminotransferase 22 U/L (12-78); Albumin/Globulin Ratio 1.5 (1.1-1.8); Alkaline Phosphatase 147 U/L (38-126); Anion Gap 8.4 mEq/L (5-15); Aspartate Amino Transferase 29 U/L (14-36); Calcium 10.2 mg/dl (8.4-10.2); Carbon Dioxide 19 mmol/L (22.0-30.0); Globulin 2.2 g/dL (1.3-3.2); Glucose 123 mg/dl (74-100); Total Protein,Serum 5.4 g/dl (6.3-8.2)
[2024-11-19 16:17] LABS: Bilirubin,Total 0.1 mg/dl (0.2-1.3)
[2024-11-19 16:34] LABS: Uric Acid 6.3 mg/dl (2.5-6.2)
== END 2024-11-19 23:59 | disposition home or self-care (01) ==
LOC: LAB 15:21
PROVIDERS: PCP Physician Assistant; Visit Provider Obstetrics & Gynecology
DX: O26.872 Cervical shortening, second trimester (principal); O46.92 Antepartum hemorrhage, unspecified, second trimester; I10 Essential (primary) hypertension; Z3A.29 29 weeks gestation of pregnancy
CPT/HCPCS: 36415; 80053; 82570; 84156; 84550; 85025; 85384; 85610; 85730

== ENCOUNTER 2024-11-21 07:52 | Outpatient (CLI) | payer BC, SELFPAY ==
--- NOTE | 2024-11-21 08:07 | US_ITS ---
PROCEDURE: US OB BIOPHYSICAL PROFILE CLINICAL INDICATION: Progressive shortening of cervix. COMPARISON: US US OB TRANSVAGINAL from 06/11/2024 US US OB /MATERNAL DETAIL from 09/16/2024 US OB FOLLOW UP from 09/30/2024 US OB FOLLOW UP from 10/06/2024 US OB FOLLOW UP from 11/03/2024 US US TRANSVAGINAL from 11/03/2024 FINDINGS: Transabdominal sonographic images of the uterus were obtained. From her established due date she is 29weeks 4days. The following parameters are obtained: Viable Fetus in the cephalic presentation with an anterior placenta grade 2. Average ultrasound age is 28weeks 6days Estimated weight 1,234g Cervix measures 2.87 cm-3.94 cm Measurements: heart Rate = 138bpm BPD = 29weeks 2days, 27 percentile HC = 28weeks 4days, 3 percentile AC = 28weeks 0 days, 7 percentile FL = 29weeks 2days, 24 percentile HC/AC is 1.11 FL/BPD is 0.76 FL/AC is 0.23 10 percentile Amniotic fluid index: 11.68cm, MVP 4.74 cm. Qualitative AFV:2 Breathing movements: 2 Gross Body Movements: 2 Tone: 2 Biophysical profile score: 8 No obvious anomalies evident.Kidneys, bladder, stomach, four-chamber heart, three-vessel cord appear normal. IMPRESSION: 1. Viable fetus in the cephalic presentation with an anterior placenta grade 2. 2. The fluid is within normal limits with an amniotic fluid index 11.68 cm, MVP 4.74 cm. 3. Biophysical profile is 8/8 with good breathing movement and movement seen. 4. There has been good interval growth with the fetus currently 10th percentile. 5. Limited anatomical scan appears normal. 6. Cervix measures 2.87 cm-3.94 cm. Dictated by: Salinas Canales MD 11/22/2024 09:07 Salinas Canales MD in [place] 11/22/2024 09:07
== END 2024-11-21 23:59 | disposition home or self-care (01) ==
LOC: RAD 07:52
PROVIDERS: PCP Physician Assistant; Visit Provider Obstetrics & Gynecology
DX: O26.872 Cervical shortening, second trimester (principal); O99.210 Obesity complicating pregnancy, unspecified trimester; E66.89 Other obesity not elsewhere classified; O60.00 Preterm labor without delivery, unspecified trimester; N88.3 Incompetence of cervix uteri; O10.919 Unspecified pre-existing hypertension complicating pregnancy, unspecified trimester; O46.90 Antepartum hemorrhage, unspecified, unspecified trimester
CPT/HCPCS: 76816; 76819

== ENCOUNTER 2024-11-24 08:11 | Outpatient (CLI) | payer BC, SELFPAY ==
[2024-11-24 08:34] VITALS: BMI 47.3
[2024-11-24 08:39] LABS: Microscopic, Urine URINE MICROSCOPIC (MICROSCOPIC)
[2024-11-24 08:51] VITALS: BP 143/94; PULSE 92; RESP 17; TEMP 36.6; O2SAT 98; BMI 47.3
[2024-11-24] MEDS: ACETAMINOPHEN 500MG TAB 1000 MG PO (09:15)
[2024-11-24] MEDS: LACTATED RINGERS 1000ML 1,000 ML 999 ML IV (09:16)
[2024-11-24 09:55] LABS: Appearance,Urine Slightly Cloudy (Clear); Color,Urine Yellow (Yellow); PH,Urine 5.5 (5.0-8.5)
[2024-11-24 09:56] LABS: Blood, Urine Negative (Negative); Glucose,Urine (UA) Negative (Negative); Ketones,Urine Negative (Negative); Nitrate,Urine Negative (Negative); Protein,Urine 2+ (Negative); Specific Gravity, Urine 1.045 (1.005-1.030)
[2024-11-24 09:57] LABS: Bacteria,Urine Trace /lpf; Bilirubin,Urine Negative (Negative); Leukocyte Esterase,Urine Trace (Negative); Urobilinogen,Urine 0.2 EU/dl (0.2)
[2024-11-24 10:10] LABS: Chloride 108 mmol/L (98-107); Potassium 4.3 mmoL/L (3.5-5.1); Sodium 135 mmol/L (136-145)
[2024-11-24 10:11] LABS: Basophils % 0.4 % (0.1-2.0); Eosinophils # 0.1 K/mm3 (0.0-0.4); Eosinophils % 0.9 % (0.1-12.0); Hematocrit 38.3 % (37.0-47.0); Hemoglobin 12.8 g/dL (12.2-16.2); Lymphocytes # 1.4 K/mm3 (0.7-4.5); Lymphocytes % 15.1 % (10-50); Mean Corpuscular HGB Conc 33.4 g/dL (31.8-35.4); Mean Corpuscular Hemoglobin 28.1 pg (27.0-31.2); Mean Platelet Volume 9.4 fl (7.4-10.4); Monocytes # 0.6 K/mm3 (0.1-1.0); Neutrophils # 6.9 K/mm3 (1.8-7.8); Neutrophils % 75.7 % (37.0-80.0); Platelet Count 313 K/mm3 (142-424); Red Blood Count 4.56 M/mm3 (4.20-5.40); Red Cell Distribution Width 13.3 % (11.5-17.5); White Blood Count 9.1 K/mm3 (4.8-10.8)
[2024-11-24 10:13] LABS: Alanine Aminotransferase 26 U/L (12-78); Aspartate Amino Transferase 36 U/L (14-36); Blood Urea Nitrogen 11 mg/dl (7-17); Creatinine Clearance Estimated 113 mL/min (50-200); Estimated Glomerular Filt Rate 122 ml/min (>60); GFR (African American) 147 ML/MIN (>60)
[2024-11-24 10:14] LABS: Anion Gap 10.3 mEq/L (5-15); Calcium 9.7 mg/dl (8.4-10.2); Carbon Dioxide 21 mmol/L (22.0-30.0); Glucose 70 mg/dl (74-100)
[2024-11-24 10:22] LABS: Activated Partial Thrombo Time 25.9 seconds (22.8-30.6); INR 0.86 (0.9-1.1); Prothrombin Time 9.8 seconds (10.1-12.5)
[2024-11-24 10:27] LABS: Uric Acid 7.3 mg/dl (2.5-6.2)
[2024-11-24 11:22] LABS: Creatinine,Urine Random 331 mg/dL (Not Estab.)
[2024-11-24 11:31] LABS: Fibrinogen 593 mg/dL (229.9-363.5)
== END 2024-11-24 11:58 | disposition home or self-care (01) ==
LOC: OBOUT 08:12 → OB 08:17
PROVIDERS: PCP Physician Assistant; Visit Provider Obstetrics & Gynecology
DX: O26.893 Other specified pregnancy related conditions, third trimester (principal); Z3A.30 30 weeks gestation of pregnancy; R51.9 Headache, unspecified
CPT/HCPCS: 80048; 81001; 82570; 84156; 84450; 84460; 84550; 85025; 85384; 85610; 85730; 87086; 87088; 87186; G0463; J7120

== ENCOUNTER 2024-11-25 12:04 | Observation (INO) | payer BC, SELFPAY ==
[2024-11-25] VITALS (7 sets, daily range): BP systolic 135–159; BP diastolic 68–88; PULSE 69–93; RESP 16; TEMP 36.7; O2SAT 98–99; BMI 48.8
[2024-11-25 13:22] LABS: Microscopic, Urine URINE MICROSCOPIC (MICROSCOPIC)
[2024-11-25] MEDS: LABETALOL 100MG TABLET 200 MG PO ×2 (13:32→21:39)
[2024-11-25] MEDS: ACETAMINOPHEN 500MG TAB 1000 MG PO ×2 (13:37→21:40)
[2024-11-25 14:53] LABS: Appearance,Urine Clear (Clear); Color,Urine Yellow (Yellow); Glucose,Urine (UA) Negative (Negative); Ketones,Urine Negative (Negative); PH,Urine 6.5 (5.0-8.5); Protein,Urine 2+ (Negative)
[2024-11-25 14:54] LABS: Bacteria,Urine Trace /lpf; Bilirubin,Urine Negative (Negative); Blood, Urine Negative (Negative); Leukocyte Esterase,Urine Negative (Negative); Nitrate,Urine Negative (Negative); Squamous Epithelial Cell,Urine 20-50 #/hpf (0-5); Urobilinogen,Urine 0.2 EU/dl (0.2)
--- NOTE | 2024-11-25 18:04 | EXP.HP ---
History of Present Illness *Admission Date: 11/25/24 *Reason for visit:: elevated blood pressures *History of present illness: Swati Estrada is a 24-year-old at 30 weeks and 1 days gestation who presented to the office today with elevated blood pressures, persistent headache and vision changes A+, antibody negative, rubella immune, hepatitis B negative, hepatitis C negative, RPR negative, HIV negative 1 hour GTT: 176 3 hour GTT: 94/167/143/114 GBS unknown PFSH PFS Disclaimer: The information contained in this section may have been updated after the patient was seen, as this information can be updated by other users. Medical History Maternal obesity affecting , antepartum Vaginal bleeding in Short cervical length during in second trimester Headache H. pylori infection Elevated liver enzymes Anxiety BMI 40.0-44.9, adult PCOS (polycystic ovarian syndrome) Migraine Abnormal weight Lipoma Intertrigo Back pain Breast pain, left Rash Right lower quadrant abdominal pain Vitamin D deficiency Amenorrhea, secondary Insomnia Depression Surgical History Hx of tonsillectomy Hx of cholecystectomy Family History Mother Heart disease Social History Smoking Status: Never smoker second hand exposure: No alcohol intake: never counseling provided: provider counseling substance use type: denies use current occupational status: employed Travel in the last 8 weeks: None household members: spouse housing: house number of children: 0 caffeine: Yes Have you lived/traveled outside [place] in past 30 days?: No Contact w/someone who lives/traveled outside US past 30 days?: No Exposure to someone with infectious disease in past 14 days?: No Do you have a fever (greater than 100.4 F or 38 C)?: No Have you tested positive for COVID-19: No Exposed to someone with COVID-19 in past 14 days?: No Do you have a sore throat?: No Do you have a cough?: No Do you have any weakness?: No Do you have any diarrhea?: No Are you experiencing any unusual bleeding?: No Do you have any muscle aches/pain?: No Do you have any abdominal pain?: No Are you experiencing loss of taste or smell?: No Other Medical History Have you received the Flu Vaccine for this season: No Have you received the Pneumonia Vaccine: No Review of Systems Review of Systems Review of systems (narrative): Review of Systems Constitutional: Denies fever, chills, and sweats Eyes: endorses headaches and vision changes Respiratory: Denies cough and shortness of breath Cardiovascular: Denies chest pain and lightheadedness Gastrointestinal: denies abdominal pain. Denies nausea, vomiting. Genitourinary: Denies dysuria and incontinence Musculoskeletal: Denies shoulder pain and back pain Neurological: Denies change in speech or headaches Meds Home Medications and Allergies Home Medications ?Medication ?Instructions ?Recorded ?Confirmed ?Type vit no.95-ferrous 1 tab PO DAILY 10/14/24 11/25/24 History fumarate 28 mg-folic acid 800 mcg tablet () aspirin 81 mg tablet,delayed 81 mg PO BID #60 tabs 11/19/24 11/25/24 Rx release (Adult Low Dose Aspirin) hydroxyzine HCl 50 mg tablet 50 mg PO HS #30 tabs 11/19/24 11/25/24 Rx labetalol 200 mg tablet 200 mg PO BID #30 tabs 11/19/24 11/25/24 Rx progesterone micronized 200 mg 200 mg PO HS 11/19/24 11/25/24 History capsule New Prescriptions to Start Prescriptions: Allergies Allergy/AdvReac Type Severity Reaction Status Date / Time No Known Allergies Allergy Verified 11/25/24 11:25 Exam Data for Last 24 hours Vital signs and Labs for Last 24 Hours: Temp Pulse Resp BP Pulse Ox O2 Del Method 98.1 F 81 16 139/71 98 Room Air 11/25/24 12:20 11/25/24 14:26 11/25/24 12:20 11/25/24 14:26 11/25/24 12:20 11/25/24 12:20 Laboratory Results - last 24 hr 11/25/24 : Urine Color Yellow, Urine Appearance Clear, Urine pH 6.5, Ur Specific [place] 1.020, Urine Protein 2+ A, Urine Glucose (UA) Negative, Urine Ketones Negative, Urine Blood Negative, Urine Nitrate Negative, Urine Bilirubin Negative, Urine Urobilinogen 0.2, Ur Leukocyte Esterase Negative, Urine RBC None, Urine WBC 10-20, Ur Squamous Epith Cells 20-50, Urine Bacteria Trace I & O for Last 24 hours: Intake & Output 11/22/24 11/23/24 11/24/24 11/25/24 23:59 23:59 23:59 23:59 Weight 267 lb Narrative: General: patient is alert oriented in no acute distress and responds appropriately to questions. HEENT: NCAT, EOMI, moist mucous membranes, neck supple with full ROM Cardiovascular: RRR +S1/S2, no murmurs or rubs Pulmonary: Clear to auscultation bilaterally, nonlabored breathing, symmetric chest rise Abdominal: Gravid abdomen appropriate for gestation. No guarding, rebound, or tenderness noted. Extremities: +2 edema, no tenderness or cyanosis noted Skin: Normal turgor, intact, warm. Negative for erythema, pallor, petechia, or lesions Neurologic: Negative for sensory or motor deficit Psychiatric: Normal affect, normal thought process, good judgment and insight, no depression or anxious mood appreciated. *Routine HEENT Exam Head: Present normocephalic and atraumatic Eye: Present EOMI, PERRL and normal accommodation; Absent conjunctival icterus, scleral injection, nystagmus or exophthalmos ENT: Present mucous membranes moist *Routine Respiratory Exam Respiratory: Present CTA bilaterally, normal respiratory effort, able to speak in complete sentences and symmetric chest movement; Absent accessory muscle use, decreased breath sounds, rales, respiratory distress, wheezes, distant breath sounds or diminished air movement *Routine Cardiovascular Exam Cardiovascular: Present RRR, Normal S1 and Normal S2; Absent murmur or gallop *Routine Abdominal Exam Abdominal: Present soft and normoactive bowel sounds; Absent tenderness, distended, rebound or guarding *Routine Rectal Exam Rectal:: deferred *Routine Genitalia Exam Genitalia:: normal female Assessment and Plan *Assessment and plan (1) Progressive shortening of cervix: Status: Acute Category: Medical Code(s): N88.3 - Incompetence of cervix uteri (2) Chronic hypertension affecting : Status: Acute Category: Medical Code(s): O10.919 - Unspecified pre-existing hypertension complicating , unspecified trimester (3) Maternal obesity affecting , antepartum: Status: Acute Qualifiers: Obesity type affecting : other obesity Qualified Code(s): O99.210 - Obesity complicating , unspecified trimester; E66.89 - Other obesity not elsewhere classified Category: Medical Code(s): O99.210 - Obesity complicating , unspecified trimester (4) Vaginal bleeding in : Status: Acute Category: Medical Code(s): O46.90 - Antepartum hemorrhage, unspecified, unspecified trimester (5) Short cervical length during in second trimester: Status: Acute Category: Medical Code(s): O26.872 - Cervical shortening, second trimester (6) 30 weeks gestation of : Status: Acute Category: Medical Code(s): Z3A.30 - 30 weeks gestation of Plan - Monitor vitals - Admit to L&D for BP monitoring, 24 hour urine and monitoring - External FHR and TOCO monitor - Blood type: A+ #Chronic hypertension -S/P course of steroids -admit for 24 hour urine -serial BP - monitoring -continue ASA and labetalol -PIH labs pending #shortened cervix -Will cont vaginal progesterone from home
[2024-11-25 18:45] LABS: Basophils % 0.4 % (0.1-2.0); Eosinophils # 0.1 K/mm3 (0.0-0.4); Eosinophils % 0.9 % (0.1-12.0); Hematocrit 35.5 % (37.0-47.0); Hemoglobin 11.9 g/dL (12.2-16.2); Lymphocytes # 1.9 K/mm3 (0.7-4.5); Lymphocytes % 22.4 % (10-50); Mean Corpuscular HGB Conc 33.5 g/dL (31.8-35.4); Mean Corpuscular Hemoglobin 27.9 pg (27.0-31.2); Mean Corpuscular Volume 83.1 fl (81-99); Mean Platelet Volume 9.4 fl (7.4-10.4); Monocytes # 0.7 K/mm3 (0.1-1.0); Monocytes % 7.7 % (1.7-9.3); Neutrophils # 5.7 K/mm3 (1.8-7.8); Neutrophils % 67.9 % (37.0-80.0); Platelet Count 316 K/mm3 (142-424); Red Blood Count 4.27 M/mm3 (4.20-5.40); Red Cell Distribution Width 13.3 % (11.5-17.5); White Blood Count 8.4 K/mm3 (4.8-10.8)
[2024-11-25 19:20] LABS: Alanine Aminotransferase 29 U/L (12-78); Albumin Level 3.3 g/dl (3.5-5.0); Albumin/Globulin Ratio 1.1 (1.1-1.8); Alkaline Phosphatase 116 U/L (38-126); Aspartate Amino Transferase 43 U/L (14-36); Bilirubin,Total 0.2 mg/dl (0.2-1.3); Blood Urea Nitrogen 8 mg/dl (7-17); Calcium 9.1 mg/dl (8.4-10.2); Carbon Dioxide 16 mmol/L (22.0-30.0); Chloride 110 mmol/L (98-107); Creatinine Clearance Estimated 136 mL/min (50-200); Estimated Glomerular Filt Rate 150 ml/min (>60); GFR (African American) 182 ML/MIN (>60); Globulin 2.9 g/dL (1.3-3.2); Glucose 125 mg/dl (74-100); Lactate Dehydrogenase 210 U/L (313-618); Sodium 133 mmol/L (136-145); Total Protein,Serum 6.2 g/dl (6.3-8.2)
[2024-11-25] MEDS: ASPIRIN EC 81MG TABLET 81 MG PO (21:39)
[2024-11-26 04:09] VITALS: BP 142/93; PULSE 76; RESP 16; TEMP 36.7; O2SAT 99
[2024-11-26 08:24] VITALS: BP 147/93; PULSE 79; RESP 16; TEMP 36.8; O2SAT 98
[2024-11-26] MEDS: ASPIRIN EC 81MG TABLET 81 MG PO (08:31)
[2024-11-26] MEDS: LABETALOL 100MG TABLET 200 MG PO (08:31)
--- NOTE | 2024-11-26 10:23 | EXP.DC.SUM ---
General Admission date:: 11/25/24 Discharge date: 11/26/24 HPI HPI HPI: Swati Estrada is a 24-year-old at 30 weeks and 1 days gestation who presented to the office today with elevated blood pressures, persistent headache and vision changes A+, antibody negative, rubella immune, hepatitis B negative, hepatitis C negative, RPR negative, HIV negative 1 hour GTT: 176 3 hour GTT: 94/167/143/114 GBS unknown Hospital Course Hospital Course Hospital Course: She was observed overnight and has had labetalol 3 times daily. She is in the midst of a 24-hour urine and we will do this before she is discharged home. She had routine blood work that showed her liver function slightly elevated today as well as a uric acid at 7.0. She continues to have blood pressures in the 140s?150s over 80s to 90s. She has occasional headache before she takes her labetalol and she says the labetalol only lasts about 5 or 6 hours. She denies any scotomata or epigastric pain. I am concerned that her blood pressure is getting worse and she may need early delivery. I have discussed this with Dr. Shai Cummins at [facility] where she has been admitted previously for labor. He has agreed to accept her in transfer and we will send her to [facility] today. Exam Data for Last 24 hours Vital signs and Labs for Last 24 Hours: Temp Pulse Resp BP Pulse Ox O2 Del Method 98.2 F 79 16 147/93 H 98 Room Air 11/26/24 08:24 11/26/24 08:24 11/26/24 08:24 11/26/24 08:24 11/26/24 08:24 11/26/24 08:24 Laboratory Results - last 24 hr 11/25/24 18:30: WBC 8.4, RBC 4.27, Hgb 11.9 L, Hct 35.5 L, MCV 83.1, MCH 27.9, MCHC 33.5, RDW 13.3, Plt Count 316, MPV 9.4, Neut % (Auto) 67.9, Lymph % (Auto) 22.4, [place] % (Auto) 7.7, Eos % (Auto) 0.9, Baso % (Auto) 0.4, Neut # (Auto) 5.7, Lymph # (Auto) 1.9, [place] # (Auto) 0.7, Eos # (Auto) 0.1, Baso # (Auto) 0.0, Sodium 133 L, Potassium 4.0, Chloride 110 H, Carbon Dioxide 16 L, Anion Gap 11.0, BUN 8 D, Creatinine 0.50 L, Estimated Creat Clear 136, Estimated GFR 150, Est GFR ( Amer) 182 D, Glucose 125 H, Uric Acid 7.0 H, Calcium 9.1, Total Bilirubin 0.2, AST 43 H, ALT 29, Alkaline Phosphatase 116, Lactate Dehydrogenase 210 L, Total Protein 6.2 L, Albumin 3.3 L, Globulin 2.9, Albumin/Globulin Ratio 1.1 11/25/24 : Urine Color Yellow, Urine Appearance Clear, Urine pH 6.5, Ur Specific [place] 1.020, Urine Protein 2+ A, Urine Glucose (UA) Negative, Urine Ketones Negative, Urine Blood Negative, Urine Nitrate Negative, Urine Bilirubin Negative, Urine Urobilinogen 0.2, Ur Leukocyte Esterase Negative, Urine RBC None, Urine WBC 10-20, Ur Squamous Epith Cells 20-50, Urine Bacteria Trace I & O for Last 24 hours: Intake & Output 11/23/24 11/24/24 11/25/24 11/26/24 11:59 11:59 11:59 11:59 Weight 267 lb Constitutional Constitutional: no acute distress and obese *Routine HEENT Exam Head: Present normocephalic *Routine Respiratory Exam Respiratory: Present normal respiratory effort; Absent accessory muscle use *Routine Extremities Exam Extremities: Present edema Comments: She has 1+ edema in her lower extremities. *Routine Neurological Exam Neurological: Present alert and oriented X3; Absent clonus Comments: Her reflexes are normal. There is no clonus. Results Data Completed and Pending Labs on day of discharge: Labs from last 24 hours 11/25/24 11/25/24 Unknown 18:30 WBC 8.4 RBC 4.27 Hgb 11.9 L Hct 35.5 L MCV 83.1 MCH 27.9 MCHC 33.5 RDW 13.3 Plt Count 316 MPV 9.4 Neut % (Auto) 67.9 Lymph % (Auto) 22.4 [place] % (Auto) 7.7 Eos % (Auto) 0.9 Baso % (Auto) 0.4 Neut # (Auto) 5.7 Lymph # (Auto) 1.9 [place] # (Auto) 0.7 Eos # (Auto) 0.1 Baso # (Auto) 0.0 Sodium 133 L Potassium 4.0 Chloride 110 H Carbon Dioxide 16 L Anion Gap 11.0 BUN 8 D Creatinine 0.50 L Estimated Creat Clear 136 Estimated GFR 150 Est GFR ( Amer) 182 D Glucose 125 H Uric Acid 7.0 H Calcium 9.1 Total Bilirubin 0.2 AST 43 H ALT 29 Alkaline Phosphatase 116 Lactate Dehydrogenase 210 L Total Protein 6.2 L Albumin 3.3 L Globulin 2.9 Albumin/Globulin Ratio 1.1 Urine Color Yellow Urine Appearance Clear Urine pH 6.5 Ur Specific [place] 1.020 Urine Protein 2+ A Urine Glucose (UA) Negative Urine Ketones Negative Urine Blood Negative Urine Nitrate Negative Urine Bilirubin Negative Urine Urobilinogen 0.2 Ur Leukocyte Esterase Negative Urine RBC None Urine WBC 10-20 Ur Squamous Epith Cells 20-50 Urine Bacteria Trace DS: Diagnosis Discharge Diagnosis (1) Progressive shortening of cervix: Status: Acute Code(s): N88.3 - Incompetence of cervix uteri (2) Chronic hypertension affecting : Status: Acute Code(s): O10.919 - Unspecified pre-existing hypertension complicating , unspecified trimester (3) Maternal obesity affecting , antepartum: Status: Acute Code(s): O99.210 - Obesity complicating , unspecified trimester Qualifiers: Obesity type affecting : other obesity Qualified Code(s): O99.210 - Obesity complicating , unspecified trimester; E66.89 - Other obesity not elsewhere classified (4) Vaginal bleeding in : Status: Acute Code(s): O46.90 - Antepartum hemorrhage, unspecified, unspecified trimester (5) Short cervical length during in second trimester: Status: Acute Code(s): O26.872 - Cervical shortening, second trimester (6) 30 weeks gestation of : Status: Acute Code(s): Z3A.30 - 30 weeks gestation of (7) Pre-eclampsia superimposed on chronic hypertension: Status: Acute Code(s): O11.9 - Pre-existing hypertension with pre-eclampsia, unspecified trimester Meds Home Medications and Allergies Home Medications ?Medication ?Instructions ?Recorded ?Confirmed ?Type aspirin 81 mg tablet,delayed 81 mg PO BID #60 tabs 11/19/24 11/25/24 Rx release (Adult Low Dose Aspirin) hydroxyzine HCl 50 mg tablet 50 mg PO HS #30 tabs 11/19/24 11/25/24 Rx labetalol 200 mg tablet 200 mg PO BID #30 tabs 11/19/24 11/25/24 Rx progesterone micronized 200 mg 200 mg vaginal HS 11/19/24 11/26/24 History capsule vit no.95-ferrous 1 tab PO DAILY 11/26/24 11/26/24 History fumarate 28 mg-folic acid 800 mcg tablet () New Prescriptions to Start Prescriptions: Allergies Allergy/AdvReac Type Severity Reaction Status Date / Time No Known Allergies Allergy Verified 11/25/24 11:25 Discharge Plan Disposition Patient Disposition: Xfer Short-Term Hosp Discharge Order Discharge Orders: Discharge Order (Routine); Ordered 11/26/24 Ordered By: Salinas Canales Follow up Plan Prescriptions/Medication Reconciliation: Continued progesterone micronized 200 mg capsule 200 mg vaginal HS hydroxyzine HCl 50 mg tablet 50 mg PO HS Qty: 30 1RF aspirin [Adult Low Dose Aspirin] 81 mg tablet,delayed release (DR/EC) 81 mg PO BID Qty: 60 1RF labetalol 200 mg tablet 200 mg PO BID Qty: 30 0RF PNV cmb#95-ferrous fumarate-FA [] 28 mg iron- 800 mcg tablet 1 tab PO DAILY Patient Comments: TAKE ONE TABLET BY MOUTH EVERY DAY Problem Reconciliation Problems Reviewed?: Yes Patient Discharge Instructions ACTIVITY: Bed rest DIET: continue same diet Print Language: Brazilian Providers Primary Care Provider: Mónica Guzman Admit Provider: Indu Rogers Attending Provider: Indu Rogers
--- NOTE | 2024-11-26 11:49 | PC.NURSE ---
Active Medications Generic Name Dose Route Start Last Admin Trade Name Freq PRN Reason Stop Dose Admin Acetaminophen 1,000 mg 11/25/24 13:24 11/25/24 21:40 Acetaminophen 500mg Tab PO 12/25/24 13:23 1,000 mg Q6HP PRN Administration Fever or Mild Pain (1-3) Aspirin 81 mg 11/25/24 21:00 11/26/24 08:31 Aspirin Ec 81mg Tablet PO 12/25/24 20:59 81 mg BID JENNIFER Administration Labetalol HCl 200 mg 11/25/24 13:30 11/26/24 08:31 Labetalol 100mg Tablet PO 12/25/24 13:29 200 mg TID JENNIFER Administration Progesterone 200 mg 11/25/24 21:00 11/25/24 21:40 Progesterone, Micronized 100mg Capsule VG 12/25/24 20:59 Not Given HS JENNIFER
[2024-11-26 15:19] LABS: Total Protein 24 Hour,Urine 1898 mg/24 hr (40-90); Total Volume,Urine 1300 mL (600-1600)
== END 2024-11-26 13:15 | disposition short-term general hospital (02) ==
PROVIDERS: Admitting Provider Obstetrics & Gynecology; PCP Physician Assistant; Visit Provider Obstetrics & Gynecology
DX: O10.013 Pre-existing essential hypertension complicating pregnancy, third trimester (principal); Z3A.30 30 weeks gestation of pregnancy; O99.213 Obesity complicating pregnancy, third trimester; O26.873 Cervical shortening, third trimester; E66.9 Obesity, unspecified; O46.93 Antepartum hemorrhage, unspecified, third trimester; N88.3 Incompetence of cervix uteri; O99.283 Endocrine, nutritional and metabolic diseases complicating pregnancy, third trimester; E28.2 Polycystic ovarian syndrome
CPT/HCPCS: 59025; 80053; 81001; 83615; 84155; 84550; 85025; 87086; G0378

== ENCOUNTER 2025-05-15 14:27 | Emergency (ER) | payer BC, SELFPAY ==
[2025-05-15 14:30] VITALS: BP 125/82; PULSE 72; RESP 18; TEMP 36.6; O2SAT 100; BMI 43.9
--- NOTE | 2025-05-15 14:37 | PC.WOUNDNOTE ---
patient placed in the lobby at this time. patient was educated to let triage staff or registration staff know of any changes so she can be reevaluated while she wait for a treatment room to open.
--- OUTSIDE RECORDS SUMMARY | 2025-05-15 14:48 | XMS_ITS | Clinical Summary ---
Author Organization [facility] Address [address] [place] [address] Care Team Providers Care Panman Name Role Phone Mónica Guzman Primary Care Provider [phone] Allergies Active Allergy Reactions Criticality Noted Date Comments Banana Anaphylaxis High 11/03/2024 Medications Vit-Fe Fumarate-FA ( 27-1) 27-1 MG tablet tablet Take 1 tablet by mouth Daily. Active labetalol (NORMODYNE) 200 MG tablet Take 1 tablet by mouth 3 (Three) Times a Day. 90 tablet 12/02/2024 12:28 PM EDT 12/02/2024 Active ibuprofen (ADVIL,MOTRIN) 600 MG tablet Take 1 tablet by mouth Every 6 (Six) Hours. 20 tablet 12/02/2024 12:28 PM EDT 12/02/2024 Active NIFEdipine CC (ADALAT CC) 30 MG 24 hr tablet Take 1 tablet by mouth Daily for 30 days. 30 tablet 12/02/2024 12:28 PM EDT 12/02/2024 Active furosemide (Lasix) 20 MG tablet Take 1 tablet by mouth Daily. 3 tablet 12/02/2024 12:28 PM EDT 12/02/2024 Active Active Problems Problem Noted Date Diagnosed Date Elevated liver enzymes 11/26/2024 Threatened labor 11/03/2024 HTN in , chronic 11/03/2024 Morbid obesity with BMI of 40.0-44.9, adult 10/12 Annual DRUG PURCHASER exam 05/02/2021 Overview (05/10/2021): SCREENING TESTS Year 2017 2018 2019 2019 2020 2021 2022 2023 2024 2025 2026 2027 2028 2029 2030 2031 2032 2033 2034 2035 Age PAP - - x HPV high risk LUISA [Birads] MERRY (5 year) Elroy Kang (lifetime) Colonoscopy DEXA [T-score] Frax [hip/any] Lipids [LDL / HDL / TG] Vitamin D TSH Enter the month test was performed. If month not known, enter X' Black numbers = normal results Red numbers = abnormal results Black X = patient reported normal Red X - patient reported abnormal Referred by: ROSARIO was present with her 's 1st delivery (other partner) Profession: Other info: Same sex marriage Immunizations Immunization Administration Dates Next Due DTaP, Unspecified 07/06/2003,03/27/2000,02/02/20 00,1999 Fluzone >6mos 07/20/2010 Hep B / HiB 02/02/2000,1999 Hep B, Adolescent or Pediatric 1999 Hepatitis A 08/26/2018 Hib (PRP-OMP) 03/27/2000 IPV 07/06/2003,06/20/2000,02/02/2000 ,1999 MMR 07/06/2003,06/20/2000 Tdap 03/30/2010 Varicella 06/20/2000 Family History Medical History Relation Name Comments Arthritis Father Diabetes Father Hypertension Father Alcohol abuse Mother Arthritis Mother Bleeding Disorder Mother COPD Mother Diabetes Mother Early Mother Heart disease Mother Hyperlipidemia Mother Hypertension Mother Kidney disease Mother Mental illness Mother Drug abuse Sister Relation Name Status Comments Father Mother Sister Social History Tobacco Use Types Packs/Day Years Used Date Smoking Tobacco: Never Passive Smoke Exposure: Never Smokeless Tobacco: Never Tobacco Cessation:Counseling Given: No Alcohol Use Standard Drinks/Week Comments Not Currently 0 (1 standard drink = 0.6 oz pur e alcohol) [facility] Utilities Answer Date Recorded In the past 12 months has [place], gas, oil, or water company threatened to shut off services in your home? No 11/29/2024 AUDIT-C Answer Date Recorded Q1: How often do you have a drink containing alcohol? Never 11/29/2024 Q2: How many drinks containi ng alcohol do you have on a typical day when you are drinking? Patient does not drink Q3: How often do you have si x or more drinks on one occasion? Never 11/29/2024 Overall Financial Resource Strain (CARDIA) Answe r Date Recorded How hard is it for you to pa y for the very basics like food, housing, medical care, and heating? Not hard at all 11/29/2024 [facility] - Occupational Stress Questionnaire Answer Date Recorded Do you feel stress - tense, restless, nervous, or anxious, or unable to sleep at night because your mind is troubled all the time - these days? Not at all 11/29/2024 Exercise Vital Sign Answer Date Recorde d On average, how many days pe r week do you engage in moderate to strenuous exercise (like a brisk walk)? 0 days 11/29/2024 On average, how many minutes do you engage in exercise at this level? 0 min 11/29/2024 Hunger Vital Sign Answer Date Recorded Within the past 12 months, y ou worried that your food would run out before you got the money to buy more. Never true 11/30/19 25 Within the past 12 months, t he food you bought just didn't last and you didn't have money to get more. Never true 11/29/2024 PRAPARE - Transportation Answer Date Re corded In the past 12 months, has l ack of transportation kept you from medical appointments or from getting medications? No 11/09 In the past 12 months, has l ack of transportation kept you from meetings, work, or from getting things needed for daily living? No 11/29/2024 Avilla Depression Scale Answer Date Recorded Avilla Depression Scale Total 5 12/11/2024 The thought of harming myself has occurred to me . Never 12/11/2024 Abuse Screen Answer Date Recorded Feels Unsafe at Home or Work/School no 11/29/2024 Feels Threatened by Someone no 11/09 Does Anyone Try to Keep You From Having Contact with Others or Doing Things Outside Your Home? no 11/29/2024 Physical Signs of Abuse Present no 11/29/2024 Housing Stability Answer Date Recorded Current Living Arrangements home 11/09 Potentially Unsafe Housing Conditions none 11/29/2024 Family and Community Support Answer Shahab e Recorded If for any reason you need h elp with day-to-day activities such as bathing, preparing meals, shopping, managing finances, etc., do you get the help you need? I don't need any help 11/29/2024 How often do you feel lonely or isolated from those around you? Never 11/29/2024 Employment Answer Date Recorded Do you want help finding or keeping work or a job? I do not need or want help 11/29/2024 Disabilities Answer Date Recorded Difficulty Concentrating, Remembering or Making Decisions no 11/29/2024 Difficulty Managing Errands Independently no 11/29/2024 Education Answer Date Recorded Do you want help with school or training? For example, starting or completing job training or getting a high school diploma, GED or equivalent No 11/29/2024 Preferred Language Sami 11/29/2024 PHQ-2 Answer Date Recorded Patient Health Questionnaire-2 Score 0 11/29/2024 Comments No Sex and Gender Information Value Date Recorded Sex Assigned at Not on file Legal Sex Female 10:44 AM EST Gender Identity Not on file Sexual Orientation Not on file Last Filed Vital Signs Vital Sign Reading Time Taken Comments Blood Pressure 134/81 12/02/2024 8:41 AM EDT Pulse 94 12/02/2024 8:41 AM EDT Temperature 36.7 C (98 F) 12/02/2024 8:41 AM EDT Respiratory Rate 18 12/02/2024 8:41 AM EDT Oxygen Saturation 98% 12/02/2024 8:41 AM EDT Inhaled Oxygen Concentration - - Weight 114 kg (251 lb) 11/28/2024 1:40 PM EDT Height 154.9 cm (5' 1 ) 11/27/2024 1:23 PM EDT Body Mass Index 47.43 11/27/2024 1:23 PM EDT Plan of Treatment Health Maintenance Due Date Last Done Comments Annual Gynecologic Pelvic and Breast Exam 1999 HPV VACCINES (1 - 3-dose series) 2014 ANNUAL PHYSICAL 05/10/2021 HEPATITIS C SCREENING 05/10/2021 COVID-19 Vaccine ( - season) 2024 INFLUENZA VACCINE 06/10/2025 07/20/2010 TDAP/TD VACCINES (3 - Td or Tdap) 11/25/2034 11/25/2024, 03/30/2010 HEMOGLOBIN A1C Discontinued 06/12/2022 Pneumococcal Vaccine 0-49 Aged Out No longer eligible based on patient's age to complete this topic Insurance Advance Directives * CPR (Attempt to Resuscitate) (Latest Code Status on File) Date Activated Date Inactivated Comments 11/28/2024 9:17 PM 12/02/2024 11:57 AM Question Answer Comments Code Status (Patient has no pulse and is not breathing): CPR (Attempt to Resuscitate) Medical Interventions (Patie nt has pulse or is breathing): Full * CPR (Attempt to Resuscitate) Date Activated Date Inactivated Comments 11/28/2024 9:14 AM 11/28/2024 9:17 PM Question Answer Comments Code Status (Patient has no pulse and is not breathing): CPR (Attempt to Resuscitate) Medical Interventions (Patie nt has pulse or is breathing): Full Support Level Of Support Discussed With: Patient * CPR (Attempt to Resuscitate) Date Activated Date Inactivated Comments 11/26/2024 4:41 PM 11/28/2024 9:14 AM Question Answer Comments Code Status (Patient has no pulse and is not breathing): CPR (Attempt to Resuscitate) Medical Interventions (Patie nt has pulse or is breathing): Full Support Level Of Support Discussed With: Patient * CPR (Attempt to Resuscitate) Date Activated Date Inactivated Comments 11/03/2024 4:02 PM 11/17/2024 5:16 PM Question Answer Comments Code Status (Patient has no pulse and is not breathing): CPR (Attempt to Resuscitate) Medical Interventions (Patie nt has pulse or is breathing): Full Support Level Of Support Discussed With: Patient Care Teams Panman Relationship Specialty Start Date End Date Mónica Guzman PA PCP - General Physician Mold Sheet Cleaner 05/02/21
--- OUTSIDE RECORDS SUMMARY | 2025-05-15 14:48 | XMS_ITS | Clinical Summary ---
Author Organization Healthcare Address [address] [place] [address] Care Team Providers Care Lumber Checker Name Role Phone Zurdo Miller MD Primary Care Provider + [phone] Allergies No known active allergies Medications * This document contains information received from the source organization and may not represent a complete record from that organization. albuterol 0.63 MG/3ML nebulizer solution Inhale 0.63 mg. PRN. Active empagliflozin (Jardiance) 10 MG Take by mouth. Active meclizine (Antivert) 25 MG tablet Take 25 mg by mouth. PRN. Active hydrOXYzine HCl (Atarax) 25 MG tablet Take by mouth. PRN. Active FLUoxetine (PROzac) 20 MG tablet Take 20 mg by mouth 1 (one) time each day. every day. Active Rimegepant Sulfate (Nurtec) 75 MG tablet dispersible DISSOLVE ONE TABLET BY MOUTH ONCE NEEDED DIRECTED Active Active Problems Problem Noted Date Diagnosed Date PCOS (polycystic ovarian syndrome) 03/16/2021 Depression 03/16/2021 Anxiety 03/16/2021 Migraines 03/16/2021 Asthma 02/14/2021 Resolved Problems Problem Noted Date Diagnosed Date Resolved Date Type 2 diabetes mellitus 02/14/202103/2021 Immunizations Immunization Administration Dates Next Due DTaP, Unspecified 07/06/2003, 0,02/02/2000,1999 Hep A, Adult 08/26/2018 Hep B, Adolescent or Pediatric 1999 Hib (PRP-OMP) 03/27/2000 Hib / Hep B 02/02/2000,1999 IPV 07/06/2003, 0,02/02/2000,1999 Influenza, seasonal, injecta ble, preservative free 07/20/2010 MMR 07/06/2003,06/20/2000 Tdap 03/30/2010 Varicella 06/20/2000 Family History Medical History Relation Name Comments Heart disease Mother Relation Name Status Comments Mother Social History Tobacco Use Types Packs/Day Years Used Date Smoking Tobacco: Never Smokeless Tobacco: Never Alcohol Use Standard Drinks/Week Comments Not Currently 0 (1 standard drink = 0.6 oz pur e alcohol) Comments Unknown Sex and Gender Information Value Date Recorded Sex Assigned at Female 03/16/2021 8:15 AM EDT Legal Sex Female 6:24 PM EDT Gender Identity Female 03/16/2021 8:15 AM EDT Sexual Orientation Not on file Plan of Treatment Health Maintenance Due Date Last Done Comments [facility]-Depression Screening 1999 [facility]-HIV Screening 1999 [facility]-Hepatitis C Screening 1999 [facility]-/Child/Adol SDOH Screenings 1999 [facility]-Varicella Vaccines (2 of 2 - 2-dose childhood series) 08/03/2003 06/20/2000 HPV Vaccines (1 - 3-dose series) 2014 [facility]- SDOH Screenings 2017 [facility]-Adult SDOH Screenings 2017 [facility]-Pneumococcal Vaccine: Pediatrics (0 to 5 Years) and At-Risk Patients (6 to 49 Years) (1 of 2 - PCV) 2018 [facility]-Pap Smear 02/23/2020 [facility]-DTaP,Tdap,and Td Vaccines (6 - Td or Tdap) 03/30/2020 03/30/2010, 07/06/2003, 03/27/2000, Additional history exists [id number] Vaccine (1 - 2023- season) 2024 [facility]-Influenza Vaccine (#1) 2025 07/20/2010 [facility]-Zoster Vaccines (1 of 2) 2049 06/20/2000 [facility]-Hepatitis B Vaccines Completed 000, 1999, 1999 [facility]-HIB Vaccines Completed 03/27/2000, , 1999 [facility]-IPV Vaccines Completed 07/06/2003, 07/2000, 02/02/2000, Additional history exists [facility]-Hepatitis A Vaccines Aged Out 08/26/2018 No longer eligible based on patient's age to complete this topic [facility]-Rotavirus Vaccines Aged Out No lo nger eligible based on patient's age to complete this topic Insurance [facility] Care Teams Lumber Checker Relationship Specialty Start Date End Date Zurdo Miller MD [address] [place] [address] PCP - General 01/21/21
--- NOTE | 2025-05-15 14:57 | PC.NURSE ---
patient moved from lobby to treatment room 14.
[2025-05-15 15:07] VITALS: BP 131/82; PULSE 68
--- NOTE | 2025-05-15 15:17 | CT_ITS ---
FINAL REPORT TECHNIQUE: Thin section axial images are obtained through the brain after intravenous contrast injection. Multiplanar reconstructions were obtained from the axial data. Exam was performed using dose reduction techniques such as automated exposure control, adjustment of the mA and kV according to patient size, and use of iterative reconstruction technique. CLINICAL HISTORY: left transient monocular vision loss LKN 1030a COMPARISON: none FINDINGS: The intracerebral portions of the carotid arteries are patent. The anterior and middle cerebral arteries are patent. The posterior cerebral arteries arise from the basilar artery. They are patent. Benge of [place] is intact. The basilar artery is patent. The vertebral arteries are patent. There is no significant stenosis, aneurysm, or AVM. IMPRESSION: Unremarkable CT angiogram of the intracerebral vasculature. Reviewed, Interpreted and Dictated by Saba Diaz MD Transcribed by Marylu Golden Authenticated and [facility]
--- NOTE | 2025-05-15 15:17 | CT_ITS ---
FINAL REPORT TECHNIQUE: Axial, sagittal, and coronal images were obtained with delayed imaging to allow for opacification of the venous system. This study was performed with techniques to keep radiation doses as low as reasonably achievable (ALARA). Individualized dose reduction techniques using automated exposure control or adjustment of mA and/or kV according to the patient's size were employed. CLINICAL HISTORY: left transient monocular vision loss LKN 1030a COMPARISON: none FINDINGS: No evidence of acute hemorrhage or infarct. The superior sagittal sinus is patent. The transverse sinuses are patent. The left transverse sinus is hypoplastic. The sigmoid sinuses are patent. IMPRESSION: No acute intracranial process. Reviewed, Interpreted and Dictated by Saba Diaz MD Transcribed by Marylu Golden Authenticated and [facility]
--- NOTE | 2025-05-15 15:17 | CT_ITS ---
FINAL REPORT TECHNIQUE: Thin section axial images were obtained from the aortic arch to the skull base after intravenous contrast injection per CTA protocol. Multiplanar reconstruction images were obtained. Exam was performed using dose reduction techniques and the ALARA principle. CLINICAL HISTORY: left transient monocular vision loss LKN 1030a COMPARISON: none FINDINGS: CTA NECK: Aortic arch: There is a normal three-vessel configuration to the aortic arch. There is no significant stenosis of the great vessels at their origins. Right carotid artery: The right common carotid artery is patent without stenosis. The cervical portions of the right internal carotid artery are patent without stenosis. 0% stenosis per NASCET criteria. Left carotid artery: The left common carotid artery is patent without stenosis. The cervical portions of the left internal carotid artery are patent without stenosis. 0% stenosis per NASCET criteria. Vertebral arteries: The vertebral arteries are patent. No significant stenosis. IMPRESSION: No acute findings Reviewed, Interpreted and Dictated by Saba Diaz MD Transcribed by Marylu Golden Authenticated and [facility]
--- NOTE | 2025-05-15 15:17 | CT_ITS ---
FINAL REPORT TECHNIQUE: Thin section axial images were obtained from skull base to vertex without contrast. Coronal reconstruction images were obtained from the axial data. Exam was performed using dose reduction techniques such as automated exposure control, adjustment of the mA and kV according to patient size, and use of iterative reconstruction technique. CLINICAL HISTORY: left transient monocular vision loss LKN 1030a COMPARISON: 05/19/2024 FINDINGS: There is no mass effect or midline shift. There is no hydrocephalus. There is no intracranial hemorrhage. The posterior fossa is without acute abnormality. The basilar cisterns are preserved. The soft tissues are without acute abnormality. No acute osseous abnormality is identified. IMPRESSION: No acute intracranial abnormality. Reviewed, Interpreted and Dictated by Saba Diaz MD Transcribed by Marylu Golden Authenticated and [facility]
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
--- NOTE | 2025-05-15 15:21 | PC.NURSE ---
Patients Vision Acuity test: R: 20/50 L:20/100 Both eyes: 20/20
[2025-05-15] MEDS: SODIUM CHLORIDE 0.9% 10ML SYR (RAD ONLY) 10 ML IV (15:50)
[2025-05-15] MEDS: 0.9 % SODIUM CHLORIDE 50 ML VIAL IV (15:50)
[2025-05-15 15:51] LABS: Hematocrit 43.9 % (37.0-47.0); Hemoglobin 14.6 g/dL (12.2-16.2); Immature Granulocytes % 0.3 %; Mean Corpuscular HGB Conc 33.3 g/dL (31.8-35.4); Mean Corpuscular Hemoglobin 28.1 pg (27.0-31.2); Mean Corpuscular Volume 84.6 fl (81-99); Nucleated Red Blood Cells % 0 %; Platelet Count 359 K/mm3 (142-424); Red Blood Count 5.19 M/mm3 (4.20-5.40); Red Cell Distribution Width-SD 40.9 fL; White Blood Count 7.3 K/mm3 (4.8-10.8)
[2025-05-15] MEDS: IOPAMIDOL-370 (76%);100ML BOTTLE 80 ML IV (15:51)
[2025-05-15 15:52] LABS: Albumin Level 5.0 g/dl (3.5-5.0); Chloride 109 mmol/L (98-107); Sodium 142 mmol/L (136-145)
[2025-05-15 15:53] LABS: Potassium 4.0 mmoL/L (3.5-5.1)
[2025-05-15 15:55] LABS: Alanine Aminotransferase 86 U/L (12-78); Albumin/Globulin Ratio 1.6 (1.1-1.8); Alkaline Phosphatase 86 U/L (38-126); Anion Gap 13.0 mEq/L (5-15); Aspartate Amino Transferase 64 U/L (14-36); Bilirubin,Total 0.8 mg/dl (0.2-1.3); Blood Urea Nitrogen 12 mg/dl (7-17); Calcium 10.4 mg/dl (8.4-10.2); Carbon Dioxide 24 mmol/L (22.0-30.0); Creatinine Clearance Estimated 96 mL/min (50-200); Creatinine,Serum 0.70 mg/dl (0.52-1.04); Estimated Glomerular Filt Rate 101 ml/min (>60); GFR (African American) 122 ML/MIN (>60); Globulin 3.1 g/dL (1.3-3.2); Glucose 87 mg/dl (74-100); Total Protein,Serum 8.1 g/dl (6.3-8.2)
[2025-05-15 16:04] LABS: Activated Partial Thrombo Time 26.5 seconds (22.8-30.6); INR 0.98 (0.9-1.1); Prothrombin Time 10.9 seconds (10.1-12.5)
[2025-05-15] MEDS: LACTATED RINGERS 1000ML 1,000 ML 999 ML IV (16:04)
--- NOTE | 2025-05-15 16:16 | PC.NURSE ---
Called for a patient transfer, they said they will call back when a provider is ready to talk
[2025-05-15 16:25] LABS: HCG Qualitative, Serum Negative (Negative)
--- NOTE | 2025-05-15 16:32 | PC.NURSE ---
on the phone with .
[2025-05-15 16:37] VITALS: BP 141/93; PULSE 77; RESP 17; O2SAT 99
--- NOTE | 2025-05-15 17:57 | PC.NURSE ---
Patient report called to LADONNA Mathews at [facility].
[2025-05-15 18:03] VITALS: BP 134/88; PULSE 75; RESP 18; TEMP 36.6; O2SAT 100
== END 2025-05-15 18:07 | disposition other institution (70) ==
PROVIDERS: Student in an Organized Health Care Education/Training Program; Emergency Provider Student in an Organized Health Care Education/Training Program; PCP Physician Assistant
DX: H53.122 Transient visual loss, left eye (principal); H47.10 Unspecified papilledema
CPT/HCPCS: 70450; 70496; 70498; 80053; 84703; 85025; 85610; 85730; 96360; 99284; 99285; J7120; Q9967